=== PATIENT | male | born 1950 | race Caucasian/White ===

== ENCOUNTER → 2017-01-03 | Outpatient (CLI) | payer MEDICARE ==
[2017-01-03 15:48] LABS: ANION GAP 3 MEQ/L (8-16); BLOOD UREA NITROGEN 23 MG/DL (7-18); CALCIUM LEVEL 8.4 MG/DL (8.8-10.2); CARBON DIOXIDE LEVEL 34 MEQ/L (21-32); CHLORIDE LEVEL 104 MEQ/L (98-107); CREATININE FOR GFR 1.02 MG/DL (0.70-1.30); GLOMERULAR FILTRATION RATE > 60.0 (>49); GLUCOSE, FASTING 129 MG/DL (80-110); SODIUM LEVEL 141 MEQ/L (136-145)
[2017-01-03 15:59] LABS: COLLAGEN ADP 103 SECONDS (56-103)
== END ==
LOC: M LAB 14:30
PROVIDERS: ATTEND Ophthalmology
DX: H02.423 Myogenic ptosis of bilateral eyelids (principal)

== ENCOUNTER → 2017-02-06 | Outpatient (CLI) | payer MEDICARE ==
--- NOTE | 2017-02-08 16:07 | RADONC ---
RADIATION ONCOLOGY FOLLOWUP DATE: 02/06/2017 CHART NUMBER: [id number] DIAGNOSIS Prostate cancer. STAGE: II B, [id number] ECOG PERFORMANCE STATUS: 0. FOLLOWUP NOTE: Mr. Golden is a very pleasant 66-year-old white male with the diagnosis of what appears to be a stage II B, H0pRoMs poorly differentiated Matt score 9 (4-5) adenocarcinoma of prostate who is presenting to us today for routine followup visit 1 year and 3 months post completion of external beam radiation therapy. The patient presents today reporting that he is doing quite well with no complaints at this time related to his radiation therapy or disease. He is having no urinary bowel difficulties. No bone pain. REVIEW OF SYSTEMS: The patient's review of systems is positive for difficulty walking, getting around secondary to his excessive weight. Otherwise, generally noncontributory. Denies nausea, vomiting, fevers, chills, night sweats, diplopia, headaches, anxiety or depression, anorexia, weight loss, visual disturbances, chest pain, urinary or bowel difficulties, bone pain, or neurological problems. PHYSICAL EXAMINATION The patient is an obese, white male in no acute distress. HEENT: Normocephalic, atraumatic. External ocular movements are intact. There is no palpable cervical, supraclavicular, infraclavicular or axillary lymphadenopathy present. LUNGS: Clear to auscultation and percussion. HEART: Has regular rate and rhythm. ABDOMEN: Benign with no hepatosplenomegaly, masses or tenderness. RECTAL: Examination reveals a normal anal sphincter tone. His prostate is smooth with no evidence of nodularity. The remainder of his physical exam is unchanged. Mr. Golden is clinically TIAN at this time and will be seen by us again in 6 months for further followup. He will also continue to be followed by his other physicians as well. cc: MD Gina Park MD
== END ==
LOC: M ONCR 11:15
PROVIDERS: ATTEND Radiology Radiation Oncology
DX: C61 Malignant neoplasm of prostate (principal)
CPT/HCPCS: 36415; 84153; G0463

== ENCOUNTER → 2017-05-08 | Outpatient (CLI) | payer MEDICARE | LOC: M SMT 11:29 | DX: N50.89 Other specified disorders of the male genital organs (principal) | CPT/HCPCS: 76870 ==

== ENCOUNTER 2017-06-13 07:00 | Day surgery (SDC) | payer MEDICARE ==
[~2017-06-13 07:00] MED LIST: MIDAZOLAM INJ 2 MG/2 ML VIAL (J2250) As Ordered; PROPOFOL 200 MG/20 ML VIAL As Ordered; fentaNYL 100 MCG/2 ML INJECTION (J3010) As Ordered
[2017-06-13] MEDS ORDERED: GLYCOPYRROLATE INJ 0.2 MG/ML 2 ML VIAL As Ordered (07:13)
[2017-06-13] MEDS ORDERED: BACITRACIN OINT 30GM As Ordered (07:19)
[2017-06-13 07:42] LABS: INR 1.23; PROTHROMBIN TIME 15.7 SECONDS (12.4-14.5)
[2017-06-13] MEDS: LR 1,000 ML IV (08:10)
[2017-06-13] MEDS: CEFAZOLIN SOD 1 GM in APPROPRIATE DILUENT 1 EA IV (08:50)
[2017-06-13 09:06] LABS: BEDSIDE GLUCOSE 168 MG/DL (80-115)
[2017-06-13] MEDS ORDERED: PROPOFOL 200 MG/20 ML VIAL As Ordered (10:11)
[2017-06-13] MEDS: LIDOCAINE 2% MDV 20 ML VIAL As Ordered (10:36)
[2017-06-13] MEDS: BUPIVACAINE HCL 0.25% 30 ML VIAL As Ordered (10:36)
[2017-06-13] MEDS ORDERED: METOCLOPRAMIDE INJ 10MG/2ML VIAL (J2765) IV (11:45)
[2017-06-13] MEDS ORDERED: ONDANSETRON 4MG/2ML VIAL (J2405) IV (11:45)
[2017-06-13] MEDS ORDERED: PERCOCET 5MG/325MG TAB PO ×3 (11:45)
[2017-06-13] MEDS ORDERED: LR 1,000 ML IV (11:45)
[2017-06-13] MEDS ORDERED: fentaNYL 100 MCG/2 ML INJECTION (J3010) IV (11:45)
== END 2017-06-13 13:10 | disposition home or self-care (01) ==
LOC: M SDC 07:00
DX: N43.3 Hydrocele, unspecified (principal); I12.9 Hypertensive chronic kidney disease with stage 1 through stage 4 chronic kidney disease, or unspecified chronic kidney disease; E78.5 Hyperlipidemia, unspecified; R60.0 Localized edema; E11.22 Type 2 diabetes mellitus with diabetic chronic kidney disease; K21.9 Gastro-esophageal reflux disease without esophagitis; R06.02 Shortness of breath; M12.9 Arthropathy, unspecified; R06.83 Snoring; G47.33 Obstructive sleep apnea (adult) (pediatric); N18.2 Chronic kidney disease, stage 2 (mild); M1A.30X0 Chronic gout due to renal impairment, unspecified site, without tophus (tophi); R32 Unspecified urinary incontinence; N52.9 Male erectile dysfunction, unspecified; C61 Malignant neoplasm of prostate; Z79.899 Other long term (current) drug therapy; Z79.84 Long term (current) use of oral hypoglycemic drugs; Z79.01 Long term (current) use of anticoagulants; Z86.718 Personal history of other venous thrombosis and embolism; Z86.14 Personal history of Methicillin resistant Staphylococcus aureus infection; Z92.3 Personal history of irradiation
CPT/HCPCS: 55040

== ENCOUNTER → 2017-09-18 | Outpatient (CLI) | payer MEDICARE | LOC: M ONCR 15:17 | DX: C61 Malignant neoplasm of prostate (principal) ==

== ENCOUNTER → 2018-03-19 | Outpatient (CLI) | payer MEDICARE ==
[~2018-03-19] MED LIST changes: +ATOR40TA75 PO; +FEBU40TA PO; +FLOM0.4C39 PO; +GABA600T PO; +GLIM2TAB PO; +JANU100T PO; +LORA-243 PO; +LUPR45IN IM; +MAGN400T5 PO; +MAGN64TASA PO; +METO5TA PO; -MIDAZOLAM INJ 2 MG/2 ML VIAL (J2250) As Ordered; -PROPOFOL 200 MG/20 ML VIAL As Ordered; +TRUL0.5I SC; +ULOR80TA PO; +WARF-21 PO; +WARF-22 PO; -fentaNYL 100 MCG/2 ML INJECTION (J3010) As Ordered
== END ==
LOC: M ONCR 09:00
PROVIDERS: ATTEND Radiology Radiation Oncology
DX: C61 Malignant neoplasm of prostate (principal)

== ENCOUNTER 2018-03-20 05:39 | Day surgery (SDC) | payer MEDICARE ==
[2018-03-20 06:49] LABS: BEDSIDE GLUCOSE 173 MG/DL (83-110)
[2018-03-20] MEDS: TROPICAMIDE 1% OPHTH SOLN 2ML OD (06:54)
[2018-03-20] MEDS: PROPARACAINE 0.5% OPHTH SOL 15ML OD (06:55)
[2018-03-20] MEDS: OFLOXACIN 0.3 % (OCUFLOX) OPTH SOL 5ML OD (06:55)
[2018-03-20] MEDS: PHENYLEPHRINE 2.5% OPHTH SOL 2ML OD (06:55)
[2018-03-20] MEDS ORDERED: fentaNYL 100 MCG/2 ML INJECTION (J3010) As Ordered (07:15)
[2018-03-20] MEDS ORDERED: MIDAZOLAM INJ 2 MG/2 ML VIAL (J2250) As Ordered (07:15)
[2018-03-20] MEDS: POVIDONE-IODINE 5% OPHTH PREP SOL 30ML As Ordered (07:39)
[2018-03-20] MEDS: CEFUROXIME 1MG/0.1ML INTRACAMERAL INJ As Ordered (07:40)
[2018-03-20] MEDS: LIDOCAINE 0.75%/EPINEPHRINE 0.025% IN BSS 1ML SYR INTRACAMERAL (OR ONLY) As Ordered (07:40)
[2018-03-20] MEDS: DUOVISC (0.50ML VISCOAT/0.55ML PROVISC) OPHTH KIT As Ordered (07:40)
[2018-03-20] MEDS: BALANCED SALT IRRIGATION SOLUTION 500ML BAG (FOR OR EYE MACHINE) As Ordered (07:40)
== END 2018-03-20 08:20 | disposition home or self-care (01) ==
LOC: M SDC 05:39
DX: H25.11 Age-related nuclear cataract, right eye (principal); H21.561 Pupillary abnormality, right eye; E11.9 Type 2 diabetes mellitus without complications; I10 Essential (primary) hypertension; E78.5 Hyperlipidemia, unspecified; K21.9 Gastro-esophageal reflux disease without esophagitis; Z79.899 Other long term (current) drug therapy; Z79.01 Long term (current) use of anticoagulants; Z85.46 Personal history of malignant neoplasm of prostate; Z92.3 Personal history of irradiation
CPT/HCPCS: 66982

== ENCOUNTER → 2018-07-02 | Outpatient (CLI) | payer MEDICARE ==
[~2018-07-02] MED LIST changes: -GABA600T PO; +GABA600T4 PO
--- NOTE | 2018-07-03 06:43 | RADONC ---
RADIATION ONCOLOGY FOLLOW-UP NOTE DATE: 07/02/2018 CHART NUMBER: [id number] DIAGNOSIS: Prostate cancer. STAGE: IIB, [id number]. ECOG PERFORMANCE STATUS: 1 FOLLOW-UP NOTE: Mr. Golden is a 68-year-old white male with the diagnosis of a stage IIB, O3iTdXk, poorly differentiated, Matt score 9 (4-5) adenocarcinoma of prostate who is presenting to me today for a routine follow-up visit 2 years and 7 months post completion of external beam radiation therapy. The patient presents today reporting that he is doing quite well with no complaints at this time related to his radiation therapy or disease. He continues to have extreme excess weight and therefore difficulties with mobility. He uses a cane. REVIEW OF SYSTEMS: The patient's review of systems is positive for physical limitations and difficulty walking. He continues have excess weight and degenerative joint disease and arthritis. He denies nausea, vomiting, fevers, chills, night sweats, diplopia, headaches, anxiety or depression, anorexia, weight loss, visual disturbances, chest pain, urinary bowel difficulties or neurological problems. PHYSICAL EXAMINATION: The patient is excessively obese and therefore difficult to examine. HEENT: Exam is normocephalic, atraumatic. Extraocular movements are intact. There is no palpable cervical, supraclavicular, infraclavicular or axillary lymphadenopathy present. His lungs are clear to auscultation and percussion. Heart has regular rate and rhythm. His abdomen is quite large. Rectal examination reveals a normal anal sphincter tone. His prostate is smooth with no evidence of nodularity. Skeletal examination reveals no tenderness to pressure or percussion of the bony skeleton. ASSESSMENT: The patient is clinically TIAN at this time and is being followed and monitored closely by Dr. Burt, his urologist. He is also being followed by his other physicians. In light of this, I have discharged him from my follow-up except on a p.r.n. basis since I will be retiring shortly. cc: MD Gina Park MD
== END ==
LOC: M ONCR 14:10
PROVIDERS: ATTEND Radiology Radiation Oncology
DX: Z08 Encounter for follow-up examination after completed treatment for malignant neoplasm (principal); Z85.46 Personal history of malignant neoplasm of prostate; Z92.3 Personal history of irradiation

== ENCOUNTER → 2018-10-21 | Outpatient (REF) | payer MEDICARE ==
[2018-10-21 10:45] LABS: COLLAGEN EPINEPHRINE 183 SECONDS (74-162)
[2018-10-21 11:11] LABS: COLLAGEN ADP 123 SECONDS (56-103)
== END ==
LOC: M LAB REF 10:10
PROVIDERS: ATTEND Ophthalmology
DX: H02.432 Paralytic ptosis of left eyelid (principal); H02.831 Dermatochalasis of right upper eyelid; H02.834 Dermatochalasis of left upper eyelid

== ENCOUNTER → 2018-10-24 | Outpatient (CLI) | payer MEDICARE ==
[~2018-10-24] MED LIST changes: -FEBU40TA PO; +FEBU40TA4 PO
== END ==
LOC: M SMT 14:03
PROVIDERS: ATTEND Urology
DX: C61 Malignant neoplasm of prostate (principal)
CPT/HCPCS: 36415; 84153; G0463

== ENCOUNTER 2021-01-18 11:28 | Emergency (ER) | payer MEDICARE ==
[~2021-01-18] VITALS: Ht 177.8 cm; Wt 140.9 kg
[~2021-01-18 11:28] MED LIST changes: -GLIM2TAB PO; +GLIM2TAB4 PO
--- OUTSIDE RECORDS SUMMARY | 2021-01-18 11:37 | CCD | Continuity of Care Document ---
Author Author Shadi FREITAS PA Organization Unknown Address [address] [facility] [place] [address] Phone [phone] Care Team Providers Care Fabrics And Material Cutter Name Role Phone John Islas MD [facility] [phone] Problems Active Problems Provider Date Type 2 diabetes mellitus Onset: 01/06/20 15 Pure hypercholesterolemia Onset: 015 Essential hypertension Onset: 01/05/2015 Social History Type Date Description Comments Sex Unknown ETOH Use Occasionally consumes alcohol Tobacco Use Start: Unknown Denies Smoking Smoking Status Reviewed: 06/11/19 Denies Smoking Allergies, Adverse Reactions, Alerts Description No Known Drug Allergies Medications Active Medications SIG Qnty Indications Ordering Provide r Date Gel-One 30mg/3ML Prsy tammy knee 03/22/2020 klf/yolanda Malcolm Gallegos MD 0 Monovisc 88mg/4ML Soln Prefill Syr william tammy knee mkm/ms 02/05/18 Kay Matos MD 02/05 Tramadol HCL 50mg Tablets 1 every 4-6 hours as needed pain 60tabs Ryan Amaya MD 017 Amoxicillin/Clavulanate Potassium 875-125mg Tablets Unknown Metformin HCL ER 500mg Tablets ER 24HR Unknown Glimepiride 2mg Tablets Unknown Warfarin Sodium 10mg Tablets Unknown Doxycycline Hyclate 100mg Capsules Unknown Enoxaparin Sodium 80mg/0.8ML Solution Unknown Besivance 0.6% Suspension Unknown Prednisolone Acetate 1% Suspension Unknown Warfarin Sodium 7.5mg Tablets Unknown Warfarin Sodium 5mg Tablets Unknown Metformin HCL 500mg Tablets Unknown Januvia 100mg Tablets Unknown Gabapentin 600mg Tablets Unknown Amlodipine Besylate 5mg Tablets Unknown Tamsulosin HCL 0.4mg Capsules Unknown Fluzone High-Dose 0.5ml Luann Unknown Trulicity 1.5mg/0.5ML Solution Pen -Inject Unknown Labetalol HCL 100mg Tablets Unknown Finasteride 5mg Tablets Unknown Atorvastatin Calcium 40mg Tablets Unknown Potassium Tablets Unknown Janumet Tablets 1 by mout h twice a day Unknown Metformin HCL Tablets take two tablets by mouth twice a day Unknown Lipitor Tablets 1 by mouth e very Unknown Coumadin Tablets Unknown Atenolol Tablets 1 by archie th every day Unknown Furosemide Tablets 1 by mouth every day Unknown Immunizations Description No Information Available Vital Signs Date Vital Result Comment 02/04/2020 9:47am Body Temperature 97.1 F 09/11/2019 8:36am Body Temperature 98.6 F Height 70 inches 5'10" Weight 320.00 lb BMI (Body Mass Index) 45.9 kg/m2 Results Description No Information Available Procedures Date Code Description Status 11/03/2020 23484 Office/Outpatient Established Lo w MDM 20-29 Min Completed 11/03/202025573 Inject/Drain Joint/Bursa Major C ompleted 07/07/2020 42241 Inject/Drain Joint/Bursa Major C ompleted Medical Devices Description No Information Available Encounters Type Date Location Provider Dx Diagnosis Office Visit 11/03/2020 1:00p NapavineAUDREY Duran M17.0 Bilateral primary osteoarthritis of knee Office Visit 07/07/2020 8:30a Napavinetonja Palomares PA-C M17.0 Bilateral primary osteoarthritis of knee Assessments Date Code Description Provider 11/03/2020 M17.0 Bilateral primary osteoarthritis of knee AUDREY Rose 10/13/2020 M17.0 Bilateral primary osteoarthritis of knee Arelis Palomares PA-C 07/07/2020 M17.0 Bilateral primary osteoarthritis of knee Arelis Palomares PA-C Plan of Treatment 11/03/2020 - AUDREY Rose* M17.0 Bilateral primary osteoarthritis of knee * Follow up:* 12 weeks Tammy knee shanell with KLF. Functional Status Functional Condition Comment Date Status Hearing Aid, Right ear Active Mental Status Description No Information Available Referrals Description No Information Available
--- OUTSIDE RECORDS SUMMARY | 2021-01-18 11:37 | CCD | Continuity of Care Document ---
Author Author Shadi GUTIERREZ M.D. P.C . Organization Unknown Address [address] [place] [address] Phone [phone] Care Team Providers Care Orthopedic Brace Maker Name Role Phone Andry Collins AUTM [phone] JOHN ISLAS M.D. P.CChloé AUTM [phone] Social History Type Date Description Comments Sex Unknown Allergies and adverse reactions Description No Known Drug Allergies Medications Active Medications SIG Qnty Indications Ordering Provide r Date Lotrisone 1-0.05% Cream apply to affected area twice daily 45gm John Islas M.D[facility] 021 Viagra 50mg Tablets take 1 tablet by oral route as needed 1 hour prior to sexual activity 10tabs John Islas M.D[facility] 07/04/2020 Betamethasone Dipropionate 0.05% O intment apply topically to the neck twice daily 60units John xiong M.D.,P.[facility]. 06/30/2020 Irbesartan 75mg Tablets take 1 tablet by mouth once daily 90tabs John Islas M.D[facility] 020 Labetalol HCL 100mg Tablets take 1 tablet by mouth twice daily 180tabs John Islas M[facility] Loratadine 10mg Tablets take 1 tablet by mouth once daily 90tabs John Islas M[facility] 000 Mupirocin 2% Ointment Apply A Small Amount To Affected Area Once A Day Unknown Atorvastatin Calcium 40mg Tablets Take 1 tablet by mouth once daily 90tabs John Islas M[facility] Gabapentin 600mg Tablets Take 1 tablet by mouth twice daily 180tabs John Islas [facility]. Januvia 100mg Tablets take 1 tablet by mouth once daily 90tabs John Islas M.D[facility] 0 000 Metformin HCL 500mg Tablets take 2 tablets by mouth twice daily 360tabs John Islas [facility]. Tamsulosin HCL 0.4mg Capsules 2 caps by mouth every day 1/2 hour before meals 180caps John bowman M.D[facility] Febuxostat 40mg Tablets Take 1 Tablet By Mouth Once Daily Unknown Amlodipine Besylate 5mg Tablets Take 1 tablet by mouth once daily 90tabs John [facility]las [facility]. Finasteride 5mg Tablets take 1 tablet by mouth once daily 90tabs John [facility]las M[facility] 0 000 Furosemide 40mg Tablets take 1 tablet by mouth once daily 90tabs John Islas M[facility] 0 000 Glimepiride 1mg Tablets take 3 tablets by mouth with the first meal of the day and 3 tablets with dinner 540tabs John Islas M[facility] Warfarin Sodium 10mg Tablets take 1 tablet by mouth every day 90tabs John Islas M[facility] 0000 Trulicity 1.5mg/0.5ML Solution Pen -Inject inject 1.5 mg weekly 6ml John Islas M[facility] 0000 Medications Administered in Office Medication SIG Qnty Indications Ordering Provider Date Technetium TC 99M Sestamibi Injection John Islas M.D[facility] 02/07/2017 Vital Signs Date Vital Result Comment 12/29/2020 10:20am Height 69 inches 5'9" Weight 319.00 lb BMI (Body Mass Index) 47.1 kg/m2 Body Temperature 97.2 F BP Systolic 197 mmHg BP Diastolic 85 mmHg Heart Rate 68 /min O2 % BldC Oximetry 89 % 09/09/2020 10:12am Height 69 inches 5'9" Weight 320.00 lb BMI (Body Mass Index) 47.3 kg/m2 Body Temperature 97.3 F BP Systolic 159 mmHg BP Diastolic 81 mmHg Heart Rate 84 /min O2 % BldC Oximetry 92 % Results Test Acquired Date Facility Test Result H/L Range Note Protime 07/03/[address] [address] [phone] Protime 25.3 seconds High 11.0 - 15.5 Inr 2.18 High 0.93 - 1.23 1 CBC W/Automated Diff 07/03/[address] [address] [phone] CBC W/Automated Diff (SEE NOTE) 2 WBC 4.5 10^3/uL 4.2 - 11.0 RBC 4.12 10^6/uL Low 4.50 - 6.30 Hemoglobin 12.3 g/dL Low 14.0 - 16.0 Hematocrit 37.7 % Low 41.0 - 51.0 MCV 91.5 fL 80.0 - 94.0 MCH 29.9 pg 27.0 - 34.0 MCHC 32.6 g/dL 31.0 - 36.0 RDW 14.4 % 11.5 - 14.8 Platelets 167 10^3/uL 150 - 450 MPV 9.8 fL 7.4 - 10.4 Neut 68.8 % 37.0 - 80.0 Lymph 18.3 % Low 25.0 - 40.0 [place] 9.8 % High 3.0 - 8.0 Eos 2.5 % 0.0 - 7.0 Baso 0.4 % 0.0 - 2.0 %Ig 0.2 % High 0.0 - 0.0 %NRBC 0.0 % 0.0 - 0.0 #Neut 3.08 10^3/uL 2.00 - 6.90 #Lymph 0.82 10^3/uL 0.60 - 3.40 #[place] 0.44 10^3/uL 0.00 - 0.90 #Eos 0.11 10^3/uL 0.00 - 0.70 #Baso 0.02 10^3/uL 0.00 - 0.20 #Ig 0.01 10^3/uL 0.00 - 0.10 #NRBC 0.00 10^3/uL 0.00 - 0.00 Manual Diff NOT INDICATED RBC Morph NOT INDICATED Cve Panel 07/03/2020 [facility] [address] [place] [address] [phone] Cve Panel (SEE NOTE) 3 Cholesterol 196 mg/dL 131 - 200 Triglycerides 153 mg/dL 35 - 160 HDL 48 mg/dL 29 - 86 LDL 142 mg/dL 65 - 175 Risk Factor 4.1 3.4 - 4.9 LDL/HDL 2.96 1.00 - 3.55 4 Laboratory test finding 07/03/2020 [facility] [address] [place] [address] [phone] Hgba1c 10.7 % High 4.4 - 6.1 5 Comprehensive Metabolic Panel 07/03/2020 [facility] [address] [place] [address] [phone] Comprehensive Metabo (SEE NOTE) 6 Sodium 136 mEq/L 134 - 153 Potassium 4.7 mEq/L 3.6 - 5.0 Chloride 97 mEq/L Low 98 - 107 Co2 27 mEq/L 22 - 30 Glucose 311 mg/dL High 70 - 99 BUN 33 mg/dL High 7 - 21 Creatinine 1.2 mg/dL 0.7 - 1.5 BUN/Creat 28 High 8 - 27 Total Protein 6.6 g/dL 6.3 - 8.2 Albumin 3.8 g/dL Low 3.9 - 5.0 Globulin 2.8 GM/DL 2.4 - 3.2 A/G Ratio 1.4 0.8 - 2.0 Calcium 8.9 mg/dL 8.4 - 10.2 Total Bili <0.7 mg/dL 0.2 - 1.3 Alkaline Phos 81 U/L 38 - 126 Sgot/Ast 14 U/L 5 - 40 SGPT/Alt 14 U/L 7 - 56 Anion Gap 12.0 mmol/L 8.0 - 16.0 Age 70 yrs Non-Aa GFR >60 mL/min Afr Amer GFR >60 mL/min 7 Laboratory test finding 07/03/2020 [place] [address] [place] [address] [phone] PSA - Diagnostic 0.01 ng/mL 0.00 - 4.00 8 1 \\BLDo\\INR INTERPRETATION\\BLD x\\ Therapeutic range for Coumadin and related oral anticoagulants. -International Normalized Ratio (INR): 2 .0 - 3.0 for Venous Thrombosis, Pulmonary Embolus, Tissue heart valves, Acute [place], Atrial Fibrillation, Valvular heart disease and recurrent Systemic Embolism. -International Normalized Ratio (INR): 2 .5 - 3.5 for Mechanical Prosthetic valve. 2 COMPLETE BLOOD COUNT 3 LIPID PANEL 4 CVE RISK CHOL/HDL LDL/HDL MEN: 1/2 AVERAGE 3.43 1.00 AVERAGE 4.97 3.55 2X AVERAGE 9.55 6.25 3X AVERAGE 23.99 7.99 WOMEN: 1/2 AVERAGE 3.27 1.47 AVERAGE 4.44 3.22 2X AVERAGE 7.05 5.03 3X AVERAGE 11.04 6.14 5 {A1] {HB] 6 COMPREHENSIVE METABOLIC PANE L 7 Male GFR Interprentation 20-49 yrs >60 mL/min Normal 50-59 yrs >56 mL/min Normal 60-69 yrs >49 mL/min Normal 70-79yrs >42 mL/min Normal 80 and above >35 mL/min Normal Female GFR Interpretation 20-39 yrs >60 mL/min Normal 40-49 yrs >58 mL/min Normal 50-59 yrs >51 mL/min Normal 60-69 yrs >45 mL/min Normal 70-79 yrs >39 mL/min Normal 80 and above >32 mL/min Normal 8 \\BLDo\\PSA INTERPRETATION\\BLD x\\ The PSA assay should not be used alone for a screening test or diagnosis for presence or absence of malignant disease. Predictions of disease recurrence should not be based solely on values obtained from serial patient serum values. The PSA result was determined by "[employer]", on the [employer] HER[employer]N 6000. Values obtained with different assay methods or kits cannot be used interchangeably. Procedures Date Code Description Status 11/01/2020 48568 Periodic Preventive Med Age 65+ Completed 09/09/2020 28818 Office/Outpatient Established Mo d MDM 30-39 Min Completed 07/04/2020 21251 Office/Outpatient Established Mo d MDM 30-39 Min Completed Encounters Type Date Location Provider Dx Diagnosis Office Visit 11/01/2020 10:30a [facility] AUDREY Ang Z02.4 Encounter for examination fo r driving license Office Visit 09/09/2020 10:30a [facility] John Islas M.D.,P. C. I11.9 Hypertensive heart disease without heart failure R09.02 Hypoxemia J44.9 Chronic obstructive pulmonar y disease, unspecified E11.9 Type 2 diabetes mellitus wit hout complications Office Visit 07/04/2020 4:00p [facility] John Islas M.D.,P. C. J20.9 Acute bronchitis, unspecified I11.9 Hypertensive heart disease w ithout heart failure K44.9 Diaphragmatic hernia without obstruction or gangrene M75.52 Bursitis of left shoulder Assessments Date Code Description Provider 11/01/2020 Z02.4 Encounter for examination for dr iving license AUDREY Borrego 09/09/2020 I11.9 Hypertensive heart disease witho ut heart failure John Islas M.D.,[facility]. 09/09/2020 R09.02 Hypoxemia Gena Gutierrez,P.C. 09/09/2020 J44.9 Chronic obstructive pulmonary di sease, unspecified John Islas M.D.,P.C. 09/09/2020 E11.9 Type 2 diabetes mellitus without complications John Islas M.D.,[facility]. 07/04/2020 J20.9 Acute bronchitis, unspecified Mi jim Islas M.D.,P.C. 07/04/2020 I11.9 Hypertensive heart disease witho ut heart failure John Islas M.D.,P.C. 07/04/2020 K44.9 Diaphragmatic hernia without obs truction or gangrene John Islas M.D.,P.C. 07/04/2020 M75.52 Bursitis of left shoulder John Islas M.D.,P.C.
--- OUTSIDE RECORDS SUMMARY | 2021-01-18 11:37 | CCD | Continuity of Care Document ---
Author Author Shadi GUTIERREZ M.D. P.C . Organization Unknown Address [address] [place] [address] Phone [phone] Care Team Providers Care Tdp Displays Analyst Name Role Phone Andry Collins AUTM [phone] JOHN ISLAS M.D. P.C. AUTM [phone] Social History Type Date Description Comments Sex [...] Date Facility Test Result H/L Range Note CBC W/Automated Diff 12/29/[address] [id number] [phone] CBC W/Automated Diff (SEE NOTE) 1 WBC 5.0 10^3/uL 4.2 - 11.0 RBC 4.23 10^6/uL Low 4.50 - 6.30 Hemoglobin 12.0 g/dL Low 14.0 - 16.0 Hematocrit 37.5 % Low 41.0 - 51.0 MCV 88.7 fL 80.0 - 94.0 MCH 28.4 pg 27.0 - 34.0 MCHC 32.0 g/dL 31.0 - 36.0 RDW 14.2 % 11.5 - 14.8 Platelets 173 10^3/uL 150 - 450 MPV 8.8 fL 7.4 - 10.4 Neut 73.2 % 37.0 - 80.0 Lymph 13.9 % Low 25.0 - 40.0 [place] 10.1 % High 3.0 - 8.0 Eos 1.8 % 0.0 - 7.0 Baso 0.4 % 0.0 - 2.0 %Ig 0.6 % High 0.0 - 0.0 %NRBC 0.0 % 0.0 - 0.0 #Neut 3.63 10^3/uL 2.00 - 6.90 #Lymph 0.69 10^3/uL 0.60 - 3.40 #[place] 0.50 10^3/uL 0.00 - 0.90 #Eos 0.09 10^3/uL 0.00 - 0.70 #Baso 0.02 10^3/uL 0.00 - 0.20 #Ig 0.03 10^3/uL 0.00 - 0.10 #NRBC 0.00 10^3/uL 0.00 - 0.00 Manual Diff NOT INDICATED RBC Morph NOT INDICATED Urinalysis 12/29/[address] [address] [phone] Urinalysis (SEE NOTE) 2 Source R Color yellow Normal: Yellow Clarity clear Normal: Clear Spec [place] 1.015 1.001 - 1.030 pH 5 5 - 9 Glucose NORM Normal: Negative Bilirubin NEG Normal: Negative Ketone NEG Normal: Negative Protein NEG Normal: Negative Nitrite NEG Normal: Negative Blood 25 Abnormal Normal: Negative Leuk Est NEG Normal: Negative Urobilinogen NOR less than 1.0 mg/dL Microscopic See Below WBC 1 - 3 Normal: None Seen RBC None Seen Normal: None Seen Epithelial FEW Normal: None Seen Bacteria None Seen Normal: None Seen Laboratory test finding 12/29/[address] [address] [phone] Hgba1c 10.3 % High 4.4 - 6.1 Magnesium Serum 1.7 mg/dL 1.7 - 2.2 Cve Panel 12/29/[address] [address] [phone] Cve Panel (SEE NOTE) 3 Cholesterol 154 mg/dL 131 - 200 Triglycerides 115 mg/dL 35 - 160 HDL 48 mg/dL 29 - 86 LDL 91 mg/dL 65 - 175 Risk Factor 3.2 Low 3.4 - 4.9 LDL/HDL 1.90 1.00 - 3.55 4 Comprehensive Metabolic Panel 12/29/2020 [facility] [address] [place] [address] [phone] Comprehensive Metabo (SEE NOTE) 5 Sodium 137 mEq/L 134 - 153 Potassium 4.6 mEq/L 3.6 - 5.0 Chloride 100 mEq/L 98 - 107 Co2 26 mEq/L 22 - 30 Glucose 183 mg/dL High 70 - 99 BUN 18 mg/dL 7 - 21 Creatinine 1.0 mg/dL 0.7 - 1.5 BUN/Creat 18 8 - 27 Total Protein 6.7 g/dL 6.3 - 8.2 Albumin 3.9 g/dL 3.9 - 5.0 Globulin 2.8 GM/DL 2.4 - 3.2 A/G Ratio 1.4 0.8 - 2.0 Calcium 9.1 mg/dL 8.4 - 10.2 Total Bili <0.7 mg/dL 0.2 - 1.3 Alkaline Phos 90 U/L 38 - 126 Sgot/Ast 16 U/L 5 - 40 SGPT/Alt 14 U/L 7 - 56 Anion Gap 11.0 mmol/L 8.0 - 16.0 Age 70 yrs Non-Aa GFR >60 mL/min Afr Amer GFR >60 mL/min 6 Laboratory test finding 12/29/[address] [id number] [phone] Iron 38 g/dL Low 42 - 135 TSH Highly Sensitive 1.39 uIU/mL 0.47 - 5.01 Protime 12/29/[address] [address] [phone] Protime 21.2 seconds High 11.0 - 15.5 Inr 1.81 High 0.93 - 1.23 7 1 COMPLETE BLOOD COUNT 2 URINALYSIS 3 LIPID PANEL 4 CVE RISK CHOL/HDL LDL/HDL MEN: 1/2 AVERAGE 3.43 1.00 AVERAGE 4.97 3.55 2X AVERAGE 9.55 6.25 3X AVERAGE 23.99 7.99 WOMEN: 1/2 AVERAGE 3.27 1.47 AVERAGE 4.44 3.22 2X AVERAGE 7.05 5.03 3X AVERAGE 11.04 6.14 5 COMPREHENSIVE METABOLIC PANE L 6 Male GFR Interprentation 20-49 yrs >60 mL/min Normal 50-59 yrs >56 mL/min Normal 60-69 yrs >49 mL/min Normal 70-79yrs >42 mL/min Normal 80 and above >35 mL/min Normal Female GFR Interpretation 20-39 yrs >60 mL/min Normal 40-49 yrs >58 mL/min Normal 50-59 yrs >51 mL/min Normal 60-69 yrs >45 mL/min Normal 70-79 yrs >39 mL/min Normal 80 and above >32 mL/min Normal 7 \\BLDo\\INR INTERPRETATION\\BLD x\\ Therapeutic range for Coumadin and related oral anticoagulants. -International Normalized Ratio (INR): 2 .0 - 3.0 for Venous Thrombosis, Pulmonary Embolus, Tissue heart valves, Acute [place], Atrial Fibrillation, Valvular heart disease and recurrent Systemic Embolism. -International Normalized Ratio (INR): 2 .5 - 3.5 for Mechanical Prosthetic valve. Procedures Date Code Description Status 12/29/2020 93319 Office/Outpatient Established Mo d MDM 30-39 Min Completed 11/01/2020 98369 Periodic Preventive Med Age 65+ Completed 09/09/2020 04731 Office/Outpatient Established Mo d MDM 30-39 Min Completed Encounters Type Date Location Provider Dx Diagnosis Office Visit 12/29/2020 10:30a [facility] John Islas M.D.,P. C. I11.9 Hypertensive heart disease without heart failure E10.9 Type 1 diabetes mellitus wit hout complications Office Visit 11/01/2020 10:30a [facility] AUDREY Ang Z02.4 Encounter for examination fo r driving license Office Visit 09/09/2020 10:30a [facility] John Islas M.D.,P. C. I11.9 Hypertensive heart disease without heart failure R09.02 Hypoxemia J44.9 Chronic obstructive pulmonar y disease, unspecified E11.9 Type 2 diabetes mellitus wit hout complications Assessments Date Code Description Provider 12/29/2020 I11.9 Hypertensive heart disease witho ut heart failure John Islas M.D.,[facility]. 12/29/2020 E10.9 Type 1 diabetes mellitus without complications John Islas M.D.,P.C. 11/01/2020 Z02.4 Encounter for examination for dr iving license AUDREY Borrego 09/09/2020 I11.9 Hypertensive heart disease witho ut heart failure John Islas M.D[facility]. 09/09/2020 R09.02 Hypoxemia Gena Gutierrez,P.C. 09/09/2020 J44.9 Chronic obstructive pulmonary di sease, unspecified John Islas M.D.,P.C. 09/09/2020 E11.9 Type 2 diabetes mellitus without complications John Islas M.D.,P.C.
--- OUTSIDE RECORDS SUMMARY | 2021-01-18 11:37 | CCD | Continuity of Care Document ---
Author Author Shadi IRELAND Organization Unknown Address [address] [facility] [address] [place] [address] Phone [phone] Care Team Providers Care Screedman/Laborer Name Role Phone Andry Collins AUTM [phone] JOHN [facility]LAS [facility] [phone] Social History Type Date Description Comments Sex Unknown Allergies, Adverse Reactions, Alerts Description No Known Drug Allergies Medications Active Medications SIG Qnty Indications Ordering Provide r Date Lotrisone 1-0.05% Cream apply to affected area twice daily 45gm [facility] 2020 Viagra 50mg Tablets take 1 tablet by oral route as needed 1 hour prior to sexual activity 10tabs [facility] 07/04/2020 Betamethasone Dipropionate 0.05% O intment apply topically to the neck twice daily 60units John xiong [facility] 06/30/2020 Irbesartan 75mg Tablets Take 1 tablet by mouth once daily 90tabs [facility] 2019 Labetalol HCL 100mg Tablets take 1 tablet by mouth twice daily 180tabs [facility] Loratadine 10mg Tablets take 1 tablet by mouth once daily 90tabs [facility] Mupirocin 2% Ointment Apply A Small Amount To Affected Area Once A Day Unknown Atorvastatin Calcium 40mg Tablets take 1 tablet by mouth once daily at bedtime 90tabs John bowman [facility] Gabapentin 600mg Tablets Take 1 Tablet By Mouth Twice Daily Unknown Januvia 100mg Tablets Take 1 tablet by mouth once daily 90tabs [facility]. Metformin HCL 500mg Tablets Take 2 tablets by mouth twice daily 360tabs [facility]. Tamsulosin HCL 0.4mg Capsules 2 caps by mouth every day 1/2 hr before meals 180caps [facility] Febuxostat 40mg Tablets Take 1 Tablet By Mouth Once Daily Unknown Amlodipine Besylate 5mg Tablets Take 1 tablet by mouth once daily 90tabs [facility]. Finasteride 5mg Tablets Take 1 tablet by mouth once daily 90tabs [facility]. Furosemide 40mg Tablets Take 1 tablet by mouth once daily 90tabs [facility] Glimepiride 1mg Tablets take 3 tablets by mouth with the first meal of the day and 3 tablets with dinner 540tabs [facility] Warfarin Sodium 10mg Tablets take 1 tablet by mouth every day 90tabs [facility] Trulicity 1.5mg/0.5ML Solution Pen -Inject [facility] Medications Administered in Office Medication SIG Qnty Indications Ordering Provider Date Technetium TC 99M Sestamibi Injection John [facility] 02/07/2017 Vital Signs Date Vital Result Comment 09/09/2020 10:12am Height 69 inches 5'9" Weight 320.00 lb BMI (Body Mass Index) 47.3 kg/m2 Body Temperature 97.3 F BP Systolic 159 mmHg BP Diastolic 81 mmHg Heart Rate 84 /min O2 % BldC Oximetry 92 % 07/04/2020 4:25pm Height 69 inches 5'9" Weight 321.00 lb BMI (Body Mass Index) 47.4 kg/m2 Body Temperature 97.7 F BP Systolic 189 mmHg BP Diastolic 76 mmHg Heart Rate 85 /min O2 % BldC Oximetry 94 % Results Test Acquired Date Facility Test Result H/L Range Note Protime 07/03/[address] [address] [phone] Protime 25.3 seconds High 11.0 - 15.5 Inr 2.18 High 0.93 - 1.23 1 CBC W/Automated Diff 07/03/[address] [address] [phone] CBC W/Automated Diff (SEE NOTE) 2 WBC [...] Lymph 18.3 % Low 25.0 - 40.0 [place] 9.8 % High 3.0 - 8.0 Eos 2.5 % 0.0 - 7.0 Baso 0.4 % 0.0 - 2.0 %Ig 0.2 % High 0.0 - 0.0 %NRBC 0.0 % 0.0 - 0.0 #Neut 3.08 10^3/uL 2.00 - 6.90 #Lymph 0.82 10^3/uL 0.60 - 3.40 #[place] 0.44 10^3/uL 0.00 - 0.90 #Eos 0.11 10^3/uL 0.00 - 0.70 #Baso 0.02 10^3/uL 0.00 - 0.20 #Ig 0.01 10^3/uL 0.00 - 0.10 #NRBC 0.00 10^3/uL 0.00 - 0.00 Manual Diff NOT INDICATED RBC Morph NOT INDICATED Cve Panel 07/03/2020 [place] [address] [phone] Cve Panel (SEE NOTE) 3 Cholesterol 196 mg/dL 131 - 200 Triglycerides 153 mg/dL 35 - 160 HDL 48 mg/dL 29 - 86 LDL 142 mg/dL 65 - 175 Risk Factor 4.1 3.4 - 4.9 LDL/HDL 2.96 1.00 - 3.55 4 Laboratory test finding 07/03/[address] [address] [phone] Hgba1c 10.7 % High 4.4 - 6.1 5 Comprehensive Metabolic Panel 07/03/2020 [facility] [address] [place] [address] [phone] Comprehensive Metabo (SEE NOTE) 6 Sodium 136 [...] >60 mL/min 7 Laboratory test finding 07/03/2020 [place] [address] [phone] PSA - Diagnostic 0.01 ng/mL 0.00 - 4.00 8 1 \\BLDo\\INR INTERPRETATION\\BLD x\\ Therapeutic range for Coumadin and related oral anticoagulants. -International Normalized Ratio (INR): 2 .0 - 3.0 for Venous Thrombosis, Pulmonary Embolus, Tissue heart valves, Acute MT, Atrial Fibrillation, Valvular heart disease and recurrent [...] result was determined by "[employer]", on the [employer] HERNAN 6000. Values obtained with different assay methods or kits cannot be used interchangeably. Procedures Date Code Description Status 11/01/2020 28178 Periodic Preventive Med Age 65+ Completed 09/09/2020 24046 Office/Outpatient Established Mo d MDM 30-39 Min Completed 07/04/2020 13832 Office/Outpatient Established Mo d MDM 30-39 Min Completed Encounters Type Date Location Provider Dx Diagnosis Office Visit 11/01/2020 10:30a [facility] AUDREY Ang Z02.4 Encounter for examination fo r driving license Office Visit 09/09/2020 10:30a [facility] John Islas M[facility] I11.9 Hypertensive heart disease without heart failure R09.02 Hypoxemia J44.9 Chronic obstructive pulmonar y disease, unspecified E11.9 Type 2 diabetes mellitus wit hout complications Office Visit 07/04/2020 4:00p [facility] John Islas [facility] J20.9 Acute bronchitis, unspecified I11.9 [facility] K[facility]9 Diaphragmatic hernia without obstruction or gangrene M75.52 Bursitis of left shoulder Assessments Date Code Description Provider 11/01/2020 Z02.4 Encounter for examination for dr mao license AUDREY Borrego 09/09/2020 I11.9 Hypertensive heart disease witho ut heart failure John [facility]las [facility] 09/09/2020 R09.02 Hypoxemia Gena Haas, [facility] 09/09/2020 J44.9 Chronic obstructive pulmonary di sease, unspecified John [facility]las [facility] 09/09/2020 E11.9 Type 2 diabetes mellitus without complications John [facility]las [facility] 07/04/2020 J20.9 Acute bronchitis, unspecified Mi jim Islas M.D[facility] 07/04/2020 I11.9 Hypertensive heart disease witho ut heart failure John [facility]las [facility] 07/04/2020 K44.9 Diaphragmatic hernia without obs truction or gangrene John [facility]las [facility] 07/04/2020 M75.52 Bursitis of left shoulder John [facility]las [facility]
--- OUTSIDE RECORDS SUMMARY | 2021-01-18 11:37 | CCD | Continuity of Care Document ---
Author Author Shadi GUTIERREZ M.D. P.C . Organization Unknown Address [address] [place] [address] Phone [phone] Care Team Providers Care Stripper Apprentice Name Role Phone Andry Collins AUTM [phone] JOHN ISLAS M[facility] AUTM [phone] Social History Type Date Description Comments Sex [...] H/L Range Note CBC W/Automated Diff 12/29/[address] [phone] CBC W/Automated Diff (SEE NOTE) 1 WBC [...] Lymph 13.9 % Low 25.0 - 40.0 [place] 10.1 % High 3.0 - 8.0 Eos 1.8 % 0.0 - 7.0 Baso 0.4 % 0.0 - 2.0 %Ig 0.6 % High 0.0 - 0.0 %NRBC 0.0 % 0.0 - 0.0 #Neut 3.63 10^3/uL 2.00 - 6.90 #Lymph 0.69 10^3/uL 0.60 - 3.40 #[place] 0.50 10^3/uL 0.00 - 0.90 #Eos 0.09 10^3/uL 0.00 - 0.70 #Baso 0.02 10^3/uL 0.00 - 0.20 #Ig 0.03 10^3/uL 0.00 - 0.10 #NRBC 0.00 10^3/uL 0.00 - 0.00 Manual Diff NOT INDICATED RBC Morph NOT INDICATED Urinalysis 12/29/[address] [address] [phone] Urinalysis (SEE NOTE) 2 Source R Color yellow Normal: Yellow Clarity clear Normal: Clear Spec [place] 1.015 1.001 - 1.030 pH 5 5 [...] Normal: None Seen Laboratory test finding 12/29/[address] [address] [phone] Hgba1c 10.3 % High 4.4 - 6.1 Magnesium Serum 1.7 mg/dL 1.7 - 2.2 Cve Panel 12/29/[address] [address] [phone] Cve Panel (SEE NOTE) 3 Cholesterol 154 mg/dL 131 - 200 Triglycerides 115 mg/dL 35 - 160 HDL 48 mg/dL 29 - 86 LDL 91 mg/dL 65 - 175 Risk Factor 3.2 Low 3.4 - 4.9 LDL/HDL 1.90 1.00 - 3.55 4 Comprehensive Metabolic Panel 12/29/2020 [facility] [address] [place] [address] [phone] Comprehensive Metabo (SEE NOTE) 5 Sodium 137 [...] >60 mL/min 6 Laboratory test finding 12/29/[address] [id number] [phone] Iron 38 g/dL Low 42 - 135 TSH Highly Sensitive 1.39 uIU/mL 0.47 - 5.01 Protime 12/29/[address] [address] [phone] Protime 21.2 seconds High 11.0 - 15.5 [...] Thrombosis, Pulmonary Embolus, Tissue heart valves, Acute [place], Atrial Fibrillation, Valvular heart disease and recurrent Systemic Embolism. -International Normalized Ratio (INR): 2 .5 - 3.5 for Mechanical Prosthetic valve. Procedures Date Code Description Status 12/29/2020 19960 Office/Outpatient Established Mo d MDM 30-39 Min Completed 11/01/2020 59020 Periodic Preventive Med Age 65+ Completed 09/09/2020 47799 Office/Outpatient Established Mo d MDM 30-39 Min Completed 07/04/2020 60290 Office/Outpatient Established Mo d MDM 30-39 Min Completed Encounters Type Date Location Provider Dx Diagnosis Office Visit 12/29/2020 10:30a [facility] John Islas M.D[facility] I11.9 Hypertensive heart disease without heart failure E10.9 Type 1 diabetes mellitus wit hout complications Office Visit 11/01/2020 10:30a [facility] AUDREY Ang Z02.4 Encounter for examination fo r driving license Office Visit 09/09/2020 10:30a [facility] John Islas M.D[facility] I11.9 Hypertensive heart disease without heart failure R09.02 Hypoxemia J44.9 Chronic obstructive pulmonar y disease, unspecified E11.9 Type 2 diabetes mellitus wit hout complications Office Visit 07/04/2020 4:00p [facility] John Islas M.D[facility] J20.9 Acute bronchitis, unspecified I11.9 [facility] K[facility].9 Diaphragmatic hernia without obstruction or gangrene M75.52 Bursitis of left shoulder Assessments Date Code Description Provider 12/29/2020 I11.9 Hypertensive heart disease witho ak heart failure John [facility]las [facility] 12/29/2020 E10.9 [...]
--- OUTSIDE RECORDS SUMMARY | 2021-01-18 11:37 | CCD | Continuity of Care Document ---
Author Author Shadi FREITAS PA Organization Unknown Address [address] [facility] [place] [address] Phone [phone] Care Team Providers Care Data Entry Assistant Name Role Phone John Islas MD [facility] [phone] Problems Active Problems Provider Date Type 2 [...] Available Procedures Date Code Description Status 11/03/2020 98112 Office/Outpatient Established Lo w MDM 20-29 Min Completed 11/03/202066063 Inject/Drain Joint/Bursa Major C ompleted 07/07/2020 69391 Inject/Drain Joint/Bursa Major C ompleted Medical Devices Description No Information Available Encounters Type Date Location Provider Dx Diagnosis Office Visit 11/03/2020 [facility]p [facility] M17.0 Bilateral primary osteoarthritis of knee Office Visit 07/07/2020 8:30a [facility] PA-C M17.0 Bilateral primary osteoarthritis of [...]
--- OUTSIDE RECORDS SUMMARY | 2021-01-18 11:38 | CCD ---
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 Role Phone Alexia Palomares [facility], PA-C Unavailable [facility]avail[facility] Un[facility] Unavailable [facility]avail[facility] e [facility] Un[facility] Unavailable [facility]avail[facility] Unavailable [facility]avail[facility] e [facility] Unavailable Unavailabl e [facility] Unavailable Unavailabl e [facility] Unavailable [facility]ail[facility] e [facility] Unavailable [facility]availabl e [facility] Unavailable Unavailabl e [facility] Unavailable Unavailabl e Fish, [facility], PA-C Unavailable Unavailabl e Fish, [facility], PA-C Unavailable Unavailabl e Fish, [facility], PA-C Unavailable Unavailabl e Fish, [facility], PA-C Unavailable Unavailabl e Fish, [facility], PA-C Unavailable Unavailabl e Fish, [facility], PA-C Unavailable Unavailabl e Fish, [facility], PA-C Unavailable Unavailabl e Fish, [facility], PA-C Unavailable Unavailabl e Fish, [facility], PA-C Unavailable Unavailabl e Fish, [facility], PA-C Unavailable Unavailabl e Fish, [facility], PA-C Unavailable Unavailabl e Fish, [facility], PA-C Unavailable Unavailabl e Fish, [facility], PA-C Unavailable Unavailabl e Fish, [facility], PA-C Unavailable Unavailabl e Fish, [facility], PA-C Unavailable Unavailabl e Fish, [facility], PA-C Unavailable Unavailabl e Fish, [facility], PA-C Unavailable Unavailabl e Fish, [facility], PA-C Unavailable Unavailabl e Fish, [facility], PA-C Unavailable Unavailabl e Fish, [facility], PA-C Unavailable Unavailabl e Fish, [facility], PA-C Unavailable Unavailabl e Fish, [facility], PA-C Unavailable Unavailabl e Fish, [facility], PA-C Unavailable Unavailabl e Doremus, E Chelsie PA Unavailable Unavailable Doremus, E Chelsie PA Unavailable Unavailable Doremus, E Chelsie PA Unavailable Unavailable Doremus, E Chelsie PA Unavailable Unavailable Doremus, E Chelsie PA Unavailable Unavailable Doremus, E Chelsie PA Unavailable Unavailable Doremus, E Chelsie PA Unavailable Unavailable Doremus, E Chelsie PA Unavailable Unavailable Doremus, E Chelsie PA Unavailable Unavailable Doremus, E Chelsie PA Unavailable Unavailable Doremus, E Chelsie PA Unavailable Unavailable Doremus, E Chelsie PA Unavailable Unavailable Doremus, E Chelsie PA Unavailable Unavailable Doremus, E Chelsie PA Unavailable Unavailable Doremus, E Chelsie PA Unavailable Unavailable Doremus, E Chelsie PA Unavailable Unavailable Doremus, E Chelsie PA Unavailable Unavailable Doremus, E Chelsie PA Unavailable Unavailable Doremus, E Chelsie PA Unavailable Unavailable NISSA, MAQBOOL MONA MD Unavailable Unavailable NISSA, MAQBOOL MONA MD Unavailable Unavailable NISSA, MAQBOOL MONA MD Unavailable Unavailable NISSA, MAQBOOL MONA MD Unavailable Unavailable NISSA, MAQBOOL MONA MD Unavailable Unavailable NISSA, MAQBOOL MONA MD Unavailable Unavailable NISSA, MAQBOOL MONA MD Unavailable Unavailable NISSA, MAQBOOL MONA MD Unavailable Unavailable NISSA, MAQBOOL MONA MD Unavailable Unavailable NISSA, MAQBOOL MONA MD Unavailable Unavailable NISSA, MAQBOOL MONA MD Unavailable Unavailable NISSA, MAQBOOL MONA MD Unavailable Unavailable NISSA, MAQBOOL MONA MD Unavailable Unavailable NISSA, MAQBOOL MONA MD Unavailable Unavailable NISSA, MAQBOOL MONA MD Unavailable Unavailable NISSA, MAQBOOL MONA MD Unavailable Unavailable NISSA, MAQBOOL MONA MD Unavailable Unavailable NISAS, MAQBOOL MONA MD Unavailable Unavailable NISSA, MAQBOOL MONA MD Unavailable Unavailable NISSA, MAQBOOL MONA MD Unavailable Unavailable NISSA, MAQBOOL MONA MD Unavailable Unavailable NISSA, MAQBOOL MONA MD Unavailable Unavailable NISSA, MAQBOOL MONA MD Unavailable Unavailable NISSA, MAQBOOL MONA MD Unavailable Unavailable NISSA, MAQBOOL MONA MD Unavailable Unavailable NISSA, MAQBOOL MONA MD Unavailable Unavailable NISSA, MAQBOOL MONA MD Unavailable Unavailable NISSA, MAQBOOL MONA MD Unavailable Unavailable NISSA, MAQBOOL MONA MD Unavailable Unavailable NISSA, MAQBOOL MONA MD Unavailable Unavailable NISSA, MAQBOOL MONA MD Unavailable Unavailable NISSA, MAQBOOL MONA MD Unavailable Unavailable NISSA, MAQBOOL MONA MD Unavailable Unavailable NISSA, MAQBOOL MONA MD Unavailable Unavailable NISSA, MAQBOOL MONA MD Unavailable Unavailable NISSA, MAQBOOL MONA MD Unavailable Unavailable NISSA, MAQBOOL MONA MD Unavailable Unavailable NISSA, MAQBOOL MONA MD Unavailable Unavailable NISSA, MAQBOOL MONA MD Unavailable Unavailable NISSA, MAQBOOL MONA MD Unavailable Unavailable NISSA, MAQBOOL MONA MD Unavailable Unavailable NISSA, MAQBOOL MONA MD Unavailable Unavailable NISSA, MAQBOOL MONA MD Unavailable Unavailable NISSA, MAQBOOL MONA MD Unavailable Unavailable NISSA, MAQBOOL MONA MD Unavailable Unavailable NISSA, MAQBOOL MONA MD Unavailable Unavailable NISSA, MAQBOOL MONA MD Unavailable Unavailable NISSA, MAQBOOL MONA MD Unavailable Unavailable NISSA, MAQBOOL MONA MD Unavailable Unavailable NISSA, MAQBOOL MONA MD Unavailable Unavailable NISSA, MAQBOOL MONA MD Unavailable Unavailable NISSA, MAQBOOL MONA MD Unavailable Unavailable NISSA, MAQBOOL MONA MD Unavailable Unavailable NISSA, MAQBOOL MONA MD Unavailable Unavailable NISSA, MAQBOOL MONA MD Unavailable Unavailable NISSA, MAQBOOL MONA MD Unavailable Unavailable NISSA, MAQBOOL MONA MD Unavailable Unavailable NISSA, MAQBOOL MONA MD Unavailable Unavailable NISSA, MAQBOOL MONA MD Unavailable Unavailable NISSA, MAQBOOL MONA MD Unavailable Unavailable NISSA, MAQBOOL MONA MD Unavailable Unavailable NISSA, MAQBOOL MONA MD Unavailable Unavailable NISSA, MAQBOOL MONA MD Unavailable Unavailable NISSA, MAQBOOL MONA MD Unavailable Unavailable NISSA, MAQBOOL MONA MD Unavailable Unavailable NISSA, MAQBOOL MONA MD Unavailable Unavailable NISSA, MAQBOOL MONA MD Unavailable Unavailable NISSA, MAQBOOL MONA MD Unavailable Unavailable NISSA, MAQBOOL MONA MD Unavailable Unavailable NISSA, MAQBOOL MONA MD Unavailable Unavailable NISSA, MAQBOOL MNOA MD Unavailable Unavailable NISSA, MAQBOOL MONA MD Unavailable Unavailable NISSA, MAQBOOL MONA MD Unavailable Unavailable NISSA, MAQBOOL MONA MD Unavailable Unavailable NISSA, MAQBOOL MONA MD Unavailable Unavailable NISSA, MAQBOOL MONA MD Unavailable Unavailable NISSA, MAQBOOL MONA MD Unavailable Unavailable NISSA, MAQBOOL MONA MD Unavailable Unavailable DRAZEK, I HENRIQUE PA Unavailable Unavailable DRAZEK, I HENRIQUE PA Unavailable Unavailable DRAZEK, I HENRIQUE PA Unavailable Unavailable DRAZEK, I HENRIQUE PA Unavailable Unavailable DRAZEK, I HENRIQUE PA Unavailable Unavailable DRAZEK, I HENRIQUE PA Unavailable Unavailable DRAZEK, I HENRIQUE PA Unavailable Unavailable DRAZEK, I HENRIQUE PA Unavailable Unavailable DRAZEK, I HENRIQUE PA Unavailable Unavailable DRAZEK, I HENRIQUE PA Unavailable Unavailable DRAZEK, I HENRIQUE PA Unavailable Unavailable DRAZEK, I HENRIQUE PA Unavailable Unavailable DRAZEK, I HENRIQUE PA Unavailable Unavailable DRAZEK, I HENRIQUE PA Unavailable Unavailable DRAZEK, I HENRIQUE PA Unavailable Unavailable DRAZEK, I HENRIQUE PA Unavailable Unavailable DRAZEK, I HENRIQUE PA Unavailable Unavailable DRAZEK, I HENRIQUE PA Unavailable Unavailable DRAZEK, I HENRIQUE PA Unavailable Unavailable DRAZEK, I HENRIQUE PA Unavailable Unavailable DRAZEK, I HENRIQUE PA Unavailable Unavailable DRAZEK, I HENRIQUE PA Unavailable Unavailable DRAZEK, I HENRIQUE PA Unavailable Unavailable DRAZEK, I HENRIQUE PA Unavailable Unavailable DRAZEK, I HENRIQUE PA Unavailable Unavailable DRAZEK, I HENRIQUE PA Unavailable Unavailable DRAZEK, I HENRIQUE PA Unavailable Unavailable DRAZEK, I HENRIQUE PA Unavailable Unavailable DRAZEK, I HENRIQUE PA Unavailable Unavailable DRAZEK, I HENRIQUE PA Unavailable Unavailable Keely Mata MD, FACS Unavailable Unavailable Keely Mata MD, FACS Unavailable Unavailable Keely Mata MD, FACS Unavailable Unavailable Keely Mata MD, FACS Unavailable Unavailable Keely Mata MD, FACS Unavailable Unavailable Keely Mata MD, FACS Unavailable Unavailable Keely Mata MD, FACS Unavailable Unavailable Keely Mata MD, FACS Unavailable Unavailable Keely Mata MD, FACS Unavailable Unavailable Keely Mata MD, FACS Unavailable Unavailable Lewis Waite, Keely Chawla MD, FACS Unavailable Unavailable Lewis Waite, Keely Chawla MD, FACS Unavailable Unavailable Lewis Waite, Keely Chawla MD, FACS Unavailable Unavailable Lewis Waite, Keely Chawla MD, FACS Unavailable Unavailable Lewis Waite, Keely Chawla MD, FACS Unavailable Unavailable Lewis Waite, Keely Chawla MD, FACS Unavailable Unavailable Lewis Waite, Keely Chawla MD, FACS Unavailable Unavailable Lewis Waite, Keely Chawla MD, FACS Unavailable Unavailable Lewis Waite, Keely Chawla MD, FACS Unavailable Unavailable Lewis Waite, Keely Chawla MD, FACS Unavailable Unavailable Lewis Waite, Keely Chawla MD, FACS Unavailable Unavailable Lewis Waite, Keely Chawla MD, FACS Unavailable Unavailable Lewis Waite, Keely Chawla MD, FACS Unavailable Unavailable Lewis Waite, Keely Chawla MD, FACS Unavailable Unavailable Lewis Waite, Keely Chawla MD, FACS Unavailable Unavailable Lewis Waite, Keely Chawla MD, FACS Unavailable Unavailable Lewis Waite, Keely Chawla MD, FACS Unavailable Unavailable Lewis Waite, Keely Chawla MD, FACS Unavailable Unavailable Lewis Waite, Keely Chawla MD, FACS Unavailable Unavailable Lewis Waite, Keely Chawla MD, FACS Unavailable Unavailable Lewis Waite, Keely Chawla MD, FACS Unavailable Unavailable Lewis Waite, Keely Chawla MD, FACS Unavailable Unavailable Lewis Waite, Keely Chawla MD, FACS Unavailable Unavailable Lewis Waite, Keely Chawla MD, FACS Unavailable Unavailable Lewis Waite, Keely Chawla MD, FACS Unavailable Unavailable Lewis Waite, Keely Chawla MD, FACS Unavailable Unavailable Lewis Waite, Keely Chawla MD, FACS Unavailable Unavailable Lewis Waite, Keely Chawla MD, FACS Unavailable Unavailable Lewis Waite, Keely Chawla MD, FACS Unavailable Unavailable TONTARSKI, G MINA PA Unavailable Unavailable TONTARSKI, G MINA PA Unavailable Unavailable TONTARSKI, G MINA PA Unavailable Unavailable TONTARSKI, G MINA PA Unavailable Unavailable TONTARSKI, G MINA PA Unavailable Unavailable TONTARSKI, G MINA PA Unavailable Unavailable TONTARSKI, G MINA PA Unavailable Unavailable TONTARSKI, G MINA PA Unavailable Unavailable TONTARSKI, G MINA PA Unavailable Unavailable TONTARSKI, G MINA PA Unavailable Unavailable TONTARSKI, G MINA PA Unavailable Unavailable TONTARSKI, G MINA PA Unavailable Unavailable TONTARSKI, G MINA PA Unavailable Unavailable TONTARSKI, G MINA PA Unavailable Unavailable TONTARSKI, G MINA PA Unavailable Unavailable TONTARSKI, G MINA PA Unavailable Unavailable TONTARSKI, G MINA PA Unavailable Unavailable TONTARSKI, G MINA PA Unavailable Unavailable TONTARSKI, G MINA PA Unavailable Unavailable TONTARSKI, G MINA PA Unavailable Unavailable TONTARSKI, G MINA PA Unavailable Unavailable TONTARSKI, G MINA PA Unavailable Unavailable TONTARSKI, G MINA PA Unavailable Unavailable TONTARSKI, G MINA PA Unavailable Unavailable TONTARSKI, G MINA PA Unavailable Unavailable TONTARSKI, G MINA PA Unavailable Unavailable TONTARSKI, G MINA PA Unavailable Unavailable TONTARSKI, G MINA PA Unavailable Unavailable TONTARSKI, G MINA PA Unavailable Unavailable TONTARSKI, G MINA PA Unavailable Unavailable TONTARSKI, G MINA PA Unavailable Unavailable TONTARSKI, G MINA PA Unavailable Unavailable TONTARSKI, G MINA PA Unavailable Unavailable TONTARSKI, G MINA PA Unavailable Unavailable TONTARSKI, G MINA PA Unavailable Unavailable TONTARSKI, G MINA PA Unavailable Unavailable TONTARSKI, G MINA PA Unavailable Unavailable TONTARSKI, G MINA PA Unavailable Unavailable TONTARSKI, G MINA PA Unavailable Unavailable TONTARSKI, G MINA PA Unavailable Unavailable TONTARSKI, G MINA PA Unavailable Unavailable TONTARSKI, G MINA PA Unavailable Unavailable TONTARSKI, G MINA PA Unavailable Unavailable TONTARSKI, G MINA PA Unavailable Unavailable TONTARSKI, G MINA PA Unavailable Unavailable TONTARSKI, G MINA PA Unavailable Unavailable TONTARSKI, G MINA PA Unavailable Unavailable Charmaine TONY MD Unavailable Unavailable Charmaine TONY MD Unavailable Unavailable Charmaine TONY MD Unavailable Unavailable Charmaine TONY MD Unavailable Unavailable Charmaine TONY MD Unavailable Unavailable Charmaine TONY MD Unavailable Unavailable Charmaine TONY MD Unavailable Unavailable Charmaine TONY MD Unavailable Unavailable Charmaine TONY MD Unavailable Unavailable Charmaine TONY MD Unavailable Unavailable Charmaine TONY MD Unavailable Unavailable Charmaine TONY MD Unavailable Unavailable Charmaine TONY MD Unavailable Unavailable Charmaine TONY MD Unavailable Unavailable Charmaine TONY MD Unavailable Unavailable Charmaine TONY MD Unavailable Unavailable Charmaine TONY MD Unavailable Unavailable Charmaine TONY MD Unavailable Unavailable Charmaine TONY MD Unavailable Unavailable Charmaine TONY MD Unavailable Unavailable Charmaine TONY MD Unavailable Unavailable Charmaine TONY MD Unavailable Unavailable Charmaine TONY MD Unavailable Unavailable Charmaine TONY MD Unavailable Unavailable Charmaine TONY MD Unavailable Unavailable Charmaine TONY MD Unavailable Unavailable Charmaine TONY MD Unavailable Unavailable Charmaine TONY MD Unavailable Unavailable Charmaine TONY MD Unavailable Unavailable Charmaine TONY MD Unavailable Unavailable Charmaine TONY MD Unavailable Unavailable Charmaine TONY MD Unavailable Unavailable Charmaine TNOY MD Unavailable Unavailable Charmaine TONY MD Unavailable Unavailable Charmaine TONY MD Unavailable Unavailable Charmaine TONY MD Unavailable Unavailable Charmaine TONY MD Unavailable Unavailable Charmaine TONY MD Unavailable Unavailable Charmaine TONY MD Unavailable Unavailable Charmaine TONY MD Unavailable Unavailable Charmaine TONY MD Unavailable Unavailable NISSA, MAQBOOL MONA MD Unavailable Unavailable NISSA, MAQBOOL MONA MD Unavailable Unavailable NISSA, MAQBOOL MONA MD Unavailable Unavailable NISSA, MAQBOOL MONA MD Unavailable Unavailable NISSA, MAQBOOL MONA MD Unavailable Unavailable NISSA, MAQBOOL MONA MD Unavailable Unavailable NISSA, MAQBOOL MONA MD Unavailable Unavailable NISSA, MAQBOOL MONA MD Unavailable Unavailable NISSA, MAQBOOL MONA MD Unavailable Unavailable NISSA, MAQBOOL MONA MD Unavailable Unavailable NISSA, MAQBOOL MONA MD Unavailable Unavailable NISSA, MAQBOOL MONA MD Unavailable Unavailable NISSA, MAQBOOL MONA MD Unavailable Unavailable NISSA, MAQBOOL MONA MD Unavailable Unavailable NISSA, MAQBOOL MONA MD Unavailable Unavailable NISSA, MAQBOOL MONA MD Unavailable Unavailable NISSA, MAQBOOL MONA MD Unavailable Unavailable NISSA, MAQBOOL MONA MD Unavailable Unavailable NISSA, MAQBOOL MONA MD Unavailable Unavailable NISSA, MAQBOOL MONA MD Unavailable Unavailable NISSA, MAQBOOL MONA MD Unavailable Unavailable NISSA, MAQBOOL MONA MD Unavailable Unavailable NISSA, MAQBOOL MONA MD Unavailable Unavailable NISSA, MAQBOOL MONA MD Unavailable Unavailable NISSA, MAQBOOL MONA MD Unavailable Unavailable NISSA, MAQBOOL MONA MD Unavailable Unavailable NISSA, MAQBOOL MONA MD Unavailable Unavailable NISSA, MAQBOOL MONA MD Unavailable Unavailable NISSA, MAQBOOL MONA MD Unavailable Unavailable NISSA, MAQBOOL MONA MD Unavailable Unavailable NISSA, MAQBOOL MONA MD Unavailable Unavailable NISSA, MAQBOOL MONA MD Unavailable Unavailable NISSA, MAQBOOL MONA MD Unavailable Unavailable NISSA, MAQBOOL MONA MD Unavailable Unavailable NISSA, MAQBOOL MONA MD Unavailable Unavailable NISSA, MAQBOOL MONA MD Unavailable Unavailable NISSA, MAQBOOL MONA MD Unavailable Unavailable NISSA, MAQBOOL MONA MD Unavailable Unavailable NISSA, MAQBOOL MONA MD Unavailable Unavailable NISSA, MAQBOOL MONA MD Unavailable Unavailable NISSA, MAQBOOL MONA MD Unavailable Unavailable NISSA, MAQBOOL MONA MD Unavailable Unavailable NISSA, MAQBOOL MONA MD Unavailable Unavailable NISSA, MAQBOOL MONA MD Unavailable Unavailable NISSA, MAQBOOL MONA MD Unavailable Unavailable NISSA, MAQBOOL MONA MD Unavailable Unavailable NISSA, MAQBOOL MONA MD Unavailable Unavailable NISSA, MAQBOOL MONA MD Unavailable Unavailable NISSA, MAQBOOL MONA MD Unavailable Unavailable NISSA, MAQBOOL MONA MD Unavailable Unavailable NISSA, MAQBOOL MONA MD Unavailable Unavailable NISSA, MAQBOOL MONA MD Unavailable Unavailable NISSA, MAQBOOL MONA MD Unavailable Unavailable NISSA, MAQBOOL MONA MD Unavailable Unavailable NISSA, MAQBOOL MONA MD Unavailable Unavailable NISSA, MAQBOOL MONA MD Unavailable Unavailable NISSA, MAQBOOL MONA MD Unavailable Unavailable NISSA, MAQBOOL MONA MD Unavailable Unavailable NISSA, MAQBOOL MONA MD Unavailable Unavailable NISSA, MAQBOOL MONA MD Unavailable Unavailable NISSA, MAQBOOL MONA MD Unavailable Unavailable NISSA, MAQBOOL MONA MD Unavailable Unavailable NISSA, MAQBOOL MONA MD Unavailable Unavailable NISSA, MAQBOOL MONA MD Unavailable Unavailable NISSA, MAQBOOL MONA MD Unavailable Unavailable NISSA, MAQBOOL MONA MD Unavailable Unavailable NISSA, MAQBOOL MONA MD Unavailable Unavailable NISSA, MAQBOOL MONA MD Unavailable Unavailable NISSA, MAQBOOL MONA MD Unavailable Unavailable NISSA, MAQBOOL MONA MD Unavailable Unavailable NISSA, MAQBOOL MONA MD Unavailable Unavailable NISSA, MAQBOOL MONA MD Unavailable Unavailable NISSA, MAQBOOL MONA MD Unavailable Unavailable NISSA, MAQBOOL MONA MD Unavailable Unavailable NISSA, MAQBOOL MONA MD Unavailable Unavailable NISSA, MAQBOOL MONA MD Unavailable Unavailable NISSA, MAQBOOL MONA MD Unavailable Unavailable NISSA, MAQBOOL MONA MD Unavailable Unavailable VAN, J NINA DPM PC Unavailable Unavailable VAN, J N[facility] Unavailable Unavailable VAN, J [facility] Unavailable Unavailable VAN, [facility] Unavailable Unavailable VAN, [facility] Unavailable Unavailable VAN, [facility] Unavailable Unavailable VAN, [facility] Unavailable Unavailable VAN, [facility] Unavailable Unavailable VAN, [facility] Unavailable Unavailable VAN, [facility] Unavailable Unavailable VAN, [facility] Unavailable Unavailable VAN, [facility] Unavailable Unavailable VAN, [facility] Unavailable Unavailable VAN, [facility] Unavailable Unavailable VAN, [facility] Unavailable Unavailable VAN, [facility] Unavailable Unavailable VAN, [facility] Unavailable Unavailable VAN, [facility] Unavailable Unavailable VAN, [facility] Unavailable Unavailable VAN, [facility] Unavailable Unavailable VAN, [facility] Unavailable Unavailable VAN, [facility] Unavailable Unavailable VAN, [facility] Unavailable Unavailable VAN, [facility] Unavailable Unavailable VAN, [facility] Unavailable Unavailable [facility], [facility] Unavailable Unavailable VAN, [facility] Unavailable Unavailable Re-disclosure Warning The records that you are about to access may contain information from federally-assisted alcohol or drug abuse programs. If such information is present, then the following federally mandated warning applies: This information has been disclosed to you from records protected by federal confidentiality rules (42 CFR part 2). The federal rules prohibit you from making any further disclosure of this information unless further disclosure is expressly permitted by the written consent of the person to whom it pertains or as otherwise permitted by 42 CFR part 2. A general authorization for the release of medical or other information is NOT sufficient for this purpose. The Federal rules restrict any use of the information to criminally investigate or prosecute any alcohol or drug abuse patient.The records that you are about to access may contain highly sensitive health information, the redisclosure of which is protected by Article 27-F of the [facility] Public Health law. If you continue you may have access to information: Regarding HIV / AIDS; Provided by facilities licensed or operated by the [facility] Office of Mental Health; or Provided by the [facility] Office for People With Developmental Disabilities. If such information is present, then the following [facility] mandated warning applies: This information has been disclosed to you from confidential records which are protected by state law. State law prohibits you from making any further disclosure of this information without the specific written consent of the person to whom it pertains, or as otherwise permitted by law. Any unauthorized further disclosure in violation of state law may result in a fine or usp sentence or both. A general authorization for the release of medical or other information is NOT sufficient authorization for further disc losure. Allergies and Adverse Reactions Type Description Substance Reaction Status Data Source(s ) No Known Drug Allergies No Known Drug Allergies [facility] Allergy to substance No Known Allergies No known allergies (situation ) [facility] (Denton Waite [facility]) Allergy to substance No Known Allergies No known allergies (situation ) OPAL ([facility]) Family History Family Member Name Family Member Gender Family Member Status Date o f Status Description Data Source(s) Unknown Unknown Problem [facility] ([facility]) Unknown Unknown Problem [facility] ([facility] ) Unknown Female Problem [facility] ([facility]) Unknown Female Problem [facility] ([facility] Unknown Female Problem [facility] ([facility]) Unknown Female Problem [facility] ([facility]) Unknown Female Problem [facility] ([facility]) Encounters Encounter Providers Location Date Indications Data Source(s ) Outpatient Attender: MONA ISLAS MDConsultant: MONA Huang MD 12/29/2020 10:55:00 AM EDT - 12/29/2020 11:55:00 AM EDT [facility] Outpatient Attender: MONA ISLAS MD [facility] 12/29 10:30:00 AM EDT [facility] (Mona Islas MD) OFFICE OUTPATIENT VISIT 15 MINUTES Attender: HENRIQUE VENTURA Phys ical Therapy 11/03/2020 01:00:00 PM EDT [facility] ([facility]) Outpatient Attender: MINA VENTURA [facility] 11/01/2020 10:30:00 AM EDT [facility] (Mona Islas MD) Outpatient Attender: NINA ARAUJO DPM PCConsultant: MONA ISLAS MD 09/12/2020 02:55:00 PM EDT - 09/12/2020 02:55:00 PM EDT [facility] Outpatient Attender: MONA ISLAS MD [facility] 09/09 10:30:00 AM EDT [facility] (Mona Islas MD) Office Visit Attender: Arelis WILLSON PA-C Physical Therapy 07/07/2020 08:30:00 AM EDT [facility] ([facility]) Outpatient Attender: MONA ISLAS MD [facility] 07/04 04:00:00 PM EDT [facility] (Mona Islas MD) <td ID="encounterTypeDescriptionID0">9 M onth Follow-Up</td><td>Denton Waite MD, FACS</td><td>[facility]</td><td>07/04/2020</td><td>2:33PM</td><td>3:42PM</td><td><content ID="encounterDiagnosisID0-0">Essential Hypertension</content>, <content ID="encounterDiagnosisID0-1">Assessment of Taking Medication For Diabetes Long- term Use of Oral Hypoglycemics</content>, <content ID="encounterDiagnosisID0- 2">Diabetes Mellitus Type 2 - Uncomplicated, Controlled</content>, <content ID="encounterDiagnosisID0-3">Macular Puckering Both Eyes</content>, <content ID="encounterDiagnosisID0-4">Dry Eye Syndrome Both Eyes</content></td>Outpatient Attender: Denton Waite MD, FACS Denton Ruiz MD [facility] 07/04/2020 02:33:00 PM EDT - 07/04/2020 03:42:00 PM EDT Macular Puckering Both EyesMacular Pucke ring Both EyesDry Eye Syndrome Both EyesDiabetes Mellitus Type 2 - Uncomplicated, ControlledAssessment of Taking Medication For Diabetes Long-term Use of Oral HypoglycemicsEssential HypertensionDry Eye Syndrome Both EyesDiabetes Mellitus Type 2 - Uncomplicated, ControlledAssessment of Taking Medication For Diabetes Long-term Use of Oral HypoglycemicsEssential Hypertension OPAL (Denton Waite MD [facility]) 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 Dry Eye Syndrome Both Eyes Diabetes Mellitus Type 2 - Uncomplicated , Controlled Assessment of Taking Medication For Diab etes Long-term Use of Oral Hypoglycemics Essential Hypertension Dry Eye Syndrome Both Eyes Diabetes Mellitus Type 2 - Uncomplicated , Controlled Assessment of Taking Medication For Diab etes Long-term Use of Oral Hypoglycemics Essential Hypertension Outpatient [address] [place] [address], [place] [address] 07/04/2020 12:00:00 AM EDT eCW1 ([facility]) Outpatient Attender: MONA ISLAS MDConsultant: MONA Huang MD 07/03/2020 01:38:00 PM EDT - 07/03/2020 02:38:00 PM EDT [facility] Patient discharged. Outpatient Attender: BRIDGET TONY MDConsultant: MONA BAEZ MD 07/03/2020 01:36:00 PM EDT - 07/03/2020 02:36:00 PM EDT [facility] Outpatient Attender: MONA ISLAS MDConsultant: MONA Huang MD 03/27/2020 10:18:00 AM EST - 03/27/2020 11:18:00 AM [facility] Outpatient Attender: MONA ISLAS MD [facility] 03/23 09:30:00 AM EST [facility] (Mona Islas MD) Outpatient Attender: NINA ARAUJO DPM PCConsultant: MONA ISLAS MD 03/22/2020 11:09:00 AM EST - 03/22/2020 11:09:00 AM [facility] Office Visit Attender: Arelis WILLSON PA-C Physical Therapy 03/22/2020 07:30:00 AM EST [facility] ([facility]) OFFICE OUTPATIENT VISIT 15 MINUTES Attender: Arelis WILLSON PA-C Physical Therapy 02/04/2020 08:30:00 AM EST [facility] ([facility]) Outpatient Attender: MONA ISLAS MDConsultant: MONA Huang MD 02/02/2020 11:10:00 AM EST - 02/02/2020 12:10:00 PM [facility] Outpatient Attender: MONA ISLAS MD [facility] 02/01 09:30:00 AM EST MED[facility] (Mona Islas MD) Outpatient Attender: MONA ISLAS MDConsultant: MONA Huang MD 11/26/2019 02:40:00 PM EDT - 11/26/2019 03:40:00 PM [facility] Outpatient Attender: MONA ISLAS MD [facility] 11/25 01:45:00 PM EDT MED[facility] (Mona Islas MD) Outpatient Attender: MINA VENTURA [facility] 11/25/2019 10:30:00 AM EDT [facility] (Mona Islas MD) Outpatient Attender: Chelsie VENTURA Physical Therapy 08:30:00 AM EDT [facility] ([facility]) Outpatient Attender: NINA ARAUJO DPM PCConsultant: MONA ISLAS MD 11/23/2019 01:28:00 PM EDT - 11/23/2019 01:28:00 PM EDT [facility] Outpatient Attender: MONA ISLAS MDConsultant: MONA Huang MD 11/21/2019 12:13:00 PM EDT - 11/21/2019 01:13:00 PM EDT [facility] Immunizations Vaccine Date Status Description Data Source(s) COVID-19 VACCINE Moderna 08/01/2020 12:00:00 AM EDT completed [facility] Vaccine Series Complete: YESThis Data wa s Submitted to [facility] Via [employer]. COVID-19 VACCINE Moderna 07/07/2020 12:00:00 AM EDT completed [facility] Vaccine Series Complete: NOThis Data was Submitted to [facility] Via [employer] music. Medications Medication Brand Name Start Date Product Form Dose Route Admi nistrative Instructions Pharmacy Instructions Status Indications Reaction Description Data Source(s) Betamethasone 0.5 MG/ML / Clotrimazole 10 MG/ML Topica l Cream [Lotrisone] Lotrisone 07/29/2020 12:00:00 AM EDT active [facility] (Mona Islas MD) sildenafil 50 MG Oral Tablet [Viagra] Viagra 07/04/2020 12:00:00 AM EDT active [facility] (Mona Islas MD) Betamethasone 0.0005 MG/MG Topical Ointment Betamethasone Di propionate 06/30/2020 12:00:00 AM EDT active [facility] (Mona Islas MD) irbesartan 75 MG Oral Tablet Irbesartan 03/23/2020 12:00:00 AM EST ORAL active [facility] (Mona Islas MD) 3 ML Sodium Hyaluronate 10 MG/ML Prefilled Syringe [Gel-One] Gel-One 03/22/2020 12:00:00 AM EST active M EDENT ([facility] ) Warfarin Sodium 7.5 MG Oral Tablet Warfarin Sodium 7.5 MG Oral Tablet Warfarin Sodium 7.5MG Oral Tablet 11/08/2016 12:00:00 AM EDT 1 aborted warfarin sodium 7.5 MG Oral Tablet [place] (Denton Waite MD [facility]) Insurance Providers Payer name Policy type / Coverage type Policy ID Covered alliance party ID Covered alliance party's relationship to nichols Policy Nichols Plan Information [facility] (Medicare) Medigap Part B [id number] Self [facility] (Medicare) Medigap Part B [id number] Self [id number] [facility] MEDICARE COMPLETE G [id number] Self [id number] MEDICARE COMPLETE [id number] SP [id number] MEDICARE COMPLETE [id number] SP [id number] MEDICARE COMPLETE [id number] SP [id number] [facility] MEDICARE [id number] S [id number] ANSI-Medicare Part B [id number] MEDICARE COMPLETE [id number] SP [id number] [facility] SoundstacheANDERSON REGIONAL MEDICAL CENTERKimera Systems [id number] Self [id number] [facility] [id number] 18 [id number] ANSI-Medicare Part B [id number] ANSI-Medicare Part B [id number] [facility] MEDICARE [id number] S [id number] UN COMMUNITY PLAN XIX [id number] 18 [id number] [facility] [id number] 18 [id number] [employer] UN MEDICARE O/P [id number] 18 [id number] [facility] Communty Plan Medicaid [id number] Self [id number] [facility] COMMUNTY [facility] [id number] 18 [id number] [facility] Medicare Commercial [id number] Self [id number] [place] WireImageANDERSON REGION[facility] MEDICAL CENTERKimera Systems [id number] Self MEDICARE COMPLETE [id number] SP [id number] [facility] Medicare Commercial [id number] Self MEDICARE COMPLETE-[facility] O [id number] S [id number] MEDICARE COMPLETE [id number] SP [id number] [employer] [facility] MEDICARE-O/P [id number] 18 [id number] [facility] [id number] 18 [id number] MEDICARE COMPLETE [id number] SP [id number] [employer] [facility] MEDICARE O/P [id number] 18 [id number] [facility] MEDICARE COMPLE[place] [id number] 18 [id number] [facility] [employer] [facility] [place] [id number] 18 [id number] [facility] MEDICARE [id number] S [id number] ANS-Medicare Part B [id number] Problems, Conditions, and Diagnoses Code Display Name Description Problem Type Effective Dates Data Source(s) D649 Anemia, unspecified Anemia, unspecified Diagnosis 0 12/29/2020 10:55:00 AM EDT [facility] E8342 Hypomagnesemia Hypomagnesemia Diagnosis 12/29/2020 10:55: 00 AM [facility] N390 Urinary tract infection, site not specif ied Urinary tract infection, site not specified Diagnosis 12/29/2020 10:55:00 AM [facility] E039 Hypothyroidism, unspecified Hypothyroidism, unspecifie d Diagnosis 12/29/2020 10:55:00 AM [facility] E785 Hyperlipidemia, unspecified Hyperlipidemia, unspecifie d Diagnosis 12/29/2020 10:55:00 AM [facility] E119 Type 2 diabetes mellitus without complic ations Type 2 diabetes mellitus without complications Diagnosis 12/29/2020 10:55:00 AM EDT [facility] C61 Malignant neoplasm of prostate Malignant neoplasm of p rostate Diagnosis 07/03/2020 01:38:00 PM EDT [facility] I10 Essential (primary) hypertension Essential (primary) h ypertension Diagnosis 07/03/2020 01:38:00 PM EDT [facility] Z8672 Personal history of thrombophlebitis Personal hi story of thrombophlebitis Diagnosis 03/27/2020 10:18:00 AM [facility] B351 Tinea unguium Tinea unguium Diagnosis 03/22/2020 11:09:00 AM [facility] M2040 Other hammer toe(s) (acquired), unspecif ied foot Other hammer toe(s) (acquired), unspecified foot Diagnosis 03/22/2020 11:09:00 AM [facility] L84 Corns and callosities Corns and callosities Diagnosis 03/22/2020 11:09:00 AM [facility] R601 Generalized edema Generalized edema Diagnosis 03/22/2020 11:09:00 AM [facility] 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 Diagnosis 03/22/2020 11:09:00 AM [facility] I4891 Unspecified atrial fibrillation Unspecified atrial fib rillation Diagnosis 02/02/2020 11:10:00 AM [facility] I803 Phlebitis and thrombophlebitis of lower extremities, unspecified Phlebitis and thrombophlebitis of lower extremities, unspecified Diagnosis 11/26/2019 02:40:00 PM EDT [facility] I119 Hypertensive heart disease without heart failure Hypertensive heart disease without heart failure Diagnosis 11/21/2019 12:13:00 PM EDT [facility] E109 Type 1 diabetes mellitus without complic ations Type 1 diabetes mellitus without complications Diagnosis 11/21/2019 12:13:00 PM EDT [facility] Surgeries/Procedures Procedure Description Date Indications Data Source(s) OFFICE OUTPATIENT VISIT 25 MINUTES 12/29/2020 12:00:00 AM EDT [facility] (Mona Islas MD) ARTHROCENTESIS ASPIR&/INJECTION MAJOR JT/BURSA 021 12:00:00 AM EDT [facility] ([facility] OFFICE OUTPATIENT VISIT 15 MINUTES 11/03/2020 12:00:00 AM EDT [facility] ([facility] ) PERIODIC PREVENTIVE MED EST PATIENT 65YRS&> 11/01/2020 12:00:00 AM EDT MEDLUIS A (Mona Islas MD) Pare Hyperkeratotic Lesion, 2-4 09/12/2020 12:00:00 AM EDT [facility] ([facility]) Debridement Nails Any Method 6 Or More 09/12/2020 12:0 0:00 AM EDT [facility] ([facility]) OFFICE OUTPATIENT VISIT 25 MINUTES 09/09/2020 12:00:00 AM EDT [facility] (Mona Islas MD) ARTHROCENTESIS ASPIR&/INJECTION MAJOR JT/BURSA 12:00:00 AM EDT [facility] ([facility]) OFFICE OUTPATIENT VISIT 25 MINUTES 07/04/2020 12:00:00 AM EDT [facility] (Mona Islas MD) 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 Ruiz 10/22/18 07/04/2020 12:00:00 AM EDT OPAL (Noah Waite MD [facility]) Cataract surgery (procedure) History of cataract surge ry PCIOL OS 03/17/[address] Collins ~PCIOL OD 03/20/[address] Collins 07/04/2020 12:00:00 AM EDT OPAL (Denton Waite MD [facility]) Intermediate Eye Exam Established Patient Intermediate Eye Exam Established Patient 07/04/2020 12:00:00 AM EDWayne JOSEPH (Noah Waite MD [facility]) Intermediate Eye Exam Established Patient Intermediate Eye Exam Established Patient 07/04/2020 12:00:00 AM EDT OPAL (Noah Waite MD [facility]) Pare Hyperkeratotic Lesion, 2-4 03/22/2020 12:00:00 AM EST [facility] ([facility]) Debridement Nails Any Method 6 Or More 03/22/2020 12:0 0:00 AM EST [facility] ([facility]) ARTHROCENTESIS ASPIR&/INJECTION MAJOR JT/BURSA 12:00:00 AM EST MED[facility] ([facility]) ARTHROCENTESIS ASPIR&/INJECTION MAJOR JT/BURSA 12:00:00 AM EST [facility] ([facility]) RADIOLOGIC EXAM KNEE COMPLETE 4/MORE VIEWS 02/04/2020 12:00:00 AM EST [facility] ([facility]) RADIOLOGIC EXAM KNEE COMPLETE 4/MORE VIEWS 02/04/2020 12:00:00 AM EST [facility] ([facility]) ARTHROCENTESIS ASPIR&/INJECTION MAJOR JT/BURSA 12:00:00 AM EDT [facility] ([facility]) Pare Hyperkeratotic Lesion, 2-4 11/23/2019 12:00:00 AM EDT [facility] ([facility]) Debridement Nails Any Method 6 Or More 11/23/2019 12:0 0:00 AM EDT [facility] ([facility]) Results ID Date Data Source [id number] 12/29/2020 11:03:00 AM EDT [facility] (Mona Islas MD) Name Value Range Interpretation Code Description Data Rosalind rce(s) Supporting Document(s) Laboratory test finding (navigational concept) 1.81 0 .93-1.23 Above high normal [facility] (Mona Islas MD) \\BLDo\\INR INTERPRETATION\\BLDx\\ Therapeutic range for Coumadin and related oral anticoagulants. -International Normalized Ratio (INR): 2 .0 - 3.0 for Venous Thrombosis, Pulmonary Embolus, Tissue heart valves, Acute HI, Atrial Fibrillation, Valvular heart disease and recurrent Systemic Embolism. -International Normalized Ratio (INR): 2 .5 - 3.5 for Mechanical Prosthetic valve. Laboratory test finding (navigational concept) 21.2 s 1 1.0-15.5 Above high normal [facility] (Mona Islas MD) ID Date Data Source [id number] 12/29/2020 11:03:00 AM EDT [facility] (Mona Islas MD) Name Value Range Interpretation Code Description Data Rosalind rce(s) Supporting Document(s) Iron [Mass/volume] in Serum or Plasma 38 ug/dL 42-135 Below low normal [facility] (Mona Islas MD) Thyrotropin [Units/volume] in Serum or Plasma by Detec tion limit <= 0.005 mIU/L 1.39 uIU/mL 0.47-5.01 [facility] (Mona Islas MD) ID Date Data Source [id number] 12/29/2020 11:03:00 AM EDT [facility] (Mona Islas MD) Name Value Range Interpretation Code Description Data Rosalind rce(s) Supporting Document(s) Laboratory test finding (navigational concept) Laboratory test result [facility] (Mona Islas MD) COMPREHENSIVE METABOLIC PANEL Laboratory test finding (navigational concept) 4.6 meq/L 3.6-5.0 [facility] (Mona Islas MD) Laboratory test finding (navigational concept) 137 meq/L 134-153 [facility] (Mona Islas MD) Laboratory test finding (navigational concept) 100 meq/L 98-107 [facility] (Mona Islas MD) Laboratory test finding (navigational concept) 26 meq/L 22-30 [facility] (Mona Islas MD) Laboratory test finding (navigational concept) 18 mg/dL 7-21 [facility] (Mona Islas MD) Laboratory test finding (navigational concept) 183 mg/dL 7 0-99 Above high normal [facility] (Mona Islas MD) Laboratory test finding (navigational concept) 1.0 mg/dL 0.7-1.5 [facility] (Mona Islas MD) Laboratory test finding (navigational concept) 18 8-27 [facility] (Mona Islas MD) Laboratory test finding (navigational concept) 6.7 g/dL 6.3-8.2 [facility] (Mona Islas MD) Laboratory test finding (navigational concept) 2.8 GM/DL 2.4-3.2 [facility] (Mona Islas MD) Laboratory test finding (navigational concept) 3.9 g/dL 3.9-5.0 [facility] (Mona Islas MD) Laboratory test finding (navigational concept) 1.4 0.8-2.0 [facility] (Mona Islas MD) Laboratory test finding (navigational concept) 9.1 mg/dL 8.4-10.2 [facility] (Moan Islas MD) Laboratory test finding (navigational concept) Laboratory test resu lt 0.2-1.3 [facility] (Mona Islas MD) Laboratory test finding (navigational concept) 16 U/L 5-40 [facility] (Mona Islas MD) Laboratory test finding (navigational concept) 90 U/L 38-126 [facility] (Mona Islas MD) Laboratory test finding (navigational concept) 14 U/L 7-56 [facility] (Mona Islas MD) Laboratory test finding (navigational concept) Laboratory test result [facility] (Mona Islas MD) Laboratory test finding (navigational concept) 11.0 mmol/L 8.0-16.0 [facility] (Mona Islas MD) Laboratory test finding (navigational concept) 70 yrs [facility] (Mona Islas MD) Laboratory test finding (navigational concept) Laboratory test result [facility] (Mona Islas MD) Male GFR Interprentation 20-49 yrs >60 mL/min Normal 50-59 yrs >56 mL/min Normal 60-69 yrs >49 mL/min Normal 70-79yrs >42 mL/min Normal 80 and above >35 mL/min Normal Female GFR Interpretation 20-39 yrs >60 mL/min Normal 40-49 yrs >58 mL/min Normal 50-59 yrs >51 mL/min Normal 60-69 yrs >45 mL/min Normal 70-79 yrs >39 mL/min Normal 80 and above >32 mL/min Normal ID Date Data Source [id number] 12/29/2020 11:03:00 AM EDT [facility] (Mona Islas MD) Name Value Range Interpretation Code Description Data Rosalind rce(s) Supporting Document(s) Laboratory test finding (navigational concept) 154 mg/dL 131-200 [facility] (Mona Islas MD) Laboratory test finding (navigational concept) 115 mg/dL 35-160 [facility] (Mona Islas MD) Laboratory test finding (navigational concept) Laboratory test result [facility] (Mona Islas MD) LIPID PANEL Laboratory test finding (navigational concept) 3.2 3.4-4.9 Below low normal [facility] (Mona Islas MD) Laboratory test finding (navigational concept) 91 mg/dL 65-175 [facility] (Mona Islas MD) Laboratory test finding (navigational concept) 48 mg/dL 29-86 [facility] (Mona Islas MD) Laboratory test finding (navigational concept) 1.90 1.00-3.55 [facility] (Mona Islas MD) CVE RISK CHOL/HDL LDL/HDL MEN: 1/2 AVERAGE 3.43 1.00 AVERAGE 4.97 3.55 2X AVERAGE 9.55 6.25 3X AVERAGE 23.99 7.99 WOMEN: 1/2 AVERAGE 3.27 1.47 AVERAGE 4.44 3.22 2X AVERAGE 7.05 5.03 3X AVERAGE 11.04 6.14 ID Date Data Source [id number] 12/29/2020 11:03:00 AM EDT [facility] (Mona Islas MD) Name Value Range Interpretation Code Description Data Rosalind rce(s) Supporting Document(s) Hemoglobin A1c/Hemoglobin.total in Blood 10.3 % 4.4-6.1 Above high normal [facility] (Mona Islas MD) Magnesium [Mass/volume] in Serum or Plasma 1.7 mg/dL 1.7-2.2 [facility] (Mona Islas MD) ID Date Data Source [id number] 12/29/2020 11:03:00 AM EDT [facility] (Mona Islas MD) Name Value Range Interpretation Code Description Data Rosalind rce(s) Supporting Document(s) Laboratory test finding (navigational concept) Laboratory test result [facility] (Mona Islas MD) URINALYSIS Laboratory test finding (navigational concept) Laboratory test result [facility] (Mona Islas MD) Laboratory test finding (navigational concept) Laboratory test result [facility] (Mona Islas MD) Laboratory test finding (navigational concept) Laboratory test result [facility] (Mona Islas MD) Laboratory test finding (navigational concept) 5 5-9 [facility] (Mona Islas MD) Laboratory test finding (navigational concept) 1.015 1.001-1.030 [facility] (Mona Islas MD) Laboratory test finding (navigational concept) Laboratory test result [facility] (Mona Islas MD) Laboratory test finding (navigational concept) Laboratory test result [facility] (Mona Islas MD) Laboratory test finding (navigational concept) Laboratory test result [facility] (Mona Islas MD) Laboratory test finding (navigational concept) Laboratory test result [facility] (Mona Islas MD) Laboratory test finding (navigational concept) 25 Abnormal (applies to non- numeric results) [facility] (Mona Islas MD) Laboratory test finding (navigational concept) Laboratory test result [facility] (Mona Islas MD) Laboratory test finding (navigational concept) Laboratory test result [facility] (Mona Islas MD) Laboratory test finding (navigational concept) Laboratory test result [facility] (Mona Islas MD) Laboratory test finding (navigational concept) Laboratory test result [facility] (Mona Islas MD) Laboratory test finding (navigational concept) Laboratory test result [facility] (Mona Islas MD) Laboratory test finding (navigational concept) Laboratory test result [facility] (Mona Islas MD) Laboratory test finding (navigational concept) Laboratory test result [facility] (Mona Islas MD) Laboratory test finding (navigational concept) Laboratory test result [facility] (Mona Islas MD) ID Date Data Source [id number] 12/29/2020 11:03:00 AM EDT MEDLUIS A (Mona Islas MD) Name Value Range Interpretation Code Description Data Rosalind rce(s) Supporting Document(s) Laboratory test finding (navigational concept) Laboratory test result [facility] (Mona Islas MD) COMPLETE BLOOD COUNT Laboratory test finding (navigational concept) 5.0 10^3/uL 4.2-11.0 [facility] (Mona Islas MD) Laboratory test finding (navigational concept) 12.0 g/dL 1 4.0-16.0 Below low normal [facility] (Mona Islas MD) Laboratory test finding (navigational concept) 4.23 10^6/uL 4 .50-6.30 Below low normal [facility] (Mona Islas MD) Laboratory test finding (navigational concept) 37.5 % 4 1.0-51.0 Below low normal [facility] (Moan Islas MD) Laboratory test finding (navigational concept) 88.7 fL 80.0-94.0 [facility] (Mona Islas MD) Laboratory test finding (navigational concept) 28.4 pg 27.0-34.0 [facility] (Mona Islas MD) Laboratory test finding (navigational concept) 32.0 g/dL 31.0-36.0 [facility] (Mona Islas MD) Laboratory test finding (navigational concept) 14.2 % 11.5-14.8 [facility] (Mona Islas MD) Laboratory test finding (navigational concept) 173 10^3/uL 150-450 [facility] (Mona Islas MD) Laboratory test finding (navigational concept) 73.2 % 37.0-80.0 [facility] (Mona Islas MD) Laboratory test finding (navigational concept) 8.8 fL 7.4-10.4 [facility] (Mona Islas MD) Laboratory test finding (navigational concept) 13.9 % 2 5.0-40.0 Below low normal [facility] (Mona Islas MD) Laboratory test finding (navigational concept) 10.1 % 3.0-8.0 Above high normal [facility] (Mona Islas MD) Laboratory test finding (navigational concept) 1.8 % 0.0-7.0 [facility] (Mona Islas MD) Laboratory test finding (navigational concept) 0.4 % 0.0-2.0 [facility] (Mona Islas MD) Laboratory test finding (navigational concept) 0.6 % 0.0-0.0 Above high normal [facility] (Mona Islas MD) Laboratory test finding (navigational concept) 3.63 10^3/uL 2.00-6.90 [facility] (Mona Islas MD) Laboratory test finding (navigational concept) 0.0 % 0.0-0.0 [facility] (Mona Islas MD) Laboratory test finding (navigational concept) 0.50 10^3/uL 0.00-0.90 [facility] (Mona Islas MD) Laboratory test finding (navigational concept) 0.09 10^3/uL 0.00-0.70 [facility] (Mona Islas MD) Laboratory test finding (navigational concept) 0.69 10^3/uL 0.60-3.40 [facility] (Mona Islas MD) Laboratory test finding (navigational concept) 0.02 10^3/uL 0.00-0.20 [facility] (Mona Islas MD) Laboratory test finding (navigational concept) 0.03 10^3/uL 0.00-0.10 [facility] (Mona Islas MD) Laboratory test finding (navigational concept) 0.00 10^3/uL 0.00-0.00 [facility] (Mona Islas MD) Laboratory test finding (navigational concept) Laboratory test result [facility] (Mona Islas MD) Laboratory test finding (navigational concept) Laboratory test result [facility] (Mona Islas MD) ID Date Data Source [id number] 12/29/2020 12:17:00 PM EDT [facility] Value Range Interpretation Code Description Data Rosalind rce(s) Supporting Document(s) Prothrombin time (PT) 21.2 SECONDS 11.0 - 15.5 H [facility] INR in Platelet poor plasma by Coagulation assay 1.81 0.93 - 1. 23 H [facility] \\BLDo\\INR INTERPRETATION\\BLDx\\ Therapeutic range for Coumadin and related oral anticoagulants. - International Normalized Ratio (INR): 2.0 - 3.0 for Venous Thrombosis, Pulmonary Embolus, Tissue heart valves, Acute HI, Atrial Fibrillation, Valvular heart disease and recurrent Systemic Embolism. -International Normalized Ratio (INR): 2.5 - 3.5 for Mechanical Prosthetic valve. ID Date Data Source [id number] 12/29/2020 12:07:00 PM EDT [facility] Value Range Interpretation Code Description Data Rosalind rce(s) Supporting Document(s) Thyrotropin [Units/volume] in Serum or Plasma by Detec tion limit <= 0.05 mIU/L 1.39 uIU/mL 0.47 - 5.01 [facility] ID Date Data Source [id number] 12/29/2020 11:59:00 AM EDT [facility] Value Range Interpretation Code Description Data Rosalind rce(s) Supporting Document(s) Iron [Mass/volume] in Serum or Plasma 38 UG/DL 42 - 135 L [facility] ID Date Data Source [id number] 12/29/2020 11:59:00 AM EDT [facility] Name Value Range Interpretation Code Description Data Rosalind rce(s) Supporting Document(s) [facility] Cholesterol [Mass/volume] in Serum or Plasma 154 MG/DL 131 - 200 [facility] Deprecated Triglyceride [Mass/volume] in Serum or Plasma 115 MG/DL 3 5 - 160 [facility] HDL 48 MG/DL 29 - 86 [facility] Cholesterol in LDL [Mass/volume] in Serum or Plasma by Direc t assay 91 mg/dL 65 - 175 [facility] Cholesterol.total/Cholesterol in HDL [Mass Ratio] in Serum o r Plasma 3.2 3.4 - 4.9 L [facility] LDL/HDL 1.90 1.00 - 3.55 [facility] CVE RISK CHOL/HDL LDL/HDLMEN: 1/2 AVERAGE 3.43 1.00 AVERAGE 4.97 3.55 2X AVERAGE 9.55 6.25 3X AVERAGE 23.99 7.99WOMEN: 1/2 AVERAGE 3.27 1.47 AVERAGE 4.44 3.22 2X AVERAGE 7.05 5.03 3X AVERAGE 11.04 6.14 ID Date Data Source [id number] 12/29/2020 11:58:00 AM EDT [facility] Name Value Range Interpretation Code Description Data Rosalind rce(s) Supporting Document(s) COMPREHENSIVE METABOLIC PANEL [facility] COMPREHENSIVE METABOLIC PANEL Sodium [Moles/volume] in Serum or Plasma 137 mEq/L 134 - 153 [facility] Potassium [Moles/volume] in Serum or Plasma 4.6 mEq/L 3.6 - 5.0 [facility] Chloride [Moles/volume] in Serum or Plasma 100 mEq/L 98 - 107 [facility] Carbon dioxide, total [Moles/volume] in Serum or Plasma 26 MEQ/L 22 - 30 [facility] Glucose [Mass/volume] in Serum or Plasma 183 MG/DL 70 - 99 H [facility] BUN 18 MG/DL 7 - 21 [facility] Creatinine [Mass/volume] in Serum or Plasma 1.0 MG/DL 0.7 - 1.5 [facility] BUN/CREAT 18 8 - 27 [facility] Protein [Mass/volume] in Serum or Plasma 6.7 G/DL 6.3 - 8.2 [facility] Albumin [Mass/volume] in Serum or Plasma 3.9 G/DL 3.9 - 5.0 [facility] Globulin [Mass/volume] in Serum by calculation 2.8 GM/DL 2.4 - 3.2 [facility] A/G RATIO 1.4 0.8 - 2.0 [facility] Calcium [Mass/volume] in Serum or Plasma 9.1 MG/DL 8.4 - 10.2 [facility] Bilirubin.total [Mass/volume] in Serum or Plasma <0.7 MG/DL 0.2 - 1.3 [facility] Alkaline phosphatase [Enzymatic activity/volume] in Serum or Plasma 90 U/L 38 - 126 [facility] Aspartate aminotransferase [Enzymatic activity/volume] in Serum or Plasma 16 U/L 5 - 40 [facility] Alanine aminotransferase [Enzymatic activity/volume] in Seru m or Plasma 14 U/L 7 - 56 [facility] Anion gap 3 in Serum or Plasma 11.0 mmol/L 8.0 - 16.0 [facility] AGE [address] [facility] al NON-AA GFR >60 mL/min [facility] AFR AMER GFR >60 mL/min [facility] Ho spital Male GFR In terprentation 20-49 yrs >60 mL/min Normal 50-59 yrs >56 mL/min Normal 60-69 yrs >49 mL/min Normal 70-79yrs >42 mL/min Normal 80 and above >35 mL/min Normal Female GFR Interpretation 20-39 yrs >60 mL/min Normal 40-49 yrs >58 mL/min Normal 50-59 yrs >51 mL/min Normal 60-69 yrs >45 mL/min Normal 70-79 yrs >39 mL/min Normal 80 and above >32 mL/min Normal ID Date Data Source [id number] 12/29/2020 11:55:00 AM EDT [facility] Name Value Range Interpretation Code Description Data Rosalind rce(s) Supporting Document(s) Magnesium [Mass/volume] in Serum or Plasma 1.7 MG/DL 1.7 - 2.2 [facility] ID Date Data Source [id number] 12/29/2020 11:36:00 AM EDT [facility] Name Value Range Interpretation Code Description Data Rosalind rce(s) Supporting Document(s) Hemoglobin A1c/Hemoglobin.total in Blood 10.3 % 4.4 - 6.1 H [facility] ID Date Data Source [id number] 12/29/2020 11:33:00 AM EDT [facility] Name Value Range Interpretation Code Description Data Rosalind rce(s) Supporting Document(s) [facility] R [facility] COLOR yellow NORMAL: Yellow [facility] CLARITY clear NORMAL: Clear [facility] Specific gravity of Urine by Test strip 1.015 1.001 - 1.030 [facility] pH 5 5 - 9 [facility] Glucose [Mass/volume] in Urine by Test strip NORM NORMAL: Negat [facility] Bilirubin.total [Presence] in Urine by Test strip NEG NORMAL: Negative [facility] Ketones [Presence] in Urine by Test strip NEG NORMAL: Negative [facility] Protein [Mass/volume] in Urine by Test strip [facility] Nitrite [Presence] in Urine by Test strip NEG NORMAL: Negative [facility] BLOOD 25 NORMAL: Negative A [facility] LEUK EST NEG NORMAL: Negative [facility] Urobilinogen [Mass/volume] in Urine by Test strip NOR less tyron n 1.0 mg/dL [facility] MICROSCOPIC See Below [facility] WBC 1 - 3 NORMAL: NONE SEEN [facility] Erythrocytes [#/volume] in Urine by Test strip None Seen NORMAL: NON E SEEN [facility] EPITHELIAL FEW NORMAL: NONE SEEN [facility] Bacteria [Presence] in Urine sediment by Light microscopy No ne Seen NORMAL: NONE SEEN [facility] ID Date Data Source [id number] 12/29/2020 11:31:00 AM EDT [facility] Name Value Range Interpretation Code Description Data Rosalind rce(s) Supporting Document(s) CBC W/AUTOMATED DIFF [facility] COMPLETE BLOOD COUNT Leukocytes [#/volume] in Blood by Automated count 5.0 10^3/uL 4.2 - 1 1.0 [facility] Erythrocytes [#/volume] in Blood by Automated count 4.23 10^6/uL 4. 50 - 6.30 L [facility] Hemoglobin [Mass/volume] in Blood 12.0 g/dL 14.0 - 16.0 L [facility] Hematocrit [Volume Fraction] of Blood by Automated count 37.5 % 4 1.0 - 51.0 L [facility] Erythrocyte mean corpuscular volume [Entitic volume] by Auto mated count 88.7 fL 80.0 - 94.0 [facility] Erythrocyte mean corpuscular hemoglobin [Entitic mass] by Automated count 28.4 pg 27.0 - 34.0 [facility] Erythrocyte mean corpuscular hemoglobin concentration [Mass/volume] by Automated count 32.0 g/dL 31.0 - 36.0 [facility] Erythrocyte distribution width [Ratio] by Automated count 14.2 % 11.5 - 14.8 [facility] Platelets [#/volume] in Blood by Automated count 173 10^3/uL 150 - 45 0 [facility] Platelet mean volume [Entitic volume] in Blood by Automated count 8.8 fL 7.4 - 10.4 [facility] Neutrophils/100 leukocytes in Blood by Automated count 73.2 % 37. 0 - 80.0 [facility] Lymphocytes/100 leukocytes in Blood by Manual count 13.9 % 25.0 - 40.0 L [facility] Monocytes/100 leukocytes in Blood by Automated count 10.1 % 3.0 - 8.0 H [facility] Eosinophils/100 leukocytes in Blood by Automated count 1.8 % 0.0 - 7.0 [facility] Basophils/100 leukocytes in Blood by Automated count 0.4 % 0.0 - 2.0 [facility] %IG 0.6 % 0.0 - 0.0 H [facility] %NRBC 0.0 % 0.0 - 0.0 [facility] Neutrophils [#/volume] in Blood by Automated count 3.63 10^3/uL 2.00 - 6.90 [facility] Lymphocytes [#/volume] in Blood by Automated count 0.69 10^3/uL 0.60 - 3.40 [facility] Monocytes [#/volume] in Blood by Automated count 0.50 10^3/uL 0.00 - 0.90 [facility] Eosinophils [#/volume] in Blood by Automated count 0.09 10^3/uL 0.00 - 0.70 [facility] Basophils [#/volume] in Blood by Automated count 0.02 10^3/uL 0.00 - 0.20 [facility] #IG 0.03 10^3/uL 0.00 - 0.10 [facility] #NRBC 0.00 10^3/uL 0.00 - 0.00 [facility] MANUAL DIFF NOT INDICATED [facility] RBC MORPH NOT INDICATED [facility] ID Date Data Source [id number] 07/03/2020 01:43:00 PM EDT [facility] (Mona Islas MD) Name Value Range Interpretation Code Description Data Rosalind rce(s) Supporting Document(s) Laboratory test finding (navigational concept) 136 meq/L 134-153 [facility] (Mona Islas MD) Laboratory test finding (navigational concept) Laboratory test result [facility] (Mona Islas MD) COMPREHENSIVE METABOLIC PANEL Laboratory test finding (navigational concept) 4.7 meq/L 3.6-5.0 [facility] (Mona Islas MD) Laboratory test finding (navigational concept) 97 meq/L 98-107 Below low normal [facility] (Mona Islas MD) Laboratory test finding (navigational concept) 311 mg/dL 7 0-99 Above high normal [facility] (Mona Islas MD) Laboratory test finding (navigational concept) 27 meq/L 22-30 [facility] (Mona Islas MD) Laboratory test finding (navigational concept) 28 8-27 Above high normal [facility] (Mona Islas MD) Laboratory test finding (navigational concept) 33 mg/dL 7-21 Above high normal [facility] (Mona Islas MD) Laboratory test finding (navigational concept) 1.2 mg/dL 0.7-1.5 [facility] (Mona Islas MD) Laboratory test finding (navigational concept) 6.6 g/dL 6.3-8.2 [facility] (Mona Islas MD) Laboratory test finding (navigational concept) 3.8 g/dL 3 .9-5.0 Below low normal [facility] (Mona Islas MD) Laboratory test finding (navigational concept) 1.4 0.8-2.0 [facility] (Mona Islas MD) Laboratory test finding (navigational concept) 8.9 mg/dL 8.4-10.2 [facility] (Mona Islas MD) Laboratory test finding (navigational concept) 2.8 GM/DL 2.4-3.2 [facility] (Mona Islas MD) Laboratory test finding (navigational concept) Laboratory test resu lt 0.2-1.3 [facility] (Mona Islas MD) Laboratory test finding (navigational concept) 81 U/L 38-126 [facility] (Mona Islas MD) Laboratory test finding (navigational concept) 14 U/L 5-40 [facility] (Mona Islas MD) Laboratory test finding (navigational concept) 14 U/L 7-56 [facility] (Mona Islas MD) Laboratory test finding (navigational concept) 12.0 mmol/L 8.0-16.0 [facility] (Mona Islas MD) Laboratory test finding (navigational concept) 70 yrs [facility] (Mona Islas MD) Laboratory test finding (navigational concept) Laboratory test result [facility] (Mona Islas MD) Male GFR Interprentation 20-49 yrs >60 mL/min Normal 50-59 yrs >56 mL/min Normal 60-69 yrs >49 mL/min Normal 70-79yrs >42 mL/min Normal 80 and above >35 mL/min Normal Female GFR Interpretation 20-39 yrs >60 mL/min Normal 40-49 yrs >58 mL/min Normal 50-59 yrs >51 mL/min Normal 60-69 yrs >45 mL/min Normal 70-79 yrs >39 mL/min Normal 80 and above >32 mL/min Normal Laboratory test finding (navigational concept) Laboratory test result [facility] (Mona Islas MD) ID Date Data Source [id number] 07/03/2020 01:43:00 PM EDT [facility] (Mona Islas MD) Name Value Range Interpretation Code Description Data Rosalind rce(s) Supporting Document(s) Hemoglobin A1c/Hemoglobin.total in Blood 10.7 % 4.4-6.1 Above high normal [facility] (Mona Islas MD) {A1] {HB] ID Date Data Source [id number] 07/03/2020 01:43:00 PM EDT [facility] (Mona Islas MD) Name Value Range Interpretation Code Description Data Rosalind rce(s) Supporting Document(s) Laboratory test finding (navigational concept) Laboratory test result [facility] (Mona Islas MD) LIPID PANEL Laboratory test finding (navigational concept) 153 mg/dL 35-160 [facility] (Mona Islas MD) Laboratory test finding (navigational concept) 196 mg/dL 131-200 [facility] (Mona Islas MD) Laboratory test finding (navigational concept) 48 mg/dL 29-86 [facility] (Mona Islas MD) Laboratory test finding (navigational concept) 4.1 3.4-4.9 [facility] (Mona Islas MD) Laboratory test finding (navigational concept) 142 mg/dL 65-175 [facility] (Mona Islas MD) Laboratory test finding (navigational concept) 2.96 1.00-3.55 [facility] (Mona Islas MD) CVE RISK CHOL/HDL LDL/HDL MEN: 1/2 AVERAGE 3.43 1.00 AVERAGE 4.97 3.55 2X AVERAGE 9.55 6.25 3X AVERAGE 23.99 7.99 WOMEN: 1/2 AVERAGE 3.27 1.47 AVERAGE 4.44 3.22 2X AVERAGE 7.05 5.03 3X AVERAGE 11.04 6.14 ID Date Data Source [id number] 07/03/2020 01:43:00 PM EDT [facility] (Mona Islas MD) Name Value Range Interpretation Code Description Data Rosalind rce(s) Supporting Document(s) Laboratory test finding (navigational concept) 4.12 10^6/uL 4 .50-6.30 Below low normal [facility] (Mona Islas MD) Laboratory test finding (navigational concept) Laboratory test result [facility] (Mona Islas MD) COMPLETE BLOOD COUNT Laboratory test finding (navigational concept) 4.5 10^3/uL 4.2-11.0 [facility] (Mona Islas MD) Laboratory test finding (navigational concept) 37.7 % 4 1.0-51.0 Below low normal [facility] (Mona Islas MD) Laboratory test finding (navigational concept) 12.3 g/dL 1 4.0-16.0 Below low normal [facility] (Mona Islas MD) Laboratory test finding (navigational concept) 91.5 fL 80.0-94.0 [facility] (Mona Islas MD) Laboratory test finding (navigational concept) 29.9 pg 27.0-34.0 [facility] (Mona Islas MD) Laboratory test finding (navigational concept) 32.6 g/dL 31.0-36.0 [facility] (Mona Islas MD) Laboratory test finding (navigational concept) 167 10^3/uL 150-450 [facility] (Mona Islas MD) Laboratory test finding (navigational concept) 14.4 % 11.5-14.8 [facility] (Mona Islas MD) Laboratory test finding (navigational concept) 9.8 fL 7.4-10.4 [facility] (Mona Islas MD) Laboratory test finding (navigational concept) 9.8 % 3.0-8.0 Above high normal [facility] (Mona Islas MD) Laboratory test finding (navigational concept) 18.3 % 2 5.0-40.0 Below low normal [facility] (Mona Islas MD) Laboratory test finding (navigational concept) 68.8 % 37.0-80.0 [facility] (Mona Islas MD) Laboratory test finding (navigational concept) 2.5 % 0.0-7.0 [facility] (Mona Islas MD) Laboratory test finding (navigational concept) 0.2 % 0.0-0.0 Above high normal [facility] (Mona Islas MD) Laboratory test finding (navigational concept) 0.4 % 0.0-2.0 [facility] (Mona Islas MD) Laboratory test finding (navigational concept) 0.0 % 0.0-0.0 [facility] (Mona Islas MD) Laboratory test finding (navigational concept) 0.82 10^3/uL 0.60-3.40 [facility] (Mona Islas MD) Laboratory test finding (navigational concept) 3.08 10^3/uL 2.00-6.90 [facility] (Mona Islas MD) Laboratory test finding (navigational concept) 0.02 10^3/uL 0.00-0.20 [facility] (Mona Islas MD) Laboratory test finding (navigational concept) 0.11 10^3/uL 0.00-0.70 [facility] (Mona Islas MD) Laboratory test finding (navigational concept) 0.44 10^3/uL 0.00-0.90 [facility] (Mona Islas MD) Laboratory test finding (navigational concept) 0.01 10^3/uL 0.00-0.10 [facility] (Mona Islas MD) Laboratory test finding (navigational concept) Laboratory test result [facility] (Mona Islas MD) Laboratory test finding (navigational concept) 0.00 10^3/uL 0.00-0.00 [facility] (Mona Islas MD) Laboratory test finding (navigational concept) Laboratory test result [facility] (Mona Islas MD) ID Date Data Source [id number] 07/03/2020 01:43:00 PM EDT [facility] (Mona Islas MD) Name Value Range Interpretation Code Description Data Rosalind rce(s) Supporting Document(s) Laboratory test finding (navigational concept) 25.3 s 1 1.0-15.5 Above high normal [facility] (Mona Islas MD) Laboratory test finding (navigational concept) 2.18 0 .93-1.23 Above high normal [facility] (Mona Islas MD) \\BLDo\\INR INTERPRETATION\\BLDx\\ Therapeutic range for Coumadin and related oral anticoagulants. -International Normalized Ratio (INR): 2 .0 - 3.0 for Venous Thrombosis, Pulmonary Embolus, Tissue heart valves, Acute HI, Atrial Fibrillation, Valvular heart disease and recurrent Systemic Embolism. -International Normalized Ratio (INR): 2 .5 - 3.5 for Mechanical Prosthetic valve. ID Date Data Source [id number] 07/03/2020 03:34:00 PM EDT [facility] Name Value Range Interpretation Code Description Data Rosalind rce(s) Supporting Document(s) COMPREHENSIVE METABOLIC PANEL [facility] COMPREHENSIVE METABOLIC PANEL Sodium [Moles/volume] in Serum or Plasma 136 mEq/L 134 - 153 [facility] Potassium [Moles/volume] in Serum or Plasma 4.7 mEq/L 3.6 - 5.0 [facility] Chloride [Moles/volume] in Serum or Plasma 97 mEq/L 98 - 107 L [facility] Carbon dioxide, total [Moles/volume] in Serum or Plasma 27 MEQ/L 22 - 30 [facility] Glucose [Mass/volume] in Serum or Plasma 311 MG/DL 70 - 99 H [facility] BUN 33 MG/DL 7 - 21 [facility] Creatinine [Mass/volume] in Serum or Plasma 1.2 MG/DL 0.7 - 1.5 [facility] BUN/CREAT 28 8 - [address] [facility] Protein [Mass/volume] in Serum or Plasma 6.6 G/DL 6.3 - 8.2 [facility] Albumin [Mass/volume] in Serum or Plasma 3.8 G/DL 3.9 - 5.0 L [facility] Globulin [Mass/volume] in Serum by calculation 2.8 GM/DL 2.4 - 3.2 [facility] A/G RATIO 1.4 0.8 - 2.0 [facility] Calcium [Mass/volume] in Serum or Plasma 8.9 MG/DL 8.4 - 10.2 [facility] Bilirubin.total [Mass/volume] in Serum or Plasma <0.7 MG/DL 0.2 - 1.3 [facility] Alkaline phosphatase [Enzymatic activity/volume] in Serum or Plasma 81 U/L 38 - 126 [facility] Aspartate aminotransferase [Enzymatic activity/volume] in Serum or Plasma 14 U/L 5 - 40 [facility] Alanine aminotransferase [Enzymatic activity/volume] in Seru m or Plasma 14 U/L 7 - 56 [facility] Anion gap 3 in Serum or Plasma 12.0 mmol/L 8.0 - 16.0 [facility] AGE [address] [facility] NON-AA GFR >60 mL/min [facility] AFR AMER GFR >60 mL/min [facility] Male GFR In terprentation 20-49 yrs >60 mL/min Normal 50-59 yrs >56 mL/min Normal 60-69 yrs >49 mL/min Normal 70-79yrs >42 mL/min Normal 80 and above >35 mL/min Normal Female GFR Interpretation 20-39 yrs >60 mL/min Normal 40-49 yrs >58 mL/min Normal 50-59 yrs >51 mL/min Normal 60-69 yrs >45 mL/min Normal 70-79 yrs >39 mL/min Normal 80 and above >32 mL/min Normal ID Date Data Source [id number] 07/03/2020 03:33:00 PM EDT [facility] Name Value Range Interpretation Code Description Data Rosalind rce(s) Supporting Document(s) Hemoglobin A1c/Hemoglobin.total in Blood 10.7 % 4.4 - 6.1 H [facility] {A1]{HB] ID Date Data Source [id number] 07/03/2020 03:23:00 PM EDT [facility] Name Value Range Interpretation Code Description Data Rosalind rce(s) Supporting Document(s) CVE PANEL [facility] LIPID PANEL Cholesterol [Mass/volume] in Serum or Plasma 196 MG/DL 131 - 200 [facility] Deprecated Triglyceride [Mass/volume] in Serum or Plasma 153 MG/DL 3 5 - 160 [facility] HDL 48 MG/DL 29 - 86 [facility] Cholesterol in LDL [Mass/volume] in Serum or Plasma by Direc t assay 142 mg/dL 65 - 175 [facility] Cholesterol.total/Cholesterol in HDL [Mass Ratio] in Serum o r Plasma 4.1 3.4 - 4.9 [facility] LDL/HDL 2.96 1.00 - 3.55 [facility] CVE RISK CHOL/HDL LDL/HDLMEN: 1/2 AVERAGE 3.43 1.00 AVERAGE 4.97 3.55 2X AVERAGE 9.55 6.25 3X AVERAGE 23.99 7.99WOMEN: 1/2 AVERAGE 3.27 1.47 AVERAGE 4.44 3.22 2X AVERAGE 7.05 5.03 3X AVERAGE 11.04 6.14 ID Date Data Source [id number] 07/03/2020 02:57:00 PM EDT [facility] Name Value Range Interpretation Code Description Data Rosalind rce(s) Supporting Document(s) CBC W/AUTOMATED DIFF [facility] COMPLETE BLOOD COUNT Leukocytes [#/volume] in Blood by Automated count 4.5 10^3/uL 4.2 - 1 1.0 [facility] Erythrocytes [#/volume] in Blood by Automated count 4.12 10^6/uL 4. 50 - 6.30 L [facility] Hemoglobin [Mass/volume] in Blood 12.3 g/dL 14.0 - 16.0 L [facility] Hematocrit [Volume Fraction] of Blood by Automated count 37.7 % 4 1.0 - 51.0 L [facility] Erythrocyte mean corpuscular volume [Entitic volume] by Auto mated count 91.5 fL 80.0 - 94.0 [facility] Erythrocyte mean corpuscular hemoglobin [Entitic mass] by Automated count 29.9 pg 27.0 - 34.0 [facility] Erythrocyte mean corpuscular hemoglobin concentration [Mass/volume] by Automated count 32.6 g/dL 31.0 - 36.0 [facility] Erythrocyte distribution width [Ratio] by Automated count 14.4 % 11.5 - 14.8 [facility] Platelets [#/volume] in Blood by Automated count 167 10^3/uL 150 - 45 0 [facility] Platelet mean volume [Entitic volume] in Blood by Automated count 9.8 fL 7.4 - 10.4 [facility] Neutrophils/100 leukocytes in Blood by Automated count 68.8 % 37. 0 - 80.0 [facility] Lymphocytes/100 leukocytes in Blood by Manual count 18.3 % 25.0 - 40.0 L [facility] Monocytes/100 leukocytes in Blood by Automated count 9.8 % 3.0 - 8.0 H [facility] Eosinophils/100 leukocytes in Blood by Automated count 2.5 % 0.0 - 7.0 [facility] Basophils/100 leukocytes in Blood by Automated count 0.4 % 0.0 - 2.0 [facility] %IG 0.2 % 0.0 - 0.0 H [facility] %NRBC 0.0 % 0.0 - 0.0 [facility] Neutrophils [#/volume] in Blood by Automated count 3.08 10^3/uL 2.00 - 6.90 [facility] Lymphocytes [#/volume] in Blood by Automated count 0.82 10^3/uL 0.60 - 3.40 [facility] Monocytes [#/volume] in Blood by Automated count 0.44 10^3/uL 0.00 - 0.90 [facility] Eosinophils [#/volume] in Blood by Automated count 0.11 10^3/uL 0.00 - 0.70 [facility] Basophils [#/volume] in Blood by Automated count 0.02 10^3/uL 0.00 - 0.20 [facility] #IG 0.01 10^3/uL 0.00 - 0.10 [facility] ospital #NRBC 0.00 10^3/uL 0.00 - 0.00 [facility] ospital MANUAL DIFF NOT INDICATED [facility] RBC MORPH NOT INDICATED [facility] spital ID Date Data Source [id number] 07/03/2020 02:57:00 PM EDT [facility] Name Value Range Interpretation Code Description Data Rosalind rce(s) Supporting Document(s) Prothrombin time (PT) 25.3 SECONDS 11.0 - 15.5 H [facility] INR in Platelet poor plasma by Coagulation assay 2.18 0.93 - 1. 23 H [facility] \\BLDo\\INR INTERPRETATION\\BLDx\\ Therapeutic range for Coumadin and related oral anticoagulants. - International Normalized Ratio (INR): 2.0 - 3.0 for Venous Thrombosis, Pulmonary Embolus, Tissue heart valves, Acute HI, Atrial Fibrillation, Valvular heart disease and recurrent Systemic Embolism. -International Normalized Ratio (INR): 2.5 - 3.5 for Mechanical Prosthetic valve. ID Date Data Source [id number] 07/03/2020 01:42:00 PM EDT [facility] (Mona Islas MD) Name Value Range Interpretation Code Description Data Rosalind rce(s) Supporting Document(s) Prostate specific Ag [Mass/volume] in Serum or Plasma 0.01 ng/mL 0.00 -4.00 [facility] (Mona Islas MD) \\BLDo\\PSA INTERPRETATION\\BLDx\\ The PSA assay should not be used alone for a screening test or diagnosis for presence or absence of malignant disease. Predictions of disease recurrence should not be based solely on values obtained from serial patient serum values. The PSA result was determined by "[employer]", on the [employer]. Values obtained with different assay methods or kits cannot be used interchangeably. ID Date Data Source [id number] 07/03/2020 03:08:00 PM EDT [facility] Name Value Range Interpretation Code Description Data Rosalind rce(s) Supporting Document(s) Prostate specific Ag [Mass/volume] in Serum or Plasma 0.01 ng/mL 0.00 - 4.00 [facility] \\BLDo\\PSA INTERPRETA TION\\BLDx\\ The PSA assay should not be used alone for a screening test or diagnosis for presence or absence of malignant disease. Predictions of disease recurrence should not be based solely on values obtained from serial patient serum values. The PSA result was determined by "[employer]", on the [employer]. Values obtained with different assay methods or kits cannot be used interchangeably. ID Date Data Source [id number] 03/27/2020 10:20:00 AM EST [facility] (Mona Islas MD) Name Value Range Interpretation Code Description Data Rosalind rce(s) Supporting Document(s) Laboratory test finding (navigational concept) Laboratory test result [facility] (Mona Islas MD) LIPID PANEL Laboratory test finding (navigational concept) 148 mg/dL 131-200 [facility] (Mona Islas MD) Laboratory test finding (navigational concept) 56 mg/dL 29-86 [facility] (Mona Islas MD) Laboratory test finding (navigational concept) 87 mg/dL 35-160 [facility] (Mona Islas MD) Laboratory test finding (navigational concept) 74 mg/dL 65-175 [facility] (Mona Islas MD) Laboratory test finding (navigational concept) 2.6 3.4-4.9 Below low normal [facility] (Mona Islas MD) Laboratory test finding (navigational concept) 1.32 1.00-3.55 [facility] (Mona Islas MD) CVE RISK CHOL/HDL LDL/HDL MEN: 1/2 AVERAGE 3.43 1.00 AVERAGE 4.97 3.55 2X AVERAGE 9.55 6.25 3X AVERAGE 23.99 7.99 WOMEN: 1/2 AVERAGE 3.27 1.47 AVERAGE 4.44 3.22 2X AVERAGE 7.05 5.03 3X AVERAGE 11.04 6.14 ID Date Data Source [facility] 03/27/2020 10:20:00 AM EST [facility] (Mona Islas MD) Name Value Range Interpretation Code Description Data Rosalind rce(s) Supporting Document(s) Laboratory test finding (navigational concept) 139 meq/L 134-153 [facility] (Mona Islas MD) Laboratory test finding (navigational concept) Laboratory test result [facility] (Mona Islas MD) COMPREHENSIVE METABOLIC PANEL Laboratory test finding (navigational concept) 4.4 meq/L 3.6-5.0 [facility] (Mona Islas MD) Laboratory test finding (navigational concept) 99 meq/L 98-107 [facility] (Mona Islas MD) Laboratory test finding (navigational concept) 32 meq/L 22-30 Above high normal [facility] (Mona Islas MD) Laboratory test finding (navigational concept) 23 mg/dL 7-21 Above high normal [facility] (Mona Islas MD) Laboratory test finding (navigational concept) 230 mg/dL 6 5-110 Above high normal [facility] (Mona Islas MD) Laboratory test finding (navigational concept) 1.0 mg/dL 0.7-1.5 [facility] (Mona Islsa MD) Laboratory test finding (navigational concept) 23 8-27 [facility] (Mona Islas MD) Laboratory test finding (navigational concept) 4.2 g/dL 3.9-5.0 [facility] (Mona Islas MD) Laboratory test finding (navigational concept) 6.5 g/dL 6.3-8.2 [facility] (Mona Islas MD) Laboratory test finding (navigational concept) 2.3 GM/DL 2 .4-3.2 Below low normal [facility] (Mona Islas MD) Laboratory test finding (navigational concept) 1.8 0.8-2.0 [facility] (Mona Islas MD) Laboratory test finding (navigational concept) 9.2 mg/dL 8.4-10.2 [facility] (Mona Islas MD) Laboratory test finding (navigational concept) 75 U/L 38-126 [facility] (Mona Islas MD) Laboratory test finding (navigational concept) Laboratory test resu lt 0.2-1.3 [facility] (Mona Islas MD) Laboratory test finding (navigational concept) 18 U/L 5-40 [facility] (Mona Islas MD) Laboratory test finding (navigational concept) 15 U/L 7-56 [facility] (Mona Islas MD) Laboratory test finding (navigational concept) 8.0 mmol/L 8.0-16.0 [facility] (Mona Islas MD) Laboratory test finding (navigational concept) Laboratory test result [facility] (Mona Islas MD) Laboratory test finding (navigational concept) 70 yrs [facility] (Mona Islas MD) Laboratory test finding (navigational concept) Laboratory test result [facility] (Mona Islas MD) Male GFR Interprentation 20-49 yrs >60 mL/min Normal 50-59 yrs >56 mL/min Normal 60-69 yrs >49 mL/min Normal 70-79yrs >42 mL/min Normal 80 and above >35 mL/min Normal Female GFR Interpretation 20-39 yrs >60 mL/min Normal 40-49 yrs >58 mL/min Normal 50-59 yrs >51 mL/min Normal 60-69 yrs >45 mL/min Normal 70-79 yrs >39 mL/min Normal 80 and above >32 mL/min Normal ID Date Data Source [id number] 03/27/2020 10:20:00 AM EST [facility] (Mona Islas MD) Name Value Range Interpretation Code Description Data Rosalind rce(s) Supporting Document(s) Laboratory test finding (navigational concept) Laboratory test result [facility] (Mona Islas MD) COMPLETE BLOOD COUNT Laboratory test finding (navigational concept) 5.2 10^3/uL 4.2-11.0 [facility] (Mona Islas MD) Laboratory test finding (navigational concept) 13.2 g/dL 1 4.0-16.0 Below low normal [facility] (Mona Islas MD) Laboratory test finding (navigational concept) 4.52 10^6/uL 4.50-6.30 [facility] (Mona Islas MD) Laboratory test finding (navigational concept) 40.6 % 4 1.0-51.0 Below low normal [facility] (Mona Islas MD) Laboratory test finding (navigational concept) 29.2 pg 27.0-34.0 [facility] (Mona Islas MD) Laboratory test finding (navigational concept) 89.8 fL 80.0-94.0 [facility] (Mona Islas MD) Laboratory test finding (navigational concept) 32.5 g/dL 31.0-36.0 [facility] (Mona Islas MD) Laboratory test finding (navigational concept) 13.6 % 11.5-14.8 [facility] (Mona Islas MD) Laboratory test finding (navigational concept) 185 10^3/uL 150-450 [facility] (Mona Islas MD) Laboratory test finding (navigational concept) 9.1 fL 7.4-10.4 [facility] (Mona Islas MD) Laboratory test finding (navigational concept) 14.3 % 2 5.0-40.0 Below low normal [facility] (Mona Islas MD) Laboratory test finding (navigational concept) 71.4 % 37.0-80.0 [facility] (Mona Islas MD) Laboratory test finding (navigational concept) 0.6 % 0.0-2.0 [facility] (Mona Islas MD) Laboratory test finding (navigational concept) 1.7 % 0.0-7.0 [facility] (Mona Islas MD) Laboratory test finding (navigational concept) 11.6 % 3.0-8.0 Above high normal [facility] (Mona Islas MD) Laboratory test finding (navigational concept) 0.0 % 0.0-0.0 [facility] (Mona Islas MD) Laboratory test finding (navigational concept) 0.4 % 0.0-0.0 Above high normal [facility] (Mona Islas MD) Laboratory test finding (navigational concept) 0.74 10^3/uL 0.60-3.40 [facility] (Mona Islas MD) Laboratory test finding (navigational concept) 3.70 10^3/uL 2.00-6.90 [facility] (Mona Islas MD) Laboratory test finding (navigational concept) 0.60 10^3/uL 0.00-0.90 [facility] (Mona Islas MD) Laboratory test finding (navigational concept) 0.03 10^3/uL 0.00-0.20 [facility] (Mona Islas MD) Laboratory test finding (navigational concept) 0.09 10^3/uL 0.00-0.70 [facility] (Mona Islas MD) Laboratory test finding (navigational concept) 0.00 10^3/uL 0.00-0.00 [facility] (Mona Islas MD) Laboratory test finding (navigational concept) 0.02 10^3/uL 0.00-0.10 [facility] (Mona Islas MD) Laboratory test finding (navigational concept) Laboratory test result [facility] (Mona Islas MD) Laboratory test finding (navigational concept) Laboratory test result [facility] (Mona Islas MD) ID Date Data Source [facility] 03/27/2020 10:20:00 AM EST [facility] (Mona Islas MD) Name Value Range Interpretation Code Description Data Rosalind rce(s) Supporting Document(s) Laboratory test finding (navigational concept) 21.4 s 1 1.0-15.5 Above high normal [facility] (Mona Islas MD) Laboratory test finding (navigational concept) 1.76 0 .93-1.23 Above high normal [facility] (Mona Islas MD) \\BLDo\\INR INTERPRETATION\\BLDx\\ Therapeutic range for Coumadin and related oral anticoagulants. -International Normalized Ratio (INR): 2 .0 - 3.0 for Venous Thrombosis, Pulmonary Embolus, Tissue heart valves, Acute HI, Atrial Fibrillation, Valvular heart disease and recurrent Systemic Embolism. -International Normalized Ratio (INR): 2 .5 - 3.5 for Mechanical Prosthetic valve. ID Date Data Source [id number] 03/27/2020 10:20:00 AM EST [facility] (Mona Islas MD) Name Value Range Interpretation Code Description Data Rosalind rce(s) Supporting Document(s) Hemoglobin A1c/Hemoglobin.total in Blood 11.5 % 4.4-6.1 Above high normal [facility] (Mona Islas MD) {A1] {HB] ID Date Data Source [id number] 03/27/2020 12:04:00 PM EST [facility] Name Value Range Interpretation Code Description Data Rosalind rce(s) Supporting Document(s) CVE PANEL [facility] al LIPID PANEL Cholesterol [Mass/volume] in Serum or Plasma 148 MG/DL 131 - 200 [facility] Deprecated Triglyceride [Mass/volume] in Serum or Plasma 87 MG/DL 3 5 - 160 [facility] HDL 56 MG/DL 29 - 86 [facility] Cholesterol in LDL [Mass/volume] in Serum or Plasma by Direc t assay 74 mg/dL 65 - 175 [facility] Cholesterol.total/Cholesterol in HDL [Mass Ratio] in Serum o r Plasma 2.6 3.4 - 4.9 L [facility] LDL/HDL 1.32 1.00 - 3.55 [facility] ital CVE RISK CHOL/HDL LDL/HDLMEN: 1/2 AVERAGE 3.43 1.00 AVERAGE 4.97 3.55 2X AVERAGE 9.55 6.25 3X AVERAGE 23.99 7.99WOMEN: 1/2 AVERAGE 3.27 1.47 AVERAGE 4.44 3.22 2X AVERAGE 7.05 5.03 3X AVERAGE 11.04 6.14 ID Date Data Source [id number] 03/27/2020 12:04:00 PM EST [facility] Name Value Range Interpretation Code Description Data Rosalind rce(s) Supporting Document(s) COMPREHENSIVE METABOLIC PANEL [facility] COMPREHENSIVE METABOLIC PANEL Sodium [Moles/volume] in Serum or Plasma 139 mEq/L 134 - 153 [facility] Potassium [Moles/volume] in Serum or Plasma 4.4 mEq/L 3.6 - 5.0 [facility] Chloride [Moles/volume] in Serum or Plasma 99 mEq/L 98 - 107 [facility] Carbon dioxide, total [Moles/volume] in Serum or Plasma 32 MEQ/L 22 - 30 H [facility] Glucose [Mass/volume] in Serum or Plasma 230 MG/DL 65 - 110 H [facility] BUN 23 MG/DL 7 - 21 [facility] Creatinine [Mass/volume] in Serum or Plasma 1.0 MG/DL 0.7 - 1.5 [facility] BUN/CREAT 23 8 - 27 [facility] Protein [Mass/volume] in Serum or Plasma 6.5 G/DL 6.3 - 8.2 [facility] Albumin [Mass/volume] in Serum or Plasma 4.2 G/DL 3.9 - 5.0 [facility] Globulin [Mass/volume] in Serum by calculation 2.3 GM/DL 2.4 - 3.2 L [facility] A/G RATIO 1.8 0.8 - 2.0 [facility] Calcium [Mass/volume] in Serum or Plasma 9.2 MG/DL 8.4 - 10.2 [facility] Bilirubin.total [Mass/volume] in Serum or Plasma <0.7 MG/DL 0.2 - 1.3 [facility] Alkaline phosphatase [Enzymatic activity/volume] in Serum or Plasma 75 U/L 38 - 126 [facility] Aspartate aminotransferase [Enzymatic activity/volume] in Serum or Plasma 18 U/L 5 - 40 [facility] Alanine aminotransferase [Enzymatic activity/volume] in Seru m or Plasma 15 U/L 7 - 56 [facility] Anion gap 3 in Serum or Plasma 8.0 mmol/L 8.0 - 16.0 [facility] AGE 70 yrs [facility] NON-AA GFR >60 mL/min [facility] AFR AMER GFR >60 mL/min [facility] Male GFR In terprentation 20-49 yrs >60 mL/min Normal 50-59 yrs >56 mL/min Normal 60-69 yrs >49 mL/min Normal 70-79yrs >42 mL/min Normal 80 and above >35 mL/min Normal Female GFR Interpretation 20-39 yrs >60 mL/min Normal 40-49 yrs >58 mL/min Normal 50-59 yrs >51 mL/min Normal 60-69 yrs >45 mL/min Normal 70-79 yrs >39 mL/min Normal 80 and above >32 mL/min Normal ID Date Data Source [id number] 03/27/2020 11:56:00 AM EST [facility] Name Value Range Interpretation Code Description Data Rosalind rce(s) Supporting Document(s) CBC W/AUTOMATED DIFF [facility] COMPLETE BLOOD COUNT Leukocytes [#/volume] in Blood by Automated count 5.2 10^3/uL 4.2 - 1 1.0 [facility] Erythrocytes [#/volume] in Blood by Automated count 4.52 10^6/uL 4. 50 - 6.30 [facility] Hemoglobin [Mass/volume] in Blood 13.2 g/dL 14.0 - 16.0 L [facility] Hematocrit [Volume Fraction] of Blood by Automated count 40.6 % 4 1.0 - 51.0 L [facility] Erythrocyte mean corpuscular volume [Entitic volume] by Auto mated count 89.8 fL 80.0 - 94.0 [facility] Erythrocyte mean corpuscular hemoglobin [Entitic mass] by Automated count 29.2 pg 27.0 - 34.0 [facility] Erythrocyte mean corpuscular hemoglobin concentration [Mass/volume] by Automated count 32.5 g/dL 31.0 - 36.0 [facility] Erythrocyte distribution width [Ratio] by Automated count 13.6 % 11.5 - 14.8 [facility] Platelets [#/volume] in Blood by Automated count 185 10^3/uL 150 - 45 0 [facility] Platelet mean volume [Entitic volume] in Blood by Automated count 9.1 fL 7.4 - 10.4 [facility] Neutrophils/100 leukocytes in Blood by Automated count 71.4 % 37. 0 - 80.0 [facility] Lymphocytes/100 leukocytes in Blood by Manual count 14.3 % 25.0 - 40.0 L [facility] Monocytes/100 leukocytes in Blood by Automated count 11.6 % 3.0 - 8.0 H [facility] Eosinophils/100 leukocytes in Blood by Automated count 1.7 % 0.0 - 7.0 [facility] Basophils/100 leukocytes in Blood by Automated count 0.6 % 0.0 - 2.0 [facility] %IG 0.4 % 0.0 - 0.0 H [facility] %NRBC 0.0 % 0.0 - 0.0 [facility] al Neutrophils [#/volume] in Blood by Automated count 3.70 10^3/uL 2.00 - 6.90 [facility] Lymphocytes [#/volume] in Blood by Automated count 0.74 10^3/uL 0.60 - 3.40 [facility] Monocytes [#/volume] in Blood by Automated count 0.60 10^3/uL 0.00 - 0.90 [facility] Eosinophils [#/volume] in Blood by Automated count 0.09 10^3/uL 0.00 - 0.70 [facility] Basophils [#/volume] in Blood by Automated count 0.03 10^3/uL 0.00 - 0.20 [facility] #IG 0.02 10^3/uL 0.00 - 0.10 [facility] #NRBC 0.00 10^3/uL 0.00 - 0.00 [facility] ospital MANUAL DIFF NOT INDICATED [facility] RBC MORPH NOT INDICATED [facility] spital ID Date Data Source [id number] 03/27/2020 11:55:00 AM EST [facility] Name Value Range Interpretation Code Description Data Rosalind rce(s) Supporting Document(s) Prothrombin time (PT) 21.4 SECONDS 11.0 - 15.5 H [facility] INR in Platelet poor plasma by Coagulation assay 1.76 0.93 - 1. 23 H [facility] \\BLDo\\INR INTERPRETATION\\BLDx\\ Therapeutic range for Coumadin and related oral anticoagulants. - International Normalized Ratio (INR): 2.0 - 3.0 for Venous Thrombosis, Pulmonary Embolus, Tissue heart valves, Acute HI, Atrial Fibrillation, Valvular heart disease and recurrent Systemic Embolism. -International Normalized Ratio (INR): 2.5 - 3.5 for Mechanical Prosthetic valve. ID Date Data Source [id number] 03/27/2020 11:54:00 AM EST [facility] Name Value Range Interpretation Code Description Data Rosalind rce(s) Supporting Document(s) Hemoglobin A1c/Hemoglobin.total in Blood 11.5 % 4.4 - 6.1 H [facility] {A1]{HB] ID Date Data Source [id number] 02/02/2020 11:21:00 AM EST [facility] (Mona Islas MD) Name Value Range Interpretation Code Description Data Rosalind rce(s) Supporting Document(s) Laboratory test finding (navigational concept) Laboratory test result [facility] (Mona Islas MD) Laboratory test finding (navigational concept) Laboratory test result [facility] (Mona Islas MD) URINALYSIS Laboratory test finding (navigational concept) Laboratory test result [facility] (Mona Islas MD) Laboratory test finding (navigational concept) 1.010 1.001-1.030 [facility] (Mona Islas MD) Laboratory test finding (navigational concept) Laboratory test result [facility] (Mona Islas MD) Laboratory test finding (navigational concept) 6.5 5-9 [facility] (Mona Islas MD) Laboratory test finding (navigational concept) 1000 Abnormal (applies to non- numeric results) [facility] (Mona Islas MD) Laboratory test finding (navigational concept) Laboratory test result [facility] (Mona Islas MD) Laboratory test finding (navigational concept) 100 Abnormal (applies to non- numeric results) [facility] (Mona Islas MD) Laboratory test finding (navigational concept) Laboratory test result [facility] (Mona Islas MD) Laboratory test finding (navigational concept) 10 Abnormal (applies to non- numeric results) [facility] (Mona Islas MD) Laboratory test finding (navigational concept) Laboratory test result [facility] (Mona Islas MD) Laboratory test finding (navigational concept) Laboratory test result [facility] (Mona Islas MD) Laboratory test finding (navigational concept) Laboratory test result [facility] (Mona Islas MD) Laboratory test finding (navigational concept) Laboratory test result [facility] (Mona Islas MD) Laboratory test finding (navigational concept) Laboratory test result [facility] (Mona Islas MD) Laboratory test finding (navigational concept) Laboratory test result [facility] (Mona Islas MD) Laboratory test finding (navigational concept) Laboratory test result [facility] (Mona Islas MD) Laboratory test finding (navigational concept) Laboratory test result [facility] (Mona Islas MD) ID Date Data Source [id number] 02/02/2020 11:21:00 AM EST [facility] (Mona Islas MD) Name Value Range Interpretation Code Description Data Rosalind rce(s) Supporting Document(s) Laboratory test finding (navigational concept) 170 mg/dL 131-200 [facility] (Mona Islas MD) Laboratory test finding (navigational concept) Laboratory test result [facility] (Mona Islas MD) LIPID PANEL Laboratory test finding (navigational concept) 56 mg/dL 29-86 [facility] (Mona Islas MD) Laboratory test finding (navigational concept) 87 mg/dL 35-160 [facility] (Mona Islas MD) Laboratory test finding (navigational concept) 104 mg/dL 65-175 [facility] (Mona Islas MD) Laboratory test finding (navigational concept) 1.86 1.00-3.55 [facility] (Mona Islas MD) CVE RISK CHOL/HDL LDL/HDL MEN: 1/2 AVERAGE 3.43 1.00 AVERAGE 4.97 3.55 2X AVERAGE 9.55 6.25 3X AVERAGE 23.99 7.99 WOMEN: 1/2 AVERAGE 3.27 1.47 AVERAGE 4.44 3.22 2X AVERAGE 7.05 5.03 3X AVERAGE 11.04 6.14 Laboratory test finding (navigational concept) 3.0 3.4-4.9 Below low normal [facility] (Mona Islas MD) ID Date Data Source [id number] 02/02/2020 11:21:00 AM EST [facility] (Mona Islas MD) Name Value Range Interpretation Code Description Data Rosalind rce(s) Supporting Document(s) Laboratory test finding (navigational concept) Laboratory test result [facility] (Mona Islas MD) COMPREHENSIVE METABOLIC PANEL Laboratory test finding (navigational concept) 136 meq/L 134-153 [facility] (Mona Islas MD) Laboratory test finding (navigational concept) 4.8 meq/L 3.6-5.0 [facility] (Mona Islas MD) Laboratory test finding (navigational concept) 99 meq/L 98-107 [facility] (Mona Islas MD) Laboratory test finding (navigational concept) 294 mg/dL 6 5-110 Above high normal [facility] (Mona Islas MD) Laboratory test finding (navigational concept) 30 meq/L 22-30 [facility] (Mona Islas MD) Laboratory test finding (navigational concept) 13 8-27 [facility] (Mona Islas MD) Laboratory test finding (navigational concept) 0.9 mg/dL 0.7-1.5 [facility] (Mona Islas MD) Laboratory test finding (navigational concept) 12 mg/dL 7-21 [facility] (Mona Islas MD) Laboratory test finding (navigational concept) 4.2 g/dL 3.9-5.0 [facility] (Mona Islas MD) Laboratory test finding (navigational concept) 7.4 g/dL 6.3-8.2 [facility] (Mona Islas MD) Laboratory test finding (navigational concept) 1.3 0.8-2.0 [facility] (Mona Islas MD) Laboratory test finding (navigational concept) 3.2 GM/DL 2.4-3.2 [facility] (Mona Islas MD) Laboratory test finding (navigational concept) 9.0 mg/dL 8.4-10.2 [facility] (Mona Islas MD) Laboratory test finding (navigational concept) Laboratory test resu lt 0.2-1.3 [facility] (Mona Islas MD) Laboratory test finding (navigational concept) 82 U/L 38-126 [facility] (Mona Islas MD) Laboratory test finding (navigational concept) 16 U/L 5-40 [facility] (Mona Islas MD) Laboratory test finding (navigational concept) 17 U/L 7-56 [facility] (Mona Islas MD) Laboratory test finding (navigational concept) 7.0 mmol/L 8 .0-16.0 Below low normal [facility] (Mona Islas MD) Laboratory test finding (navigational concept) 69 yrs [facility] (Mona Islas MD) Laboratory test finding (navigational concept) Laboratory test result [facility] (Mona Islas MD) Laboratory test finding (navigational concept) Laboratory test result [facility] (Mona Islas MD) Male GFR Interprentation 20-49 yrs >60 mL/min Normal 50-59 yrs >56 mL/min Normal 60-69 yrs >49 mL/min Normal 70-79yrs >42 mL/min Normal 80 and above >35 mL/min Normal Female GFR Interpretation 20-39 yrs >60 mL/min Normal 40-49 yrs >58 mL/min Normal 50-59 yrs >51 mL/min Normal 60-69 yrs >45 mL/min Normal 70-79 yrs >39 mL/min Normal 80 and above >32 mL/min Normal ID Date Data Source [id number] 02/02/2020 11:21:00 AM EST [facility] (Mona Islas MD) Name Value Range Interpretation Code Description Data Rosalind rce(s) Supporting Document(s) Hemoglobin A1c/Hemoglobin.total in Blood 13.2 % 4.4-6.1 Above high normal [facility] (Mona Islas MD) {A1] {HB] Iron [Mass/volume] in Serum or Plasma 46 ug/dL 42-135 [facility] (Mona Islas MD) Magnesium [Mass/volume] in Serum or Plasma 1.8 mg/dL 1.7-2.2 [facility] (Mona Islas MD) ID Date Data Source [id number] 02/02/2020 11:21:00 AM EST [facility] (Mona Islas MD) Name Value Range Interpretation Code Description Data Rosalind rce(s) Supporting Document(s) Laboratory test finding (navigational concept) 1.29 0 .93-1.23 Above high normal [facility] (Mona Islas MD) \\BLDo\\INR INTERPRETATION\\BLDx\\ Therapeutic range for Coumadin and related oral anticoagulants. -International Normalized Ratio (INR): 2 .0 - 3.0 for Venous Thrombosis, Pulmonary Embolus, Tissue heart valves, Acute HI, Atrial Fibrillation, Valvular heart disease and recurrent Systemic Embolism. -International Normalized Ratio (INR): 2 .5 - 3.5 for Mechanical Prosthetic valve. Laboratory test finding (navigational concept) 16.3 s 1 1.0-15.5 Above high normal [facility] (Mona Islas MD) ID Date Data Source [id number] 02/02/2020 11:21:00 AM EST [facility] (Mona Islas MD) Name Value Range Interpretation Code Description Data Rosalind rce(s) Supporting Document(s) Laboratory test finding (navigational concept) Laboratory test result [facility] (Mona Islas MD) COMPLETE BLOOD COUNT Laboratory test finding (navigational concept) 4.34 10^6/uL 4 .50-6.30 Below low normal [facility] (Mona Islas MD) Laboratory test finding (navigational concept) 4.9 10^3/uL 4.2-11.0 [facility] (Mona Islas MD) Laboratory test finding (navigational concept) 12.9 g/dL 1 4.0-16.0 Below low normal [facility] (Mona Islas MD) Laboratory test finding (navigational concept) 39.3 % 4 1.0-51.0 Below low normal [facility] (Mona Islas MD) Laboratory test finding (navigational concept) 90.6 fL 80.0-94.0 [facility] (Mona Islas MD) Laboratory test finding (navigational concept) 29.7 pg 27.0-34.0 [facility] (Mona Islas MD) Laboratory test finding (navigational concept) 32.8 g/dL 31.0-36.0 [facility] (Mona Islas MD) Laboratory test finding (navigational concept) 173 10^3/uL 150-450 [facility] (Mona Islas MD) Laboratory test finding (navigational concept) 9.1 fL 7.4-10.4 [facility] (Mona Islas MD) Laboratory test finding (navigational concept) 14.1 % 11.5-14.8 [facility] (Mona Islas MD) Laboratory test finding (navigational concept) 73.7 % 37.0-80.0 [facility] (Mona Islas MD) Laboratory test finding (navigational concept) 14.6 % 2 5.0-40.0 Below low normal [facility] (Mona Islas MD) Laboratory test finding (navigational concept) 0.6 % 0.0-2.0 [facility] (Mona Islas MD) Laboratory test finding (navigational concept) 1.8 % 0.0-7.0 [facility] (Mona Islas MD) Laboratory test finding (navigational concept) 8.7 % 3.0-8.0 Above high normal [facility] (Mona Islas MD) Laboratory test finding (navigational concept) 0.0 % 0.0-0.0 [facility] (Mona Islas MD) Laboratory test finding (navigational concept) 0.6 % 0.0-0.0 Above high normal [facility] (Mona Islas MD) Laboratory test finding (navigational concept) 3.64 10^3/uL 2.00-6.90 [facility] (Mona Islas MD) Laboratory test finding (navigational concept) 0.43 10^3/uL 0.00-0.90 [facility] (Mona Islas MD) Laboratory test finding (navigational concept) 0.72 10^3/uL 0.60-3.40 [facility] (Mona Islas MD) Laboratory test finding (navigational concept) 0.03 10^3/uL 0.00-0.20 [facility] (Mona Islas MD) Laboratory test finding (navigational concept) 0.09 10^3/uL 0.00-0.70 [facility] (Mona Islas MD) Laboratory test finding (navigational concept) 0.03 10^3/uL 0.00-0.10 [facility] (Mona Islas MD) Laboratory test finding (navigational concept) 0.00 10^3/uL 0.00-0.00 [facility] (Mona Islas MD) Laboratory test finding (navigational concept) Laboratory test result [facility] (Mona Islas MD) Laboratory test finding (navigational concept) Laboratory test result [facility] (Mona Islas MD) ID Date Data Source [id number] 02/02/2020 12:34:00 PM EST [facility] Name Value Range Interpretation Code Description Data Rosalind rce(s) Supporting Document(s) [facility] NORMAL: Yellow [facility] CLARITY clear NORMAL: Clear [facility] Specific gravity of Urine by Test strip 1.010 1.001 - 1.030 [facility] Center pH 6.5 5 - 9 [facility] al Glucose [Mass/volume] in Urine by Test strip 1000 NORMAL: Negat [facility] Bilirubin.total [Presence] in Urine by Test strip NEG NORMAL: Negative [facility] Ketones [Presence] in Urine by Test strip NEG NORMAL: Negative [facility] Protein [Mass/volume] in Urine by Test strip 100 NORMAL: Negat [facility] Nitrite [Presence] in Urine by Test strip NEG NORMAL: Negative [facility] BLOOD 10 NORMAL: Negative [facility] Leukocyte esterase [Presence] in Urine by Test strip NEG MIRIAN L: Negative [facility] Urobilinogen [Mass/volume] in Urine by Test strip NOR less tyron n 1.0 mg/dL [facility] MICROSCOPIC See Below [facility] ital WBC 0 - 1 NORMAL: NONE SEEN [facility] Erythrocytes [#/volume] in Urine by Test strip 0 - 1 NORMAL: NON E SEEN [facility] EPITHELIAL FEW NORMAL: NONE SEEN [facility] Bacteria [Presence] in Urine sediment by Light microscopy Tr gustavo NORMAL: NONE SEEN [facility] ID Date Data Source [id number] 02/02/2020 12:01:00 PM EST [facility] Name Value Range Interpretation Code Description Data Rosalind rce(s) Supporting Document(s) [facility]EL [facility] Cholesterol [Mass/volume] in Serum or Plasma 170 MG/DL 131 - 200 [facility] Deprecated Triglyceride [Mass/volume] in Serum or Plasma 87 MG/DL 3 5 - 160 [facility] HDL 56 MG/DL 29 - 86 [facility] Cholesterol in LDL [Mass/volume] in Serum or Plasma by Direc t assay 104 mg/dL 65 - 175 [facility] Cholesterol.total/Cholesterol in HDL [Mass Ratio] in Serum o r Plasma 3.0 3.4 - 4.9 L [facility] LDL/HDL 1.86 1.00 - 3.55 [facility] CVE RISK CHOL/HDL LDL/HDLMEN: 1/2 AVERAGE 3.43 1.00 AVERAGE 4.97 3.55 2X AVERAGE 9.55 6.25 3X AVERAGE 23.99 7.99WOMEN: 1/2 AVERAGE 3.27 1.47 AVERAGE 4.44 3.22 2X AVERAGE 7.05 5.03 3X AVERAGE 11.04 6.14 ID Date Data Source [id number] 02/02/2020 12:01:00 PM EST [facility] Name Value Range Interpretation Code Description Data Rosalind rce(s) Supporting Document(s) COMPREHENSIVE METABOLIC PANEL [facility] COMPREHENSIVE METABOLIC PANEL Sodium [Moles/volume] in Serum or Plasma 136 mEq/L 134 - 153 [facility] Potassium [Moles/volume] in Serum or Plasma 4.8 mEq/L 3.6 - 5.0 [facility] Chloride [Moles/volume] in Serum or Plasma 99 mEq/L 98 - 107 [facility] Carbon dioxide, total [Moles/volume] in Serum or Plasma 30 MEQ/L 22 - 30 [facility] Glucose [Mass/volume] in Serum or Plasma 294 MG/DL 65 - 110 H [facility] BUN 12 MG/DL 7 - 21 [facility] Creatinine [Mass/volume] in Serum or Plasma 0.9 MG/DL 0.7 - 1.5 [facility] BUN/CREAT 13 8 - 27 [facility] Protein [Mass/volume] in Serum or Plasma 7.4 G/DL 6.3 - 8.2 [facility] Albumin [Mass/volume] in Serum or Plasma 4.2 G/DL 3.9 - 5.0 [facility] Globulin [Mass/volume] in Serum by calculation 3.2 GM/DL 2.4 - 3.2 [facility] A/G RATIO 1.3 0.8 - 2.0 [facility] Calcium [Mass/volume] in Serum or Plasma 9.0 MG/DL 8.4 - 10.2 [facility] Bilirubin.total [Mass/volume] in Serum or Plasma <0.7 MG/DL 0.2 - 1.3 [facility] Alkaline phosphatase [Enzymatic activity/volume] in Serum or Plasma 82 U/L 38 - 126 [facility] Aspartate aminotransferase [Enzymatic activity/volume] in Serum or Plasma 16 U/L 5 - 40 [facility] Alanine aminotransferase [Enzymatic activity/volume] in Seru m or Plasma 17 U/L 7 - 56 [facility] Anion gap 3 in Serum or Plasma 7.0 mmol/L 8.0 - 16.0 L [facility] AGE [address] [facility] al NON-AA GFR >60 mL/min [facility] ital AFR AMER GFR >60 mL/min [facility] Ho spital Male GFR In terprentation 20-49 yrs >60 mL/min Normal 50-59 yrs >56 mL/min Normal 60-69 yrs >49 mL/min Normal 70-79yrs >42 mL/min Normal 80 and above >35 mL/min Normal Female GFR Interpretation 20-39 yrs >60 mL/min Normal 40-49 yrs >58 mL/min Normal 50-59 yrs >51 mL/min Normal 60-69 yrs >45 mL/min Normal 70-79 yrs >39 mL/min Normal 80 and above >32 mL/min Normal ID Date Data Source [id number] 02/02/2020 12:01:00 PM [facility] Name Value Range Interpretation Code Description Data Rosalind rce(s) Supporting Document(s) Magnesium [Mass/volume] in Serum or Plasma 1.8 MG/DL 1.7 - 2.2 [facility] ID Date Data Source [id number] 02/02/2020 11:59:00 AM [facility] Name Value Range Interpretation Code Description Data Rosalind rce(s) Supporting Document(s) Iron [Mass/volume] in Serum or Plasma 46 UG/DL 42 - 135 [facility] ID Date Data Source [id number] 02/02/2020 11:50:00 AM [facility] Name Value Range Interpretation Code Description Data [facility](s) Supporting Document(s) Hemoglobin A1c/Hemoglobin.total in Blood 13.2 % 4.4 - 6.1 H [facility] {A1]{HB] ID Date Data Source [id number] 02/02/2020 11:48:00 AM [facility] Name Value Range Interpretation Code Description Data [facility] rce(s) Supporting Document(s) Prothrombin time (PT) 16.3 SECONDS 11.0 - 15.5 H [facility] INR in Platelet poor plasma by Coagulation assay 1.29 0.93 - 1. 23 H [facility] \\BLDo\\INR INTERPRETATION\\BLDx\\ Therapeutic range for Coumadin and related oral anticoagulants. - International Normalized Ratio (INR): 2.0 - 3.0 for Venous Thrombosis, Pulmonary Embolus, Tissue heart valves, Acute HI, Atrial Fibrillation, Valvular heart disease and recurrent Systemic Embolism. -International Normalized Ratio (INR): 2.5 - 3.5 for Mechanical Prosthetic valve. ID Date Data Source [id number] 02/02/2020 11:39:00 AM [facility] Name Value Range Interpretation Code Description Data [facility](s) Supporting Document(s) CBC W/AUTOMATED DIFF [facility] COMPLETE BLOOD COUNT Leukocytes [#/volume] in Blood by Automated count 4.9 10^3/uL 4.2 - 1 1.0 [facility] Erythrocytes [#/volume] in Blood by Automated count 4.34 10^6/uL 4. 50 - 6.30 L [facility] Hemoglobin [Mass/volume] in Blood 12.9 g/dL 14.0 - 16.0 L [facility] Hematocrit [Volume Fraction] of Blood by Automated count 39.3 % 4 1.0 - 51.0 L [facility] Erythrocyte mean corpuscular volume [Entitic volume] by Auto mated count 90.6 fL 80.0 - 94.0 [facility] Erythrocyte mean corpuscular hemoglobin [Entitic mass] by Automated count 29.7 pg 27.0 - 34.0 [facility] Erythrocyte mean corpuscular hemoglobin concentration [Mass/volume] by Automated count 32.8 g/dL 31.0 - 36.0 [facility] Erythrocyte distribution width [Ratio] by Automated count 14.1 % 11.5 - 14.8 [facility] Platelets [#/volume] in Blood by Automated count 173 10^3/uL 150 - 45 0 [facility] Platelet mean volume [Entitic volume] in Blood by Automated count 9.1 fL 7.4 - 10.4 [facility] Neutrophils/100 leukocytes in Blood by Automated count 73.7 % 37. 0 - 80.0 [facility] Lymphocytes/100 leukocytes in Blood by Manual count 14.6 % 25.0 - 40.0 L [facility] Monocytes/100 leukocytes in Blood by Automated count 8.7 % 3.0 - 8.0 H [facility] Eosinophils/100 leukocytes in Blood by Automated count 1.8 % 0.0 - 7.0 [facility] Basophils/100 leukocytes in Blood by Automated count 0.6 % 0.0 - 2.0 [facility] %IG 0.6 % 0.0 - 0.0 H [facility] %NRBC 0.0 % 0.0 - 0.0 [facility] Neutrophils [#/volume] in Blood by Automated count 3.64 10^3/uL 2.00 - 6.90 [facility] Lymphocytes [#/volume] in Blood by Automated count 0.72 10^3/uL 0.60 - 3.40 [facility] Monocytes [#/volume] in Blood by Automated count 0.43 10^3/uL 0.00 - 0.90 [facility] Eosinophils [#/volume] in Blood by Automated count 0.09 10^3/uL 0.00 - 0.70 [facility] Basophils [#/volume] in Blood by Automated count 0.03 10^3/uL 0.00 - 0.20 [facility] #IG 0.03 10^3/uL 0.00 - 0.10 [facility] H ospital #NRBC 0.00 10^3/uL 0.00 - 0.00 [facility] ospital MANUAL DIFF NOT INDICATED [facility] RBC MORPH NOT INDICATED [facility] spital ID Date Data Source [id number] 11/26/2019 03:48:00 PM EDT [facility] Name Value Range Interpretation Code Description Data Rosalind rce(s) Supporting Document(s) Prothrombin time (PT) 26.5 SECONDS 11.0 - 15.5 H [facility] INR in Platelet poor plasma by Coagulation assay 2.40 0.93 - 1. 23 H [facility] \\BLDo\\INR INTERPRETATION\\BLDx\\ Therapeutic range for Coumadin and related oral anticoagulants. - International Normalized Ratio (INR): 2.0 - 3.0 for Venous Thrombosis, Pulmonary Embolus, Tissue heart valves, Acute HI, Atrial Fibrillation, Valvular heart disease and recurrent Systemic Embolism. -International Normalized Ratio (INR): 2.5 - 3.5 for Mechanical Prosthetic valve. ID Date Data Source [id number] 11/21/2019 01:14:00 PM EDT [facility] Name Value Range Interpretation Code Description Data Rosalind rce(s) Supporting Document(s) COMPREHENSIVE METABOLIC PANEL [facility] COMPREHENSIVE METABOLIC PANEL Sodium [Moles/volume] in Serum or Plasma 139 mEq/L 134 - 153 [facility] Potassium [Moles/volume] in Serum or Plasma 4.8 mEq/L 3.6 - 5.0 [facility] Chloride [Moles/volume] in Serum or Plasma 102 mEq/L 98 - 107 [facility] Carbon dioxide, total [Moles/volume] in Serum or Plasma 30 MEQ/L 22 - 30 [facility] Glucose [Mass/volume] in Serum or Plasma 180 MG/DL 65 - 110 [facility] BUN 20 MG/DL 7 - 21 [facility] Creatinine [Mass/volume] in Serum or Plasma 0.8 MG/DL 0.7 - 1.5 [facility] BUN/CREAT 25 8 - 27 [facility] Protein [Mass/volume] in Serum or Plasma 7.1 G/DL 6.3 - 8.2 [facility] Albumin [Mass/volume] in Serum or Plasma 3.6 G/DL 3.9 - 5.0 L [facility] Globulin [Mass/volume] in Serum by calculation 3.5 GM/DL 2.4 - 3.2 H [facility] A/G RATIO 1.0 0.8 - 2.0 [facility] Calcium [Mass/volume] in Serum or Plasma 8.6 MG/DL 8.4 - 10.2 [facility] Bilirubin.total [Mass/volume] in Serum or Plasma <0.7 MG/DL 0.2 - 1.3 [facility] Alkaline phosphatase [Enzymatic activity/volume] in Serum or Plasma 101 U/L 38 - 126 [facility] Aspartate aminotransferase [Enzymatic activity/volume] in Serum or Plasma 26 U/L 5 - 40 [facility] Alanine aminotransferase [Enzymatic activity/volume] in Seru m or Plasma 25 U/L 7 - 56 [facility] Anion gap 3 in Serum or Plasma 7.0 mmol/L 8.0 - 16.0 L [facility] AGE [address] [facility] al NON-AA GFR >60 mL/min [facility] ital AFR AMER GFR >60 mL/min [facility] Ho spital Male GFR In terprentation 20-49 yrs >60 mL/min Normal 50-59 yrs >56 mL/min Normal 60-69 yrs >49 mL/min Normal 70-79yrs >42 mL/min Normal 80 and above >35 mL/min Normal Female GFR Interpretation 20-39 yrs >60 mL/min Normal 40-49 yrs >58 mL/min Normal 50-59 yrs >51 mL/min Normal 60-69 yrs >45 mL/min Normal 70-79 yrs >39 mL/min Normal 80 and above >32 mL/min Normal ID Date Data Source [id number] 11/21/2019 01:04:00 PM EDT [facility] Name Value Range Interpretation Code Description Data Rosalind rce(s) Supporting Document(s) CBC W/AUTOMATED DIFF [facility] COMPLETE BLOOD COUNT Leukocytes [#/volume] in Blood by Automated count 4.3 10^3/uL 4.2 - 1 1.0 [facility] Erythrocytes [#/volume] in Blood by Automated count 3.94 10^6/uL 4. 50 - 6.30 L [facility] Hemoglobin [Mass/volume] in Blood 11.4 g/dL 14.0 - 16.0 L [facility] Hematocrit [Volume Fraction] of Blood by Automated count 36.1 % 4 1.0 - 51.0 L [facility] Erythrocyte mean corpuscular volume [Entitic volume] by Auto mated count 91.6 fL 80.0 - 94.0 [facility] Erythrocyte mean corpuscular hemoglobin [Entitic mass] by Automated count 28.9 pg 27.0 - 34.0 [facility] Erythrocyte mean corpuscular hemoglobin concentration [Mass/volume] by Automated count 31.6 g/dL 31.0 - 36.0 [facility] Erythrocyte distribution width [Ratio] by Automated count 14.3 % 11.5 - 14.8 [facility] Platelets [#/volume] in Blood by Automated count 162 10^3/uL 150 - 45 0 [facility] Platelet mean volume [Entitic volume] in Blood by Automated count 8.9 fL 7.4 - 10.4 [facility] Neutrophils/100 leukocytes in Blood by Automated count 67.8 % 37. 0 - 80.0 [facility] Lymphocytes/100 leukocytes in Blood by Manual count 13.9 % 25.0 - 40.0 L [facility] Monocytes/100 leukocytes in Blood by Automated count 14.8 % 3.0 - 8.0 H [facility] Eosinophils/100 leukocytes in Blood by Automated count 2.5 % 0.0 - 7.0 [facility] Basophils/100 leukocytes in Blood by Automated count 0.5 % 0.0 - 2.0 [facility] %IG 0.5 % 0.0 - 0.0 [facility] %NRBC 0.0 % 0.0 - 0.0 [facility] Neutrophils [#/volume] in Blood by Automated count 2.94 10^3/uL 2.00 - 6.90 [facility] Lymphocytes [#/volume] in Blood by Automated count 0.60 10^3/uL 0.60 - 3.40 [facility] Monocytes [#/volume] in Blood by Automated count 0.64 10^3/uL 0.00 - 0.90 [facility] Eosinophils [#/volume] in Blood by Automated count 0.11 10^3/uL 0.00 - 0.70 [facility] Basophils [#/volume] in Blood by Automated count 0.02 10^3/uL 0.00 - 0.20 [facility] #IG 0.02 10^3/uL 0.00 - 0.10 [facility] H ospital #NRBC 0.00 10^3/uL 0.00 - 0.00 [facility] H ospital MANUAL DIFF NOT INDICATED [facility] RBC MORPH NOT INDICATED [facility] Ho spital ID Date Data Source [id number] 11/21/2019 01:04:00 PM EDT [facility] Name Value Range Interpretation Code Description Data Rosalind rce(s) Supporting Document(s) Hemoglobin A1c/Hemoglobin.total in Blood 9.5 % 4.4 - 6.1 H [facility] {A1]{HB] Procedure Social History Code Duration Value Status Description Data Source(s ) Smoking 09/12/2020 12:00:00 AM EDT Never Smoked A Pipe complet ed Never Smoked A Pipe MEDENT ([facility]) Smoking 07/04/2020 03:53:12 PM EDT Never smoked tobacco (findi ng) completed Never smoked tobacco (finding) OPAL (Denton Waite MD [facility]) Smoking 07/04/2020 12:00:00 AM EDT Never Smoker completed Never S curtis eCW1 ([facility]) Vital Signs ID Date Data Source UNK Name Value Range Interpretation Code Description Data Source(s) Body height 69 [in_i] 69 [in_i] MEDLUIS A (Mona Islas MD) 5'9" Oxygen saturation in Arterial blood by Pulse oximetry 89 % 89 % MEDLUIS A (Mona Islas MD) Body weight 319.00 [lb_av] 319.00 [lb_av] MEDEN T (Mona Islas MD) Body mass index (BMI) [Ratio] 47.1 kg/m2 47.1 k g/m2 YVETTE (Mona Islas MD) Body temperature 97.2 [degF] 97.2 [degF] YVETTE (Mona Islas MD) Systolic blood pressure 197 mm[Hg] 197 mm[Hg] M EDENT (Mona Islas MD) Diastolic blood pressure 85 mm[Hg] 85 mm[Hg] MEDENT (Mona Islas MD) Heart rate 68 /min 68 /min MEDENT (Mona Islas MD) Body mass index (BMI) [Ratio] 47.3 kg/m2 47.3 k g/m2 MEDENT (Mona Islas MD) Body temperature 97.3 [degF] 97.3 [degF] MEDENT (Mona Islas MD) Systolic blood pressure 159 mm[Hg] 159 mm[Hg] M EDENT (Mona Islas MD) Diastolic blood pressure 81 mm[Hg] 81 mm[Hg] MEDENT (Mona Islas MD) Heart rate 84 /min 84 /min MEDENT (Mona Islas MD) Body height 69 [in_i] 69 [in_i] MEDENT (Mona Islas MD) 5'9" Body weight 320.00 [lb_av] 320.00 [lb_av] MEDEN T (Mona Islas MD) Oxygen saturation in Arterial blood by Pulse oximetry 92 % 92 % MEDENT (Mona Islas MD) Body height 69 [in_i] 69 [in_i] MEDENT (Mona Islas MD) 5'9" Body weight 321.00 [lb_av] 321.00 [lb_av] MEDEN T (Mona Islas MD) Body mass index (BMI) [Ratio] 47.4 kg/m2 47.4 k g/m2 MEDENT (Mona Islas MD) Body temperature 97.7 [degF] 97.7 [degF] MEDENT (Mona Islas MD) Systolic blood pressure 189 mm[Hg] 189 mm[Hg] M EDENT (Mona Islas MD) Diastolic blood pressure 76 mm[Hg] 76 mm[Hg] MEDENT (Mona Islas MD) Heart rate 85 /min 85 /min MEDENT (Mona Islas MD) Oxygen saturation in Arterial blood by Pulse oximetry 94 % 94 % MEDENT (Mona Islas MD) Body weight 356 [lb_av] 356 [lb_av] eCW1 ([facility]ly [facility]) Body height 70 [in_i] 70 [in_i] eCW1 (Pending sale to [facility]) Body mass index (BMI) [Ratio] 51.08 kg/m2 51.08 kg/m2 eCW1 ([facility]) Heart rate 58 /min 58 /min eCW1 ([facility]) Respiratory rate 18 /min 18 /min eCW1 ([facility]) Body temperature 97.6 [degF] 97.6 [degF] eCW1 ( [facility]) Systolic blood pressure 112 mm[Hg] 112 mm[Hg] e CW1 ([facility]) Diastolic blood pressure 62 mm[Hg] 62 mm[Hg] eCW1 ([facility]) Body temperature 97.9 [degF] 97.9 [degF] MEDENT (Mona Islas MD) Systolic blood pressure 145 mm[Hg] 145 mm[Hg] M EDENT (Mona Islas MD) Diastolic blood pressure 73 mm[Hg] 73 mm[Hg] MEDENT (Mona Islas MD) Heart rate 83 /min 83 /min MEDENT (Mona Islas MD) Body height 69 [in_i] 69 [in_i] MEDENT (Mona Islas MD) 5'9" Body weight 315.00 [lb_av] 315.00 [lb_av] MEDEN T (Mona Islas MD) Body mass index (BMI) [Ratio] 46.5 kg/m2 46.5 k g/m2 MEDENT (Mona Islas MD) Oxygen saturation in Arterial blood by Pulse oximetry 98 % 98 % MEDENT (Mona Islas MD) Body temperature 97.1 [degF] 97.1 [degF] MEDENT ([facility]) Systolic blood pressure 209 mm[Hg] 209 mm[Hg] M EDENT (Mona Islas MD) Diastolic blood pressure 89 mm[Hg] 89 mm[Hg] MEDENT (Mona Islas MD) Heart rate 66 /min 66 /min MEDENT (Mona Islas MD) Body height 69 [in_i] 69 [in_i] YVETTE (Mona Islas MD) 5'9" Body weight 312.00 [lb_av] 312.00 [lb_av] MEDEN T (Mona Islas MD) Body mass index (BMI) [Ratio] 46.1 kg/m2 46.1 k g/m2 YVETTE (Mona Islas MD) Body temperature 98.1 [degF] 98.1 [degF] YVETTE (Mona Islas MD) Oxygen saturation in Arterial blood by Pulse oximetry 93 % 93 % YVETTE (Mona Islas MD)
[2021-01-18] MEDS ORDERED: LIDOCAINE VISCOUS 2% SOLN 15ML UDC SS ONE (14:55)
[2021-01-18] MEDS ORDERED: FURO40TA2 PO (15:21)
[2021-01-18] MEDS ORDERED: METO50TA7 PO (15:21)
[2021-01-18] MEDS ORDERED: AMLO1TAB24 PO (15:21)
--- OUTSIDE RECORDS SUMMARY | 2021-01-18 15:51 | CCD ---
Author Author [facility] Organization [facility] Address Unknown Phone Unavailable Care Team Providers Care Group Rooms Coordinator Name Role Phone Alexia Palomares [facility], PA-C Unavailable [facility]availabl e [facility], [facility]-C Un[facility]ail[facility] e [facility] Unavailable [facility]ailabl e [facility], PA-C Unavailable Unavailabl e [facility], PA-C Unavailable Unavailabl e [facility], PA-C Unavailable [facility]availabl e [facility], PA-C Un[facility] Unavailable [facility]ailabl e [facility], PA-C Unavailable Unavailabl e [facility], PA-C Unavailable [facility]ailabl e [facility] Unavailable Unavailabl e Fish, [facility], PA-C Unavailable Unavailabl e Fish, [facility], PA-C Unavailable Unavailabl e Fish, [facility], PA-C Unavailable Unavailabl e Fish, [facility], PA-C Unavailable Unavailabl e Fish, [facility], PA-C Unavailable Unavailabl e Fish, [facility], PA-C Unavailable Unavailabl e Fish, [facility], PA-C Unavailable Unavailabl e Fish, [facility], PA-C Unavailable Unavailabl e Fish, [facility], PA-C Unavailable Unavailabl e Fish, [facility], PA-C Unavailable Unavailabl e Fish, [facility], PA-C Unavailable Unavailabl e Fish, [facility], PA-C Unavailable Unavailabl e Fish, [facility], PA-C Unavailable Unavailabl e Fish, [facility], PA-C Unavailable Unavailabl e Fish, [facility], PA-C Unavailable Unavailabl e Fish, [facility], PA-C Unavailable Unavailabl e Fish, [facility], PA-C Unavailable Unavailabl e Fish, [facility], PA-C Unavailable Unavailabl e Fish, [facility], PA-C Unavailable Unavailabl e Fish, [facility], PA-C Unavailable Unavailabl e Fish, [facility], PA-C Unavailable Unavailabl e Fish, [facility], PA-C Unavailable Unavailabl e Fish, [facility], PA-C Unavailable Unavailabl e [place], [...] E Chelsie PA Unavailable Unavailable NISSA, MAQBOOL MNOA MD Unavailable [...] MAQBOOL MONA MD Unavailable Unavailable NISSA, MAQBOOL OMNA MD Unavailable Unavailable NISSA, MAQBOOL MONA MD [...] is protected by Article 27-F of the [facility] Public Health law. If you continue you may have access to information: Regarding HIV / AIDS; Provided by facilities licensed or operated by the [facility] Office of Mental Health; or Provided by the [facility] Office for People With Developmental Disabilities. If such information is present, then the following [facility] mandated warning applies: This information has [...] law may result in a fine or mcfp sentence or both. A general authorization for the release of medical or other information is NOT sufficient authorization for further disc losure. Allergies and Adverse Reactions Type Description Substance Reaction Status Data Source(s ) No Known Drug Allergies No Known Drug Allergies [facility] Allergy to substance No Known Allergies No known allergies (situation ) [facility] (Denton Waite [facility]) Allergy to substance No Known Allergies No known allergies (situation ) OP[facility] (Denton Waite MD [facility]) Family History Family Member Name Family Member Gender Family Member Status Date o f Status Description Data Source(s) Unknown Unknown Problem [facility] ([facility]) Unknown Unknown Problem [facility] ([facility] ) Unknown Female Problem [facility] ([facility]) Unknown Female Problem [facility] ([facility]) Unknown Female Problem [facility] ([facility]) Unknown Female Problem [facility] ([facility]) Unknown Female Problem [facility] ([facility]) Encounters Encounter Providers Location Date Indications Data Source(s ) Outpatient Attender: MONA ISLAS MDConsultant: MONA Huang MD 12/29/2020 10:55:00 AM EDT - 12/29/2020 11:55:00 AM EDT [facility] Outpatient Attender: MONA ISLAS MD Medical [facility] 12/29 10:30:00 AM EDT MED[facility] (Mona Islas MD) OFFICE OUTPATIENT VISIT 15 MINUTES Attender: HENRIQUE VENTURA Phys ical Therapy 11/03/2020 01:00:00 PM EDT [facility] ([facility]) Outpatient Attender: MINA VENTURA [facility] 11/01/2020 10:30:00 AM EDT MED[facility] (Mona Islas MD) Outpatient Attender: NINA ARAUJO DPM PCConsultant: MONA ISLAS MD 09/12/2020 02:55:00 PM EDT - 09/12/2020 02:55:00 PM EDT [facility] Outpatient Attender: MONA ISLAS MD [facility] 09/09 10:30:00 AM EDT MEDENT (Mona Islas MD) Office Visit Attender: Arelis WILLSON PA-C Physical Therapy 07/07/2020 08:30:00 AM EDT [facility] ([facility]) Outpatient Attender: MONA ISLAS MD [facility] 07/04 04:00:00 PM EDT MED[facility] (Mona Islas MD) Outpatient<td ID="encounterTypeDescripti onID0">9 Month Follow-Up</td><td>Denton Ruiz MD, FACS</td><td[facility]</td><td>07/04/2020</td><td>2:33PM</td><td>3:42PM</td><td><content ID="encounterDiagnosisID0-0">Essential Hypertension</content>, <content ID="encounterDiagnosisID0-1">Assessment of Taking Medication For Diabetes Long- term Use of Oral Hypoglycemics</content>, <content ID="encounterDiagnosisID0- 2">Diabetes Mellitus Type 2 - Uncomplicated, Controlled</content>, <content ID="encounterDiagnosisID0-3">Macular Puckering Both Eyes</content>, <content ID="encounterDiagnosisID0-4">Dry Eye Syndrome Both Eyes</content></td> Attender: Denton Waite MD, FACS [facility] 07/04/2020 02:33:00 PM EDT - 07/04/2020 03:42:00 PM EDT Macular Puckering Both EyesMacular Pucke ring Both EyesDry Eye Syndrome Both EyesDiabetes Mellitus Type 2 - Uncomplicated, ControlledAssessment of Taking Medication For Diabetes Long-term Use of Oral HypoglycemicsEssential HypertensionDry Eye Syndrome Both EyesDiabetes Mellitus Type 2 - Uncomplicated, ControlledAssessment of Taking Medication For Diabetes Long-term Use of Oral HypoglycemicsEssential Hypertension [place] (Denton Waite MD [facility]) Macular Puckering Both Eyes Macular Puckering Both [...] of Oral Hypoglycemics Essential Hypertension Outpatient [address] [place] [address], [place] [address] 07/04/2020 12:00:00 AM EDT eCW1 ([facility]) Outpatient Attender: MONA ISLAS MDConsultant: MONA Huang MD 07/03/2020 01:38:00 PM EDT - 07/03/2020 02:38:00 PM EDT [facility] Patient discharged. Outpatient Attender: BRIDGET TONY MDConsultant: MONA BAEZ MD 07/03/2020 01:36:00 PM EDT - 07/03/2020 02:36:00 PM EDT [facility] Outpatient Attender: MONA ISLAS MDConsultant: MONA Huang MD 03/27/2020 10:18:00 AM EST - 03/27/2020 11:18:00 AM [facility] Outpatient Attender: MONA ISLAS MD [facility] 03/23 09:30:00 AM EST MED[facility] (Mona Islas MD) Outpatient Attender: NINA ARAUJO DPM PCConsultant: MONA ISLAS MD 03/22/2020 11:09:00 AM EST - 03/22/2020 11:09:00 AM [facility] Office Visit Attender: Arelis WILLSON PA-C Physical Therapy 03/22/2020 07:30:00 AM EST [facility] ([facility]) OFFICE OUTPATIENT VISIT 15 MINUTES Attender: Arelis WILLSON PA-C Physical Therapy 02/04/2020 08:30:00 AM EST [facility] ([facility]) Outpatient Attender: MONA ISLAS MDConsultant: MONA Huang MD 02/02/2020 11:10:00 AM EST - 02/02/2020 12:10:00 PM [facility] Outpatient Attender: MONA ISLAS MD [facility] 02/01 09:30:00 AM EST MED[facility] (Mona Islas MD) Outpatient Attender: MONA ISLAS MDConsultant: MONA Huang MD 11/26/2019 02:40:00 PM EDT - 11/26/2019 03:40:00 PM [facility] Outpatient Attender: MONA ISLAS MD [facility] 11/25 01:45:00 PM EDT MED[facility] (Mona Islas MD) Outpatient Attender: MINA V[facility]URA [facility] 11/25/2019 10:30:00 AM EDT MED[facility] (Mona Islas MD) Outpatient Attender: Chelsie VENTURA Physical Therapy 08:30:00 AM EDT [facility] ([facility]) Outpatient Attender: NINA ARAUJO DPM PCConsultant: MONA ISLAS MD 11/23/2019 01:28:00 PM EDT - 11/23/2019 [facility] MONA SIMEONonsultant: MONA Huang MD 11/21/2019 12:13:00 PM EDT - 11/21/2019 01:13:00 PM EDT [facility] Immunizations Vaccine Date Status Description Data Source(s) COVID-19 VACCINE Moderna 08/01/2020 12:00:00 AM EDT completed [facility] Vaccine Series Complete: YESThis Data wa s Submitted to [facility] [employer]. COVID-19 VACCINE Moderna 07/07/2020 12:00:00 AM EDT completed [facility] Vaccine Series Complete: NOThis Data was Submitted to [facility] [employer]. Medications Medication Brand Name Start Date Product [...] 03/22/2020 12:00:00 AM EST active M EDENT ([facility] ) Warfarin Sodium 7.5 MG Oral Tablet Warfarin Sodium 7.5 MG Oral Tablet Warfarin Sodium 7.5MG Oral Tablet 11/08/2016 12:00:00 AM EDT 1 aborted warfarin sodium 7.5 MG Oral Tablet [place] (Denton Waite MD [facility]) Insurance Providers Payer name Policy type / Coverage type Policy ID Covered alliance party ID Covered alliance party's relationship to nichols Policy [place] Plan Information [place] (Medicare) Medigap Part B [id number] Self [place] (Medicare) Medigap Part B [id number] Self [id number] [facility] MEDICARE COMPLETE G [id number] Self [id number] MEDICARE COMPLETE [id number] SP [id number] MEDICARE COMPLETE [id number] SP [id number] MEDICARE COMPLETE [id number] SP [id number] [facility] MEDICARE [id number] S [id number] ANSI-Medicare Part B [id number] MEDICARE COMPLETE [id number] SP [id number] [place] GamesNOR[facility] CENTERW[facility]amp [id number] Self [id number] [facility] [id number] 18 [id number] ANSI-Medicare Part B [id number] ANSI-Medicare Part B [id number] [facility] MEDICARE [id number] S [id number] UN COMMUNITY PLAN XIX [id number] 18 [id number] [employer] MEDICARE [facility] [id number] 18 [id number] [employer] UN MEDICARE O/P [id number] 18 [id number] [facility] Communty Plan Medicaid [id number] Self [id number] [facility] COMM[facility] [id number] 18 [id number] [facility] Commercial [id number] Self [id number] [place] [employer] VisionNORTHWEST M[facility] CENTERWiseStamp [id number] Self MEDICARE COMPLETE [id number] SP [id number] [facility] Medicare Commercial [id number] Self MEDICARE COMPLETE-[facility] O [id number] S [id number] MEDICARE COMPLETE [id number] SP [id number] [employer] [facility] MEDICARE-O/P [id number] 18 [id number] [facility]-O/P [id number] 18 [id number] MEDICARE COMPLETE [id number] SP [id number] [employer] [facility] MEDICARE O/P [id number] 18 [id number] [facility] MEDICARE COMPLETE [place] [id number] 18 [id number] [facility] [employer] [facility] [place] [id number] 18 [id number] UNITED HEALTHCARE MEDICARE [id number] S [id number] ANSI-Medicare Part B [id number] Problems, Conditions, and Diagnoses Code Display Name Description Problem Type Effective Dates Data Source(s) D649 Anemia, unspecified Anemia, unspecified Diagnosis 0 12/29/2020 10:55:00 AM [facility] E8342 Hypomagnesemia Hypomagnesemia Diagnosis 12/29/2020 10:55: 00 AM [facility] N390 Urinary tract infection, site not specif ied Urinary tract infection, site not specified Diagnosis 12/29/2020 10:55:00 AM [facility] E039 Hypothyroidism, unspecified Hypothyroidism, unspecifie d Diagnosis 12/29/2020 10:55:00 AM [facility] E785 Hyperlipidemia, unspecified Hyperlipidemia, unspecifie d Diagnosis 12/29/2020 10:55:00 AM [facility] E119 Type 2 diabetes mellitus without complic ations Type 2 diabetes mellitus without complications Diagnosis 12/29/2020 10:55:00 AM [facility] C61 Malignant neoplasm of prostate Malignant neoplasm of p rostate Diagnosis 07/03/2020 [facility]:38[facility] Essential (primary) hypertension Essential (primary) h ypertension Diagnosis 07/03/2020 01:38:00 PM [facility] Z8672 Personal history of thrombophlebitis Personal hi story of thrombophlebitis Diagnosis 03/27/2020 10:18:00 AM [facility] B351 Tinea unguium Tinea unguium Diagnosis 03/22/2020 11:09:00 AM [facility] M2040 Other hammer toe(s) (acquired), unspecif ied foot Other hammer toe(s) (acquired), unspecified foot Diagnosis 03/22/2020 11:09:00 AM [facility] L84 Corns and callosities Corns and callosities Diagnosis 03/22/2020 11:09:00 AM [facility] R601 Generalized edema Generalized edema Diagnosis 03/22/2020 11:09:00 AM [facility] 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 Diagnosis 03/22/2020 11:09:00 AM [facility] I4891 Unspecified atrial fibrillation Unspecified atrial fib rillation Diagnosis 02/02/2020 11:10:00 AM [facility] I803 Phlebitis and thrombophlebitis of lower extremities, unspecified Phlebitis and thrombophlebitis of lower extremities, unspecified Diagnosis 11/26/2019 02:40:00 PM EDT [facility] I119 Hypertensive heart disease without heart failure Hypertensive heart disease without heart failure Diagnosis 11/21/2019 12:13:00 PM EDT [facility] E109 Type 1 diabetes mellitus without complic ations Type 1 diabetes mellitus without complications Diagnosis 11/21/2019 12:13:00 PM EDT [facility] Surgeries/Procedures Procedure Description Date Indications Data Source(s) OFFICE OUTPATIENT VISIT 25 MINUTES 12/29/2020 12:00:00 AM EDT MEDLUIS A (Mona Islas MD) ARTHROCENTESIS ASPIR&/INJECTION MAJOR JT/BURSA 021 12:00:00 AM EDT MED[facility]IS A ([facility] ) OFFICE OUTPATIENT VISIT 15 MINUTES 11/03/2020 12:00:00 AM EDT MEDENT ([facility] ) PERIODIC PREVENTIVE MED EST PATIENT 63YRS&> 11/01/2020 12:00:00 AM EDT MEDLUIS A (Mona Islas MD) Pare Hyperkeratotic Lesion, 2-4 09/12/2020 12:00:00 AM EDT [facility]ENT ([facility]) Debridement Nails Any Method 6 Or More 09/12/2020 12:0 0:00 AM EDT [facility] (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 Ruiz 10/22/18 07/04/2020 12:00:00 AM EDT OP[facility] (Noah Waite MD [facility]) Cataract surgery (procedure) History of cataract surge ry PCIOL OS 03/17/[address] Collins ~PCIOL OD 03/20/[address] Collins 07/04/2020 12:00:00 AM EDT OP[facility] (Denton Waite MD [facility]) Intermediate Eye Exam Established Patient Intermediate Eye Exam Established Patient 07/04/2020 12:00:00 AM EDT OP[facility] (Noah Waite MD [facility]) Intermediate Eye Exam Established Patient Intermediate Eye Exam Established Patient 07/04/2020 12:00:00 AM EDT OP[facility] (Noah Waite MD [facility]) Pare Hyperkeratotic Lesion, 2-4 03/22/2020 12:00:00 AM EST [facility] ([facility]) Debridement Nails Any Method 6 Or More 03/22/2020 12:0 0:00 AM EST [facility] ([facility]) ARTHROCENTESIS ASPIR&/INJECTION MAJOR JT/BURSA 12:00:00 AM EST [facility] ([facility]) ARTHROCENTESIS ASPIR&/INJECTION MAJOR JT/BURSA 12:00:00 AM EST [facility] ([facility]) RADIOLOGIC EXAM KNEE COMPLETE 4/MORE VIEWS 02/04/2020 12:00:00 AM EST [facility] ([facility]) RADIOLOGIC EXAM KNEE COMPLETE 4/MORE VIEWS 02/04/2020 12:00:00 AM EST [facility] ([facility]) ARTHROCENTESIS ASPIR&/INJECTION MAJOR JT/BURSA 12:00:00 AM EDT [facility] ([facility]) Pare Hyperkeratotic Lesion, 2-4 11/23/2019 12:00:00 AM EDT [facility] ([facility]) Debridement Nails Any Method 6 Or More 11/23/2019 12:0 0:00 AM EDT [facility] ([facility]) Results ID Date Data Source [id number] 12/29/2020 11:03:00 AM EDT MED[facility] (Mona Islas MD) Name Value Range Interpretation Code Description Data Rosalind rce(s) Supporting Document(s) Laboratory test finding (navigational concept) 1.81 0 .93-1.23 Above high normal MED[facility] (Mona Islas MD) \\BLDo\\INR INTERPRETATION\\BLDx\\ Therapeutic range for Coumadin and related oral anticoagulants. -International Normalized Ratio (INR): 2 .0 - 3.0 for Venous Thrombosis, Pulmonary Embolus, Tissue heart valves, Acute VT, Atrial Fibrillation, Valvular heart disease and recurrent Systemic Embolism. -International Normalized Ratio (INR): 2 .5 - 3.5 for Mechanical Prosthetic valve. Laboratory test finding (navigational concept) 21.2 s 1 1.0-15.5 Above high normal [facility] (Mona Islas MD) ID Date Data Source [id number] 12/29/2020 11:03:00 AM EDT [facility] (Mona Islas MD) Name Value Range Interpretation Code Description Data Rosalind rce(s) Supporting Document(s) Iron [Mass/volume] in Serum or Plasma 38 ug/dL 42-135 Below low normal [facility] (Mona Islas MD) Thyrotropin [Units/volume] in Serum or Plasma by Detec tion limit <= 0.005 mIU/L 1.39 uIU/mL 0.47-5.01 [facility] (Mona Islas MD) ID Date Data Source [id number] 12/29/2020 11:03:00 AM EDT [facility] (Mona Islas [...] finding (navigational concept) 9.1 mg/dL 8.4-10.2 [facility] (Mona Islas MD) Laboratory [...] >32 mL/min Normal ID Date Data Source [id number] 12/29/2020 11:03:00 AM EDT MED[facility] (Mona Islas [...] concept) 3.2 3.4-4.9 Below low normal MEDENT (oMna Islas MD) Laboratory test finding (navigational concept) [...] AVERAGE 11.04 6.14 ID Date Data Source [id number] 12/29/2020 11:03:00 AM EDT [facility] (Mona Islas MD) Name Value Range Interpretation Code Description Data Rosalind rce(s) Supporting Document(s) Hemoglobin A1c/Hemoglobin.total in Blood 10.3 % 4.4-6.1 Above high normal [facility] (Mona Islas MD) Magnesium [Mass/volume] in Serum or Plasma 1.7 mg/dL 1.7-2.2 [facility] (Mona Islas MD) ID Date Data Source [id number] 12/29/2020 11:03:00 AM EDT MED[facility] (Mona Islas [...] finding (navigational concept) Laboratory test result MEDENT (oMna Islas MD) ID Date Data Source [id number] 12/29/2020 11:03:00 AM EDT MEDLUIS A (Mona [...] 4.23 10^6/uL 4 .50-6.30 Below low normal FILIENT (Mona Islas MD) Laboratory test finding (navigational [...] (Mona Islas MD) ID Date Data Source [id number] 12/29/2020 12:17:00 PM EDT [facility] Value Range Interpretation Code Description Data Rosalind rce(s) Supporting Document(s) Prothrombin time (PT) 21.2 SECONDS 11.0 - 15.5 H [facility] INR in Platelet poor plasma by Coagulation assay 1.81 0.93 - 1. 23 H [facility] \\BLDo\\INR INTERPRETATION\\BLDx\\ Therapeutic range for Coumadin and related oral anticoagulants. - International Normalized Ratio (INR): 2.0 - 3.0 for Venous Thrombosis, Pulmonary Embolus, Tissue heart valves, Acute VT, Atrial Fibrillation, Valvular heart disease and recurrent Systemic Embolism. -International Normalized Ratio (INR): 2.5 - 3.5 for Mechanical Prosthetic valve. ID Date Data Source [id number] 12/29/2020 12:07:00 PM EDT [facility] Value Range Interpretation Code Description Data Rosalind rce(s) Supporting Document(s) Thyrotropin [Units/volume] in Serum or Plasma by Detec tion limit <= 0.05 mIU/L 1.39 uIU/mL 0.47 - 5.01 [facility] ID Date Data Source [id number] 12/29/2020 11:59:00 AM EDT [facility] Value Range Interpretation Code Description Data Rosalind rce(s) Supporting Document(s) Iron [Mass/volume] in Serum or Plasma 38 UG/DL 42 - 135 L [facility] ID Date Data Source [id number] 12/29/2020 11:59:00 AM EDT [facility] Name Value Range Interpretation Code Description Data Rosalind rce(s) Supporting Document(s) [facility] Cholesterol [Mass/volume] in Serum or Plasma 154 MG/DL 131 - 200 [facility] Deprecated Triglyceride [Mass/volume] in Serum or Plasma 115 MG/DL 3 5 - 160 [facility] HDL 48 MG/DL 29 - [address] [facility] Cholesterol in LDL [Mass/volume] in Serum or Plasma by Direc t assay 91 mg/dL 65 - 175 [facility] Cholesterol.total/Cholesterol in HDL [Mass Ratio] in Serum o r Plasma 3.2 3.4 - 4.9 L [facility] LDL/HDL 1.90 1.00 - 3.55 [facility] CVE RISK CHOL/HDL LDL/HDLMEN: 1/2 AVERAGE 3.43 1.00 AVERAGE 4.97 3.55 2X AVERAGE 9.55 6.25 3X AVERAGE 23.99 7.99WOMEN: 1/2 AVERAGE 3.27 1.47 AVERAGE 4.44 3.22 2X AVERAGE 7.05 5.03 3X AVERAGE 11.04 6.14 ID Date Data Source [id number] 12/29/2020 11:58:00 AM EDT [facility] Name Value Range Interpretation Code Description Data Rosalind rce(s) Supporting Document(s) COMPREHENSIVE METABOLIC PANEL [facility] COMPREHENSIVE METABOLIC PANEL Sodium [Moles/volume] in Serum or Plasma 137 mEq/L 134 - 153 [facility] Potassium [Moles/volume] in Serum or Plasma 4.6 mEq/L 3.6 - 5.0 [facility] Chloride [Moles/volume] in Serum or Plasma 100 mEq/L 98 - 107 [facility] Carbon dioxide, total [Moles/volume] in Serum or Plasma 26 MEQ/L 22 - 30 [facility] Glucose [Mass/volume] in Serum or Plasma 183 MG/DL 70 - 99 H [facility] BUN 18 MG/DL 7 - [address] [facility] Creatinine [Mass/volume] in Serum or Plasma 1.0 MG/DL 0.7 - 1.5 [facility] BUN/CREAT 18 8 - [address] [facility] [address] [facility] Protein [Mass/volume] in Serum or Plasma 6.7 G/DL 6.3 - 8.2 [facility] Albumin [Mass/volume] in Serum or Plasma 3.9 G/DL 3.9 - 5.0 [facility] Globulin [Mass/volume] in Serum by calculation 2.8 GM/DL 2.4 - 3.2 [facility] A/G RATIO 1.4 0.8 - 2.0 [facility] Calcium [Mass/volume] in Serum or Plasma 9.1 MG/DL 8.4 - 10.2 [facility] Bilirubin.total [Mass/volume] in Serum or Plasma <0.7 MG/DL 0.2 - 1.3 [facility] Alkaline phosphatase [Enzymatic activity/volume] in Serum or Plasma 90 U/L 38 - 126 [facility] Aspartate aminotransferase [Enzymatic activity/volume] in Serum or Plasma 16 U/L 5 - 40 [facility] Alanine aminotransferase [Enzymatic activity/volume] in Seru m or Plasma 14 U/L 7 - 56 [facility] Anion gap 3 in Serum or Plasma 11.0 mmol/L 8.0 - 16.0 [facility] AGE 70 yrs [facility] NON-AA GFR >60 mL/min [facility] ital AFR AMER GFR >60 mL/min [facility] Ho spital Male GFR In terprentation 20-49 [...] >32 mL/min Normal ID Date Data Source [id number] 12/29/2020 11:55:00 AM EDT [facility] Name Value Range Interpretation Code Description Data Rosalind rce(s) Supporting Document(s) Magnesium [Mass/volume] in Serum or Plasma 1.7 MG/DL 1.7 - 2.2 [facility] ID Date Data Source [id number] 12/29/2020 11:36:00 AM EDT [facility] Name Value Range Interpretation Code Description Data Rosalind rce(s) Supporting Document(s) Hemoglobin A1c/Hemoglobin.total in Blood 10.3 % 4.4 - 6.1 H [facility] ID Date Data Source [id number] 12/29/2020 11:33:00 AM EDT [facility] Name Value Range Interpretation Code Description Data Rosalind rce(s) Supporting Document(s) [facility] S[facility] R [facility] al COLOR yellow NORMAL: Yellow [facility] CLARITY clear NORMAL: Clear [facility] spital Specific gravity of Urine by Test strip 1.015 1.001 - 1.030 [facility] pH 5 5 - [address] [facility] al Glucose [Mass/volume] in Urine by Test strip NORM NORMAL: Negat [facility] Bilirubin.total [Presence] in Urine by Test strip NEG NORMAL: Negative [facility] Ketones [Presence] in Urine by Test strip NEG NORMAL: Negative [facility] Protein [Mass/volume] in Urine by Test strip NEG NORMAL: NegVA [facility] Nitrite [Presence] in Urine by Test strip NEG NORMAL: Negative [facility] BLOOD 25 NORMAL: Negative A [facility] LEUK EST NEG NORMAL: Negative [facility] Urobilinogen [Mass/volume] in Urine by Test strip NOR less tyron n 1.0 mg/dL [facility] MICROSCOPIC See Below [facility] ital WBC 1 - 3 NORMAL: NONE SEEN [facility] Erythrocytes [#/volume] in Urine by Test strip None Seen NORMAL: NON E SEEN [facility] EPITHELIAL FEW NORMAL: NONE SEEN [facility] Bacteria [Presence] in Urine sediment by Light microscopy No ne Seen NORMAL: NONE SEEN [facility] ID Date Data Source [id number] 12/29/2020 11:31:00 AM EDT [facility] Name Value Range Interpretation Code Description Data Rosalind rce(s) Supporting Document(s) CBC W/AUTOMATED DIFF [facility] COMPLETE BLOOD COUNT Leukocytes [#/volume] in Blood by Automated count 5.0 10^3/uL 4.2 - 1 1.0 [facility] Erythrocytes [#/volume] in Blood by Automated count 4.23 10^6/uL 4. 50 - 6.30 L [facility] Hemoglobin [Mass/volume] in Blood 12.0 g/dL 14.0 - 16.0 L [facility] Hematocrit [Volume Fraction] of Blood by Automated count 37.5 % 4 1.0 - 51.0 L [facility] Erythrocyte mean corpuscular volume [Entitic volume] by Auto mated count 88.7 fL 80.0 - 94.0 [facility] Erythrocyte mean corpuscular hemoglobin [Entitic mass] by Automated count 28.4 pg 27.0 - 34.0 [facility] Erythrocyte mean corpuscular hemoglobin concentration [Mass/volume] by Automated count 32.0 g/dL 31.0 - 36.0 [facility] Erythrocyte distribution width [Ratio] by Automated count 14.2 % 11.5 - 14.8 [facility] Platelets [#/volume] in Blood by Automated count 173 10^3/uL 150 - 45 0 [facility] Platelet mean volume [Entitic volume] in Blood by Automated count 8.8 fL 7.4 - 10.4 [facility] Neutrophils/100 leukocytes in Blood by Automated count 73.2 % 37. 0 - 80.0 [facility] Lymphocytes/100 leukocytes in Blood by Manual count 13.9 % 25.0 - 40.0 L [facility] Monocytes/100 leukocytes in Blood by Automated count 10.1 % 3.0 - 8.0 H [facility] Eosinophils/100 leukocytes in Blood by Automated count 1.8 % 0.0 - 7.0 [facility] Basophils/100 leukocytes in Blood by Automated count 0.4 % 0.0 - 2.0 [facility] %IG 0.6 % 0.0 - 0.0 H [facility] Hospit al %NRBC 0.0 % 0.0 - 0.0 [facility] al Neutrophils [#/volume] in Blood by Automated count 3.63 10^3/uL 2.00 - 6.90 [facility] Lymphocytes [#/volume] in Blood by Automated count 0.69 10^3/uL 0.60 - 3.40 [facility] Monocytes [#/volume] in Blood by Automated count 0.50 10^3/uL 0.00 - 0.90 [facility] Eosinophils [#/volume] in Blood by Automated count 0.09 10^3/uL 0.00 - 0.70 [facility] Basophils [#/volume] in Blood by Automated count 0.02 10^3/uL 0.00 - 0.20 [facility] #IG 0.03 10^3/uL 0.00 - 0.10 [facility] #NRBC 0.00 10^3/uL 0.00 - 0.00 [facility] MANUAL DIFF NOT INDICATED [facility] RBC MORPH NOT INDICATED [facility] ID Date Data Source [id number] 07/03/2020 01:43:00 PM EDT [facility] (Mona Islas [...] (Mona Islas MD) ID Date Data Source [id number] 07/03/2020 01:43:00 PM EDT [facility] (Mona Islas MD) Name Value Range Interpretation Code Description Data Rosalind rce(s) Supporting Document(s) Hemoglobin A1c/Hemoglobin.total in Blood 10.7 % 4.4-6.1 Above high normal [facility] (Mona Islas MD) {A1] {HB] ID Date Data Source [id number] 07/03/2020 01:43:00 PM EDT [facility] (Mona Islas MD) Name Value Range Interpretation Code Description Data Rosalind rce(s) Supporting Document(s) Laboratory test finding (navigational concept) Laboratory test result [facility] (Moan Islas MD) LIPID PANEL Laboratory test finding [...] AVERAGE 11.04 6.14 ID Date Data Source [id number] 07/03/2020 01:43:00 PM EDT [facility] (Mona Islas [...] (Mona Islas MD) ID Date Data Source [id number] 07/03/2020 01:43:00 PM EDT [facility] (Mona Islas [...] Thrombosis, Pulmonary Embolus, Tissue heart valves, Acute VT, Atrial Fibrillation, Valvular heart disease and recurrent Systemic Embolism. -International Normalized Ratio (INR): 2 .5 - 3.5 for Mechanical Prosthetic valve. ID Date Data Source [id number] 07/03/2020 03:34:00 PM EDT [facility] Name Value Range Interpretation Code Description Data Rosalind rce(s) Supporting Document(s) COMPREHENSIVE METABOLIC PANEL [facility] COMPREHENSIVE METABOLIC PANEL Sodium [Moles/volume] in Serum or Plasma 136 mEq/L 134 - 153 [facility] Potassium [Moles/volume] in Serum or Plasma 4.7 mEq/L 3.6 - 5.0 [facility] Chloride [Moles/volume] in Serum or Plasma 97 mEq/L 98 - 107 L [facility] Carbon dioxide, total [Moles/volume] in Serum or Plasma 27 MEQ/L 22 - 30 [facility] Glucose [Mass/volume] in Serum or Plasma 311 MG/DL 70 - 99 H [facility] BUN 33 MG/DL 7 - 21 [facility] Creatinine [Mass/volume] in Serum or Plasma 1.2 MG/DL 0.7 - 1.5 [facility] BUN/CREAT 28 8 - [address] [facility] al Protein [Mass/volume] in Serum or Plasma 6.6 G/DL 6.3 - 8.2 [facility] Albumin [Mass/volume] in Serum or Plasma 3.8 G/DL 3.9 - 5.0 L [facility] Globulin [Mass/volume] in Serum by calculation 2.8 GM/DL 2.4 - 3.2 [facility] A/G RATIO 1.4 0.8 - 2.0 [facility] Calcium [Mass/volume] in Serum or Plasma 8.9 MG/DL 8.4 - 10.2 [facility] Bilirubin.total [Mass/volume] in Serum or Plasma <0.7 MG/DL 0.2 - 1.3 [facility] Alkaline phosphatase [Enzymatic activity/volume] in Serum or Plasma 81 U/L 38 - 126 [facility] Aspartate aminotransferase [Enzymatic activity/volume] in Serum or Plasma 14 U/L 5 - 40 [facility] Alanine aminotransferase [Enzymatic activity/volume] in Seru m or Plasma 14 U/L 7 - 56 [facility] Anion gap 3 in Serum or Plasma 12.0 mmol/L 8.0 - 16.0 [facility] AGE [address] [facility] al NON-AA GFR >60 mL/min [facility] ital AFR AMER GFR >60 mL/min [facility] sp[facility] Male GFR In terprentation 20-49 [...] >32 mL/min Normal ID Date Data Source [id number] 07/03/2020 03:33:00 PM EDT [facility] Name Value Range Interpretation Code Description Data Rosalind rce(s) Supporting Document(s) Hemoglobin A1c/Hemoglobin.total in Blood 10.7 % 4.4 - 6.1 H [facility] {A1]{HB] ID Date Data Source [id number] 07/03/2020 03:23:00 PM EDT [facility] Name Value Range Interpretation Code Description Data Rosalind rce(s) Supporting Document(s) CVE PANEL [facility] LIPID PANEL Cholesterol [Mass/volume] in Serum or Plasma 196 MG/DL 131 - 200 [facility] Deprecated Triglyceride [Mass/volume] in Serum or Plasma 153 MG/DL 3 5 - 160 [facility] HDL 48 MG/DL 29 - [address] [facility] al Cholesterol in LDL [Mass/volume] in Serum or Plasma by Direc t assay 142 mg/dL 65 - 175 [facility] Cholesterol.total/Cholesterol in HDL [Mass Ratio] in Serum o r Plasma 4.1 3.4 - 4.9 [facility] LDL/HDL 2.96 1.00 - 3.55 [facility]osp ital CVE RISK CHOL/HDL LDL/HDLMEN: 1/2 AVERAGE 3.43 1.00 AVERAGE 4.97 3.55 2X AVERAGE 9.55 6.25 3X AVERAGE 23.99 7.99WOMEN: 1/2 AVERAGE 3.27 1.47 AVERAGE 4.44 3.22 2X AVERAGE 7.05 5.03 3X AVERAGE 11.04 6.14 ID Date Data Source [id number] 07/03/2020 02:57:00 PM EDT [facility] Name Value Range Interpretation Code Description Data Rosalind rce(s) Supporting Document(s) CBC W/AUTOMATED DIFF [facility] COMPLETE BLOOD COUNT Leukocytes [#/volume] in Blood by Automated count 4.5 10^3/uL 4.2 - 1 1.0 [facility] Erythrocytes [#/volume] in Blood by Automated count 4.12 10^6/uL 4. 50 - 6.30 L [facility] Hemoglobin [Mass/volume] in Blood 12.3 g/dL 14.0 - 16.0 L [facility] Hematocrit [Volume Fraction] of Blood by Automated count 37.7 % 4 1.0 - 51.0 L [facility] Erythrocyte mean corpuscular volume [Entitic volume] by Auto mated count 91.5 fL 80.0 - 94.0 [facility] Erythrocyte mean corpuscular hemoglobin [Entitic mass] by Automated count 29.9 pg 27.0 - 34.0 [facility] Erythrocyte mean corpuscular hemoglobin concentration [Mass/volume] by Automated count 32.6 g/dL 31.0 - 36.0 [facility] Erythrocyte distribution width [Ratio] by Automated count 14.4 % 11.5 - 14.8 [facility] Platelets [#/volume] in Blood by Automated count 167 10^3/uL 150 - 45 0 [facility] Platelet mean volume [Entitic volume] in Blood by Automated count 9.8 fL 7.4 - 10.4 [facility] Neutrophils/100 leukocytes in Blood by Automated count 68.8 % 37. 0 - 80.0 [facility] Lymphocytes/100 leukocytes in Blood by Manual count 18.3 % 25.0 - 40.0 L [facility] Monocytes/100 leukocytes in Blood by Automated count 9.8 % 3.0 - 8.0 H [facility] Eosinophils/100 leukocytes in Blood by Automated count 2.5 % 0.0 - 7.0 [facility] Basophils/100 leukocytes in Blood by Automated count 0.4 % 0.0 - 2.0 [facility] %IG 0.2 % 0.0 - 0.0 [facility] %[facility] 0.0 % 0.0 - 0.[address] [facility] al Neutrophils [#/volume] in Blood by Automated count 3.08 10^3/uL 2.00 - 6.90 [facility] Lymphocytes [#/volume] in Blood by Automated count 0.82 10^3/uL 0.60 - 3.40 [facility] Monocytes [#/volume] in Blood by Automated count 0.44 10^3/uL 0.00 - 0.90 [facility] Eosinophils [#/volume] in Blood by Automated count 0.11 10^3/uL 0.00 - 0.70 [facility] Basophils [#/volume] in Blood by Automated count 0.02 10^3/uL 0.00 - 0.20 [facility] #IG 0.01 10^3/uL 0.00 - 0.10 [facility] ospital #NRBC 0.00 10^3/uL 0.00 - 0.00 [facility] ospital MANUAL DIFF NOT INDICATED [facility] RBC MORPH NOT INDICATED [facility] spital ID Date Data Source [id number] 07/03/2020 02:57:00 PM EDT [facility] Name Value Range Interpretation Code Description Data Rosalind rce(s) Supporting Document(s) Prothrombin time (PT) 25.3 SECONDS 11.0 - 15.5 H [facility] INR in Platelet poor plasma by Coagulation assay 2.18 0.93 - 1. 23 H [facility] \\BLDo\\INR INTERPRETATION\\BLDx\\ Therapeutic range for Coumadin and related oral anticoagulants. - International Normalized Ratio (INR): 2.0 - 3.0 for Venous Thrombosis, Pulmonary Embolus, Tissue heart valves, Acute VT, Atrial Fibrillation, Valvular heart disease and recurrent Systemic Embolism. -International Normalized Ratio (INR): 2.5 - 3.5 for Mechanical Prosthetic valve. ID Date Data Source [id number] 07/03/2020 01:42:00 PM EDT [facility] (Mona Islas MD) Name [...] be used interchangeably. ID Date Data Source [id number] 07/03/2020 03:08:00 PM EDT [facility] Name Value Range Interpretation Code Description Data Rosalind e(s) Supporting Document(s) Prostate specific Ag [Mass/volume] in Serum or Plasma 0.01 ng/mL 0.00 - 4.00 [facility] \\BLDo\\PSA INTERPRETA TION\\BLDx\\ The PSA assay should [...] be used interchangeably. ID Date Data Source [id number] 03/27/2020 10:20:00 AM EST [facility] (Mona Islas MD) Name Value Range Interpretation Code Description Data Rosalind e(s) Supporting Document(s) Laboratory test finding (navigational concept) [...] AVERAGE 11.04 6.14 ID Date Data Source [facility] 03/27/2020 10:20:00 AM EST [facility] (Mona Islas [...] >32 mL/min Normal ID Date Data Source [id number] 03/27/2020 10:20:00 AM EST [facility] (Mona Islas [...] (Mona Islas MD) ID Date Data Source [facility] 03/27/2020 10:20:00 AM EST [facility] (Mona Ilsas MD) Name Value Range Interpretation Code Description [...] Thrombosis, Pulmonary Embolus, Tissue heart valves, Acute VT, Atrial Fibrillation, Valvular heart disease and recurrent Systemic Embolism. -International Normalized Ratio (INR): 2 .5 - 3.5 for Mechanical Prosthetic valve. ID Date Data Source [id number] 03/27/2020 10:20:00 AM EST [facility] (Mnoa Islas MD) Name Value Range Interpretation Code Description Data Rosalind rce(s) Supporting Document(s) Hemoglobin A1c/Hemoglobin.total in Blood 11.5 % 4.4-6.1 Above high normal [facility] (Mona Islas MD) {A1] {HB] ID Date Data Source [id number] 03/27/2020 12:04:00 PM EST [facility] Name Value Range Interpretation Code Description Data Rosalind rce(s) Supporting Document(s) CVE PANEL [facility] al LIPID PANEL Cholesterol [Mass/volume] in Serum or Plasma 148 MG/DL 131 - 200 [facility] Deprecated Triglyceride [Mass/volume] in Serum or Plasma 87 MG/DL 3 5 - 160 [facility] HDL 56 MG/DL 29 - [address] [facility] al Cholesterol in LDL [Mass/volume] in Serum or Plasma by Direc t assay 74 mg/dL 65 - 175 [facility] Cholesterol.total/Cholesterol in HDL [Mass Ratio] in Serum o r Plasma 2.6 3.4 - 4.9 L [facility] LDL/HDL 1.32 1.00 - 3.55 [facility] ital CVE RISK CHOL/HDL LDL/HDLMEN: 1/2 AVERAGE 3.43 1.00 AVERAGE 4.97 3.55 2X AVERAGE 9.55 6.25 3X AVERAGE 23.99 7.99WOMEN: 1/2 AVERAGE 3.27 1.47 AVERAGE 4.44 3.22 2X AVERAGE 7.05 5.03 3X AVERAGE 11.04 6.14 ID Date Data Source [id number] 03/27/2020 12:04:00 PM EST [facility] Name Value Range Interpretation Code Description Data Rosalind rce(s) Supporting Document(s) COMPREHENSIVE METABOLIC PANEL [facility] COMPREHENSIVE METABOLIC PANEL Sodium [Moles/volume] in Serum or Plasma 139 mEq/L 134 - 153 [facility] Potassium [Moles/volume] in Serum or Plasma 4.4 mEq/L 3.6 - 5.0 [facility] Chloride [Moles/volume] in Serum or Plasma 99 mEq/L 98 - 107 [facility] Carbon dioxide, total [Moles/volume] in Serum or Plasma 32 MEQ/L 22 - 30 H [facility] Glucose [Mass/volume] in Serum or Plasma 230 MG/DL 65 - 110 H [facility] BUN 23 MG/DL 7 - 21 H [facility] Creatinine [Mass/volume] in Serum or Plasma 1.0 MG/DL 0.7 - 1.5 [facility] BUN/CREAT 23 8 - 27 [facility] Protein [Mass/volume] in Serum or Plasma 6.5 G/DL 6.3 - 8.2 [facility] Albumin [Mass/volume] in Serum or Plasma 4.2 G/DL 3.9 - 5.0 [facility] Globulin [Mass/volume] in Serum by calculation 2.3 GM/DL 2.4 - 3.2 L [facility] A/G RATIO 1.8 0.8 - 2.0 [facility] Calcium [Mass/volume] in Serum or Plasma 9.2 MG/DL 8.4 - 10.2 [facility] Bilirubin.total [Mass/volume] in Serum or Plasma <0.7 MG/DL 0.2 - 1.3 [facility] Alkaline phosphatase [Enzymatic activity/volume] in Serum or Plasma 75 U/L 38 - 126 [facility] Aspartate aminotransferase [Enzymatic activity/volume] in Serum or Plasma 18 U/L 5 - 40 [facility] Alanine aminotransferase [Enzymatic activity/volume] in Seru m or Plasma 15 U/L 7 - 56 [facility] Anion gap 3 in Serum or Plasma 8.0 mmol/L 8.0 - 16.0 [facility] AGE 70 yrs [facility] NON-AA GFR >60 mL/min [facility] ital AFR AMER GFR >60 mL/min [facility] Ho spital Male GFR In terprentation 20-49 [...] >32 mL/min Normal ID Date Data Source [id number] 03/27/2020 11:56:00 AM EST [facility] Name Value Range Interpretation Code Description Data Rosalind rce(s) Supporting Document(s) CBC W/AUTOMATED DIFF [facility] COMPLETE BLOOD COUNT Leukocytes [#/volume] in Blood by Automated count 5.2 10^3/uL 4.2 - 1 1.0 [facility] Erythrocytes [#/volume] in Blood by Automated count 4.52 10^6/uL 4. 50 - 6.30 [facility] Hemoglobin [Mass/volume] in Blood 13.2 g/dL 14.0 - 16.0 L [facility] Hematocrit [Volume Fraction] of Blood by Automated count 40.6 % 4 1.0 - 51.0 L [facility] Erythrocyte mean corpuscular volume [Entitic volume] by Auto mated count 89.8 fL 80.0 - 94.0 [facility] Erythrocyte mean corpuscular hemoglobin [Entitic mass] by Automated count 29.2 pg 27.0 - 34.0 [facility] Erythrocyte mean corpuscular hemoglobin concentration [Mass/volume] by Automated count 32.5 g/dL 31.0 - 36.0 [facility] Erythrocyte distribution width [Ratio] by Automated count 13.6 % 11.5 - 14.8 [facility] Platelets [#/volume] in Blood by Automated count 185 10^3/uL 150 - 45 0 [facility] Platelet mean volume [Entitic volume] in Blood by Automated count 9.1 fL 7.4 - 10.4 [facility] Neutrophils/100 leukocytes in Blood by Automated count 71.4 % 37. 0 - 80.0 [facility] Lymphocytes/100 leukocytes in Blood by Manual count 14.3 % 25.0 - 40.0 L [facility] Monocytes/100 leukocytes in Blood by Automated count 11.6 % 3.0 - 8.0 H [facility] Eosinophils/100 leukocytes in Blood by Automated count 1.7 % 0.0 - 7.0 [facility] Basophils/100 leukocytes in Blood by Automated count 0.6 % 0.0 - 2.0 [facility] %IG 0.4 % 0.0 - 0.0 H [facility] Hospit al %NRBC 0.0 % 0.0 - 0.[address] [facility] al Neutrophils [#/volume] in Blood by Automated count 3.70 10^3/uL 2.00 - 6.90 [facility] Lymphocytes [#/volume] in Blood by Automated count 0.74 10^3/uL 0.60 - 3.40 [facility] Monocytes [#/volume] in Blood by Automated count 0.60 10^3/uL 0.00 - 0.90 [facility] Eosinophils [#/volume] in Blood by Automated count 0.09 10^3/uL 0.00 - 0.70 [facility] Basophils [#/volume] in Blood by Automated count 0.03 10^3/uL 0.00 - 0.20 [facility] #IG 0.02 10^3/uL 0.00 - 0.10 [facility] ospital #NRBC 0.00 10^3/uL 0.00 - 0.00 [facility] ospital MANUAL DIFF NOT INDICATED [facility] RBC MORPH NOT INDICATED [facility] spital ID Date Data Source [id number] 03/27/2020 11:55:00 AM EST [facility] Name Value Range Interpretation Code Description Data Rosalind rce(s) Supporting Document(s) Prothrombin time (PT) 21.4 SECONDS 11.0 - 15.5 H [facility] INR in Platelet poor plasma by Coagulation assay 1.76 0.93 - 1. 23 H [facility] \\BLDo\\INR INTERPRETATION\\BLDx\\ Therapeutic range for Coumadin and related oral anticoagulants. - International Normalized Ratio (INR): 2.0 - 3.0 for Venous Thrombosis, Pulmonary Embolus, Tissue heart valves, Acute VT, Atrial Fibrillation, Valvular heart disease and recurrent Systemic Embolism. -International Normalized Ratio (INR): 2.5 - 3.5 for Mechanical Prosthetic valve. ID Date Data Source [id number] 03/27/2020 11:54:00 AM EST [facility] Name Value Range Interpretation Code Description Data Rosalind rce(s) Supporting Document(s) Hemoglobin A1c/Hemoglobin.total in Blood 11.5 % 4.4 - 6.1 H [facility] {A1]{HB] ID Date Data Source [id number] 02/02/2020 11:21:00 AM EST [facility] (Mona Islas [...] (Mona Islas MD) ID Date Data Source [id number] 02/02/2020 11:21:00 AM EST [facility] (Mona Islas [...] (Mona Islas MD) ID Date Data Source [id number] 02/02/2020 11:21:00 AM EST [facility] (Mona Islas [...] (navigational concept) 9.0 mg/dL 8.4-10.2 [facility] (Mona sIlas MD) Laboratory test finding (navigational concept) Laboratory [...] >32 mL/min Normal ID Date Data Source [id number] 02/02/2020 11:21:00 AM EST [facility] (Mona Islas [...] (Mona Islas MD) ID Date Data Source [id number] 02/02/2020 11:21:00 AM EST [facility] (Mona Islas MD) Name Value Range Interpretation Code Description Data Rosalind rce(s) Supporting Document(s) Laboratory test finding (navigational concept) 1.29 0 .93-1.23 Above high normal [facility] (Mona Islas MD) \\BLDo\\INR INTERPRETATION\\BLDx\\ Therapeutic range for Coumadin and related oral anticoagulants. -International Normalized Ratio (INR): 2 .0 - 3.0 for Venous Thrombosis, Pulmonary Embolus, Tissue heart valves, Acute VT, Atrial Fibrillation, Valvular heart disease and recurrent Systemic Embolism. -International Normalized Ratio (INR): 2 .5 - 3.5 for Mechanical Prosthetic valve. Laboratory test finding (navigational concept) 16.3 s 1 1.0-15.5 Above high normal [facility] (Mona Islas MD) ID Date Data Source [id number] 02/02/2020 11:21:00 AM EST [facility] (Mona Islas [...] finding (navigational concept) 14.1 % 11.5-14.8 [facility] (Moan Islas MD) Laboratory test finding [...] (Mona Islas MD) ID Date Data Source [id number] 02/02/2020 12:34:00 PM EST [facility] Name Value Range Interpretation Code Description Data Rosalind rce(s) Supporting Document(s) [facility] yellow NORMAL: Yellow [facility] ospital CLARITY clear NORMAL: Clear [facility] Ho spital Specific gravity of Urine by Test strip 1.010 1.001 - 1.030 [facility] pH 6.5 5 - [address] [facility] al Glucose [Mass/volume] in Urine by Test strip 1000 NORMAL: Negat [facility] Bilirubin.total [Presence] in Urine by Test strip NEG NORMAL: Negative [facility] Ketones [Presence] in Urine by Test strip NEG NORMAL: Negative [facility] Protein [Mass/volume] in Urine by Test strip 100 NORMAL: Negat [facility] Nitrite [Presence] in Urine by Test strip NEG NORMAL: Negative [facility] BLOOD 10 NORMAL: Negative [facility] Leukocyte esterase [Presence] in Urine by Test strip NEG MIRIAN L: Negative [facility] Urobilinogen [Mass/volume] in Urine by Test strip NOR less tyron n 1.0 mg/dL [facility] MICROSCOPIC See Below [facility] ital WBC 0 - 1 NORMAL: NONE SEEN [facility] Erythrocytes [#/volume] in Urine by Test strip 0 - 1 NORMAL: NON E SEEN [facility] EPITHELIAL FEW NORMAL: NONE SEEN [facility] Bacteria [Presence] in Urine sediment by Light microscopy Tr gustavo NORMAL: NONE SEEN [facility] ID Date Data Source [id number] 02/02/2020 12:01:00 PM EST [facility] Name Value Range Interpretation Code Description Data Rosalind rce(s) Supporting Document(s) CVE PANEL [facility] LIPID PANEL Cholesterol [Mass/volume] in Serum or Plasma 170 MG/DL 131 - 200 [facility] Deprecated Triglyceride [Mass/volume] in Serum or Plasma 87 MG/DL 3 5 - 160 [facility] HDL 56 MG/DL 29 - [address] [facility] al Cholesterol in LDL [Mass/volume] in Serum or Plasma by Direc t assay 104 mg/dL 65 - 175 [facility] Cholesterol.total/Cholesterol in HDL [Mass Ratio] in Serum o r Plasma 3.0 3.4 - 4.9 L [facility] LDL/HDL 1.86 1.00 - 3.55 [facility] ital CVE RISK CHOL/HDL LDL/HDLMEN: 1/2 AVERAGE 3.43 1.00 AVERAGE 4.97 3.55 2X AVERAGE 9.55 6.25 3X AVERAGE 23.99 7.99WOMEN: 1/2 AVERAGE 3.27 1.47 AVERAGE 4.44 3.22 2X AVERAGE 7.05 5.03 3X AVERAGE 11.04 6.14 ID Date Data Source [id number] 02/02/2020 12:01:00 PM EST [facility] Name Value Range Interpretation Code Description Data Rosalind rce(s) Supporting Document(s) COMPREHENSIVE METABOLIC PANEL [facility] COMPREHENSIVE METABOLIC PANEL Sodium [Moles/volume] in Serum or Plasma 136 mEq/L 134 - 153 [facility] Potassium [Moles/volume] in Serum or Plasma 4.8 mEq/L 3.6 - 5.0 [facility] Chloride [Moles/volume] in Serum or Plasma 99 mEq/L 98 - 107 [facility] Carbon dioxide, total [Moles/volume] in Serum or Plasma 30 MEQ/L 22 - 30 [facility] Glucose [Mass/volume] in Serum or Plasma 294 MG/DL 65 - 110 H [facility] BUN 12 MG/DL 7 - [address] [facility] al Creatinine [Mass/volume] in Serum or Plasma 0.9 MG/DL 0.7 - 1.5 [facility] BUN/CREAT 13 8 - [address] [facility] al Protein [Mass/volume] in Serum or Plasma 7.4 G/DL 6.3 - 8.2 [facility] Albumin [Mass/volume] in Serum or Plasma 4.2 G/DL 3.9 - 5.0 [facility] Globulin [Mass/volume] in Serum by calculation 3.2 GM/DL 2.4 - 3.2 [facility] A/G RATIO 1.3 0.8 - 2.0 [facility] Calcium [Mass/volume] in Serum or Plasma 9.0 MG/DL 8.4 - 10.2 [facility] Bilirubin.total [Mass/volume] in Serum or Plasma <0.7 MG/DL 0.2 - 1.3 [facility] Alkaline phosphatase [Enzymatic activity/volume] in Serum or Plasma 82 U/L 38 - 126 [facility] Aspartate aminotransferase [Enzymatic activity/volume] in Serum or Plasma 16 U/L 5 - 40 [facility] Alanine aminotransferase [Enzymatic activity/volume] in Seru m or Plasma 17 U/L 7 - 56 [facility] Anion gap 3 in Serum or Plasma 7.0 mmol/L 8.0 - 16.0 L [facility] AGE [address] [facility] al NON-AA GFR >60 mL/min [facility] ital AFR AMER GFR >60 mL/min [facility] Ho spital Male GFR In terprentation 20-49 [...] >32 mL/min Normal ID Date Data Source [id number] 02/02/2020 12:01:00 PM [facility] Name Value Range Interpretation Code Description Data Rosalind rce(s) Supporting Document(s) Magnesium [Mass/volume] in Serum or Plasma 1.8 MG/DL 1.7 - 2.2 [facility] ID Date Data Source [id number] 02/02/2020 11:59:00 AM [facility] Name Value Range Interpretation Code Description Data Rosalind rce(s) Supporting Document(s) Iron [Mass/volume] in Serum or Plasma 46 UG/DL 42 - 135 [facility] ID Date Data Source [id number] 02/02/2020 11:50:00 AM [facility] Name Value Range Interpretation Code Description Data Rosalind [facility](s) Supporting Document(s) Hemoglobin A1c/Hemoglobin.total in Blood 13.2 % 4.4 - 6.1 H [facility] {A1]{HB] ID Date Data Source [id number] 02/02/2020 11:48:00 AM [facility] Name Value Range Interpretation Code Description Data Rosalind rce(s) Supporting Document(s) Prothrombin time (PT) 16.3 SECONDS 11.0 - 15.5 H [facility] INR in Platelet poor plasma by Coagulation assay 1.29 0.93 - 1. 23 H [facility] \\BLDo\\INR INTERPRETATION\\BLDx\\ Therapeutic range for Coumadin and related oral anticoagulants. - International Normalized Ratio (INR): 2.0 - 3.0 for Venous Thrombosis, Pulmonary Embolus, Tissue heart valves, Acute VT, Atrial Fibrillation, Valvular heart disease and recurrent Systemic Embolism. -International Normalized Ratio (INR): 2.5 - 3.5 for Mechanical Prosthetic valve. ID Date Data Source [id number] 02/02/2020 11:39:00 AM [facility] Name Value Range Interpretation Code Description Data Rosalind [facility](s) Supporting Document(s) CBC W/AUTOMATED DIFF [facility] COMPLETE BLOOD COUNT Leukocytes [#/volume] in Blood by Automated count 4.9 10^3/uL 4.2 - 1 1.0 [facility] Erythrocytes [#/volume] in Blood by Automated count 4.34 10^6/uL 4. 50 - 6.30 L [facility] Hemoglobin [Mass/volume] in Blood 12.9 g/dL 14.0 - 16.0 L [facility] Hematocrit [Volume Fraction] of Blood by Automated count 39.3 % 4 1.0 - 51.0 L [facility] Erythrocyte mean corpuscular volume [Entitic volume] by Auto mated count 90.6 fL 80.0 - 94.0 [facility] Erythrocyte mean corpuscular hemoglobin [Entitic mass] by Automated count 29.7 pg 27.0 - 34.0 [facility] Erythrocyte mean corpuscular hemoglobin concentration [Mass/volume] by Automated count 32.8 g/dL 31.0 - 36.0 [facility] Erythrocyte distribution width [Ratio] by Automated count 14.1 % 11.5 - 14.8 [facility] Platelets [#/volume] in Blood by Automated count 173 10^3/uL 150 - 45 0 [facility] Platelet mean volume [Entitic volume] in Blood by Automated count 9.1 fL 7.4 - 10.4 [facility] Neutrophils/100 leukocytes in Blood by Automated count 73.7 % 37. 0 - 80.0 [facility] Lymphocytes/100 leukocytes in Blood by Manual count 14.6 % 25.0 - 40.0 L [facility] Monocytes/100 leukocytes in Blood by Automated count 8.7 % 3.0 - 8.0 H [facility] Eosinophils/100 leukocytes in Blood by Automated count 1.8 % 0.0 - 7.0 [facility] Basophils/100 leukocytes in Blood by Automated count 0.6 % 0.0 - 2.0 [facility] %IG 0.6 % 0.0 - 0.0 H [facility] al %NRBC 0.0 % 0.0 - 0.[address] [facility] al Neutrophils [#/volume] in Blood by Automated count 3.64 10^3/uL 2.00 - 6.90 [facility] Lymphocytes [#/volume] in Blood by Automated count 0.72 10^3/uL 0.60 - 3.40 [facility] Monocytes [#/volume] in Blood by Automated count 0.43 10^3/uL 0.00 - 0.90 [facility] Eosinophils [#/volume] in Blood by Automated count 0.09 10^3/uL 0.00 - 0.70 [facility] Basophils [#/volume] in Blood by Automated count 0.03 10^3/uL 0.00 - 0.20 [facility] #IG 0.03 10^3/uL 0.00 - 0.10 [facility] H ospital #NRBC 0.00 10^3/uL 0.00 - 0.00 [facility] ospital MANUAL DIFF NOT INDICATED [facility] RBC MORPH NOT INDICATED [facility] spital ID Date Data Source [id number] 11/26/2019 03:48:00 PM EDT [facility] Name Value Range Interpretation Code Description Data Rosalind rce(s) Supporting Document(s) Prothrombin time (PT) 26.5 SECONDS 11.0 - 15.5 H [facility] INR in Platelet poor plasma by Coagulation assay 2.40 0.93 - 1. 23 H [facility] \\BLDo\\INR INTERPRETATION\\BLDx\\ Therapeutic range for Coumadin and related oral anticoagulants. - International Normalized Ratio (INR): 2.0 - 3.0 for Venous Thrombosis, Pulmonary Embolus, Tissue heart valves, Acute VT, Atrial Fibrillation, Valvular heart disease and recurrent Systemic Embolism. -International Normalized Ratio (INR): 2.5 - 3.5 for Mechanical Prosthetic valve. ID Date Data Source [id number] 11/21/2019 01:14:00 PM EDT [facility] Name Value Range Interpretation Code Description Data Rosalind rce(s) Supporting Document(s) COMPREHENSIVE METABOLIC PANEL [facility] COMPREHENSIVE METABOLIC PANEL Sodium [Moles/volume] in Serum or Plasma 139 mEq/L 134 - 153 [facility] Potassium [Moles/volume] in Serum or Plasma 4.8 mEq/L 3.6 - 5.0 [facility] Chloride [Moles/volume] in Serum or Plasma 102 mEq/L 98 - 107 [facility] Carbon dioxide, total [Moles/volume] in Serum or Plasma 30 MEQ/L 22 - 30 [facility] Glucose [Mass/volume] in Serum or Plasma 180 MG/DL 65 - 110 H [facility] BUN 20 MG/DL 7 - [address] [facility] al Creatinine [Mass/volume] in Serum or Plasma 0.8 MG/DL 0.7 - 1.5 [facility] BUN/CREAT 25 8 - 27 [facility] Protein [Mass/volume] in Serum or Plasma 7.1 G/DL 6.3 - 8.2 [facility] Albumin [Mass/volume] in Serum or Plasma 3.6 G/DL 3.9 - 5.0 L [facility] Globulin [Mass/volume] in Serum by calculation 3.5 GM/DL 2.4 - 3.2 H [facility] A/G RATIO 1.0 0.8 - 2.[address] [facility] al Calcium [Mass/volume] in Serum or Plasma 8.6 MG/DL 8.4 - 10.2 [facility] Bilirubin.total [Mass/volume] in Serum or Plasma <0.7 MG/DL 0.2 - 1.3 [facility] Alkaline phosphatase [Enzymatic activity/volume] in Serum or Plasma 101 U/L 38 - 126 [facility] Aspartate aminotransferase [Enzymatic activity/volume] in Serum or Plasma 26 U/L 5 - 40 [facility] Alanine aminotransferase [Enzymatic activity/volume] in Seru m or Plasma 25 U/L 7 - 56 [facility] Anion gap 3 in Serum or Plasma 7.0 mmol/L 8.0 - 16.0 L [facility] AGE [address] [facility] al NON-AA GFR >60 mL/min [facility] ital AFR AMER GFR >60 mL/min [facility] Ho spital Male GFR In terprentation 20-49 [...] >32 mL/min Normal ID Date Data Source [id number] 11/21/2019 01:04:00 PM EDT [facility] Name Value Range Interpretation Code Description Data Rosalind rce(s) Supporting Document(s) CBC W/AUTOMATED DIFF [facility] COMPLETE BLOOD COUNT Leukocytes [#/volume] in Blood by Automated count 4.3 10^3/uL 4.2 - 1 1.0 [facility] Erythrocytes [#/volume] in Blood by Automated count 3.94 10^6/uL 4. 50 - 6.30 L [facility] Hemoglobin [Mass/volume] in Blood 11.4 g/dL 14.0 - 16.0 L [facility] Hematocrit [Volume Fraction] of Blood by Automated count 36.1 % 4 1.0 - 51.0 L [facility] Erythrocyte mean corpuscular volume [Entitic volume] by Auto mated count 91.6 fL 80.0 - 94.0 [facility] Erythrocyte mean corpuscular hemoglobin [Entitic mass] by Automated count 28.9 pg 27.0 - 34.0 [facility] Erythrocyte mean corpuscular hemoglobin concentration [Mass/volume] by Automated count 31.6 g/dL 31.0 - 36.0 [facility] Erythrocyte distribution width [Ratio] by Automated count 14.3 % 11.5 - 14.8 [facility] Platelets [#/volume] in Blood by Automated count 162 10^3/uL 150 - 45 0 [facility] Platelet mean volume [Entitic volume] in Blood by Automated count 8.9 fL 7.4 - 10.4 [facility] Neutrophils/100 leukocytes in Blood by Automated count 67.8 % 37. 0 - 80.0 [facility] Lymphocytes/100 leukocytes in Blood by Manual count 13.9 % 25.0 - 40.0 L [facility] Monocytes/100 leukocytes in Blood by Automated count 14.8 % 3.0 - 8.0 H [facility] Eosinophils/100 leukocytes in Blood by Automated count 2.5 % 0.0 - 7.0 [facility] Basophils/100 leukocytes in Blood by Automated count 0.5 % 0.0 - 2.0 [facility] %IG 0.5 % 0.0 - 0.0 [facility] % 0.0 - 0.[address] [facility] al Neutrophils [#/volume] in Blood by Automated count 2.94 10^3/uL 2.00 - 6.90 [facility] Lymphocytes [#/volume] in Blood by Automated count 0.60 10^3/uL 0.60 - 3.40 [facility] Monocytes [#/volume] in Blood by Automated count 0.64 10^3/uL 0.00 - 0.90 [facility] Eosinophils [#/volume] in Blood by Automated count 0.11 10^3/uL 0.00 - 0.70 [facility] Basophils [#/volume] in Blood by Automated count 0.02 10^3/uL 0.00 - 0.20 [facility] #IG 0.02 10^3/uL 0.00 - 0.10 [facility] H ospital #NRBC 0.00 10^3/uL 0.00 - 0.00 [facility] H ospital MANUAL DIFF NOT INDICATED [facility] RBC MORPH NOT INDICATED [facility] Ho spital ID Date Data Source [id number] 11/21/2019 01:04:00 PM EDT [facility] Name Value Range Interpretation Code Description Data Rosalind rce(s) Supporting Document(s) Hemoglobin A1c/Hemoglobin.total in Blood 9.5 % 4.4 - 6.1 H [facility] {A1]{HB] Procedure Social History Code Duration Value Status Description Data Source(s ) Smoking 09/12/2020 12:00:00 AM EDT Never Smoked A Pipe complet ed Never Smoked A Pipe MEDENT ([facility]) Smoking 07/04/2020 03:53:12 PM EDT Never smoked tobacco (findi ng) completed Never smoked tobacco (finding) OPAL (Denton Waite MD [facility]) Smoking 07/04/2020 12:00:00 AM EDT Never Smoker completed Never S curtis eCW1 ([facility]) Vital Signs ID Date Data Source UNK [...] [lb_av] MEDEN T (Mona Islas MD) Body temperature 97.7 [degF] 97.7 [degF] MEDENT (Mona Islas MD) Body mass index (BMI) [Ratio] 47.4 kg/m2 47.4 k g/m2 MEDENT (Mona Islas MD) Systolic blood pressure 189 mm[Hg] 189 mm[Hg] M EDENT (Mona Islas MD) Diastolic blood pressure 76 mm[Hg] 76 mm[Hg] MEDENT (Mona Islas MD) Heart rate 85 /min 85 /min MEDENT (Mona Islas MD) Oxygen saturation in Arterial blood by Pulse oximetry 94 % 94 % MEDENT (Mona Islas MD) Body weight 356 [lb_av] 356 [lb_av] eCW1 ([facility]) Body height 70 [in_i] 70 [in_i] eCW1 ([facility]) Body mass index (BMI) [Ratio] 51.08 kg/m2 51.08 kg/m2 eCW1 ([facility]) Heart rate 58 /min 58 /min eCW1 ([facility]) Respiratory rate 18 /min 18 /min eCW1 ([facility]) Body temperature 97.6 [degF] 97.6 [degF] eCW1 ( [facility]) Systolic blood pressure 112 mm[Hg] 112 mm[Hg] e CW1 ([facility]) Diastolic blood pressure 62 mm[Hg] 62 mm[Hg] eCW1 ([facility]) Body temperature 97.9 [degF] 97.9 [degF] MEDENT [...] Body temperature 97.1 [degF] 97.1 [degF] MEDENT ([facility]) Diastolic blood pressure 89 mm[Hg] 89 mm[Hg] MEDENT (Mona Islas MD) Systolic blood pressure 209 mm[Hg] 209 mm[Hg] M EDENT (Mona Islas MD) Heart rate 66 /min 66 /min MEDENT (Mona Islas MD) Body height 69 [in_i] 69 [in_i] YVETTE (Mona Islas MD) 5'9" Body weight 312.00 [lb_av] 312.00 [lb_av] FILIEN T (Mona Islas MD) Body mass index (BMI) [Ratio] 46.1 kg/m2 46.1 k g/m2 YVETTE (Mona Islas MD) Body temperature 98.1 [degF] 98.1 [degF] YVETTE (Mona Islas MD) Oxygen saturation in Arterial blood by Pulse oximetry 93 % 93 % YVETTE (Mona Islas MD)
[2021-01-18 16:01] LABS: BASO % 0.5 % (0.0-1.0); EOS # 0.1 10^3/uL (0.0-0.5); EOS % 2.6 % (0.0-3.0); HEMATOCRIT 35.6 % (42.0-52.0); LYMPH # 0.7 10^3/uL (1.5-5.0); LYMPH % 16.1 % (24.0-44.0); MEAN CORPUSCULAR HEMOGLOBIN 28.1 pg (27.0-33.0); MEAN CORPUSCULAR HGB CONC 30.9 g/dl (32.0-36.5); MEAN CORPUSCULAR VOLUME 90.8 fl (80.0-96.0); MONO # 0.5 10^3/uL (0.0-0.8); MONO % 11.1 % (2.0-8.0); NEUTROPHILS # 2.9 10^3/uL (1.5-8.5); NEUTROPHILS % 69.2 % (36.0-66.0); PLATELET COUNT, AUTOMATED 170 10^3/uL (150-450); RED BLOOD COUNT 3.92 10^6/uL (4.30-6.10); WHITE BLOOD COUNT 4.2 10^3/uL (4.0-10.0)
[2021-01-18] MEDS ORDERED: ISOVUE-370 76% 100ML VIAL As Ordered ONE (16:06)
[2021-01-18 16:19] LABS: ERYTHROCYTE SEDIMENTATION RATE 43 mm/hr (0-20)
--- NOTE | 2021-01-18 17:11 | REPVR ---
PROCEDURE INFORMATION: Exam: CT Neck With Contrast Exam date and time: 01/18/2021 4:16 PM Age: 70 years old Clinical indication: Mass, lump, or swelling in neck; Other: Tongue; Additional info: Tongue mass, neck pain with swallowing TECHNIQUE: Imaging protocol: Computed tomography images of the neck with contrast. Radiation optimization: All CT scans at this facility use at least one of these dose optimization techniques: automated exposure control; mA and/or kV adjustment per patient size (includes targeted exams where dose is matched to clinical indication); or iterative reconstruction. Contrast material: ISOVUE 370; Contrast volume: 75 ml; Contrast route: INTRAVENOUS (IV); COMPARISON: NM Bone Scan Whole Body 06/23/2015 11:16 AM FINDINGS: Paranasal sinuses: Mucous retention cyst/polyp of the right maxillary sinus. Nasopharynx: Unremarkable. Oropharynx: 3 mm hypodensity in the left the tonsil may represent a small phlegmonous region. Hypopharynx: Unremarkable. Larynx: Unremarkable. Normal epiglottis. Retropharyngeal space: Unremarkable. Submandibular/Parotid glands: Normal. Glands are normal in size. Thyroid: Normal. No enlarged or calcified nodules. Lymph nodes: Unremarkable. No lymphadenopathy. Trachea: Visualized trachea is unremarkable. Lungs: Unremarkable as visualized. Bones/joints: Degenerative changes of the cervical spine. Reversal of cervical lordosis. Soft tissues: Unremarkable. No significant soft tissue swelling. IMPRESSION: Small hypodensity in the left palatine tonsil measuring 3 mm may represent a small phlegmonous region. No abnormal enhancement. Electronically signed by: Hugo Che On 01/18/2021 17:10:16 PM
[2021-01-18 19:16] LABS: MONO REFLEX EBV COMP NEGATIVE (NEGATIVE)
[2021-01-18] MEDS ORDERED: LIDO2SO SSP (19:28)
[2021-01-18 19:57] LABS: INR 1.85; PROTHROMBIN TIME 21.8 SECONDS (12.7-14.5)
[2021-01-18] MEDS ORDERED: AUGM875T28 PO (20:37)
[2021-01-18 20:38] VITALS: BP 143/65
[2021-01-18] MEDS ORDERED: AUGMENTIN 875 MG TAB PO ONE (20:40)
[2021-01-20 18:07] LABS: EBV AB TO NUCLEAR ANTIGEN >600.0 U/mL (0.0-17.9); EBV VIRAL CAPSID AG IgM <36.0 U/mL (0.0-35.9)
== END 2021-01-18 20:54 | disposition home or self-care (01) ==
LOC: M ED 11:28
DX: D37.02 Neoplasm of uncertain behavior of tongue (principal); D50.9 Iron deficiency anemia, unspecified; J03.90 Acute tonsillitis, unspecified; I10 Essential (primary) hypertension; E11.9 Type 2 diabetes mellitus without complications; N28.9 Disorder of kidney and ureter, unspecified; E78.5 Hyperlipidemia, unspecified; G47.33 Obstructive sleep apnea (adult) (pediatric); Z79.899 Other long term (current) drug therapy; Z79.01 Long term (current) use of anticoagulants
CPT/HCPCS: 36415; 70491; 80047; 85025; 85610; 85652; 86308; 86664; 86665; 87880; 99284; Q9967

== ENCOUNTER → 2021-01-23 | Outpatient (REF) | payer MEDICARE ==
[~2021-01-23] MED LIST changes: +AMLO1TAB24 PO; +AUGM875T28 PO; +FURO40TA2 PO; +LIDO2SO SSP; +METO50TA7 PO
== END ==
LOC: M LAB REF 19:30
PROVIDERS: ATTEND Otolaryngology
DX: K14.8 Other diseases of tongue (principal)

== ENCOUNTER → 2021-02-15 | Outpatient (CLI) | payer MEDICARE ==
[~2021-02-15] MED LIST changes: +TRAM50TA2 PO
== END ==
LOC: M LABSMTC 09:45
PROVIDERS: ATTEND Anesthesiology
DX: Z01.818 Encounter for other preprocedural examination (principal); Z11.52 Encounter for screening for COVID-19

== ENCOUNTER → 2021-02-16 | Outpatient (CLI) | payer MEDICARE ==
[2021-02-16 12:42] LABS: BLOOD UREA NITROGEN 21 MG/DL (7-18); CREATININE FOR GFR 0.86 MG/DL (0.70-1.30); GLOMERULAR FILTRATION RATE > 60.0 (>42)
== END ==
LOC: M LAB 11:20
PROVIDERS: ATTEND Otolaryngology
DX: K14.8 Other diseases of tongue (principal)

== ENCOUNTER → 2021-02-17 | Outpatient (CLI) | payer MEDICARE ==
[~2021-02-17] MED LIST changes: +ACET1TAB16 PO; +IRBE75TA4 PO; +METF500T13 PO; +PROHANCE 279.3MG/ML 15ML VIAL As Ordered ONE; +PROHANCE 279.3MG/ML 5ML VIAL As Ordered ONE; +TAMS1CAP17 PO
--- NOTE | 2021-02-17 16:54 | REPVR ---
PROCEDURE INFORMATION: Exam: MR Face Without and With Contrast Exam date and time: 02/17/2021 3:50 PM Age: 71 years old Clinical indication: Other: Dx of tongue TECHNIQUE: Imaging protocol: MR of the face was performed without and with contrast. Contrast material: PROHANCE; Contrast volume: 20 ml; Contrast route: INTRAVENOUS (IV); COMPARISON: CT Neck with contrast 01/18/2021 4:12 PM FINDINGS: Oral Cavity: The T2 weighted fat suppressed coronal sequence best demonstrates a right tongue mass which appears to involve adjacent buccal mucosa as well as maxillary gingiva and retromolar trigone. If not infiltrating the mucosa and gingiva, there is at least tumor abutting these structures. The mass is seen on coronal images 8 through 18 of series 401. On the postcontrast imaging, there is peripheral enhancement of the mass; the mass enhances poorly centrally. The lesion is seen for example on coronal image 14 of series 901. The mass is estimated to measure approximately 3.2 cm in craniocaudal x 3.5 cm in transverse x 3.3 cm in AP dimensions, image 14 series 401, image 23 series 601. Nasopharynx: Unremarkable. Oropharynx: Unremarkable. Hypopharynx: Unremarkable. Larynx: Visualized larynx is unremarkable. Submandibular/Parotid glands: A 10 x 6 mm likely lymph node in the right parotid gland, not pathologically enlarged, stable. Visualized submandibular and parotid glands are otherwise unremarkable. Paranasal sinuses: Retention cyst or polyp in the right maxillary sinus. Dental: The prior CT study demonstrates missing right mandibular molar teeth. This exam demonstrates enhancement along the margins of the extraction sites are sites of tooth loss which could be related to the residua of dental disease or recent procedure. Recommend close visual inspection of the mucosa to exclude the possibility of tumor involvement. Lymph nodes: No pathologically enlarged lymph nodes identified. Soft tissues: Unremarkable. Bones/joints: Mild edema and enhancement of the right mandible in a region of right molar tooth loss. IMPRESSION: 1. A right tongue mass probably invading, at least abutting, right buccal mucosa as well as right maxillary gingiva and retromolar trigone. 2. Enhancement within right mandibular molar extraction or missing tooth sockets. Findings could reflect the residua of dental disease or recent dental procedure. Recommend close visual inspection of the mucosa to exclude the possibility of tumor involvement. Electronically signed by: Melisa Be On 02/17/2021 16:54:27 PM
== END ==
LOC: M RAD 13:29
PROVIDERS: ATTEND Otolaryngology
DX: K14.8 Other diseases of tongue (principal)
CPT/HCPCS: 70543; A9576

== ENCOUNTER 2021-02-20 06:53 | Inpatient (IN) | payer MEDICARE ==
[~2021-02-20] VITALS: Ht 177.8 cm; Wt 147.0 kg
[2021-02-20] VITALS (8 sets, daily range): BP systolic 153–178; BP diastolic 67–91; O2SAT 94–97
[~2021-02-20 06:53] MED LIST changes: -ACET1TAB16 PO; -IRBE75TA4 PO; +LR 1,000 ML IV ONE; -METF500T13 PO; -PROHANCE 279.3MG/ML 15ML VIAL As Ordered ONE; -PROHANCE 279.3MG/ML 5ML VIAL As Ordered ONE; -TAMS1CAP17 PO; +dexameTHASONE 4 MG/ML 1ML VIAL (J1100 PER 1MG) IV ONE
--- OUTSIDE RECORDS SUMMARY | 2021-02-20 06:57 | CCD | Continuity of Care Document ---
Author Author Shadi FISHER MD Organization Unknown Address [address], [address] [place] [address] Phone [phone] Care Team Providers Care Per Diem Rn Name Role Phone Yasmany Ramos M.D. AUTM [phone] Problems Active Problems Provider Date Sensorineural hearing loss, unilateral, left ear, with unrestricted hearing on the contralateral side Yariel Fong MD Onset: 10/20/2015 Right conductive hearing loss Yariel Fong MD Onset: Disorder of tongue Denton Fisher MD Onset: 01/19/2021 Social History Type Date Description Comments Sex Unknown Smokeless Tobacco Never Used Smokeless Tobacco ETOH Use 1 A Day Recreational Drug Use Denies Drug Use Tobacco Use Start: Unknown Non Smoker Allergies and adverse reactions Description No Known Drug Allergies Medications Active Medications SIG Qnty Indications Ordering Provide r Date Hydrocodone-Acetaminophen 7.5-325mg Tablets 1 by mouth every 4-6 hours as needed 30tabs K14.8 Henrique analia Fisher MD 01/19/2021 Glimepiride 2mg Tablets 2 a d ay Unknown Finasteride 5mg Tablets 1 a d ay Unknown Gabapentin 600mg Tablets 2 tablet by mouth daily Unknown Januvia 100mg Tablets 1 a day Unknown Magnesium 64mg Capsules 1 a d ay Unknown Tamsulosin HCL 0.4mg Capsules 1 by mouth every day Unknown Loratadine 10mg Tablets once daily Unknown Warfarin Sodium 10mg Tablets alt with 7.5 mg daily Unknown Atorvastatin Calcium 40mg Tablets daily Unknown CPAP 5cm marras Unknown Metoprolol Succinate ER 50mg Tablets ER 24HR Once daily Unknown Amlodipine Besylate 5mg Tablets Once daily Unknown Furosemide 40mg Tablets Once daily Unknown Metformin HCL 500mg Tablets Once daily Unknown Febuxostat 40mg Tablets once a day Unknown Immunizations Description No Information Available Vital Signs Date Vital Result Comment 01/19/2021 3:53pm BP Systolic 118 mmHg BP Diastolic 56 mmHg Heart Rate 69 /min O2 % BldC Oximetry 94 % Height 69 inches 5'9" Weight 325.00 lb BMI (Body Mass Index) 48.0 kg/m2 [place] Body Weight 160 lb Weight 147.420 kg BSA (Body Surface Area) 2.54 m2 10/20/2015 9:35am Height 69 inches 5'9" Weight 336.00 lb BMI (Body Mass Index) 49.6 kg/m2 [place] [facility] Weight 160 lb Weight 152.410 kg BSA (Body Surface Area) 2.58 m2 Results Description No Information Available Procedures Date Code Description Status 01/19/2021 955[address] Office/Outpatient New Moderate M DM 45-59 Minutes Completed Medical Devices Description No Information Available Encounters Type Date Location Provider Dx Diagnosis Office Visit 01/19/2021 4:15p [facility] [place] K14.8 Other diseases of tongue Assessments Date Code Description Provider 01/19/2021 K14.8 Other diseases of tongue Denton avalos MD Plan of Treatment 01/19/2021 - Denton Fisher MD* K14.8 Other diseases of tongue* New Medication:* Hydrocodone-Acetaminophen 7.5-325 mg - 1 by mouth every 4-6 hours as needed * Comments:* We discussed the importance of a biopsy and potential removal of the mass. He is on Warfarin and will need to be off of it for at least 3 days prior to avoid excessive bleeding. 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 We will do a biopsy on Saturday in the office. He will stop taking his Coumadin today. Functional Status Description No Information Available Mental Status Description No Information Available Referrals Description No Information Available
--- OUTSIDE RECORDS SUMMARY | 2021-02-20 06:57 | CCD | Continuity of Care Document ---
Author Author Shadi Hill Naheed Organization Unknown Address Unknown Phone [phone] Care Team Providers Care Supervisor Kosher Dietary Service Name Role Phone Andry Collins AUTM [phone] [facility] [phone] Social History Type Date Description Comments Sex [...] Date Facility Test Result H/L Range Note Prothrombin Time/Inr 01/18/[address] [address] [phone] Prothrombin Time 21.8 seconds High 12.7-14.5 Inr 1.85 Normal 1 Laboratory test finding 01/18/[address] [address] [phone] [place] [facility] Ebv Comprehensive NEGATIVE Normal Ne gative 2 Ebv AB Comprehensive 01/18/[address] [address] [phone] Ebv Viral Capsid Ag IgM <36.0 U/mL Normal 0.0-35.9 3 Ebv Viral Capsid Ag IgG 363.0 U/mL High 0.0-17.9 4 Ebv AB To Nuclear Antigen >600.0 U/mL High 0.0-17.9 5 Ebv Interpretation (SEE NOTE) Normal . 6 Laboratory test finding 01/18/2021 [place] [address] [phone] [place] Strep A NEGATIVE Normal Negative CBC W/Automated Diff 12/29/[address] [id number] [phone] CBC W/Automated Diff (SEE NOTE) 7 WBC 5.0 10^3/uL 4.2 - 11.0 RBC [...] Lymph 13.9 % Low 25.0 - 40.0 [place] 10.1 % High 3.0 - 8.0 Eos 1.8 % 0.0 - 7.0 Baso 0.4 % 0.0 - 2.0 %Ig 0.6 % High 0.0 - 0.0 %NRBC 0.0 % 0.0 - 0.0 #Neut 3.63 10^3/uL 2.00 - 6.90 #Lymph 0.69 10^3/uL 0.60 - 3.40 #[place] 0.50 10^3/uL 0.00 - 0.90 #Eos 0.09 10^3/uL 0.00 - 0.70 #Baso 0.02 10^3/uL 0.00 - 0.20 #Ig 0.03 10^3/uL 0.00 - 0.10 #NRBC 0.00 10^3/uL 0.00 - 0.00 Manual Diff NOT INDICATED RBC Morph NOT INDICATED Urinalysis 12/29/[address] [address] [phone] Urinalysis (SEE NOTE) 8 Source R Color yellow Normal: Yellow Clarity clear Normal: Clear Spec [place] 1.015 1.001 - 1.030 pH 5 5 [...] Normal: None Seen Laboratory test finding 12/29/[address] [address] [phone] Hgba1c 10.3 % High 4.4 - 6.1 Magnesium Serum 1.7 mg/dL 1.7 - 2.2 Cve Panel 12/29/[address] [address] [phone] Cve Panel (SEE NOTE) 9 Cholesterol 154 mg/dL 131 - 200 Triglycerides 115 mg/dL 35 - 160 HDL 48 mg/dL 29 - 86 LDL 91 mg/dL 65 - 175 Risk Factor 3.2 Low 3.4 - 4.9 LDL/HDL 1.90 1.00 - 3.55 10 Comprehensive Metabolic Panel 12/29/2020 [facility] o[facility] [address] [place] [address] [phone] Comprehensive Metabo (SEE NOTE) 11 Sodium 137 mEq/L 134 - 153 Potassium [...] >60 mL/min Afr Amer GFR >60 mL/min 12 Laboratory test finding 12/29/2020 [facility] [address] [place] [address] [phone] Iron 38 g/dL Low 42 - 135 TSH Highly Sensitive 1.39 uIU/mL 0.47 - 5.01 Protime 12/29/[address] [address] [phone] Protime 21.2 seconds High 11.0 - 15.5 Inr 1.81 High 0.93 - 1.23 13 1 THERAPUTIC HUMAN INR VALUES INDICATIONS NORMAL RANGES PROPHYLAXIS/TREATMENT OF: VENOUS THROMBOSIS 2.0-3.0 PULMONARY EMBOLISM 2.0-3.0 PREVENTION OF SYSTEMIC EMBOLISM FROM: TISSUE HEART VALVES 2.0-3.0 ACUTE MYOCARDIAL INFARCTION 2.0-3.0 VALVULAR HEART DISEASE 2.0-3.0 ATRIAL FIBRILLATION 2.0-3.0 MECHANICAL VALVES(HIGH RISK) 2.5-3.5 RECURRENT MYOCARDIAL INFARCTION 2.5-3.5 2 Reflex test for EBV COMPREHE NSIVE will be sent to [facility], [address] [place] [address]. [place]. [address]. 3 Negative <36.0 Equivocal 36.0 - 43.9 Positive >43.9 4 Negative <18.0 Equivocal 18.0 - 21.9 Positive >21.9 5 Negative <18.0 Equivocal 18.0 - 21.9 Positive >21.9 6 . EBV Interpretation Chart Sanchez: Antibody Present + Antibody Absent - Interpretation VCA-IgM VCA-IgG EBNA-IgG . No previous infection/ - - - Susceptible Primary infection (new + + - or recent) Past Infection +or- + + See comment below* + - - *Results indicate infection with EBV at some time however cannot predict the timing of the infection since antibodies to EBNA usually develop after primary infection or, alternatively, approximately 5-10% of patients with EBV never develop antibodies to EBNA. Performed at: RN - [facility] [address] [id number] Supervisor Production Department: Felecia Lopez MD, Phone: [phone] COMPLETE BLOOD COUNT 8 URINALYSIS 9 LIPID PANEL 10 CVE RISK CHOL/HDL LDL/HDL MEN: 1/2 AVERAGE 3.43 1.00 AVERAGE 4.97 3.55 2X AVERAGE 9.55 6.25 3X AVERAGE 23.99 7.99 WOMEN: 1/2 AVERAGE 3.27 1.47 AVERAGE 4.44 3.22 2X AVERAGE 7.05 5.03 3X AVERAGE 11.04 6.14 11 COMPREHENSIVE METABOLIC PANE L 12 Male GFR Interprentation 20-49 yrs >60 mL/min Normal 50-59 yrs >56 mL/min Normal 60-69 yrs >49 mL/min Normal 70-79yrs >42 mL/min Normal 80 and above >35 mL/min Normal Female GFR Interpretation 20-39 yrs >60 mL/min Normal 40-49 yrs >58 mL/min Normal 50-59 yrs >51 mL/min Normal 60-69 yrs >45 mL/min Normal 70-79 yrs >39 mL/min Normal 80 and above >32 mL/min Normal 13 \\BLDo\\INR INTERPRETATION\\BLD x\\ Therapeutic range for Coumadin and related oral anticoagulants. -International Normalized Ratio (INR): 2 .0 - 3.0 for Venous Thrombosis, Pulmonary Embolus, Tissue heart valves, Acute WI, Atrial Fibrillation, Valvular heart disease and recurrent Systemic Embolism. -International Normalized Ratio (INR): 2 .5 - 3.5 for Mechanical Prosthetic valve. Procedures Date Code Description Status 12/29/2020 17030 Office/Outpatient Established Mo d MDM 30-39 Min Completed 11/01/2020 39669 Periodic Preventive Med Age 65+ Completed 09/09/2020 69540 Office/Outpatient Established Mo d MDM 30-39 Min Completed Encounters Type Date Location Provider Dx Diagnosis Office Visit 12/29/2020 10:30a [facility] John Islas M.D.,[facility]. C[facility] I11.9 Hypertensive heart disease without heart failure E10.9 Type 1 diabetes mellitus wit hout complications Office Visit 11/01/2020 10:30a [facility] AUDREY Ang Z02.4 Encounter for examination fo r driving license Office Visit 09/09/2020 10:30a [facility] John Islas M.D.,[facility]. [facility] I11.9 Hypertensive [...] John Islas [facility] 09/09/2020 R09.02 Hypoxemia Gena Haas,P.C. 09/09/2020 J44.9 Chronic obstructive pulmonary di sease, unspecified John Islas [facility] 09/09/2020 E11.9 Type 2 diabetes mellitus without complications John Islas M[facility]
--- OUTSIDE RECORDS SUMMARY | 2021-02-20 06:57 | CCD | Continuity of Care Document ---
Author Author Shadi FISHER MD Organization Unknown Address [address] [facility], [address] [place] [address] Phone [phone] Care Team Providers Care Payroll Specialist Name Role Phone Yasmany Ramos M.D. AUTM [phone] Problems Active Problems Provider Date Sensorineural hearing [...] lb BMI (Body Mass Index) 48.0 kg/m2 [place] Body Weight 160 lb Weight 147.420 kg BSA (Body Surface Area) 2.54 m2 10/20/2015 9:35am Height 69 inches 5'9" Weight 336.00 lb BMI (Body Mass Index) 49.6 kg/m2 [place] Body Weight 160 lb Weight 152.410 kg BSA (Body Surface Area) 2.58 m2 Results Description No Information Available Procedures Description No Information Available Medical Devices Description No Information Available Encounters Description No Information Available Assessments Date Code Description Provider 01/19/2021 K14.8 [...]
--- OUTSIDE RECORDS SUMMARY | 2021-02-20 06:57 | CCD | Continuity of Care Document ---
Author Author Shadi ARAUJO DPM-PC Organization Unknown Address [address] [place] [address] Phone [phone] Care Team Providers Care Developmental Psychologist Name Role Phone John Islas MD AUTM [phone] Problems Active Problems Provider Date Edema Siria Araujo DPM-pc Onset: 12/04/2018 Hammer toe Siria Araujo DPM-pc Onset: 12/04/2018 Callosity on toe JOSE PottsM-pc Onset: 05/08/2018 Neuropathy due to type 2 diabetes mellitus Jayashree Potts PM-pc Onset: 12/19/2017 Pain in limb JOSE PottsM-pc Onset: 12/19/2017 Contact dermatitis Siria Araujo DPM-pc Onset: 12/19/2017 Onychomycosis Siria Araujo DPM-pc Onset: 12/19/2017 Deep venous thrombosis of lower extremity AUDREY Betancourt i Onset: 10/09/2017 Benign prostatic hyperplasia with outflow obstruction AUDREY Rodgers Onset: 10/09/2017 Mixed hyperlipidemia AUDREY Reeves Onset: 10/10/19 18 Essential hypertension AUDREY Reeves Onset: 2017 Type 2 diabetes mellitus AUDREY Reeves Onset: 09/29 Social History Type Date Description Comments Sex Unknown Tobacco Use Start: Unknown Never Smoked Cigarettes Tobacco Use Start: Unknown Never Smoked Cigars Tobacco Use Start: Unknown Never Smoked A Pipe Smoking Status Reviewed: 02/16/21 Never Smoked A Pipe Tobacco Use Start: Unknown Never Used Smokeless Tobacco Tobacco Use Start: Unknown Patient has never smoked Allergies and adverse reactions Description No Known Drug Allergies Medications Active Medications SIG Qnty Indications Ordering Provide r Date Metformin HCL ER 500mg Tablets ER 24HR 2 tabs by mouth twice a day 120tabs E11.9 John Islas M.D. 10/09/2017 Amlodipine Besylate 5mg Tablets I10 Unknown Glimepiride 2mg Tablets E11.9 Unknown Januvia 100mg Tablets E11.9 Unknown Trulicity 1.5mg/0.5ML Solution Pen -Inject E11.9 Unknown Warfarin Sodium 7.5mg Tablets Unknown Tamsulosin HCL 0.4mg Capsules N40.1 Unknown Atorvastatin 40mg Tablets Unknown Metoprolol Succinate ER 50mg Tablets ER 24HR Unknown Finasteride 5mg Tablets N40.1 Unknown Gabapentin 600mg Tablets Unknown Furosemide 40mg Tablets I10 Unknown Warfarin Sodium 10mg Tablets Z86.72 Unknown Enoxaparin Sodium 80mg/0.8ML Solution Unknown Immunizations Description No Information Available Vital Signs Date Vital Result Comment 12/19/2017 9:38am Weight 355.00 lb Weight 161.028 kg Height 70 inches 5'10" BMI (Body Mass Index) 50.9 kg/m2 BSA (Body Surface Area) 2.66 m2 10/09/2017 1:33pm BP Systolic 132 mmHg BP Diastolic 86 mmHg Heart Rate 88 /min O2 % BldC Oximetry 16 % Weight 355.00 lb Weight 161.028 kg Height 70 inches 5'10" BMI (Body Mass Index) 50.9 kg/m2 BSA (Body Surface Area) 2.66 m2 Results Description No Information Available Procedures Date Code Description Status 02/16/2021 94177 Debridement Nails Any Method 6 O r More Completed 02/16/2021 30867 Pare Hyperkeratotic Lesion, 2-4 Completed 09/12/2020 24611 Debridement Nails Any Method 6 O r More Completed 09/12/2020 57695 Pare Hyperkeratotic Lesion, 2-4 Completed Medical Devices Description No Information Available Encounters Description No Information Available Assessments Date Code Description Provider 02/16/2021 E11.49 Type 2 diabetes mellitus with ot her diabetic neurological co Calixto Potts 02/16/2021 R60.1 Generalized edema Siria Araujo DPM-pc 02/16/2021 M20.40 Other hammer toe(s) (acquired), unspecified foot Siria Araujo DPM-pc 02/16/2021 L84 Corns and callosities Siria Will iams, DPM-pc 02/16/2021 B35.1 Tinea unguium Siria Araujo DPM-pc 09/12/2020 E11.49 Type 2 diabetes mellitus with ot her diabetic neurological co Siria Araujo DPM-pc 09/12/2020 R60.1 Generalized edema Siria Araujo DPM-pc 09/12/2020 L84 Corns and callosities Siria Will iams, DPM-pc 09/12/2020 M20.40 Other hammer toe(s) (acquired), unspecified foot Siria Araujo DPM-pc 09/12/2020 B35.1 Tinea unguium Siria Araujo DP- Plan of Treatment 02/16/2021 - Siria Araujo DP-pc* E11.49 Type 2 diabetes mellitus with other diabetic neurological co * R60.1 Generalized edema * M20.40 Other hammer toe(s) (acquired), unspecified foot * L84 Corns and callosities* Comments:* I removed hyperkeratosis from the rims of heels bilaterally with scalpel and burred to normal thickness. I debrided mycotic nails: x10 with nippers and burred to normal thickness. I remarked about his edema and he should try to elevate his legs and feet as much as possible while he is at home recovering him his tongue surgery which is happening on Saturday afternoon. I will continue to monitor hammertoes. Lotioned the feet. Follow-up in 10 weeks. * B35.1 Tinea unguium Functional Status Description No Information Available Mental Status Description No Information Available Referrals Description No Information Available
--- OUTSIDE RECORDS SUMMARY | 2021-02-20 06:57 | CCD | Continuity of Care Document ---
Author Author Shadi TRUJILLO MD Organization Unknown Address [address] [facility] [address] [place] [address] Phone [phone] Care Team Providers Care Section Repairer Name Role Phone Yasmany Ramos M.D. AUTM [phone] Problems Active Problems Provider Date Sensorineural hearing loss, unilateral, left ear, with unrestricted hearing on the contralateral side Yariel Trujillo MD Onset: 10/20/2015 Right conductive hearing loss Yariel Trujillo MD Onset: Disorder of tongue Denton Fisher MD Onset: 01/19/2021 Social History Type Date Description Comments Sex Unknown Smokeless Tobacco Never Used Smokeless Tobacco ETOH Use 1 A Day Recreational Drug Use Denies Drug Use Tobacco Use Start: Unknown Non Smoker Allergies and adverse reactions Description No Known Drug Allergies Medications Active Medications SIG Qnty Indications Ordering Provide r Date Chlorhexidine Gluconate 0.12% Solu tion 15 milliliters by mouth swish and spit three times a day for 14 days 473ml Yariel Trujillo MD 01/27/2021 Nystatin 797965Nmov/ML Suspension 6 milliliters swish and spit 4 times a day for 2 weeks 473ml Yariel Trujillo MD 01/27/2021 Hydrocodone-Acetaminophen 7.5-325mg Tablets 1 by mouth every 4-6 hours as needed 30tabs K14.8 Henrique Fisher MD 01/19/2021 Febuxostat 40mg Tablets once a day Unknown Metformin HCL 500mg Tablets Once daily Unknown Furosemide 40mg Tablets Once daily Unknown Amlodipine Besylate 5mg Tablets Once daily Unknown Metoprolol Succinate ER 50mg Tablets ER 24HR Once daily Unknown CPAP 5cm marras Unknown Atorvastatin Calcium 40mg Tablets daily Unknown Warfarin Sodium 10mg Tablets alt with 7.5 mg daily Unknown Loratadine 10mg Tablets once daily Unknown Tamsulosin HCL 0.4mg Capsules 1 by mouth every day Unknown Magnesium 64mg Capsules 1 a d ay Unknown Januvia 100mg Tablets 1 a day Unknown Gabapentin 600mg Tablets 2 tablet by mouth daily Unknown Finasteride 5mg Tablets 1 a d ay Unknown Glimepiride 2mg Tablets 2 a d ay Unknown Immunizations Description No Information Available Vital Signs Date Vital Result Comment 02/01/2021 10:33am Height 69 inches 5'9" Weight 325.00 lb BMI (Body Mass Index) 48.0 kg/m2 [place] Body Weight 160 lb Weight 147.420 kg BSA (Body Surface Area) 2.54 m2 01/23/2021 2:28pm BP Systolic 150 mmHg BP Diastolic 60 mmHg Heart Rate 65 /min O2 % BldC Oximetry 96 % Height 69 inches 5'9" Weight 325.00 lb BMI (Body Mass Index) 48.0 kg/m2 [place] Body Weight 160 lb Weight 147.420 kg BSA (Body Surface Area) 2.54 m2 Results Test Acquired Date Facility Test Result H/L Range Note Laboratory test finding 01/23/2021 [facility] Main Lab [address] [place], [place] [id number] [phone] Pathology Request For Service (SEE NOTE) 1 1 FINAL DIAGNOSIS Tongue, biopsy: Hyperplastic squamous mucosa with hyperkeratosis, irritated/reactive and acute inflammation with microabscess formation. Fungal organisms present. 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 Negative for malignancy. 01/25/2021 - 1246 CLINICAL DIAGNOSIS Biopsy of tongue 01/24/2021 - 1302 GROSS DIAGNOSIS Received in formalin labeled "biopsy of tongue" and consists of fragment of tissue 0.6 x 0.4 x 0.2 cm. All in one. -OA 01/24/2021 - 1303 Signed JENNIFER AU MD 01/25/2021 1247 Procedures Date Code Description Status 01/23/2021 59280 Biopsy Tongue Anterior Two-Third s Completed 01/19/2021 11659 Office/Outpatient New Moderate M DM 45-59 Minutes Completed Medical Devices Description No Information Available Encounters Type Date Location Provider Dx Diagnosis Office Visit 01/19/2021 4:15p [facility] [place] Astudillo K14.8 Other diseases of tongue Assessments Date Code Description Provider 02/01/2021 K14.8 Other diseases of tongue Yariel alvarenga MD 01/23/2021 K14.8 Other diseases of tongue Denton avalos MD 01/19/2021 K14.8 Other diseases of tongue Denton avalos MD Plan of Treatment No Information Available Functional Status Description No Information Available Mental Status Description No Information Available Referrals Description No Information Available
--- OUTSIDE RECORDS SUMMARY | 2021-02-20 06:57 | CCD | Continuity of Care Document ---
Author Author Shadi FISHER MD Organization Unknown Address [address] [facility], [address] [place] [address] Phone [phone] Care Team Providers Care Contract Graphic Designer Name Role Phone Yasmany Ramos M.D. AUTM [phone] Problems Active Problems Provider Date Sensorineural hearing [...] Available Vital Signs Date Vital Result Comment 01/23/2021 2:28pm BP Systolic 150 mmHg BP Diastolic 60 mmHg Heart Rate 65 /min O2 % BldC Oximetry 96 % Height 69 inches 5'9" Weight 325.00 lb BMI (Body Mass Index) 48.0 kg/m2 [place] Body Weight 160 lb Weight 147.420 kg BSA (Body Surface Area) 2.54 m2 01/19/2021 3:53pm BP Systolic 118 mmHg BP Diastolic 56 mmHg Heart Rate 69 /min O2 % BldC Oximetry 94 % Height 69 inches 5'9" Weight 325.00 lb BMI (Body Mass Index) 48.0 kg/m2 [place] Body Weight 160 lb Weight 147.420 kg BSA (Body Surface Area) 2.54 m2 Results Description No Information Available Procedures Date Code Description Status 01/19/2021 74962 Office/Outpatient New Moderate M DM 45-59 Minutes Completed Medical Devices Description No Information Available Encounters Type Date Location Provider Dx Diagnosis Office Visit 01/19/2021 4:15p [facility] [place] Astudillo K14.8 Other diseases of tongue Assessments Date Code Description Provider 01/19/2021 K14.8 Other diseases of tongue Denton avalos MD Plan of Treatment Future Appointment(s):* 02/01/2021 10:15 am - Yariel Fong MD at [facility] Functional Status Description No Information Available Mental Status Description No Information Available Referrals Description No Information Available
--- OUTSIDE RECORDS SUMMARY | 2021-02-20 06:57 | CCD | Continuity of Care Document ---
Author Author Shadi ARAUJO DPM-PC Organization Unknown Address [address] [place] [address] Phone [phone] Care Team Providers Care Certified Maintenance Welder Name Role Phone John Islas MD AUTM [phone] Problems Active Problems Provider Date Edema Siria [...] Available Procedures Date Code Description Status 02/16/2021 48105 Debridement Nails Any Method 6 O r More Completed 02/16/2021 23713 Pare Hyperkeratotic Lesion, 2-4 Completed 09/12/2020 38613 Debridement Nails Any Method 6 O r More Completed 09/12/2020 09894 Pare Hyperkeratotic Lesion, 2-4 Completed Medical Devices [...]
--- OUTSIDE RECORDS SUMMARY | 2021-02-20 06:57 | CCD | Continuity of Care Document ---
Author Author Shadi ARAUJO DPM-PC Organization Unknown Address [address] [place] [address] Phone [phone] Care Team Providers Care Mission Commander Name Role Phone John Islas MD AUTM [phone] Problems Active Problems Provider Date Edema Siria [...] Available Procedures Date Code Description Status 02/16/2021 76772 Debridement Nails Any Method 6 O r More Completed 02/16/2021 11278 Pare Hyperkeratotic Lesion, 2-4 Completed 09/12/2020 40803 Debridement Nails Any Method 6 O r More Completed 09/12/2020 20422 Pare Hyperkeratotic Lesion, 2-4 Completed Medical Devices [...]
--- OUTSIDE RECORDS SUMMARY | 2021-02-20 06:57 | CCD | Continuity of Care Document ---
Author Author Shadi ARAUJO DPM-PC Organization Unknown Address [address] [place] [address] Phone [phone] Care Team Providers Care Drafting Layout Man Name Role Phone John Islas MD AUTM [phone] Problems Active Problems Provider Date Edema Siria [...] Available Procedures Date Code Description Status 02/16/2021 06972 Debridement Nails Any Method 6 O r More Completed 02/16/2021 96927 Pare Hyperkeratotic Lesion, 2-4 Completed 09/12/2020 53411 Debridement Nails Any Method 6 O r More Completed 09/12/2020 51820 Pare Hyperkeratotic Lesion, 2-4 Completed Medical Devices [...]
--- OUTSIDE RECORDS SUMMARY | 2021-02-20 06:57 | CCD | Continuity of Care Document ---
Author Organization Unknown Address Unknown Phone Unavailable Care Team Providers Care Computer Systems Security Administrator Name Role Phone Andry Collins AUT [phone] JOHN ISLAS M.D. P.CChloé [facility] [phone] Social History Type Date Description Comments Sex Unknown Allergies and adverse reactions Description No Known Drug Allergies Medications Active Medications SIG Qnty Indications Ordering Provide r Date Acetaminophen-Codeine #3 300-30mg Tablets take 1 tablet by oral route three times a day as needed prn for mouth pain CONSULTING BUSINESS DEVELOPER [id number] 21taelier Islas M.D.,P.C. 02/16/20 21 Tramadol HCL 50mg Tablets 1 by mouth three times a day 30tabs John Islas M.D.,P.C. 02/09/20 21 Lotrisone 1-0.05% Cream apply to affected area [...] once daily 90tabs John Islas M.D.,P.C. 020 Warfarin Sodium 7.5mg Tablets [facility] Lidocaine Viscous HCL 2% Solution Unknown Hydrocodone Bitartrate/Acetaminophen 7.5-325mg Tablets Unknown Nystatin [id number]/ML Suspension Unknown Chlorhexidine Gluconate 0.12% Solution Unknown Labetalol HCL 100mg Tablets take 1 tablet [...] once daily 90tabs John Islas M.D.,P.C. 000 Metformin HCL 500mg Tablets take 2 [...] once daily 90tabs John Islas M.D.,P.C. 000 Furosemide 40mg Tablets take 1 tablet by mouth once daily 90tabs John Islas M.D.,P.C. 000 Glimepiride 1mg Tablets take 3 tablets by mouth with the first meal of the day and 3 tablets with dinner 540tabs John Islas M.D.,P.C. Warfarin Sodium 10mg Tablets take 1 tablet by mouth every day 90tabs John Islas M.D.,P.C. Trulicity 1.5mg/0.5ML Solution Pen -Inject inject 1.5 mg weekly 6ml John Islas M.D.,P.C. Medications Administered in Office Medication SIG Qnty Indications Ordering Provider Date Dobutamine IV Injection 250MG Inj ection John Islas M.D.,P.C. 02/10/20 Technetium TC 99M Sestamibi Injection John Islas M.D.,P.C. 02/09/2021 Technetium TC 99M Sestamibi Injection John Islas M.D.,P.C. 02/07/2017 Vital Signs Date Vital Result Comment 02/08/2021 9:21am Height 69 inches 5'9" Weight 322.00 lb BMI (Body Mass Index) 47.5 kg/m2 Body Temperature 97.7 F BP Systolic 137 mmHg BP Diastolic 74 mmHg Heart Rate 89 /min O2 % BldC Oximetry 87 % 12/29/2020 10:20am Height 69 inches 5'9" Weight 319.00 lb BMI (Body Mass Index) 47.1 kg/m2 Body Temperature 97.2 F BP Systolic 197 mmHg BP Diastolic 85 mmHg Heart Rate 68 /min O2 % BldC Oximetry 89 % Results Test Acquired Date Facility Test Result H/L Range Note Laboratory test finding 02/16/[address] [address] [phone] Blood Urea Nitrogen 21 mg/dL High 7-18 Creatinine With GFR 02/16/[address] [id number] [phone] Creatinine For GFR 0.86 mg/dL Normal 0.70-1.30 Glomerular Filtration Rate > 60.0 Normal >42 1 Prothrombin Time/Inr 01/18/[address] [id number] [phone] Prothrombin Time 21.8 seconds High 12.7-14.5 Inr 1.85 Normal 2 Laboratory test finding 01/18/[address] [id number] [phone] [place] [facility] Ebv Comprehensive NEGATIVE Normal Ne gative 3 Ebv AB Comprehensive 01/18/2021 [facility] [address] [place] [address] [phone] Ebv Viral Capsid Ag IgM <36.0 U/mL Normal 0.0-35.9 4 Ebv Viral Capsid Ag IgG 363.0 U/mL High 0.0-17.9 5 Ebv AB To Nuclear Antigen >600.0 U/mL High 0.0-17.9 6 Ebv Interpretation (SEE NOTE) Normal . 7 Laboratory test finding 01/18/2021 [facility] [address] [place], [place] [id number] [phone] Ligia Strep A NEGATIVE Normal Negative CBC W/Automated Diff 12/29/[address] [address] [phone] CBC W/Automated Diff (SEE NOTE) 8 WBC 5.0 10^3/uL 4.2 - 11.0 RBC [...] Lymph 13.9 % Low 25.0 - 40.0 Moore 10.1 % High 3.0 - 8.0 Eos 1.8 % 0.0 - 7.0 Baso 0.4 % 0.0 - 2.0 %Ig 0.6 % High 0.0 - 0.0 %NRBC 0.0 % 0.0 - 0.0 #Neut 3.63 10^3/uL 2.00 - 6.90 #Lymph 0.69 10^3/uL 0.60 - 3.40 #Moore 0.50 10^3/uL 0.00 - 0.90 #Eos 0.09 10^3/uL 0.00 - 0.70 #Baso 0.02 10^3/uL 0.00 - 0.20 #Ig 0.03 10^3/uL 0.00 - 0.10 #NRBC 0.00 10^3/uL 0.00 - 0.00 Manual Diff NOT INDICATED RBC Morph NOT INDICATED Urinalysis 12/29/[address] [address] [phone] Urinalysis (SEE NOTE) 9 Source R Color yellow Normal: Yellow Clarity clear Normal: Clear Spec [place] 1.015 1.001 - 1.030 pH 5 5 [...] Normal: None Seen Laboratory test finding [facility] [address] [place] [address] [phone] Hgba1c 10.3 % High 4.4 - 6.1 Magnesium Serum 1.7 mg/dL 1.7 - 2.2 Cve Panel 12/29/[address] [address] [phone] Cve Panel (SEE NOTE) 10 Cholesterol 154 mg/dL 131 - 200 Triglycerides 115 mg/dL 35 - 160 HDL 48 mg/dL 29 - 86 LDL 91 mg/dL 65 - 175 Risk Factor 3.2 Low 3.4 - 4.9 LDL/HDL 1.90 1.00 - 3.55 11 Comprehensive Metabolic Panel 12/29/2020 [facility] [address] [place] [phone] Comprehensive Metabo (SEE NOTE) 12 Sodium 137 mEq/L 134 - 153 Potassium [...] >60 mL/min Afr Amer GFR >60 mL/min 13 Laboratory test finding 12/29/[address] [address] [phone] Iron 38 g/dL Low 42 - 135 TSH Highly Sensitive 1.39 uIU/mL 0.47 - 5.01 Protime 12/29/[address] [address] [phone] Protime 21.2 seconds High 11.0 - 15.5 Inr 1.81 High 0.93 - 1.23 14 1 Units are mL/min/1.73 m2 Chronic Kidney Disease Staging per NKF: Stage I & II GFR >=60 Normal to Mildly Decreased Stage III GFR 30-59 Moderately Decreased Stage IV GFR 15-29 Severely Decreased Stage V GFR <15 Very Little GFR Left ESRD GFR <15 on AERONAUTICAL DESIGN ENGINEER 2 THERAPUTIC HUMAN INR VALUES INDICATIONS NORMAL RANGES PROPHYLAXIS/TREATMENT OF: VENOUS THROMBOSIS 2.0-3.0 PULMONARY EMBOLISM 2.0-3.0 PREVENTION OF SYSTEMIC EMBOLISM FROM: TISSUE HEART VALVES 2.0-3.0 ACUTE MYOCARDIAL INFARCTION 2.0-3.0 VALVULAR HEART DISEASE 2.0-3.0 ATRIAL FIBRILLATION 2.0-3.0 MECHANICAL VALVES(HIGH RISK) 2.5-3.5 RECURRENT MYOCARDIAL INFARCTION 2.5-3.5 3 Reflex test for EBV COMPREHE NSIVE will be sent to [facility], [address] [place] [address]. 4 Negative <36.0 Equivocal 36.0 - 43.9 Positive >43.9 5 Negative <18.0 Equivocal 18.0 - 21.9 Positive >21.9 6 Negative <18.0 Equivocal 18.0 - 21.9 Positive >21.9 7 . EBV Interpretation Chart Sanchez: Antibody Present [...] to [facility]NA. Performed at: RN - [facility] [address] [id number] [place]: Felecia Lopez MD, Phone: [phone] COMPLETE BLOOD COUNT 9 URINALYSIS 10 LIPID PANEL 11 CVE RISK CHOL/HDL LDL/HDL MEN: 1/2 AVERAGE 3.43 1.00 AVERAGE 4.97 3.55 2X AVERAGE 9.55 6.25 3X AVERAGE 23.99 7.99 WOMEN: 1/2 AVERAGE 3.27 1.47 AVERAGE 4.44 3.22 2X AVERAGE 7.05 5.03 3X AVERAGE 11.04 6.14 12 COMPREHENSIVE METABOLIC PANE L 13 Male GFR Interprentation 20-49 yrs >60 mL/min Normal 50-59 yrs >56 mL/min Normal 60-69 yrs >49 mL/min Normal 70-79yrs >42 mL/min Normal 80 and above >35 mL/min Normal Female GFR Interpretation 20-39 yrs >60 mL/min Normal 40-49 yrs >58 mL/min Normal 50-59 yrs >51 mL/min Normal 60-69 yrs >45 mL/min Normal 70-79 yrs >39 mL/min Normal 80 and above >32 mL/min Normal 14 \\BLDo\\INR INTERPRETATION\\BLD x\\ Therapeutic range for Coumadin and related oral anticoagulants. -International Normalized Ratio (INR): 2 .0 - 3.0 for Venous Thrombosis, Pulmonary Embolus, Tissue heart valves, Acute UT, Atrial Fibrillation, Valvular heart disease and recurrent Systemic Embolism. -International Normalized Ratio (INR): 2 .5 - 3.5 for Mechanical Prosthetic valve. Procedures Date Code Description Status 02/09/2021 73519 Myocardial Perfusion,WM & Ef Com pleted 02/08/2021 01849 Office/Outpatient Established Mo d MDM 30-39 Min Completed 02/08/2021 10874 Echocardiogram, Complete Complet ed 02/08/2021 22778 EKG Completed 12/29/2020 58382 Office/Outpatient Established Mo d MDM 30-39 Min Completed 11/01/2020 31641 Periodic Preventive Med Age 65+ Completed 09/09/2020 38639 Office/Outpatient Established Mo d MDM 30-39 Min Completed Encounters Type Date Location Provider Dx Diagnosis Office Visit 02/08/2021 9:30a [facility] John Islas M.D.,P. C. I11.9 Hypertensive heart disease without heart failure E10.9 Type 1 diabetes mellitus wit hout complications E78.5 Hyperlipidemia, unspecified Z01.810 Encounter for preprocedural cardiovascular examination I34.0 Nonrheumatic mitral (valve) insufficiency I49.49 Other premature depolarizati on Office Visit 12/29/2020 10:30a [facility] John Islas M.D.,P. C. I11.9 Hypertensive heart disease without heart failure E10.9 Type 1 diabetes mellitus wit hout complications Office Visit 11/01/2020 10:30a [facility] AUDREY Ang Z02.4 Encounter for examination fo r driving license Office Visit 09/09/2020 10:30a [facility] John Islas M.D.,P. C. I11.9 Hypertensive heart disease without heart failure R09.02 Hypoxemia J44.9 Chronic obstructive pulmonar y disease, unspecified E11.9 Type 2 diabetes mellitus wit hout complications Assessments Date Code Description Provider 02/09/2021 Z01.810 Encounter for preprocedural card iovascular examination John Islas M.D.,P.C. 02/09/2021 E10.9 Type 1 diabetes mellitus without complications John Islas M.D.,P.C. 02/08/2021 I11.9 Hypertensive heart disease witho ut heart failure John Islas M.D.,P.C. 02/08/2021 E10.9 Type 1 diabetes mellitus without complications John Islas M.D.,P.C. 02/08/2021 E78.5 Hyperlipidemia, unspecified Kana Islas M.D.,P.C. 02/08/2021 Z01.810 Encounter for preprocedural card iovascular examination John Islas M.D.,P.C. 02/08/2021 I34.0 Nonrheumatic mitral (valve) insu fficiency John Islas M.D.,P.C. 02/08/2021 I49.49 Other premature depolarization M arlene Islas M.D.,P.C. 12/29/2020 I11.9 Hypertensive heart disease witho ak heart failure John Islas M.D.,P.C. 12/29/2020 E10.9 Type 1 diabetes mellitus without complications John Islas M.D.,P.C. 11/01/2020 Z02.4 Encounter for examination for dr daylin Glover, AUDREY 09/09/2020 I11.9 Hypertensive heart disease witho ak heart failure John Islsa M.D.,P.C. 09/09/2020 R09.02 Hypoxemia Gena Haas,P.C. 09/09/2020 J44.9 Chronic obstructive pulmonary di sease, unspecified John Islas M.D.,P.C. 09/09/2020 E11.9 Type 2 diabetes mellitus without complications John Islas M.D.,P.C. Referrals Refer to Dr Reason for Referral Status Appt Date John Islas M.D. Created [address] [place], [place] [address] [phone]
--- OUTSIDE RECORDS SUMMARY | 2021-02-20 06:57 | CCD | Continuity of Care Document ---
Author Author Shadi FISHER MD Organization Unknown Address [address], [address] [place] [address] Phone [phone] Care Team Providers Care Ethylbenzene Converter Helper Name Role Phone Yasmany Ramos M.D. AUTM [phone] Problems Active Problems Provider Date Sensorineural hearing [...] lb BMI (Body Mass Index) 48.0 kg/m2 [place] Body Weight 160 lb Weight 147.420 kg BSA (Body Surface Area) 2.54 m2 01/19/2021 3:53pm BP Systolic 118 mmHg BP Diastolic 56 mmHg Heart Rate 69 /min O2 % BldC Oximetry 94 % Height 69 inches 5'9" Weight 325.00 lb BMI (Body Mass Index) 48.0 kg/m2 [place] Body Weight 160 lb Weight 147.420 kg BSA (Body Surface Area) 2.54 m2 Results Test Acquired Date Facility Test Result H/L Range Note Laboratory test finding 01/23/2021 [facility] [address] [place] [id number] [phone] Pathology Request For Service <pending> Procedures Date Code Description Status 01/23/2021 85725 Biopsy Tongue Anterior Two-Third s Completed 01/19/2021 82929 Office/Outpatient New Moderate M DM 45-59 Minutes Completed Medical Devices Description No Information Available Encounters Type Date Location Provider Dx Diagnosis Office Visit 01/19/2021 4:15p [facility] [place] Astudillo K14.8 Other diseases of tongue Assessments Date Code Description Provider 01/23/2021 K14.8 Other diseases of tongue [place] avalos MD 01/19/2021 K14.8 Other diseases of tongue [place] avalos MD Plan of Treatment Future Appointment(s):* 02/01/2021 10:15 am - Yariel Fong MD at [facility] 01/23/2021 - [place] Fisher MD* K14.8 Other diseases of tongue* Comments:* I reviewed him with Dr. Arsenio Aranda today. He will see him in 1 week to review the pathology and plan for excision possible neck dissection. Functional Status Description No Information Available Mental Status Description No Information Available Referrals Description No Information Available
--- OUTSIDE RECORDS SUMMARY | 2021-02-20 06:57 | CCD | Continuity of Care Document ---
Author Author Shadi FREITAS PA Organization Unknown Address [address] [place] [address] Phone [phone] Care Team Providers Care Statistical Programmer Analyst Name Role Phone John Islas MD [facility] [phone] Problems Active Problems Provider Date Type 2 diabetes mellitus Onset: 01/06/20 15 Pure hypercholesterolemia Onset: 015 Essential hypertension Onset: 01/05/2015 Social History Type Date Description Comments Sex Unknown ETOH Use Occasionally consumes alcohol Tobacco Use Start: Unknown Denies Smoking Smoking Status Reviewed: 06/11/19 Denies Smoking Allergies and adverse reactions Description No Known [...] Information Available Procedures Date Code Description Status 02/14/2021 80699 Office/Outpatient Established Lo w [facility] 20-29 Min Completed 02/14/2021 28116 Inject/Drain Joint/Bursa Major C ompleted 11/03/2020 10312 Office/Outpatient Established Lo w [facility] 20-29 Min Completed 11/03/2020 21709 Inject/Drain Joint/Bursa Major C ompleted Medical Devices Description No Information Available Encounters Type Date Location Provider Dx Diagnosis Office Visit [place]20[place] M17.0 Bilateral primary osteoarthritis of knee Office Visit 11/03/2020 1:00p AUDREY [place] M17.0 Bilateral primary osteoarthritis of knee Assessments Date Code Description Provider 02/14/2021 M17.0 Bilateral primary osteoarthritis of knee Coleman I. Drazek, PA 11/03/2020 M17.0 Bilateral primary osteoarthritis of knee AUDREY Rose 10/13/2020 M17.0 Bilateral primary osteoarthritis of knee AUDREY Taylor-Davion Plan of Treatment 02/14/2021 - AUDERY Rose* M17.0 Bilateral primary osteoarthritis of knee * Follow up:* prn Functional Status Functional Condition Comment Date Status Hearing Aid, Right ear Active Mental Status Description No Information Available Referrals Description No Information Available
--- OUTSIDE RECORDS SUMMARY | 2021-02-20 06:57 | CCD | Continuity of Care Document ---
Author Author Shadi FISHER MD Organization Unknown Address [address], [address] [place] [address] Phone [phone] Care Team Providers Care Marine Engineering Consultant Name Role Phone Yasmany Ramos M.D. AUTM [phone] Problems Active Problems Provider Date Sensorineural hearing [...] lb BMI (Body Mass Index) 48.0 kg/m2 [place] Body Weight 160 lb Weight 147.420 kg BSA (Body Surface Area) 2.54 m2 10/20/2015 9:35am Height 69 inches 5'9" Weight 336.00 lb BMI (Body Mass Index) 49.6 kg/m2 [place] Body Weight 160 lb Weight 152.410 kg [...]
--- OUTSIDE RECORDS SUMMARY | 2021-02-20 06:58 | CCD | Continuity of Care Document ---
Author Author Shadi FISHER MD Organization Unknown Address [address] [facility], [address] [place] [address] Phone [phone] Care Team Providers Care Surface To Air Weapons Officer Name Role Phone Yasmany Ramos M.D. AUTM [phone] Problems Active Problems Provider Date Sensorineural hearing [...] lb BMI (Body Mass Index) 48.0 kg/m2 [place] Body Weight 160 lb Weight 147.420 kg BSA (Body Surface Area) 2.54 m2 10/20/2015 9:35am Height 69 inches 5'9" Weight 336.00 lb BMI (Body Mass Index) 49.6 kg/m2 [place] Body Weight 160 lb Weight 152.410 kg [...]
--- OUTSIDE RECORDS SUMMARY | 2021-02-20 06:58 | CCD | Continuity of Care Document ---
Author Author Shadi Hill Naheed Organization Unknown Address Unknown Phone [phone] Care Team Providers Care Human Resources Analyst Name Role Phone Andry Collins AUTM [phone] JOHN ISLAS M.D. P.C. [facility] [phone] Social History Type Date Description Comments Sex [...] Result H/L Range Note Prothrombin Time/Inr 01/18/[address] [address] [phone] Prothrombin Time 21.8 seconds High 12.7-14.5 Inr 1.85 Normal 1 Laboratory test finding 01/18/[address] 2587209 [phone] [place] Reflex Ebv Comprehensive NEGATIVE Normal Ne gative 2 Laboratory test finding 01/18/[address] 1504934 [phone] [place] Strep A NEGATIVE Normal Negative CBC W/Automated Diff 12/29/[address] [address] [phone] CBC W/Automated Diff (SEE NOTE) 3 WBC 5.0 10^3/uL 4.2 - 11.0 RBC [...] Lymph 13.9 % Low 25.0 - 40.0 [place] 10.1 % High 3.0 - 8.0 Eos 1.8 % 0.0 - 7.0 Baso 0.4 % 0.0 - 2.0 %Ig 0.6 % High 0.0 - 0.0 %NRBC 0.0 % 0.0 - 0.0 #Neut 3.63 10^3/uL 2.00 - 6.90 #Lymph 0.69 10^3/uL 0.60 - 3.40 #[place] 0.50 10^3/uL 0.00 - 0.90 #Eos 0.09 10^3/uL 0.00 - 0.70 #Baso 0.02 10^3/uL 0.00 - 0.20 #Ig 0.03 10^3/uL 0.00 - 0.10 #NRBC 0.00 10^3/uL 0.00 - 0.00 Manual Diff NOT INDICATED RBC Morph NOT INDICATED Urinalysis 12/29/[address] [address] [phone] Urinalysis (SEE NOTE) 4 Source R Color yellow Normal: Yellow Clarity clear Normal: Clear Spec [place] 1.015 1.001 - 1.030 pH 5 5 [...] Normal: None Seen [facility] test [facility] [address] [address] [phone] Hgba1c 10.3 % High 4.4 - 6.1 Magnesium Serum 1.7 mg/dL 1.7 - 2.2 Cve Panel 12/29/[address] [address] [phone] Cve Panel (SEE NOTE) 5 Cholesterol 154 mg/dL 131 - 200 Triglycerides 115 mg/dL 35 - 160 HDL 48 mg/dL 29 - 86 LDL 91 mg/dL 65 - 175 Risk Factor 3.2 Low 3.4 - 4.9 LDL/HDL 1.90 1.00 - 3.55 6 Comprehensive Metabolic Panel 12/29/2020 [facility] [address] [place] [address] [phone] Comprehensive Metabo (SEE NOTE) 7 Sodium 137 mEq/L 134 - 153 Potassium [...] >60 mL/min Afr Amer GFR >60 mL/min 8 Laboratory test finding 12/29/[address] 5759224 [phone] Iron 38 g/dL Low 42 - 135 TSH Highly Sensitive 1.39 uIU/mL 0.47 - 5.01 Protime 12/29/[address] 0544501 [phone] Protime 21.2 seconds High 11.0 - 15.5 Inr 1.81 High 0.93 - 1.23 9 1 THERAPUTIC HUMAN INR VALUES INDICATIONS NORMAL RANGES PROPHYLAXIS/TREATMENT OF: VENOUS THROMBOSIS 2.0-3.0 PULMONARY EMBOLISM 2.0-3.0 PREVENTION OF SYSTEMIC EMBOLISM FROM: TISSUE HEART VALVES 2.0-3.0 ACUTE MYOCARDIAL INFARCTION 2.0-3.0 VALVULAR HEART DISEASE 2.0-3.0 ATRIAL FIBRILLATION 2.0-3.0 MECHANICAL VALVES(HIGH RISK) 2.5-3.5 RECURRENT MYOCARDIAL INFARCTION 2.5-3.5 2 Reflex test for EBV COMPREHE NSIVE will be sent to [facility], [address] [place], [place] [address]. 3 COMPLETE BLOOD COUNT 4 URINALYSIS 5 LIPID PANEL 6 CVE RISK CHOL/HDL LDL/HDL MEN: 1/2 AVERAGE 3.43 1.00 AVERAGE 4.97 3.55 2X AVERAGE 9.55 6.25 3X AVERAGE 23.99 7.99 WOMEN: 1/2 AVERAGE 3.27 1.47 AVERAGE 4.44 3.22 2X AVERAGE 7.05 5.03 3X AVERAGE 11.04 6.14 7 COMPREHENSIVE METABOLIC PANE L 8 Male GFR Interprentation 20-49 yrs >60 mL/min Normal 50-59 yrs >56 mL/min Normal 60-69 yrs >49 mL/min Normal 70-79yrs >42 mL/min Normal 80 and above >35 mL/min Normal Female GFR Interpretation 20-39 yrs >60 mL/min Normal 40-49 yrs >58 mL/min Normal 50-59 yrs >51 mL/min Normal 60-69 yrs >45 mL/min Normal 70-79 yrs >39 mL/min Normal 80 and above >32 mL/min Normal 9 \\BLDo\\INR INTERPRETATION\\BLD x\\ Therapeutic range for Coumadin and related oral anticoagulants. -International Normalized Ratio (INR): 2 .0 - 3.0 for Venous Thrombosis, Pulmonary Embolus, Tissue heart valves, Acute PR, Atrial Fibrillation, Valvular heart disease and recurrent Systemic Embolism. -International Normalized Ratio (INR): 2 .5 - 3.5 for Mechanical Prosthetic valve. Procedures Date Code Description Status 12/29/2020 38996 Office/Outpatient Established Mo d MDM 30-39 Min Completed 11/01/2020 69468 Periodic Preventive Med Age 65+ Completed 09/09/2020 70939 Office/Outpatient Established Mo d MDM 30-39 Min Completed Encounters Type Date Location Provider Dx Diagnosis Office Visit 12/29/2020 10:30a [facility] John Islas M.D.,P. C. I11.9 Hypertensive heart disease without heart failure E10.9 Type 1 diabetes mellitus wit hout complications Office Visit 11/01/2020 10:30a [facility] AUDREY Ang Z02.4 Encounter for examination fo r driving license Office Visit 09/09/2020 10:30a [facility] John Islas M.D.,P. C. I11.9 Hypertensive heart disease without heart failure R09.02 Hypoxemia J44.9 Chronic obstructive pulmonar y disease, unspecified E11.9 Type 2 diabetes mellitus wit hout complications Assessments Date Code Description Provider 12/29/2020 I11.9 Hypertensive heart disease witho tn heart failure John Islas M.D.,[facility]. 12/29/2020 E10.9 Type 1 diabetes mellitus without complications John Islas M.D.,P.C. 11/01/2020 Z02.4 Encounter for examination for dr daylin Glover, AUDREY 09/09/2020 I11.9 Hypertensive heart disease witho tn heart failure John Islas M.D[facility]. 09/09/2020 R09.02 Hypoxemia Gena Haas,P.C. 09/09/2020 J44.9 Chronic obstructive pulmonary di sease, unspecified John Islas M.D.,P.C. 09/09/2020 E11.9 Type 2 diabetes mellitus without complications John Islas M.D.,P.C.
--- OUTSIDE RECORDS SUMMARY | 2021-02-20 06:58 | CCD | Continuity of Care Document ---
Author Author Shadi FISHER MD Organization Unknown Address [address], [address] [place] [address] Phone [phone] Care Team Providers Care Supervisor Sunglasses Name Role Phone Yasmany Ramos M.D. AUTM [phone] Problems Active Problems Provider Date Sensorineural hearing [...] lb BMI (Body Mass Index) 48.0 kg/m2 [place] Body Weight 160 lb Weight 147.420 kg BSA (Body Surface Area) 2.54 m2 10/20/2015 9:35am Height 69 inches 5'9" Weight 336.00 lb BMI (Body Mass Index) 49.6 kg/m2 [place] Body Weight 160 lb Weight 152.410 kg [...]
--- OUTSIDE RECORDS SUMMARY | 2021-02-20 06:58 | CCD | Continuity of Care Document ---
Author Author Shadi Hill Naheed Organization Unknown Address Unknown Phone [phone] Care Team Providers Care Signals Collection Technician Name Role Phone Andry Collins AUTM [phone] [facility] [phone] Social History Type Date Description Comments Sex [...] Result H/L Range Note Prothrombin Time/Inr 01/18/[address] [address] [phone] Prothrombin Time 21.8 seconds High 12.7-14.5 Inr 1.85 Normal 1 Laboratory test finding 01/18/[address] [phone] Darke Reflex Ebv Comprehensive NEGATIVE Normal Ne gative 2 Laboratory test finding 01/18/[address] [phone] Ligia Strep A NEGATIVE Normal Negative CBC W/Automated Diff 12/29/[address] [address] [phone] CBC W/Automated Diff (SEE NOTE) 3 WBC [...] Lymph 13.9 % Low 25.0 - 40.0 Darke 10.1 % High 3.0 - 8.0 Eos 1.8 % 0.0 - 7.0 Baso 0.4 % 0.0 - 2.0 %Ig 0.6 % High 0.0 - 0.0 %NRBC 0.0 % 0.0 - 0.0 #Neut 3.63 10^3/uL 2.00 - 6.90 #Lymph 0.69 10^3/uL 0.60 - 3.40 #Darke 0.50 10^3/uL 0.00 - 0.90 #Eos 0.09 10^3/uL 0.00 - 0.70 #Baso 0.02 10^3/uL 0.00 - 0.20 #Ig 0.03 10^3/uL 0.00 - 0.10 #NRBC 0.00 10^3/uL 0.00 - 0.00 Manual Diff NOT INDICATED RBC Morph NOT INDICATED Urinalysis 12/29/[address] [address] [phone] Urinalysis (SEE NOTE) 4 Source R Color yellow Normal: Yellow Clarity clear Normal: Clear Spec [place] 1.015 1.001 - 1.030 pH 5 5 [...] Normal: None Seen Laboratory test finding [facility] [address] [address] [phone] Hgba1c 10.3 % High 4.4 - 6.1 Magnesium Serum 1.7 mg/dL 1.7 - 2.2 Cve Panel 12/29/[address] [address] [phone] Cve Panel (SEE NOTE) 5 Cholesterol 154 mg/dL 131 - 200 Triglycerides 115 mg/dL 35 - 160 HDL 48 mg/dL 29 - 86 LDL 91 mg/dL 65 - 175 Risk Factor 3.2 Low 3.4 - 4.9 LDL/HDL 1.90 1.00 - 3.55 6 Comprehensive Metabolic Panel 12/29/2020 [facility] [address] [place] [address] [phone] Comprehensive Metabo (SEE NOTE) 7 Sodium 137 [...] >60 mL/min 8 Laboratory test finding 12/29/[address] [phone] Iron 38 g/dL Low 42 - 135 TSH Highly Sensitive 1.39 uIU/mL 0.47 - 5.01 Protime 12/29/[address] [phone] Protime 21.2 seconds High 11.0 - 15.5 [...] EBV COMPREHE NSIVE will be sent to [facility], [address] [place] [address]. 3 COMPLETE BLOOD COUNT 4 URINALYSIS 5 [...] Thrombosis, Pulmonary Embolus, Tissue heart valves, Acute [place], Atrial Fibrillation, Valvular heart disease and recurrent Systemic Embolism. -International Normalized Ratio (INR): 2 .5 - 3.5 for Mechanical Prosthetic valve. Procedures Date Code Description Status 12/29/2020 87906 Office/Outpatient Established Mo d MDM 30-39 Min Completed 11/01/2020 75030 Periodic Preventive Med Age 65+ Completed 09/09/2020 33534 Office/Outpatient Established Mo d MDM 30-39 Min Completed Encounters Type Date Location Provider Dx Diagnosis Office Visit 12/29/2020 10:30a [facility] John Islas M.D[facility]. C[facility] I11.9 Hypertensive heart disease without heart failure E10.9 Type 1 diabetes mellitus wit hout complications Office Visit 11/01/2020 10:30a [facility] AUDREY Ang Z02.4 Encounter for examination fo r driving license Office Visit 09/09/2020 10:30a [facility] John Islas M.D[facility] I11.9 Hypertensive heart disease without heart failure R09.02 Hypoxemia J44.9 Chronic obstructive pulmonar y disease, unspecified E11.9 Type 2 diabetes mellitus wit hout complications Assessments Date Code Description Provider 12/29/2020 I11.9 Hypertensive heart disease witho mt heart failure [facility] 12/29/2020 E10.9 Type 1 diabetes mellitus without complications [facility]las [facility] 11/01/2020 Z02.4 Encounter for examination for dr daylin Glover, AUDREY 09/09/2020 I11.9 Hypertensive heart disease witho mt heart failure [facility]las [facility] 09/09/2020 R09.02 Hypoxemia Gena Haas,P.C. 09/09/2020 J44.9 Chronic obstructive pulmonary di sease, unspecified John [facility]las [facility] 09/09/2020 E11.9 Type 2 diabetes mellitus without complications [facility]las [facility]
--- OUTSIDE RECORDS SUMMARY | 2021-02-20 06:58 | CCD | Continuity of Care Document ---
Author Author Shadi Hill Naheed Organization Unknown Address Unknown Phone [phone] Care Team Providers Care Archeology Faculty Member Name Role Phone Andry Collins AUTM [phone] JOHN [facility]LAS M[facility] [phone] Social History Type Date Description Comments Sex [...] Result H/L Range Note Prothrombin Time/Inr 01/18/[address] [address] [phone] Prothrombin Time 21.8 seconds High 12.7-14.5 Inr 1.85 Normal 1 Laboratory test finding 01/18/[address] [phone] Becker Reflex Ebv Comprehensive NEGATIVE Normal Ne gative 2 Laboratory test finding 01/18/[address] [id number] [phone] Ligia Strep A NEGATIVE Normal Negative CBC W/Automated Diff 12/29/[address] [address] [phone] CBC W/Automated Diff (SEE NOTE) 3 WBC [...] Lymph 13.9 % Low 25.0 - 40.0 Becker 10.1 % High 3.0 - 8.0 Eos 1.8 % 0.0 - 7.0 Baso 0.4 % 0.0 - 2.0 %Ig 0.6 % High 0.0 - 0.0 %NRBC 0.0 % 0.0 - 0.0 #Neut 3.63 10^3/uL 2.00 - 6.90 #Lymph 0.69 10^3/uL 0.60 - 3.40 #Becker 0.50 10^3/uL 0.00 - 0.90 #Eos 0.09 10^3/uL 0.00 - 0.70 #Baso 0.02 10^3/uL 0.00 - 0.20 #Ig 0.03 10^3/uL 0.00 - 0.10 #NRBC 0.00 10^3/uL 0.00 - 0.00 Manual Diff NOT INDICATED RBC Morph NOT INDICATED Urinalysis 12/29/[address] [address] [phone] Urinalysis (SEE NOTE) 4 Source R Color yellow Normal: Yellow Clarity clear Normal: Clear Spec [place] 1.015 1.001 - 1.030 pH 5 5 [...] Normal: None Seen Laboratory test finding 12/29/2020 [facility] [address] [address] [phone] Hgba1c 10.3 % High 4.4 - 6.1 Magnesium Serum 1.7 mg/dL 1.7 - 2.2 Cve Panel 12/29/[address] [address] [phone] Cve Panel (SEE NOTE) 5 Cholesterol 154 mg/dL 131 - 200 Triglycerides 115 mg/dL 35 - 160 HDL 48 mg/dL 29 - 86 LDL 91 mg/dL 65 - 175 Risk Factor 3.2 Low 3.4 - 4.9 LDL/HDL 1.90 1.00 - 3.55 6 Comprehensive Metabolic Panel 12/29/2020 [facility] [address] [place] [address] [phone] Comprehensive Metabo (SEE NOTE) 7 Sodium 137 [...] >60 mL/min 8 Laboratory test finding 12/29/[address] 7209542 [phone] Iron 38 g/dL Low 42 - 135 TSH Highly Sensitive 1.39 uIU/mL 0.47 - 5.01 Protime 12/29/[address] 5899278 [phone] Protime 21.2 seconds High 11.0 - 15.5 [...] EBV COMPREHE NSIVE will be sent to [facility], [address] [place], [place] [address]. 3 COMPLETE BLOOD COUNT 4 URINALYSIS 5 [...] Thrombosis, Pulmonary Embolus, Tissue heart valves, Acute [place], Atrial Fibrillation, Valvular heart disease and recurrent Systemic Embolism. -International Normalized Ratio (INR): 2 .5 - 3.5 for Mechanical Prosthetic valve. Procedures Date Code Description Status 12/29/2020 98420 Office/Outpatient Established Mo d MDM 30-39 Min Completed 11/01/2020 64536 Periodic Preventive Med Age 65+ Completed 09/09/2020 31515 Office/Outpatient Established Mo d MDM 30-39 Min Completed Encounters Type Date Location Provider Dx Diagnosis Office Visit 12/29/2020 10:30a [facility] John Islas M.D[facility] I11.9 Hypertensive heart disease without heart failure E10.9 Type 1 diabetes mellitus wit hout complications Office Visit 11/01/2020 10:30a [facility] AUDREY Ang Z02.4 Encounter for examination fo r driving license Office Visit 09/09/2020 10:30a [facility] John Islas M.D[facility] I11.9 Hypertensive heart disease without heart failure R09.02 Hypoxemia J44.9 Chronic obstructive pulmonar y disease, unspecified E11.9 Type 2 diabetes mellitus wit hout complications Assessments Date Code Description Provider 12/29/2020 I11.9 Hypertensive heart disease witho pr heart failure [facility]las [facility] 12/29/2020 E10.9 Type 1 diabetes mellitus without complications [facility]las [facility] 11/01/2020 Z02.4 Encounter for examination for dr daylin Glover, AUDREY 09/09/2020 I11.9 Hypertensive heart disease witho pr heart failure [facility]las [facility] 09/09/2020 R09.02 Hypoxemia Gena Haas,P.C. 09/09/2020 J44.9 Chronic obstructive pulmonary di sease, unspecified John Islas M[facility] 09/09/2020 E11.9 Type 2 diabetes mellitus without complications John Islas M[facility]
--- OUTSIDE RECORDS SUMMARY | 2021-02-20 06:59 | CCD ---
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 Name Role Phone Alexia Palomares [facility], PA-C Unavailable Unavailabl e [facility] Alexia [facility], PA-C Unavailable Unavailabl e [facility], PA-C Unavailable Unavailabl e [facility], PA-C Unavailable Unavailabl e [facility], PA-C Unavailable Unavailabl e Fish Alexia [facility], PA-C Unavailable Unavailabl e Fish Alexia [facility], PA-C Unavailable Unavailabl e Fish Alexia [facility], PA-C Unavailable Unavailabl e [facility], PA-C Unavailable Unavailabl e Fish Alexia [facility], PA-C Unavailable Unavailabl e Jelani Alexia [facility], PA-C Unavailable Unavailabl e Fish [facility], PA-C Unavailable Unavailabl e Fish, [facility], PA-C Unavailable Unavailabl e Fish, [facility], PA-C Unavailable Unavailabl e Fish, [facility], PA-C Unavailable Unavailabl e Fish, [facility], PA-C Unavailable Unavailabl e Fish, [facility], PA-C Unavailable Unavailabl e Fish, [facility], PA-C Unavailable Unavailabl e Fish, [facility], PA-C Unavailable Unavailabl e Fish, [facility], PA-C Unavailable Unavailabl e Fish, [facility], PA-C Unavailable Unavailabl e Fish, [facility], PA-C Unavailable Unavailabl e Fish, [facility], PA-C Unavailable Unavailabl e Fish, [facility], PA-C Unavailable Unavailabl e Fish, [facility], PA-C Unavailable Unavailabl e Fish, [facility], PA-C Unavailable Unavailabl e Fish, [facility], PA-C Unavailable Unavailabl e Fish, [facility], PA-C Unavailable Unavailabl e Fish, [facility], PA-C Unavailable Unavailabl e Fish, [facility], PA-C Unavailable Unavailabl e Fish, [facility], PA-C Unavailable Unavailabl e Fish, [facility], PA-C Unavailable Unavailabl e Fish, [facility], PA-C Unavailable Unavailabl e Fish, [facility], PA-C Unavailable Unavailabl e Fish, [facility], PA-C Unavailable Unavailabl e Fish, [facility], PA-C Unavailable Unavailabl e EDWARD ISLAS MD Unavailable Unavailable EDWARD ISLAS MD Unavailable Unavailable EDWARD ISLAS MD Unavailable Unavailable EDWARD ISLAS MD Unavailable Unavailable EDWARD ISLAS MD Unavailable Unavailable EDWARD ISLAS MD Unavailable Unavailable EDWARD ISLAS MD Unavailable Unavailable EDWARD ISLAS MD Unavailable Unavailable NISSA, MAQBOOL MONA MD [...] Unavailable DRAZEK, I HENRIQUE PA Unavailable Unavailable Joshua Waite, Keely Chawla MD, FACS Unavailable Unavailable [...] Keely Chawla MD, FACS Unavailable Unavailable Lewis Watie, Keely Chawla MD, FACS Unavailable Unavailable Lewis Waite, Keely Chawla MD, FACS Unavailable Unavailable Joshua Waite, Keely Chawla MD, FACS Unavailable Unavailable [...] G MINA PA Unavailable Unavailable TONTARSKI, G MIAN PA Unavailable Unavailable TONTARSKI, G MINA PA [...] Unavailable Unavailable Charmaine TONY MD Unavailable Unavailable VAN, J NINA DPM [...] VAN, J NINA DPM PC Unavailable Unavailable NISSA, MAQBOOL MONA MD Unavailable Unavailable NISSA, MAQBORAMBO DUNN MD Unavailable Unavailable NISSA, MAQBOOL MONA BEAR Unavailable Unavailable NISSA, MAQBOOL MONA MD Unavailable Unavailable NISSA, MAQBOOL MONA BEAR Unavailable Unavailable NISSA, MAQBORAMBO MONA MD Unavailable Unavailable NISSA, MAQBORAMBO DUNN MD Unavailable Unavailable NISSA, CORTNEYQBORAMBO DUNN MD Unavailable Unavailable NISSA, MAQBOOL MONA BEAR Unavailable Unavailable NISSA, MAQBOOL MONA BEAR Unavailable Unavailable NISSA, MAQBOOL MONA BEAR Unavailable Unavailable NISSA, MAQBORAMBO DUNN MD Unavailable Unavailable NISSA, MAQBORAMBO DUNN MD Unavailable Unavailable NISSA, MAQBOOL MONA MD [...] Unavailable NISSA, MAQBOOL MONA MD Unavailable Unavailable Davion Fisher PH.D., M.D. Unavailable Unavailable Davion Fisher PH.D., M.D. Unavailable Unavailable Davion Fisher PH.D., M.D. Unavailable Unavailable Davion Fisher PH.D., M.D. Unavailable Unavailable Davion Fisher PH.D., M.D. Unavailable Unavailable Davion Fisher PH.D., M.D. Unavailable Unavailable Davion Fisher PH.D., M.D. Unavailable Unavailable Davion Fisher PH.D., M.D. Unavailable Unavailable Davion Fisher PH.D., M.D. Unavailable Unavailable Davion Fisher PH.D., M.D. Unavailable Unavailable Davion Fisher PH.D., M.D. Unavailable Unavailable Phillip, C Denton PH.D., M.D. Unavailable Unavailable Phillip, C Denton PH.D., M.D. Unavailable Unavailable Phillip, C Denton PH.D., M.D. Unavailable Unavailable Phillip, C Denton PH.D., M.D. Unavailable Unavailable Phillip, C Denton PH.D., M.D. Unavailable Unavailable Phillip, C Denton PH.D., M.D. Unavailable Unavailable Phillip, C Denton PH.D., M.D. Unavailable Unavailable Phillip, C Denton PH.D., M.D. Unavailable Unavailable Phillip, C Denton PH.D., M.D. Unavailable Unavailable Phillip, C Denton PH.D., M.D. Unavailable Unavailable Phillip, C Denton PH.D., M.D. Unavailable Unavailable Phillip, C Denton PH.D., M.D. Unavailable Unavailable Phillip, C Denton PH.D., M.D. Unavailable Unavailable Phillip, C Denton PH.D., M.D. Unavailable Unavailable Phillip, C Denton PH.D., M.D. Unavailable Unavailable Phillip, C Denton PH.D., M.D. Unavailable Unavailable Phillip, C Denton PH.D., M.D. Unavailable Unavailable Phillip, C Denton PH.D., M.D. Unavailable Unavailable Phillip, C Denton PH.D., M.D. Unavailable Unavailable Phillip, C Denton PH.D., M.D. Unavailable Unavailable Phillip, C Denton PH.D., M.D. Unavailable Unavailable Phillip, C Denton PH.D., M.D. Unavailable Unavailable Phillip, C Denton PH.D., M.D. Unavailable Unavailable Phillip, C Denton PH.D., M.D. Unavailable Unavailable Phillip, C Denton PH.D., M.D. Unavailable Unavailable Phillip, C Denton PH.D., M.D. Unavailable Unavailable Phillip, C Denton PH.D., M.D. Unavailable Unavailable Phillip, C Denton PH.D., M.D. Unavailable Unavailable Pihllip, C Denton PH.D., M.D. Unavailable Unavailable Phillip, C Denton PH.D., M.D. Unavailable Unavailable Phillip, C Denton PH.D., M.D. Unavailable Unavailable Phillip, C Denton PH.D., M.D. Unavailable Unavailable Phillip, C Denton PH.D., M.D. Unavailable Unavailable Phillip, C Denton PH.D., M.D. Unavailable Unavailable Phillip, C Denton PH.D., M.D. Unavailable Unavailable Phillip, C Denton PH.D., M.D. Unavailable Unavailable Phillip, C Denton PH.D., M.D. Unavailable Unavailable Phillip, C Denton PH.D., M.D. Unavailable Unavailable Phillip, C Denton PH.D., M.D. Unavailable Unavailable Phillip, C Denton PH.D., M.D. Unavailable Unavailable Phillip, C Denton PH.D., M.D. Unavailable Unavailable Phillip, C Denton PH.D., M.D. Unavailable Unavailable Phillip, C Denton PH.D., M.D. Unavailable Unavailable Phillip, C Dneton PH.D., M.D. Unavailable Unavailable Phillip, C Denton PH.D., M.D. Unavailable Unavailable Phillip, C Denton PH.D., M.D. Unavailable Unavailable Phillip, C Denton PH.D., M.D. Unavailable Unavailable Phillip, C Denton PH.D., M.D. Unavailable Unavailable Phillip, C Denton PH.D., M.D. Unavailable Unavailable Phillip, C Denton PH.D., M.D. Unavailable Unavailable Phillip, C Denton PH.D., M.D. Unavailable Unavailable Phillip, C Denton PH.D., M.D. Unavailable Unavailable Phillip, C Denton PH.D., M.D. Unavailable Unavailable Phillip, C Denton PH.D., M.D. Unavailable Unavailable Phillip, C Denton PH.D., M.D. Unavailable Unavailable Phillip, C Denton PH.D., M.D. Unavailable Unavailable Phillip, C Denton PH.D., M.D. Unavailable Unavailable Phillip, C Denton PH.D., M.D. Unavailable Unavailable Phillip, C Denton PH.D., M.D. Unavailable Unavailable Phillip, C Denton PH.D., M.D. Unavailable Unavailable Phillip, C Denton PH.D., M.D. Unavailable Unavailable Phillip, C Denton PH.D., M.D. Unavailable Unavailable Phillip, C Denton PH.D., M.D. Unavailable Unavailable Phillip, C Denton PH.D., M.D. Unavailable Unavailable Phillip, C Denton PH.D., M.D. Unavailable Unavailable Phillip, C Denton PH.D., M.D. Unavailable Unavailable Phillip, C Denton PH.D., M.D. Unavailable Unavailable Davion Fisher PH.D., M.Jayashree. Unavailable Unavailable Davion Fisher PH.D., M.Jayashree. Unavailable Unavailable Davion Fisher PH.D., M.Jayashree. Unavailable Unavailable Davion Fisher PH.D., M.Jayashree. Unavailable Unavailable Re-disclosure Warning The records that [...] is protected by Article 27-F of the [facility] Public Health law. If you continue you may have access to information: Regarding HIV / AIDS; Provided by facilities licensed or operated by the [facility] Office of Mental Health; or Provided by the [facility] Office for People With Developmental Disabilities. If such information is present, then the following [facility] mandated warning applies: This information has [...] law may result in a fine or retirement sentence or both. A general authorization for the release of medical or other information is NOT sufficient authorization for further disc losure. Allergies and Adverse Reactions Type Description Substance Reaction Status Data Source(s ) No Known Drug Allergies No Known Drug Allergies [facility] Allergy to substance No Known Allergies No known allergies (situation ) FLOYD (Denton Waite MD [facility]) Allergy to substance No Known Allergies No known allergies (situation ) OPAL (Denton Waite MD [facility]) Family History Family Member Name Family Member Gender Family Member Status Date o f Status Description Data Source(s) Unknown Unknown Problem [facility] ([facility]) Unknown Unknown Problem [facility] ([facility]) Unknown Female Problem [facility] ([facility]) Unknown Female Problem [facility] ([facility]) Unknown Female Problem [facility] ([facility]) Unknown Female Problem [facility] ([facility]) Unknown Female Problem [facility] ([facility]) Encounters Encounter Providers Location Date Indications Data Source(s ) Outpatient Attender: NINA ARAUJO DPM PCConsultant: MNOA ISLAS MD 02/16/2021 02:27:00 PM EST - 02/16/2021 02:27:00 PM EST [facility] OFFICE OUTPATIENT VISIT 15 MINUTES Attender: HENRIQUE VENTURA Phys ical Therapy 02/14/2021 08:30:00 AM EST [facility] ([facility]) Outpatient Attender: MONA ISLAS MD [facility] 02/08 08:30:00 AM EST MED[facility] (Mona Islas MD) Outpatient Attender: Denton Fisher PH.D., M.D. Hetal/Ayden/Keely bird/Lucretia 01/19/2021 04:15:00 PM EDT MED[facility] ([facility], ) Outpatient Attender: MONA ISLAS MDConsultant: MONA Huang MD 12/29/2020 10:55:00 AM EDT - 12/29/2020 11:55:00 AM EDT [facility] Outpatient Attender: MONA ISLAS MD [facility] 12/29 10:30:00 AM EDT MED[facility] (Mona Islas MD) OFFICE OUTPATIENT VISIT 15 MINUTES Attender: HENRIQUE VENTURA Phys ical Therapy 11/03/2020 01:00:00 PM EDT [facility] ([facility]) Outpatient Attender: MINA VENTURA [facility] 11/01/2020 10:30:00 AM EDT [facility] (Mona Islas MD) Outpatient Attender: NINA ARAUJO DPM PCConsultant: MONA ISLAS MD 09/12/2020 02:55:00 PM EDT - 09/12/2020 02:55:00 PM EDT [facility] Outpatient Attender: MONA ISLAS MD [facility] 09/09 10:30:00 AM EDT [facility] (Mona Islas MD) Office Visit Attender: Arelis WILLSON PA-C Physical Therapy 07/07/2020 08:30:00 AM EDT [facility] ([facility] Outpatient Attender: MONA ISLAS MD [facility] 07/04 04:00:00 PM EDT [facility] (Mona Islas MD) Outpatient<td ID="encounterTypeDescripti onID0">9 Month Follow-Up</td><td>Denton Ruiz MD, CON</td><td>Denton Ruiz MD [facility]</td><td>07/04/2020</td><td>2:33PM</td><td>3:42PM</td><td><content ID="encounterDiagnosisID0-0">Essential Hypertension</content>, <content ID="encounterDiagnosisID0-1">Assessment of Taking Medication For Diabetes Long- term Use of Oral Hypoglycemics</content>, <content ID="encounterDiagnosisID0- 2">Diabetes Mellitus Type 2 - Uncomplicated, Controlled</content>, <content ID="encounterDiagnosisID0-3">Macular Puckering Both Eyes</content>, <content ID="encounterDiagnosisID0-4">Dry Eye Syndrome Both Eyes</content></td> Attender: Denton Waite MD, CON Ruiz MD [facility] 07/04/2020 02:33:00 PM EDT - 07/04/2020 03:42:00 PM EDT Macular Puckering Both EyesMacular Pucke ring Both EyesDry Eye Syndrome Both EyesDiabetes Mellitus Type 2 - Uncomplicated, ControlledAssessment of Taking Medication For Diabetes Long-term Use of Oral HypoglycemicsEssential HypertensionDry Eye Syndrome Both EyesDiabetes Mellitus Type 2 - Uncomplicated, ControlledAssessment of Taking Medication For Diabetes Long-term Use of Oral HypoglycemicsEssential Hypertension [facility] ([facility] 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 Dry Eye Syndrome Both Eyes Diabetes Mellitus Type 2 - Uncomplicated , Controlled Assessment of Taking Medication For Diab etes Long-term Use of Oral Hypoglycemics Essential Hypertension Dry Eye Syndrome Both Eyes Diabetes Mellitus Type 2 - Uncomplicated , Controlled Assessment of Taking Medication For Diab etes Long-term Use of Oral Hypoglycemics Essential Hypertension Outpatient [address] [facility] [address] 07/04/2020 12:00:00 AM EDT eCW1 ([facility]) Outpatient Attender: MONA ISLAS MDConsultant: MONA Huang MD 07/03/2020 01:38:00 PM EDT - 07/03/2020 02:38:00 PM EDT [facility] Patient discharged. Outpatient Attender: BRIDGET TONY MDConsultant: MONA BAEZ MD 07/03/2020 01:36:00 PM EDT - 07/03/2020 02:36:00 PM EDT [facility] Outpatient Attender: MONA ISLAS MDConsultant: MONA Huang MD 03/27/2020 10:18:00 AM EST - 03/27/2020 11:18:[address] [facility] Outpatient Attender: MONA ISLAS MD Medical Building 03/23 09:30:00 AM EST [facility] (Mona Islas MD) Outpatient Attender: NINA ARAUJO DPM PCConsultant: MONA ISLAS MD 03/22/2020 11:09:00 AM EST - 03/22/2020 11:09:[address] [facility] Office Visit Attender: Arelis WILLSON PA-C Physical Therapy 03/22/2020 07:30:00 AM EST MEDLUIS A ([facility]) OFFICE OUTPATIENT VISIT 15 MINUTES Attender: Arelis WILLSON PA-C Physical Therapy 02/04/2020 08:30:00 AM EST [facility] ([facility]) Outpatient Attender: MONA ISLAS MDConsultant: MONA Huang MD 02/02/2020 11:10:00 AM EST - 02/02/2020 12:10:[address] [facility] Outpatient Attender: MONA ISLAS MD Medical Building 02/01 09:30:00 AM EST [facility] (Mona Islas MD) Immunizations Vaccine Date Status Description Data Source(s) COVID-19 VACCINE Moderna 08/01/2020 12:00:00 AM EDT completed [facility] Vaccine Series Complete: YESThis Data wa s Submitted to [facility]. COVID-19 VACCINE Moderna 07/07/2020 12:00:00 AM EDT completed [facility] Vaccine Series Complete: NOThis Data was Submitted to [facility] [employer]. Medications Medication Brand Name Start Date Product Form Dose Route Admi nistrative Instructions Pharmacy Instructions Status Indications Reaction Description Data Source(s) Acetaminophen 300 MG / Codeine Phosphate 30 MG Oral Ta blet Acetaminophen-Codeine #3 02/15/2021 12:00:00 AM EST active [facility] (Mona Islas MD) Dobutamine IV Injection 250MG 02/09/2021 12:00:00 AM EST completed [facility] (Mona baez MD) Medication administered onsite Technetium TC 99M Sestamibi 02/09/2021 12:00:00 AM EST completed [facility] (Mona Islas MD) Medication administered onsite tramadol hydrochloride 50 MG Oral Tablet Tramadol HCL 02/08/2021 12:00:00 AM EST ORAL active [facility] (Sommer Islas MD) Nystatin 058868 UNT/ML Oral Suspension Nystatin 01/27/2021 12:00:00 AM EDT active MED[facility] ([facility], ) chlorhexidine gluconate 1.2 MG/ML Mouthwash Chlorhexidine Gl uconate 01/27/2021 12:00:00 AM EDT ORAL active M EDENT ([facility], ) Acetaminophen 325 MG / Hydrocodone Bitartrate 7.5 MG O ral Tablet Hydrocodone-Acetaminophen 01/19/2021 12:00:00 AM EDT ORAL active [facility] ([facility], ) Betamethasone 0.5 MG/ML / Clotrimazole 10 MG/ML [...] 12:00:00 AM EST active M EDENT ([facility]) Warfarin Sodium 7.5 MG Oral Tablet Warfarin Sodium 7.5 MG Oral Tablet Warfarin Sodium 7.5MG Oral Tablet 11/08/2016 12:00:00 AM EDT 1 aborted warfarin sodium 7.5 MG Oral Tablet OPAL (Denton Waite MD [facility]) Insurance Providers Payer name Policy type / Coverage type Policy ID Covered democrat ID Covered democrat's relationship to nichols Policy Nichols Plan Information [facility] (Medicare) Medigap Part B [id number] Self [facility] (Medicare) Medilisbon Part B [id number] Self [id number] UHC UNITED MEDICARE COMPLETE G [id number] Self [id number] MEDICARE COMPLETE [id number] SP [id number] MEDICARE COMPLETE [id number] SP [id number] MEDICARE COMPLETE [id number] SP [id number] [facility]-Medicare Part B [id number] [facility] MEDICARE [id number] S [id number] ANSMedicare Part B [id number] [facility] ([facility]) Commercial [id number] Self [id number] [facility] [id number] ANSI-Medicare Part B [id number] ANSI-Medicare Part B [id number] [facility] MEDICARE [id number] S [id number] UN COMMUNITY PLAN XIX [id number] 18 [id number] [facility] [id number] 18 [id number] [facility] [employer] MEDICARE O/P [id number] 18 [id number] [facility] Commun[facility] Plan Medicaid [id number] Self [id number] [facility] [id number] 18 [id number] [facility] Medicare Commercial [id number] Self [id number] [facility] Measurabl [id number] Self MEDICARE COMPLETE [id number] SP [id number] [facility] Medicare Commercial [id number] Self MEDICARE COMPLETE-[facility] O [id number] S [id number] MEDICARE COMPLETE [id number] SP [id number] [facility] MEDICARE-O/P [id number] 18 [id number] [place] [facility]-O/P [id number] 18 [id number] MEDICARE COMPLETE [id number] SP [id number] [facility] [place] [id number] 18 [id number] MEDICARE COMPLETE [id number] SP [id number] [facility] [facility] MEDICARE O/P [id number] 18 [id number] [facility] [place] [id number] 18 [id number] [facility] MEDICARE [id number] S [id number] Problems, Conditions, and Diagnoses Code Display Name Description Problem Type Effective Dates Data Source(s) D649 Anemia, unspecified Anemia, unspecified Diagnosis 0 12/29/2020 10:55:00 AM [facility] E8342 Hypomagnesemia Hypomagnesemia Diagnosis 12/29/2020 10:55: 00 AM [facility] N390 Urinary tract infection, site not specif ied Urinary tract infection, site not specified Diagnosis 12/29/2020 10:55:00 AM [facility] E039 Hypothyroidism, unspecified Hypothyroidism, unspecifie d Diagnosis 12/29/2020 10:55:00 AM [facility] E785 Hyperlipidemia, unspecified Hyperlipidemia, unspecifie d Diagnosis 12/29/2020 10:55:00 AM [facility] E119 Type 2 diabetes mellitus without complic ations Type 2 diabetes mellitus without complications Diagnosis 12/29/2020 [facility]:55[facility] Malignant neoplasm of prostate Malignant neoplasm of p rostate Diagnosis 07/03/2020 01:38:00 PM [facility] I10 Essential (primary) hypertension Essential (primary) h ypertension Diagnosis 07/03/2020 01:38:00 PM [facility] Z8672 Personal history of thrombophlebitis Personal hi story of thrombophlebitis Diagnosis 03/27/2020 10:18:[address] [facility] B351 Tinea unguium Tinea unguium Diagnosis 03/22/2020 11:09:[address] [facility] M2040 Other hammer toe(s) (acquired), unspecif ied foot Other hammer toe(s) (acquired), unspecified foot Diagnosis 03/22/2020 11:09:00 AM [facility] L84 Corns and callosities Corns and callosities Diagnosis 03/22/2020 11:09:[address] [facility] R601 Generalized edema Generalized edema Diagnosis 03/22/2020 11:09:[address] 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 I4891 Unspecified atrial fibrillation Unspecified atrial fib rillation Diagnosis 02/02/2020 11:10:[address] [facility] K14.8 Disorder of tongue Disorder of tongue Problem 12:00:00 AM EDT [facility] ([facility], ) Surgeries/Procedures Procedure Description Date Indications Data Source(s) Pare Hyperkeratotic Lesion, 2-4 02/16/2021 12:00:00 AM EST [facility] ([facility]) Debridement Nails Any Method 6 Or More 02/16/2021 12:0 0:00 AM EST [facility] ([facility]) ARTHROCENTESIS ASPIR&/INJECTION MAJOR JT/BURSA 021 12:00:00 AM EST [facility] ([facility]) OFFICE OUTPATIENT VISIT 15 MINUTES 02/14/2021 12:00:00 AM EST [facility] ([facility]) MYOCARDIAL SPECT MULTIPLE STUDIES 02/09/2021 12:00:00 AM EST [facility] ([facility]ona Islas MD) ECG ROUTINE ECG W/LEAST 12 LDS W/I&R 02/08/2021 12:00: 00 AM EST [facility] (Mona Islas MD) ECHO TTHRC R-T 2D W/WOM-MODE COMPL SPEC&COLR DOP 02/08 12:00:00 AM EST [facility] (Mona Islas MD) OFFICE OUTPATIENT VISIT 25 MINUTES 02/08/2021 12:00:00 AM EST [facility] (Mona Islas MD) BIOPSY TONGUE ANTERIOR TWO-THIRDS 01/23/2021 12:00:00 AM EDT [facility] ([facility], ) OFFICE OUTPATIENT NEW 45 MINUTES 01/19/2021 12:00:00 A M EDT [facility] ([facility], ) OFFICE OUTPATIENT VISIT 25 MINUTES 12/29/2020 12:00:00 AM EDT MED[facility] (Mona Islas MD) ARTHROCENTESIS ASPIR&/INJECTION MAJOR JT/BURSA 021 12:00:00 AM EDT [facility] ([facility]) OFFICE OUTPATIENT VISIT 15 MINUTES 11/03/2020 12:00:00 AM EDT [facility] ([facility]) PERIODIC PREVENTIVE MED EST PATIENT 63YRS&> 11/01/2020 12:00:00 AM EDT [facility] (Mona Islas MD) Pare Hyperkeratotic Lesion, 2-4 09/12/2020 12:00:00 AM EDT [facility] ([facility]) Debridement Nails Any Method 6 Or More 09/12/2020 12:0 0:00 AM EDT [facility] ([facility]) OFFICE OUTPATIENT VISIT 25 MINUTES 09/09/2020 12:00:00 AM EDT [facility] (Mona Islas MD) ARTHROCENTESIS ASPIR&/INJECTION MAJOR JT/BURSA 021 12:00:00 AM EDT [facility] ([facility]) OFFICE OUTPATIENT VISIT 25 MINUTES 07/04/2020 12:00:00 AM EDT MED[facility] (Mona Islas MD) 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 Ruiz 10/22/18 07/04/2020 12:00:00 AM EDT OPAL (Noah Waite MD [facility]) Cataract surgery (procedure) History of cataract surge ry PCIOL OS 03/17/[address] Collins ~PCIOL OD 03/20/[address] Collins 07/04/2020 12:00:00 AM EDT OPAL ([facility] [facility] Intermediate Eye Exam Established Patient Intermediate Eye Exam Established Patient 07/04/2020 12:00:00 AM EDT OPAL (Noah Waite MD [facility]) Intermediate Eye Exam Established Patient Intermediate Eye Exam Established Patient 07/04/2020 12:00:00 AM EDT OPAL (Noah Waite MD [facility]) Pare Hyperkeratotic Lesion, 2-4 03/22/2020 12:00:00 AM EST [facility] ([facility]) Debridement Nails Any Method 6 Or More 03/22/2020 12:0 0:00 AM EST [facility] ([facility]) ARTHROCENTESIS ASPIR&/INJECTION MAJOR JT/BURSA 020 12:00:00 AM EST [facility] ([facility]) ARTHROCENTESIS ASPIR&/INJECTION MAJOR JT/BURSA 020 12:00:00 AM EST [facility] ([facility] ) RADIOLOGIC EXAM KNEE COMPLETE 4/MORE VIEWS 02/04/2020 12:00:00 AM EST [facility] ([facility] ) RADIOLOGIC EXAM KNEE COMPLETE 4/MORE VIEWS 02/04/2020 12:00:00 AM EST [facility] ([facility]) Results ID Date Data Source [id number] 02/16/2021 11:37:00 AM EST [facility] (Mona Islas MD) Name Value Range Interpretation Code Description Data Rosalind rce(s) Supporting Document(s) Laboratory test finding (navigational concept) Laboratory test r esult Normal (applies to non-numeric results) [facility] (Mona Islas MD) <content>Units are mL/min/1.73 m2</content>
<content></content>
<content>Chronic Kidney Disease Staging per NKF:</content>
<content></content>
<content>Stage I & II GFR >=60 Normal to Mildly Decreased</content>
<content>Stage III GFR 30- 59 Moderately Decreased</content>
<content>Stage IV GFR 15-29 Severely Decreased</content>
<content>Stage V GFR <15 Very Little GFR Left</content>
<content>ESRD GFR <15 on BAR WAITER/WAITRESS</content>
<content></content> Laboratory test finding (navigational concept) 0.86 mg/dL 0 .70-1.30 Normal (applies to non-numeric results) [facility] (Mona Islas MD) ID Date Data Source [id number] 02/16/2021 11:37:00 AM EST [facility] (Mona Islas MD) Name Value Range Interpretation Code Description Data Rosalind rce(s) Supporting Document(s) Urea nitrogen [Mass/volume] in Serum or Plasma 21 mg/dL 7-18 Above high normal [facility] (Mona Islas MD) ID Date Data Source [id number] 01/23/2021 03:28:00 PM EDT [facility] ([facility], ) Name Value Range Interpretation Code Description Data Rosalind rce(s) Supporting Document(s) Surgical pathology study Laboratory test result [facility] ([facility], ) FINAL DIAGNOSIS Tongue, biopsy: Hyperplastic squamous mucosa with hyperkeratosis, irritated/reactive and acute inflammation with microabscess formation. Fungal organisms present. 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 Negative for malignancy. 01/25/20211245 CLINICAL DIAGNOSIS Biopsy of tongue 01/24/20211302 GROSS DIAGNOSIS Received in formalin labeled "biopsy of tongue" and consists of fragment of tissue 0.6 x 0.4 x 0.2 cm. All in one. -OA 01/24/20211302 Signed JENNIFER AU MD 01/25/20211246 ID Date Data Source [id number] 01/18/2021 07:30:00 PM EDT [facility] (Mona Islas MD) Name Value Range Interpretation Code Description Data Rosalind rce(s) Supporting Document(s) Laboratory test finding (navigational concept) 21.8 s 1 2.7-14.5 Above high normal [facility] (Mona Islas MD) Laboratory test finding (navigational concept) 1.85 Normal (applies to non- numeric results) [facility] (Mona Islas MD) THERAPUTIC HUMAN INR VALUES INDICATIONS NORMAL RANGES PROPHYLAXIS/TREATMENT OF: VENOUS THROMBOSIS 2.0-3.0 PULMONARY EMBOLISM 2.0-3.0 PREVENTION OF SYSTEMIC EMBOLISM FROM: TISSUE HEART VALVES 2.0-3.0 ACUTE MYOCARDIAL INFARCTION 2.0-3.0 VALVULAR HEART DISEASE 2.0-3.0 ATRIAL FIBRILLATION 2.0-3.0 MECHANICAL VALVES(HIGH RISK) 2.5-3.5 RECURRENT MYOCARDIAL INFARCTION 2.5-3.5 ID Date Data Source [id number] 01/18/2021 06:08:00 PM EDT [facility] (Mona Islas MD) Name Value Range Interpretation Code Description Data Rosalind rce(s) Supporting Document(s) Laboratory test finding (navigational concept) Laboratory test r esult 0.0-35.9 Normal (applies to non-numeric results) [facility] (Mona baez MD) <content>Negative <36.0</content>
<content>Equivocal 36.0 - 43.9</content>
<content>Positive >43.9</content>
<content></content> Laboratory test finding (navigational concept) 363.0 U/mL 0 .0-17.9 Above high normal [facility] (Mona Islas MD) <content>Negative <18.0</content>
<content>Equivocal 18.0 - 21.9</content>
<content>Positive >21.9</content>
<content></content> Laboratory test finding (navigational concept) Laboratory test r esult 0.0-17.9 Above high normal [facility] (Mona Islas MD) <content>Negative <18.0</content>
<content>Equivocal 18.0 - 21.9</content>
<content>Positive >21.9</content>
<content></content> Laboratory test finding (navigational concept) Laboratory test r esult Normal (applies to non-numeric results) [facility] A (Mona Islas MD) . EBV Interpretation Chart Sanchez: Antibody Present [...] to [facility]. Performed at: RN - [facility] [address] [id number] [employer] Support Professionals: Felecia Lopez MD, Phone: [phone] ID Date Data Source [id number] 01/18/2021 06:08:00 PM EDT [facility] A (Mona Islas MD) Name Value Range Interpretation Code Description Data Rosalind rce(s) Supporting Document(s) Arlette Turpin virus nuclear Ab [Presence] in Serum Laboratory alta t result Normal (applies to non-numeric results) YVETTE (Mona baez MD) Reflex test for EBV COMPREHENSIVE will be sent to [facility], [address] [place], [place]. [address]. ID Date Data Source [id number] 01/18/2021 05:39:00 PM EDT [facility] (Mona Islas MD) Name Value Range Interpretation Code Description Data Rosalind rce(s) Supporting Document(s) Streptococcus pyogenes Ag [Presence] in Throat by Rapi d immunoassay Laboratory test result Normal (applies to non-numeric results) [facility] (Mona Islas MD) ID Date Data Source [id number] 12/29/2020 11:03:00 AM EDT [facility] (Mona Islas MD) Name Value Range Interpretation Code Description Data Rosalind rce(s) Supporting Document(s) Laboratory test finding (navigational concept) 21.2 s 1 1.0-15.5 Above high normal [facility] (Mona Islas MD) Laboratory test finding (navigational concept) 1.81 0 .93-1.23 Above high normal [facility] (Mona Islas MD) \\BLDo\\INR INTERPRETATION\\BLDx\\ Therapeutic range for Coumadin and related oral anticoagulants. -International Normalized Ratio (INR): 2 .0 - 3.0 for Venous Thrombosis, Pulmonary Embolus, Tissue heart valves, Acute SC, Atrial Fibrillation, Valvular heart disease and recurrent Systemic Embolism. -International Normalized Ratio (INR): 2 .5 - 3.5 for Mechanical Prosthetic valve. ID Date Data Source [id number] 12/29/2020 11:03:00 AM EDT [facility] (Mona Islas MD) Name Value Range Interpretation Code Description Data Rosalind rce(s) Supporting Document(s) Iron [Mass/volume] in Serum or Plasma 38 ug/dL 42-135 Below low normal [facility] (Mona Islas MD) Thyrotropin [Units/volume] in Serum or Plasma by Detec tion limit <= 0.005 mIU/L 1.39 uIU/mL 0.47-5.01 [facility] (Mona Islas MD) ID Date Data Source [id number] 12/29/2020 11:03:00 AM EDT [facility] (Mona Islas [...] >32 mL/min Normal ID Date Data Source [id number] 12/29/2020 11:03:00 AM EDT [facility] (Mona Islas MD) Name Value Range Interpretation Code Description Data Rosalind rce(s) Supporting Document(s) Laboratory test finding (navigational concept) 154 mg/dL 131-200 [facility] (Mona Islas MD) Laboratory test finding (navigational concept) Laboratory test result [facility] (Mona Islas MD) LIPID PANEL Laboratory test finding (navigational concept) 115 mg/dL 35-160 [facility] (Mona Islas MD) Laboratory test finding (navigational concept) 48 mg/dL 29-86 [facility] (Mona Islas MD) Laboratory test finding (navigational concept) 3.2 3.4-4.9 [...] AVERAGE 11.04 6.14 ID Date Data Source [id number] 12/29/2020 11:03:00 AM EDT [facility] (Mona Islas MD) Name Value Range Interpretation Code Description Data Rosalind rce(s) Supporting Document(s) Hemoglobin A1c/Hemoglobin.total in Blood 10.3 % 4.4-6.1 Above high normal [facility] (Mona Islas MD) Magnesium [Mass/volume] in Serum or Plasma 1.7 mg/dL 1.7-2.2 [facility] (Mona Islas MD) ID Date Data Source [id number] 12/29/2020 11:03:00 AM EDT [facility] (Mona Islas [...] (Mona Islas MD) ID Date Data Source [id number] 12/29/2020 11:03:00 AM EDT [facility] (Mona Islas MD) Name Value Range Interpretation Code Description Data Rosalind rce(s) Supporting Document(s) Laboratory test finding (navigational concept) Laboratory test result [facility] (Mona Islas MD) COMPLETE BLOOD COUNT Laboratory test finding (navigational concept) 12.0 g/dL 1 4.0-16.0 Below low normal [facility] (Mona Islas MD) Laboratory test finding (navigational concept) 4.23 10^6/uL 4 .50-6.30 Below low normal [facility] (Mona Islas MD) Laboratory test finding (navigational concept) 5.0 10^3/uL [...] (Mona Islas MD) ID Date Data Source [id number] 12/29/2020 12:17:00 PM EDT [facility] Value Range Interpretation Code Description Data Rosalind rce(s) Supporting Document(s) Prothrombin time (PT) 21.2 SECONDS 11.0 - 15.5 H [facility] INR in Platelet poor plasma by Coagulation assay 1.81 0.93 - 1. 23 H [facility] \\BLDo\\INR INTERPRETATION\\BLDx\\ Therapeutic range for Coumadin and related oral anticoagulants. - International Normalized Ratio (INR): 2.0 - 3.0 for Venous Thrombosis, Pulmonary Embolus, Tissue heart valves, Acute SC, Atrial Fibrillation, Valvular heart disease and recurrent Systemic Embolism. -International Normalized Ratio (INR): 2.5 - 3.5 for Mechanical Prosthetic valve. ID Date Data Source [id number] 12/29/2020 12:07:00 PM T [facility] Value Range Interpretation Code Description Data Rosalind rce(s) Supporting Document(s) Thyrotropin [Units/volume] in Serum or Plasma by Detec tion limit <= 0.05 mIU/L 1.39 uIU/mL 0.47 - 5.01 [facility] ID Date Data Source [id number] 12/29/2020 11:59:00 AM EDT [facility] Value Range Interpretation Code Description Data Rosalind rce(s) Supporting Document(s) Iron [Mass/volume] in Serum or Plasma 38 UG/DL 42 - 135 L [facility] ID Date Data Source [id number] 12/29/2020 11:59:00 AM EDT [facility] Value Range Interpretation Code Description Data Rosalind rce(s) Supporting Document(s) [facility] Cholesterol [Mass/volume] in Serum or Plasma 154 MG/DL 131 - 200 [facility] Deprecated Triglyceride [Mass/volume] in Serum or Plasma 115 MG/DL 3 5 - 160 [facility] HDL 48 MG/DL 29 - 86 [facility] Cholesterol in LDL [Mass/volume] in Serum or Plasma by Direc t assay 91 mg/dL 65 - 175 [facility] Cholesterol.total/Cholesterol in HDL [Mass Ratio] in Serum o r Plasma 3.2 3.4 - 4.9 L [facility] LDL/HDL 1.90 1.00 - 3.55 [facility] ital CVE RISK CHOL/HDL LDL/HDLMEN: 1/2 AVERAGE 3.43 1.00 AVERAGE 4.97 3.55 2X AVERAGE 9.55 6.25 3X AVERAGE 23.99 7.99WOMEN: 1/2 AVERAGE 3.27 1.47 AVERAGE 4.44 3.22 2X AVERAGE 7.05 5.03 3X AVERAGE 11.04 6.14 ID Date Data Source [id number] 12/29/2020 11:58:00 AM EDT [facility] Name Value Range Interpretation Code Description Data Rosalind rce(s) Supporting Document(s) COMPREHENSIVE METABOLIC PANEL [facility] COMPREHENSIVE METABOLIC PANEL Sodium [Moles/volume] in Serum or Plasma 137 mEq/L 134 - 153 [facility] Potassium [Moles/volume] in Serum or Plasma 4.6 mEq/L 3.6 - 5.0 [facility] Chloride [Moles/volume] in Serum or Plasma 100 mEq/L 98 - 107 [facility] Carbon dioxide, total [Moles/volume] in Serum or Plasma 26 MEQ/L 22 - 30 [facility] Glucose [Mass/volume] in Serum or Plasma 183 MG/DL 70 - 99 H [facility] BUN 18 MG/DL 7 - 21 [facility] al Creatinine [Mass/volume] in Serum or Plasma 1.0 MG/DL 0.7 - 1.5 [facility] BUN/CREAT 18 8 - 27 [facility] al Protein [Mass/volume] in Serum or Plasma 6.7 G/DL 6.3 - 8.2 [facility] Albumin [Mass/volume] in Serum or Plasma 3.9 G/DL 3.9 - 5.0 [facility] Globulin [Mass/volume] in Serum by calculation 2.8 GM/DL 2.4 - 3.2 [facility] A/G RATIO 1.4 0.8 - 2.0 [facility] Calcium [Mass/volume] in Serum or Plasma 9.1 MG/DL 8.4 - 10.2 [facility] Bilirubin.total [Mass/volume] in Serum or Plasma <0.7 MG/DL 0.2 - 1.3 [facility] Alkaline phosphatase [Enzymatic activity/volume] in Serum or Plasma 90 U/L 38 - 126 [facility] Aspartate aminotransferase [Enzymatic activity/volume] in Serum or Plasma 16 U/L 5 - 40 [facility] Alanine aminotransferase [Enzymatic activity/volume] in Seru m or Plasma 14 U/L 7 - 56 [facility] Anion gap 3 in Serum or Plasma 11.0 mmol/L 8.0 - 16.0 [facility] AGE 70 yrs [facility] al NON-AA GFR >60 mL/min [facility] ital AFR AMER GFR >60 mL/min [facility] Male GFR In terprentation [...] >32 mL/min Normal ID Date Data Source [id number] 12/29/2020 11:55:00 AM EDT [facility] Name Value Range Interpretation Code Description Data Rosalind rce(s) Supporting Document(s) Magnesium [Mass/volume] in Serum or Plasma 1.7 MG/DL 1.7 - 2.2 [facility] ID Date Data Source [id number] 12/29/2020 11:36:00 AM EDT [facility] Name Value Range Interpretation Code Description Data Rosalind rce(s) Supporting Document(s) Hemoglobin A1c/Hemoglobin.total in Blood 10.3 % 4.4 - 6.1 H [facility] ID Date Data Source [id number] 12/29/2020 11:33:00 AM EDT [facility] Name Value Range Interpretation Code Description Data Rosalind rce(s) Supporting Document(s) URINALYSIS [facility]ma UR[facility] COL[facility] yellow NORMAL: Yellow [facility] CLARITY clear NORMAL: Clear [facility] Specific gravity of Urine by Test strip 1.015 1.001 - 1.030 [facility] pH 5 5 - 9 [facility] al Glucose [Mass/volume] in Urine by Test strip NORM NORMAL: Negat [facility] Bilirubin.total [Presence] in Urine by Test strip NEG NORMAL: Negative [facility] Ketones [Presence] in Urine by Test strip NEG NORMAL: Negative [facility] Protein [Mass/volume] in Urine by Test strip NEG NORMAL: Negat [facility] Nitrite [Presence] in Urine by Test strip NEG NORMAL: Negative [facility] BLOOD 25 NORMAL: Negative A [facility] LEUK EST NEG NORMAL: Negative [facility] Urobilinogen [Mass/volume] in Urine by Test strip NOR less tyron n 1.0 mg/dL [facility] MICROSCOPIC See Below [facility] ital WBC 1 - 3 NORMAL: NONE SEEN [facility] Erythrocytes [#/volume] in Urine by Test strip None Seen NORMAL: NON E SEEN [facility] EPITHELIAL FEW NORMAL: NONE SEEN [facility] Bacteria [Presence] in Urine sediment by Light microscopy No ne Seen NORMAL: NONE SEEN [facility] ID Date Data Source [id number] 12/29/2020 11:31:00 AM EDT [facility] Name Value Range Interpretation Code Description Data Rosalind e(s) Supporting Document(s) CBC W/AUTOMATED DIFF [facility] COMPLETE BLOOD COUNT Leukocytes [#/volume] in Blood by Automated count 5.0 10^3/uL 4.2 - 1 1.0 [facility] Erythrocytes [#/volume] in Blood by Automated count 4.23 10^6/uL 4. 50 - 6.30 L [facility] Hemoglobin [Mass/volume] in Blood 12.0 g/dL 14.0 - 16.0 L [facility] Hematocrit [Volume Fraction] of Blood by Automated count 37.5 % 4 1.0 - 51.0 L [facility] Erythrocyte mean corpuscular volume [Entitic volume] by Auto mated count 88.7 fL 80.0 - 94.0 [facility] Erythrocyte mean corpuscular hemoglobin [Entitic mass] by Automated count 28.4 pg 27.0 - 34.0 [facility] Erythrocyte mean corpuscular hemoglobin concentration [Mass/volume] by Automated count 32.0 g/dL 31.0 - 36.0 [facility] Erythrocyte distribution width [Ratio] by Automated count 14.2 % 11.5 - 14.8 [facility] Platelets [#/volume] in Blood by Automated count 173 10^3/uL 150 - 45 0 [facility] Platelet mean volume [Entitic volume] in Blood by Automated count 8.8 fL 7.4 - 10.4 [facility] Neutrophils/100 leukocytes in Blood by Automated count 73.2 % 37. 0 - 80.0 [facility] Lymphocytes/100 leukocytes in Blood by Manual count 13.9 % 25.0 - 40.0 L [facility] Monocytes/100 leukocytes in Blood by Automated count 10.1 % 3.0 - 8.0 H [facility] Eosinophils/100 leukocytes in Blood by Automated count 1.8 % 0.0 - 7.0 [facility] Basophils/100 leukocytes in Blood by Automated count 0.4 % 0.0 - 2.0 [facility] %IG 0.6 % 0.0 - 0.0 [facility] %NRBC 0.0 % 0.0 - 0.0 [facility] al Neutrophils [#/volume] in Blood by Automated count 3.63 10^3/uL 2.00 - 6.90 [facility] Lymphocytes [#/volume] in Blood by Automated count 0.69 10^3/uL 0.60 - 3.40 [facility] Monocytes [#/volume] in Blood by Automated count 0.50 10^3/uL 0.00 - 0.90 [facility] Eosinophils [#/volume] in Blood by Automated count 0.09 10^3/uL 0.00 - 0.70 [facility] Basophils [#/volume] in Blood by Automated count 0.02 10^3/uL 0.00 - 0.20 [facility] #IG 0.03 10^3/uL 0.00 - 0.10 [facility]spital #NRBC 0.00 10^3/uL 0.00 - 0.00 [facility] ospital MANUAL DIFF NOT INDICATED [facility] RBC MORPH NOT INDICATED [facility] spital ID Date Data Source [id number] 07/03/2020 01:43:00 PM EDT [facility] (Mona Islas [...] test finding (navigational concept) Laboratory test result [facility] A (Mona Islas MD) ID Date Data Source [id number] 07/03/2020 01:43:00 PM EDT [facility] (Mona Islas MD) Name Value Range Interpretation Code Description Data Rosalind rce(s) Supporting Document(s) Hemoglobin A1c/Hemoglobin.total in Blood 10.7 % 4.4-6.1 Above high normal [facility] (Mona Islas MD) {A1] {HB] ID Date Data Source [id number] 07/03/2020 01:43:00 PM EDT [facility] (Mona Islas [...] AVERAGE 11.04 6.14 ID Date Data Source [id number] 07/03/2020 01:43:00 PM EDT [facility] (Mona Islas [...] (Mona Islas MD) ID Date Data Source [id number] 07/03/2020 01:43:00 PM EDT [facility] (Mona Islas [...] Thrombosis, Pulmonary Embolus, Tissue heart valves, Acute SC, Atrial Fibrillation, Valvular heart disease and recurrent Systemic Embolism. -International Normalized Ratio (INR): 2 .5 - 3.5 for Mechanical Prosthetic valve. ID Date Data Source [id number] 07/03/2020 03:34:00 PM EDT [facility] Name Value Range Interpretation Code Description Data Rosalind rce(s) Supporting Document(s) COMPREHENSIVE METABOLIC PANEL [facility] COMPREHENSIVE METABOLIC PANEL Sodium [Moles/volume] in Serum or Plasma 136 mEq/L 134 - 153 [facility] Potassium [Moles/volume] in Serum or Plasma 4.7 mEq/L 3.6 - 5.0 [facility] Chloride [Moles/volume] in Serum or Plasma 97 mEq/L 98 - 107 L [facility] Carbon dioxide, total [Moles/volume] in Serum or Plasma 27 MEQ/L 22 - 30 [facility] Glucose [Mass/volume] in Serum or Plasma 311 MG/DL 70 - 99 H [facility] BUN 33 MG/DL 7 - 21 H [facility] al Creatinine [Mass/volume] in Serum or Plasma 1.2 MG/DL 0.7 - 1.5 [facility] BUN/CREAT 28 8 - 27 H [facility] al Protein [Mass/volume] in Serum or Plasma 6.6 G/DL 6.3 - 8.2 [facility] Albumin [Mass/volume] in Serum or Plasma 3.8 G/DL 3.9 - 5.0 L [facility] Globulin [Mass/volume] in Serum by calculation 2.8 GM/DL 2.4 - 3.2 [facility] A/G RATIO 1.4 0.8 - 2.0 [facility] Calcium [Mass/volume] in Serum or Plasma 8.9 MG/DL 8.4 - 10.2 [facility] Bilirubin.total [Mass/volume] in Serum or Plasma <0.7 MG/DL 0.2 - 1.3 [facility] Alkaline phosphatase [Enzymatic activity/volume] in Serum or Plasma 81 U/L 38 - 126 [facility] Aspartate aminotransferase [Enzymatic activity/volume] in Serum or Plasma 14 U/L 5 - 40 [facility] Alanine aminotransferase [Enzymatic activity/volume] in Seru m or Plasma 14 U/L 7 - 56 [facility] Anion gap 3 in Serum or Plasma 12.0 mmol/L 8.0 - 16.0 [facility] AGE 70 yrs [facility] al NON-AA GFR >60 mL/min [facility] ital AFR AMER GFR >60 mL/min [facility] sp[facility] Male GFR In terprentation [...] >32 mL/min Normal ID Date Data Source [id number] 07/03/2020 03:33:00 PM EDT [facility] Name Value Range Interpretation Code Description Data Rosalind rce(s) Supporting Document(s) Hemoglobin A1c/Hemoglobin.total in Blood 10.7 % 4.4 - 6.1 H [facility] {A1]{HB] ID Date Data Source [id number] 07/03/2020 03:23:00 PM EDT [facility] Name Value Range Interpretation Code Description Data Rosalind rce(s) Supporting Document(s) CVE PANEL [facility] al LIPID PANEL Cholesterol [Mass/volume] in Serum or Plasma 196 MG/DL 131 - 200 [facility] Deprecated Triglyceride [Mass/volume] in Serum or Plasma 153 MG/DL 3 5 - 160 [facility] HDL 48 MG/DL 29 - 86 [facility] al Cholesterol in LDL [Mass/volume] in Serum or Plasma by Direc t assay 142 mg/dL 65 - 175 [facility] Cholesterol.total/Cholesterol in HDL [Mass Ratio] in Serum o r Plasma 4.1 3.4 - 4.9 [facility] LDL/HDL 2.96 1.00 - 3.55 [facility] ital CVE RISK CHOL/HDL LDL/HDLMEN: 1/2 AVERAGE 3.43 1.00 AVERAGE 4.97 3.55 2X AVERAGE 9.55 6.25 3X AVERAGE 23.99 7.99WOMEN: 1/2 AVERAGE 3.27 1.47 AVERAGE 4.44 3.22 2X AVERAGE 7.05 5.03 3X AVERAGE 11.04 6.14 ID Date Data Source [id number] 07/03/2020 02:57:00 PM EDT [facility] Name Value Range Interpretation Code Description Data Rosalind rce(s) Supporting Document(s) CBC W/AUTOMATED DIFF [facility] COMPLETE BLOOD COUNT Leukocytes [#/volume] in Blood by Automated count 4.5 10^3/uL 4.2 - 1 1.0 [facility] Erythrocytes [#/volume] in Blood by Automated count 4.12 10^6/uL 4. 50 - 6.30 L [facility] Hemoglobin [Mass/volume] in Blood 12.3 g/dL 14.0 - 16.0 L [facility] Hematocrit [Volume Fraction] of Blood by Automated count 37.7 % 4 1.0 - 51.0 L [facility] Erythrocyte mean corpuscular volume [Entitic volume] by Auto mated count 91.5 fL 80.0 - 94.0 [facility] Erythrocyte mean corpuscular hemoglobin [Entitic mass] by Automated count 29.9 pg 27.0 - 34.0 [facility] Erythrocyte mean corpuscular hemoglobin concentration [Mass/volume] by Automated count 32.6 g/dL 31.0 - 36.0 [facility] Erythrocyte distribution width [Ratio] by Automated count 14.4 % 11.5 - 14.8 [facility] Platelets [#/volume] in Blood by Automated count 167 10^3/uL 150 - 45 0 [facility] Platelet mean volume [Entitic volume] in Blood by Automated count 9.8 fL 7.4 - 10.4 [facility] Neutrophils/100 leukocytes in Blood by Automated count 68.8 % 37. 0 - 80.0 [facility] Lymphocytes/100 leukocytes in Blood by Manual count 18.3 % 25.0 - 40.0 L [facility] Monocytes/100 leukocytes in Blood by Automated count 9.8 % 3.0 - 8.0 H [facility] Eosinophils/100 leukocytes in Blood by Automated count 2.5 % 0.0 - 7.0 [facility] Basophils/100 leukocytes in Blood by Automated count 0.4 % 0.0 - 2.0 [facility] %IG 0.2 % 0.0 - 0.0 [facility] %NR[facility] 0.0 % 0.0 - 0.0 [facility] al Neutrophils [#/volume] in Blood by Automated count 3.08 10^3/uL 2.00 - 6.90 [facility] Lymphocytes [#/volume] in Blood by Automated count 0.82 10^3/uL 0.60 - 3.40 [facility] Monocytes [#/volume] in Blood by Automated count 0.44 10^3/uL 0.00 - 0.90 [facility] Eosinophils [#/volume] in Blood by Automated count 0.11 10^3/uL 0.00 - 0.70 [facility] Basophils [#/volume] in Blood by Automated count 0.02 10^3/uL 0.00 - 0.20 [facility] #IG 0.01 10^3/uL 0.00 - 0.10 [facility] ospital #NRBC 0.00 10^3/uL 0.00 - 0.00 [facility] ospital MANUAL DIFF NOT INDICATED [facility] RBC MORPH NOT INDICATED [facility] spital ID Date Data Source [id number] 07/03/2020 02:57:00 PM EDT [facility] Name Value Range Interpretation Code Description Data Rosalind rce(s) Supporting Document(s) Prothrombin time (PT) 25.3 SECONDS 11.0 - 15.5 H [facility] INR in Platelet poor plasma by Coagulation assay 2.18 0.93 - 1. 23 H [facility] \\BLDo\\INR INTERPRETATION\\BLDx\\ Therapeutic range for Coumadin and related oral anticoagulants. - International Normalized Ratio (INR): 2.0 - 3.0 for Venous Thrombosis, Pulmonary Embolus, Tissue heart valves, Acute SC, Atrial Fibrillation, Valvular heart disease and recurrent Systemic Embolism. -International Normalized Ratio (INR): 2.5 - 3.5 for Mechanical Prosthetic valve. ID Date Data Source [id number] 07/03/2020 01:42:00 PM EDT YVETTE Islas MD) Name Value Range Interpretation Code [...] be used interchangeably. ID Date Data Source [id number] 07/03/2020 03:08:00 PM EDT [facility] Name Value Range Interpretation Code Description [facility] Supporting Document(s) Prostate specific Ag [Mass/volume] in Serum or Plasma 0.01 ng/mL 0.00 - 4.00 [facility] \\BLDo\\PSA INTERPRETA TION\\BLDx\\ The PSA assay should [...] be used interchangeably. ID Date Data Source [id number] 03/27/2020 10:20:00 AM EST MEDLUIS A (Mona Islas MD) Name Value Range Interpretation Code Description Data Rosalind [facility](s) Supporting Document(s) Laboratory test finding (navigational concept) [...] AVERAGE 11.04 6.14 ID Date Data Source [id number] 03/27/2020 10:20:00 AM EST MED[facility] (Mona Islas [...] >32 mL/min Normal ID Date Data Source [id number] 03/27/2020 10:20:00 AM EST [facility] A (Mona Islas MD) Name Value [...] (Mona Islas MD) ID Date Data Source [facility] 03/27/2020 10:20:00 AM EST MED[facility] (Mona Islas [...] Thrombosis, Pulmonary Embolus, Tissue heart valves, Acute SC, Atrial Fibrillation, Valvular heart disease and recurrent Systemic Embolism. -International Normalized Ratio (INR): 2 .5 - 3.5 for Mechanical Prosthetic valve. ID Date Data Source [id number] 03/27/2020 10:20:00 AM EST MEDENT (Mona Islas MD) Name Value Range Interpretation Code Description Data Rosalind rce(s) Supporting Document(s) Hemoglobin A1c/Hemoglobin.total in Blood 11.5 % 4.4-6.1 Above high normal MED[facility] (Mona Islas MD) {A1] {HB] ID Date Data Source [id number] 03/27/2020 12:04:[address] [facility] Name Value Range Interpretation Code Description Data Rosalind rce(s) Supporting Document(s) CVE PANEL [facility] al LIPID PANEL Cholesterol [Mass/volume] in Serum or Plasma 148 MG/DL 131 - 200 [facility] Deprecated Triglyceride [Mass/volume] in Serum or Plasma 87 MG/DL 3 5 - 160 [facility] HDL 56 MG/DL 29 - 86 [facility] al Cholesterol in LDL [Mass/volume] in Serum or Plasma by Direc t assay 74 mg/dL 65 - 175 [facility] Cholesterol.total/Cholesterol in HDL [Mass Ratio] in Serum o r Plasma 2.6 3.4 - 4.9 L [facility] LDL/HDL 1.32 1.00 - 3.55 [facility] ital CVE RISK CHOL/HDL LDL/HDLMEN: 1/2 AVERAGE 3.43 1.00 AVERAGE 4.97 3.55 2X AVERAGE 9.55 6.25 3X AVERAGE 23.99 7.99WOMEN: 1/2 AVERAGE 3.27 1.47 AVERAGE 4.44 3.22 2X AVERAGE 7.05 5.03 3X AVERAGE 11.04 6.14 ID Date Data Source [id number] 03/27/2020 12:04:[address] [facility] Name Value Range Interpretation Code Description Data Rosalind rce(s) Supporting Document(s) COMPREHENSIVE METABOLIC PANEL [facility] COMPREHENSIVE METABOLIC PANEL Sodium [Moles/volume] in Serum or Plasma 139 mEq/L 134 - 153 [facility] Potassium [Moles/volume] in Serum or Plasma 4.4 mEq/L 3.6 - 5.0 [facility] Chloride [Moles/volume] in Serum or Plasma 99 mEq/L 98 - 107 [facility] Carbon dioxide, total [Moles/volume] in Serum or Plasma 32 MEQ/L 22 - 30 H [facility] Glucose [Mass/volume] in Serum or Plasma 230 MG/DL 65 - 110 H [facility] BUN 23 MG/DL 7 - 21 H [facility] Creatinine [Mass/volume] in Serum or Plasma 1.0 MG/DL 0.7 - 1.5 [facility] BUN/CREAT 23 8 - 27 [facility] Protein [Mass/volume] in Serum or Plasma 6.5 G/DL 6.3 - 8.2 [facility] Albumin [Mass/volume] in Serum or Plasma 4.2 G/DL 3.9 - 5.0 [facility] Globulin [Mass/volume] in Serum by calculation 2.3 GM/DL 2.4 - 3.2 L [facility] A/G RATIO 1.8 0.8 - 2.0 [facility] Calcium [Mass/volume] in Serum or Plasma 9.2 MG/DL 8.4 - 10.2 [facility] Bilirubin.total [Mass/volume] in Serum or Plasma <0.7 MG/DL 0.2 - 1.3 [facility] Alkaline phosphatase [Enzymatic activity/volume] in Serum or Plasma 75 U/L 38 - 126 [facility] Aspartate aminotransferase [Enzymatic activity/volume] in Serum or Plasma 18 U/L 5 - 40 [facility] Alanine aminotransferase [Enzymatic activity/volume] in Seru m or Plasma 15 U/L 7 - 56 [facility] Anion gap 3 in Serum or Plasma 8.0 mmol/L 8.0 - 16.0 [facility] AGE 70 yrs [facility] al NON-AA GFR >60 mL/min [facility] ital AFR AMER GFR >60 mL/min [facility] Ho spital Male GFR In terprentation [...] >32 mL/min Normal ID Date Data Source [id number] 03/27/2020 11:56:00 AM EST [facility] Name Value Range Interpretation Code Description Data Rosalind rce(s) Supporting Document(s) CBC W/AUTOMATED DIFF [facility] COMPLETE BLOOD COUNT Leukocytes [#/volume] in Blood by Automated count 5.2 10^3/uL 4.2 - 1 1.0 [facility] Erythrocytes [#/volume] in Blood by Automated count 4.52 10^6/uL 4. 50 - 6.30 [facility] Hemoglobin [Mass/volume] in Blood 13.2 g/dL 14.0 - 16.0 L [facility] Hematocrit [Volume Fraction] of Blood by Automated count 40.6 % 4 1.0 - 51.0 L [facility] Erythrocyte mean corpuscular volume [Entitic volume] by Auto mated count 89.8 fL 80.0 - 94.0 [facility] Erythrocyte mean corpuscular hemoglobin [Entitic mass] by Automated count 29.2 pg 27.0 - 34.0 [facility] Erythrocyte mean corpuscular hemoglobin concentration [Mass/volume] by Automated count 32.5 g/dL 31.0 - 36.0 [facility] Erythrocyte distribution width [Ratio] by Automated count 13.6 % 11.5 - 14.8 [facility] Platelets [#/volume] in Blood by Automated count 185 10^3/uL 150 - 45 0 [facility] Platelet mean volume [Entitic volume] in Blood by Automated count 9.1 fL 7.4 - 10.4 [facility] Neutrophils/100 leukocytes in Blood by Automated count 71.4 % 37. 0 - 80.0 [facility] Lymphocytes/100 leukocytes in Blood by Manual count 14.3 % 25.0 - 40.0 L [facility] Monocytes/100 leukocytes in Blood by Automated count 11.6 % 3.0 - 8.0 H [facility] Eosinophils/100 leukocytes in Blood by Automated count 1.7 % 0.0 - 7.0 [facility] Basophils/100 leukocytes in Blood by Automated count 0.6 % 0.0 - 2.0 [facility] %IG 0.4 % 0.0 - 0.0 [facility] %NR[facility] 0.0 % 0.0 - 0.0 [facility] al Neutrophils [#/volume] in Blood by Automated count 3.70 10^3/uL 2.00 - 6.90 [facility] Lymphocytes [#/volume] in Blood by Automated count 0.74 10^3/uL 0.60 - 3.40 [facility] Monocytes [#/volume] in Blood by Automated count 0.60 10^3/uL 0.00 - 0.90 [facility] Eosinophils [#/volume] in Blood by Automated count 0.09 10^3/uL 0.00 - 0.70 [facility] Basophils [#/volume] in Blood by Automated count 0.03 10^3/uL 0.00 - 0.20 [facility] #IG 0.02 10^3/uL 0.00 - 0.10 [facility] ospital #NRBC 0.00 10^3/uL 0.00 - 0.00 [facility] ospital MANUAL DIFF NOT INDICATED [facility] RBC MORPH NOT INDICATED [facility] spital ID Date Data Source [id number] 03/27/2020 11:55:00 AM EST [facility] Name Value Range Interpretation Code Description Data Rosalind rce(s) Supporting Document(s) Prothrombin time (PT) 21.4 SECONDS 11.0 - 15.5 H [facility] INR in Platelet poor plasma by Coagulation assay 1.76 0.93 - 1. 23 H [facility] \\BLDo\\INR INTERPRETATION\\BLDx\\ Therapeutic range for Coumadin and related oral anticoagulants. - International Normalized Ratio (INR): 2.0 - 3.0 for Venous Thrombosis, Pulmonary Embolus, Tissue heart valves, Acute SC, Atrial Fibrillation, Valvular heart disease and recurrent Systemic Embolism. -International Normalized Ratio (INR): 2.5 - 3.5 for Mechanical Prosthetic valve. ID Date Data Source [id number] 03/27/2020 11:54:00 AM EST [facility] Name Value Range Interpretation Code Description Data Rosalind rce(s) Supporting Document(s) Hemoglobin A1c/Hemoglobin.total in Blood 11.5 % 4.4 - 6.1 H [facility] {A1]{HB] ID Date Data Source [id number] 02/02/2020 11:21:00 AM EST [facility] (Mona Islas [...] (Mona Islas MD) ID Date Data Source [id number] 02/02/2020 11:21:00 AM EST [facility] (Mona Islas [...] (Mona Islas MD) ID Date Data Source [id number] 02/02/2020 11:21:00 AM EST [facility] (Mona Islas [...] >32 mL/min Normal ID Date Data Source [id number] 02/02/2020 11:21:00 AM EST [facility] (Mona Islas [...] (Mona Islas MD) ID Date Data Source [id number] 02/02/2020 11:21:00 AM EST [facility] (Mona Islas MD) Name Value Range Interpretation Code Description Data Rosalind rce(s) Supporting Document(s) Laboratory test finding (navigational concept) 1.29 0 .93-1.23 Above high normal [facility] (Mona Islas MD) \\BLDo\\INR INTERPRETATION\\BLDx\\ Therapeutic range for Coumadin and related oral anticoagulants. -International Normalized Ratio (INR): 2 .0 - 3.0 for Venous Thrombosis, Pulmonary Embolus, Tissue heart valves, Acute SC, Atrial Fibrillation, Valvular heart disease and recurrent Systemic Embolism. -International Normalized Ratio (INR): 2 .5 - 3.5 for Mechanical Prosthetic valve. Laboratory test finding (navigational concept) 16.3 s 1 1.0-15.5 Above high normal [facility] (Mona Islas MD) ID Date Data Source [id number] 02/02/2020 11:21:00 AM EST [facility] (Mona Islas [...] (Mona Islas MD) ID Date Data Source [id number] 02/02/2020 12:34:00 PM EST [facility] Name Value Range Interpretation Code Description Data Rosalind rce(s) Supporting Document(s) [facility] R [facility] al COLOR yellow NORMAL: Yellow [facility] H ospital CLARITY clear NORMAL: Clear [facility] Ho spital Specific gravity of Urine by Test strip 1.010 1.001 - 1.030 [facility] pH 6.5 5 - 9 [facility] al Glucose [Mass/volume] in Urine by Test strip 1000 NORMAL: Negat [facility] Bilirubin.total [Presence] in Urine by Test strip NEG NORMAL: Negative [facility] Ketones [Presence] in Urine by Test strip NEG NORMAL: Negative [facility] Protein [Mass/volume] in Urine by Test strip 100 NORMAL: Negat [facility] Nitrite [Presence] in Urine by Test strip NEG NORMAL: Negative [facility] BLOOD 10 NORMAL: Negative [facility] Leukocyte esterase [Presence] in Urine by Test strip NEG MIRIAN L: Negative [facility] Urobilinogen [Mass/volume] in Urine by Test strip NOR less tyron n 1.0 mg/dL [facility] MICROSCOPIC See Below [facility] ital WBC 0 - 1 NORMAL: NONE SEEN [facility] Erythrocytes [#/volume] in Urine by Test strip 0 - 1 NORMAL: NON E SEEN [facility] EPITHELIAL FEW NORMAL: NONE SEEN [facility] Bacteria [Presence] in Urine sediment by Light microscopy Tr gustavo NORMAL: NONE SEEN [facility] ID Date Data Source [id number] 02/02/2020 12:01:00 PM EST [facility] Name Value Range Interpretation Code Description Data Rosalind rce(s) Supporting Document(s) CVE PANEL [facility] al LIPID PANEL Cholesterol [Mass/volume] in Serum or Plasma 170 MG/DL 131 - 200 [facility] Deprecated Triglyceride [Mass/volume] in Serum or Plasma 87 MG/DL 3 5 - 160 [facility] HDL 56 MG/DL 29 - 86 [facility] al Cholesterol in LDL [Mass/volume] in Serum or Plasma by Direc t assay 104 mg/dL 65 - 175 [facility] Cholesterol.total/Cholesterol in HDL [Mass Ratio] in Serum o r Plasma 3.0 3.4 - 4.9 L [facility] LDL/HDL 1.86 1.00 - 3.55 [facility] ital CVE RISK CHOL/HDL LDL/HDLMEN: 1/2 AVERAGE 3.43 1.00 AVERAGE 4.97 3.55 2X AVERAGE 9.55 6.25 3X AVERAGE 23.99 7.99WOMEN: 1/2 AVERAGE 3.27 1.47 AVERAGE 4.44 3.22 2X AVERAGE 7.05 5.03 3X AVERAGE 11.04 6.14 ID Date Data Source [id number] 02/02/2020 12:01:00 PM EST [facility] Name Value Range Interpretation Code Description Data Rosalind rce(s) Supporting Document(s) COMPREHENSIVE METABOLIC PANEL [facility] COMPREHENSIVE METABOLIC PANEL Sodium [Moles/volume] in Serum or Plasma 136 mEq/L 134 - 153 [facility] Potassium [Moles/volume] in Serum or Plasma 4.8 mEq/L 3.6 - 5.0 [facility] Chloride [Moles/volume] in Serum or Plasma 99 mEq/L 98 - 107 [facility] Carbon dioxide, total [Moles/volume] in Serum or Plasma 30 MEQ/L 22 - 30 [facility] Glucose [Mass/volume] in Serum or Plasma 294 MG/DL 65 - 110 H [facility] BUN 12 MG/DL 7 - 21 [facility] al Creatinine [Mass/volume] in Serum or Plasma 0.9 MG/DL 0.7 - 1.5 [facility] BUN/CREAT 13 8 - 27 [facility] Protein [Mass/volume] in Serum or Plasma 7.4 G/DL 6.3 - 8.2 [facility] Albumin [Mass/volume] in Serum or Plasma 4.2 G/DL 3.9 - 5.0 [facility] Globulin [Mass/volume] in Serum by calculation 3.2 GM/DL 2.4 - 3.2 [facility] A/G RATIO 1.3 0.8 - 2.0 [facility] Calcium [Mass/volume] in Serum or Plasma 9.0 MG/DL 8.4 - 10.2 [facility] Bilirubin.total [Mass/volume] in Serum or Plasma <0.7 MG/DL 0.2 - 1.3 [facility] Alkaline phosphatase [Enzymatic activity/volume] in Serum or Plasma 82 U/L 38 - 126 [facility] Aspartate aminotransferase [Enzymatic activity/volume] in Serum or Plasma 16 U/L 5 - 40 [facility] Alanine aminotransferase [Enzymatic activity/volume] in Seru m or Plasma 17 U/L 7 - 56 [facility] Anion gap 3 in Serum or Plasma 7.0 mmol/L 8.0 - 16.0 L [facility] 69 [facility] >60 mL/min [facility] ital AFR AMER GFR >60 mL/min [facility] Ho spital Male GFR In terprentation [...] >32 mL/min Normal ID Date Data Source [id number] 02/02/2020 12:01:[address] [facility] Name Value Range Interpretation Code Description Data Rosalind rce(s) Supporting Document(s) Magnesium [Mass/volume] in Serum or Plasma 1.8 MG/DL 1.7 - 2.2 [facility] ID Date Data Source [id number] 02/02/2020 11:59:[address] [facility] Name Value Range Interpretation Code Description Data Rosalind rce(s) Supporting Document(s) Iron [Mass/volume] in Serum or Plasma 46 UG/DL 42 - 135 [facility] ID Date Data Source [id number] 02/02/2020 11:50:00 AM [facility] Value Range Interpretation Code Description Data Rosalind rce(s) Supporting Document(s) Hemoglobin A1c/Hemoglobin.total in Blood 13.2 % 4.4 - 6.1 H [facility] {A1]{HB] ID Date Data Source [id number] 02/02/2020 11:48:[address] [facility] Name Value Range Interpretation Code Description Data [facility] Supporting Document(s) Prothrombin time (PT) 16.3 SECONDS 11.0 - 15.5 H [facility] INR in Platelet poor plasma by Coagulation assay 1.29 0.93 - 1. 23 H [facility] \\BLDo\\INR INTERPRETATION\\BLDx\\ Therapeutic range for Coumadin and related oral anticoagulants. - International Normalized Ratio (INR): 2.0 - 3.0 for Venous Thrombosis, Pulmonary Embolus, Tissue heart valves, Acute SC, Atrial Fibrillation, Valvular heart disease and recurrent Systemic Embolism. -International Normalized Ratio (INR): 2.5 - 3.5 for Mechanical Prosthetic valve. ID Date Data Source [id number] 02/02/2020 11:39:[address] [facility] Name Value Range Interpretation Code Description Data [facility](s) Supporting Document(s) CBC W/AUTOMATED DIFF [facility] COMPLETE BLOOD COUNT Leukocytes [#/volume] in Blood by Automated count 4.9 10^3/uL 4.2 - 1 1.0 [facility] Erythrocytes [#/volume] in Blood by Automated count 4.34 10^6/uL 4. 50 - 6.30 L [facility] Hemoglobin [Mass/volume] in Blood 12.9 g/dL 14.0 - 16.0 L [facility] Hematocrit [Volume Fraction] of Blood by Automated count 39.3 % 4 1.0 - 51.0 L [facility] Erythrocyte mean corpuscular volume [Entitic volume] by Auto mated count 90.6 fL 80.0 - 94.0 [facility] Erythrocyte mean corpuscular hemoglobin [Entitic mass] by Automated count 29.7 pg 27.0 - 34.0 [facility] Erythrocyte mean corpuscular hemoglobin concentration [Mass/volume] by Automated count 32.8 g/dL 31.0 - 36.0 [facility] Erythrocyte distribution width [Ratio] by Automated count 14.1 % 11.5 - 14.8 [facility] Platelets [#/volume] in Blood by Automated count 173 10^3/uL 150 - 45 0 [facility] Platelet mean volume [Entitic volume] in Blood by Automated count 9.1 fL 7.4 - 10.4 [facility] Neutrophils/100 leukocytes in Blood by Automated count 73.7 % 37. 0 - 80.0 [facility] Lymphocytes/100 leukocytes in Blood by Manual count 14.6 % 25.0 - 40.0 L [facility] Monocytes/100 leukocytes in Blood by Automated count 8.7 % 3.0 - 8.0 H [facility] Eosinophils/100 leukocytes in Blood by Automated count 1.8 % 0.0 - 7.0 [facility] Basophils/100 leukocytes in Blood by Automated count 0.6 % 0.0 - 2.0 [facility] %IG 0.6 % 0.0 - 0.0 [facility] %[facility] 0.0 % 0.0 - 0.0 [facility] al Neutrophils [#/volume] in Blood by Automated count 3.64 10^3/uL 2.00 - 6.90 [facility] Lymphocytes [#/volume] in Blood by Automated count 0.72 10^3/uL 0.60 - 3.40 [facility] Monocytes [#/volume] in Blood by Automated count 0.43 10^3/uL 0.00 - 0.90 [facility] Eosinophils [#/volume] in Blood by Automated count 0.09 10^3/uL 0.00 - 0.70 [facility] Basophils [#/volume] in Blood by Automated count 0.03 10^3/uL 0.00 - 0.20 [facility] #IG 0.03 10^3/uL 0.00 - 0.10 [facility] ospital #NRBC 0.00 10^3/uL 0.00 - 0.00 [facility] ospital MANUAL DIFF NOT INDICATED [facility] RBC MORPH NOT INDICATED [facility] Ho spital Procedure Social History Code Duration Value Status Description Data Source(s ) Smoking 02/16/2021 12:00:00 AM EST Never Smoked A Pipe complet ed Never Smoked A Pipe [facility] ([facility]) Smoking 07/04/2020 03:53:12 PM EDT Never smoked tobacco (yanelis hughes) completed Never smoked tobacco (finding) OPAL (Denton Waite MD [facility]) Smoking 07/04/2020 12:00:00 AM EDT Never Smoker completed Never S curtis eCW1 ([facility]) Vital Signs ID Date Data Source UNK Name Value Range Interpretation Code Description Data Source(s) Body height 69 [in_i] 69 [in_i] MED[facility] (Mona Islas MD) 5'9" Body weight 322.00 [lb_av] 322.00 [lb_av] MEDEN T (Mona Islas MD) Body mass index (BMI) [Ratio] 47.5 kg/m2 47.5 k g/m2 [facility] (Mona Islas MD) Body temperature 97.7 [degF] 97.7 [degF] [facility] (Mona Islas MD) Systolic blood pressure 137 mm[Hg] 137 mm[Hg] M EDENT (Mona Islas MD) Diastolic blood pressure 74 mm[Hg] 74 mm[Hg] [facility] (Mona Islas MD) Heart rate 89 /min 89 /min [facility] (Mona Islas MD) Oxygen saturation in Arterial blood by Pulse oximetry 87 % 87 % [facility] (Mona Islas MD) Body height 69 [in_i] 69 [in_i] [facility] ([facility], ) 5'9" Body weight 147.420 kg 147.420 kg MED[facility] ([facility], ) Body surface area Derived from formula 2.54 m2 2.54 m2 MED[facility] ([facility], ) Body mass index (BMI) [Ratio] 48.0 kg/m2 48.0 k g/m2 [facility] ([facility], ) [place] body weight 160 [lb_av] 160 [lb_av] MEDEN T ([facility], ) Body weight 325.00 [lb_av] 325.00 [lb_av] MEDEN T ([facility], ) Systolic blood pressure 150 mm[Hg] 150 mm[Hg] M EDENT ([facility]) Diastolic blood pressure 60 mm[Hg] 60 mm[Hg] [facility] ([facility]) Heart rate 65 /min 65 /min [facility] ([facility]) Oxygen saturation in Arterial blood by Pulse oximetry 96 % 96 % [facility] ([facility]) Body height 69 [in_i] 69 [in_i] [facility] ([facility]) 5'9" Body weight 325.00 [lb_av] 325.00 [lb_av] MEDEN T ([facility]) Body mass index (BMI) [Ratio] 48.0 kg/m2 48.0 k g/m2 [facility] ([facility]) [place] body weight 160 [lb_av] 160 [lb_av] MEDEN T ([facility]) Body weight 147.420 kg 147.420 kg [facility] ([facility]) Body surface area Derived from formula 2.54 m2 2.54 m2 [facility] ([facility]) Diastolic blood pressure 56 mm[Hg] 56 mm[Hg] [facility] ([facility]) Heart rate 69 /min 69 /min [facility] ([facility]) Oxygen saturation in Arterial blood by Pulse oximetry 94 % 94 % [facility] ([facility]) Body height 69 [in_i] 69 [in_i] [facility] ([facility]) 5'9" Body weight 325.00 [lb_av] 325.00 [lb_av] MEDEN T ([facility]) Body mass index (BMI) [Ratio] 48.0 kg/m2 48.0 k g/m2 [facility] ([facility]) [place] body weight 160 [lb_av] 160 [lb_av] MEDEN T ([facility]) Systolic blood pressure 118 mm[Hg] 118 [facility]Hg] [facility] Body weight 147.420 kg 147.420 kg [facility] ([facility]) Body surface area Derived from formula 2.54 m2 2.54 m2 [facility] ([facility] ) Body mass index (BMI) [Ratio] 47.1 kg/m2 47.1 k g/m2 [facility] (Mona Islas MD) Body temperature 97.2 [degF] 97.2 [degF] [facility] (Mona Islas MD) Systolic blood pressure 197 mm[Hg] 197 mm[Hg] M EDENT (Mona Islas MD) Diastolic blood pressure 85 mm[Hg] 85 mm[Hg] [facility] (Mona Islas MD) Heart rate 68 /min 68 /min [facility] (Mona Islas MD) Oxygen saturation in Arterial blood by Pulse oximetry 89 % 89 % FILIENT (Mona Islas MD) Oxygen saturation in Arterial blood by Pulse oximetry 89 % 89 % FIL[facility] (Mona Islas MD) Body mass index (BMI) [Ratio] 47.1 kg/m2 47.1 k g/m2 [facility] (Mona Islas MD) Body temperature 97.2 [degF] 97.2 [degF] [facility] (Mona Islas MD) Systolic blood pressure 197 mm[Hg] 197 mm[Hg] M EDENT (Mona Islas MD) Diastolic blood pressure 85 mm[Hg] 85 mm[Hg] MED[facility] (Mona Islas MD) Heart rate 68 /min 68 /min [facility] (Mona Islas MD) Body height 69 [in_i] 69 [in_i] MED[facility] (Mona Islas MD) 5'9" Body weight 319.00 [lb_av] 319.00 [lb_av] MEDEN [...] 84 /min [facility] (Mona Islas MD) Body weight 320.00 [lb_av] 320.00 [lb_av] MEDEN T (Mona Islas MD) Body height 69 [in_i] 69 [in_i] [facility] (Mona Islas MD) 5'9" Oxygen saturation in Arterial blood by Pulse oximetry 92 % 92 % [facility] (Mona Islas MD) Body mass index (BMI) [Ratio] 47.3 kg/m2 47.3 k g/m2 [facility] (Mona Islas MD) Body temperature 97.3 [degF] 97.3 [degF] [facility] (Mona Islas MD) Systolic blood pressure 159 mm[Hg] 159 mm[Hg] M EDENT (Mona Islas MD) Diastolic blood pressure 81 mm[Hg] 81 mm[Hg] MED[facility] (Mona Islas MD) Heart rate 84 /min 84 /min MED[facility] (Mona Islas MD) Oxygen saturation [...] Body weight 356 [lb_av] 356 [lb_av] eCW1 ([facility]) Body height 70 [in_i] 70 [in_i] eCW1 ([facility]) Body mass index (BMI) [Ratio] 51.08 kg/m2 51.08 kg/m2 eCW1 ([facility]) Heart rate 58 /min 58 /min eCW1 ([facility] Respiratory rate 18 /min 18 /min eCW1 ([facility]) Body temperature 97.6 [degF] 97.6 [degF] eCW1 ( [facility]) Systolic blood pressure 112 mm[Hg] 112 mm[Hg] e CW1 ([facility]) Diastolic blood pressure 62 mm[Hg] 62 mm[Hg] eCW1 ([facility]) Body temperature 97.9 [degF] 97.9 [degF] [...] Body temperature 97.1 [degF] 97.1 [degF] MEDENT ([facility]) Diastolic blood pressure 89 mm[Hg] 89 mm[Hg] MED[facility] (Mona Islas MD) Heart rate 66 /min 66 /min [facility] (Mona Islas MD) Systolic blood pressure 209 mm[Hg] 209 mm[Hg] Alberta EDLUIS A (Mona Islas MD) Body height 69 [in_i] [...]
[2021-02-20] MEDS ORDERED: WARF-22 PO (07:06)
[2021-02-20] MEDS ORDERED: ACET1TAB16 PO (07:06)
[2021-02-20 07:50] LABS: INR 0.94
[2021-02-20] MEDS ORDERED: LIDOCAINE 2% 100MG/5ML SDV (FOR ANES.) As Ordered ONE (07:55)
[2021-02-20] MEDS ORDERED: propofoL 200 MG/20 ML VIAL As Ordered ONE (07:55)
[2021-02-20] MEDS ORDERED: ROCURONIUM BROMIDE 50 MG/5 ML VIAL As Ordered ONE ×2 (07:55→09:35)
[2021-02-20] MEDS ORDERED: fentaNYL 250 MCG/5 ML INJECTION (J3010) As Ordered ONE (07:56)
[2021-02-20] MEDS ORDERED: MIDAZOLAM INJ 2MG/2ML VIAL (J2250 PER 1MG) As Ordered ONE (07:56)
[2021-02-20] MEDS ORDERED: METOPROLOL TART 50 MG TAB PO ONE (08:00)
[2021-02-20] MEDS ORDERED: LIDOCAINE W/EPINEPHRINE 1% 20ML VIAL As Ordered ONE (08:22)
[2021-02-20] MEDS ORDERED: PHENYLEPHRINE 0.5% NASAL SPRAY 15 ML As Ordered ONE (08:23)
[2021-02-20] MEDS ORDERED: OXYMETAZOLINE 0.05% NASAL SPRAY (AFRIN) As Ordered ONE (08:25)
[2021-02-20] MEDS ORDERED: dexameTHASONE 4 MG/ML 1ML VIAL (J1100 PER 1MG) As Ordered ONE (08:46)
[2021-02-20] MEDS ORDERED: SUCCINYLCHOLINE 100 MG/5 ML SYRINGE (J0330) As Ordered ONE (09:04)
[2021-02-20] MEDS ORDERED: ACETAMINOPHEN 1000MG 100ML IV BTL (OFIRMEV) (J0131 PER 10MG) As Ordered ONE (09:23)
[2021-02-20] MEDS ORDERED: SUGAMMADEX SODIUM 500 MG/5 ML VIAL (BRIDION) As Ordered ONE (09:24)
[2021-02-20] MEDS ORDERED: METOCLOPRAMIDE INJ 10MG/2ML VIAL (J2765 PER 1) As Ordered ONE (09:24)
[2021-02-20] MEDS ORDERED: KETOROLAC 60MG 2ML VIAL As Ordered ONE (09:24)
[2021-02-20] MEDS ORDERED: ONDANSETRON 4MG/2ML VIAL As Ordered ONE (09:24)
[2021-02-20] MEDS ORDERED: ePHEDrine SULFATE 25 MG/5 ML(5MG/ML) SYRINGE As Ordered ONE (09:32)
[2021-02-20] MEDS ORDERED: HEPARIN SOD (PORCINE) 5000UNITS/ML 1ML VIAL/SYRINGE As Ordered ONE (09:40)
[2021-02-20] MEDS ORDERED: EPINEPHrine 1MG/ML INJ 30ML MD-VIAL As Ordered ONE (09:42)
[2021-02-20] MEDS ORDERED: ONDANSETRON 4MG/2ML VIAL IV PRN ×2 (10:55→11:35)
[2021-02-20] MEDS ORDERED: LR 1,000 ML IV SCH (10:55)
[2021-02-20] MEDS ORDERED: METOCLOPRAMIDE INJ 10MG/2ML VIAL (J2765 PER 1) IV PRN (10:55)
[2021-02-20] MEDS: fentaNYL 100 MCG/2 ML INJECTION (J3010) IV PRN ×4 (11:12→11:58)
[2021-02-20] MEDS ORDERED: DEXTROSE 50% 50 ML SYRINGE IV PRN (11:35)
[2021-02-20] MEDS ORDERED: D5W/0.9% SODIUM CHLORIDE 1,000 ML IV SCH (11:35)
[2021-02-20] MEDS ORDERED: GLUCAGON INJ 1MG VIAL SC PRN (11:35)
[2021-02-20] MEDS ORDERED: GLUCOSE 4GM CHEW TABLET PO PRN (11:35)
[2021-02-20] MEDS ORDERED: HumaLOG INSULIN (NovoLOG) PER UNIT SC SCH ×2 (12:00→18:00)
[2021-02-20 12:08] LABS: HEMOGLOBIN 11.1 g/dl (13.5-17.5); MEAN CORPUSCULAR HEMOGLOBIN 27.9 pg (27.0-33.0); MEAN CORPUSCULAR HGB CONC 30.8 g/dl (32.0-36.5); MEAN CORPUSCULAR VOLUME 90.5 fl (80.0-96.0); PLATELET COUNT, AUTOMATED 188 10^3/uL (150-450); RED BLOOD COUNT 3.98 10^6/uL (4.30-6.10); WHITE BLOOD COUNT 7.9 10^3/uL (4.0-10.0)
[2021-02-20 12:36] LABS: BLOOD UREA NITROGEN 26 MG/DL (7-18); CALCIUM LEVEL 8.2 MG/DL (8.8-10.2); CARBON DIOXIDE LEVEL 27 MEQ/L (21-32); CHLORIDE LEVEL 107 MEQ/L (98-107); GLOMERULAR FILTRATION RATE > 60.0 (>42); GLUCOSE, FASTING 234 MG/DL (70-100); MAGNESIUM LEVEL 1.9 MG/DL (1.8-2.4); POTASSIUM SERUM 5.5 MEQ/L (3.5-5.1); SODIUM LEVEL 138 MEQ/L (136-145)
[2021-02-20] MEDS: CHLORHEXIDINE GLUCONATE 0.12 % 15ML UDC (PERIDEX ORAL RINSE) MT SCH ×3 (13:00→20:38)
--- NOTE | 2021-02-20 13:27 | HPEPDOC ---
[facility] Medical History & Physical Date of Admission Feb 20, 2021 Date of Service: Feb 20, 2021 Attending Physician: DENZEL ARORA MD History and Physical CHIEF COMPLAINT: Tongue mass HISTORY OF PRESENT ILLNESS: Patient is a 71-year-old male who presents postoperatively following a right hemiglossectomy with Dr. Fong for a right- sided tongue mass that has been progressively worsening for the last 6 months. He presented to the ENT office about 3 weeks ago and had a biopsy done that did not show anything of clinical significance however the mass continues to get worse and so the decision was made to take him to the OR for total excision of the mass. Patient denies any fever, chills, night sweats, recent unexpected weight change. He does admit to some difficulties with swallowing as a result of the mass and currently admits to some difficulties with speaking but otherwise denies any fever, chills, chest pain, difficulty breathing, abdominal pain, nausea, vomiting. ENT consulted the hospitalist service for monitoring of the patient on PCU for possible airway compromise in the setting of a recent oral surgery and recommended he be placed on Decadron, cefuroxime, and have speech therapy evaluate him. PAST MEDICAL HISTORY: Hypertension Hyperlipidemia Type 2 diabetes History of prostate cancers s/p radiation therapy History of DVT, right leg in 2009 History of MRSA of the right leg History of hospitalization for acute renal failure History of gout Obesity Sleep apnea Urinary retention PAST SURGICAL HISTORY: Hydrocele surgery 2011 Thumb surgery Appendectomy Ankle surgery Cardiac cath x2 Hydrocelectomy 06/13/2017 Bilateral cataract surgery 2018 Bilateral Bleph for ostomy 2019 SOCIAL HISTORY: Denies tobacco use. Denies alcohol use. Denies marijuana, heroin, cocaine, PCP, or other illicit drug use. Lives at home alone. No history of recent travel. No pets FAMILY HISTORY: Father at age 86 from brain tumor Mother at age 71 from a heart attack next ALLERGIES: Please see below. REVIEW OF SYSTEMS: Constitutional: Denies fevers, chills, night sweats, or recent unexpected weight change HEENT: Denies headaches, head trauma, no visual changes or eye pain, denies nosebleed. As above. Cardiovascular: Denies chest pain, palpitations, or orthopnea. Respiratory: Denies cough, wheezing, or shortness of breath GI: Denies nausea, vomiting, abdominal pain, diarrhea, or constipation : Denies pain with urination or frequency Musculoskeletal: Denies joint pain or swelling Neuro/psych: Denies muscle weakness or sensory loss Skin: Denies skin rashes HOME MEDICATIONS: Please see below. PHYSICAL EXAMINATION: VITAL SIGNS: See below GENERAL APPEARANCE: Tired appearing male who appears stated age sitting comfortably in bed in PACU in no acute distress speaking in complete sentences with some difficulty but easy to understand HEENT: NC, AT, EOMI, no scleral icterus, moist mucous membranes, no pharyngeal erythema, right part of the tongue with some blood and obvious signs of resection noted. CARDIOVASCULAR: RRR, normal S1-S2. No murmurs, gallops, rubs. LUNGS: CTAB with adventitious breath sounds, no wheezes, crackles, or rhonchi. ABDOMEN: Soft, obese, nontender, nondistended, bowel sounds present. No hepatosplenomegaly. No masses or ecchymosis. No CVA tenderness. EXTREMITIES: No swelling or edema NEUROLOGICAL: No focal or sensory deficits. CN II-XII grossly intact. PSYCHIATRIC: Normal mood and affect LABORATORY DATA: See below. IMAGIN02/20/2021 chest x-ray Ordered MICROBIOLOGY: Please see below. Assessment/Plan: # S/p R-hemiglossectomy on 02/20 -Per ENT patient will be on [id number] hours, Decadron 8 mg IV Q8H, chlorhexidine oral rinse -Per ENT, admit to PCU for closer post-op monitoring to ensure no compromises to his airway -They would like us to continue holding his warfarin for an additional 48 hours to prevent further post-operative bleeding -ENT, Dr. Fisher is consulted, Dr. Fong has already signed out the patient to him -Speech consulted, will keep NPO until they weigh in, D5 normal saline at 60 mL/HR #. Type 2 diabetes Sliding scale insulin with every 6 hours fingersticks in light of n.p.o. status #. Hypertension Holding oral antihypertensives #. Hyperlipidemia Holding home atorvastatin #. History of right leg DVT -Patient has stopped Warfarin 3 weeks ago in anticipation of Biopsy at that time; has not resumed since Holding warfarin X 2 days per ENT recommended #. History of gout Holding oral gout medication #. History of sleep apnea We will put on SEAN protocol DVT prophylaxis: Teds, seqs GI prophylaxis:IV pantoprazole Disposition: inpatient at least 2 midnights Vital Signs Vital Signs Date Time Temp Pulse Resp B/P (MAP) Pulse Ox O2 Delivery O2 Flow Rate FiO2 02/20/21 12:30 98.1 58 18 177/84 (115) 93 Nasal Cannula 2.0 02/20/21 11:22 100 Laboratory Data Labs 24H Laboratory Tests 2 02/20/21 07:18: Prothrombin Time 13.0, Prothromb Time International Ratio 0.94 02/20/21 11:53: Nucleated Red Blood Cells % (auto) 0.0, Anion Gap 4L, Glomerular Filtration Rate > 60.0, Calcium Level 8.2L, Magnesium Level 1.9 CBC/BMP Laboratory Tests 02/20/21 11:53 Home Medications Scheduled Amlodipine Besylate (Amlodipine Besylate) 5 Mg Tablet, 5 MG PO DAILY Atorvastatin Calcium (Atorvastatin Calcium) 40 Mg Tab, 40 MG PO DAILY Dulaglutide (Trulicity) 1.5 Mg/0.5 Ml Inj, 1.5 MG SC QWEEK TUESDAYS Febuxostat (Uloric) 40 Mg Tablet, 40 MG PO DAILY Furosemide (Furosemide) 40 Mg Tablet, 40 MG PO DAILY Gabapentin (Gabapentin) 600 Mg Tab, 600 MG PO BID Glimepiride (Glimepiride) 2 Mg Tab, 3 MG PO DAILY Irbesartan (Irbesartan) 75 Mg Tablet, 75 MG PO DAILY Loratadine (Loratadine) 10 Mg Tab, 10 MG PO DAILY Magnesium Chloride (Mag64) 64 Mg Tabcr, 64 MG PO DAILY Metformin HCl (Metformin HCl) 500 Mg Tablet, 1,000 MG PO BID Sitagliptin Phosphate (Januvia) 100 Mg Tab, 100 MG PO DAILY Tamsulosin Hcl (Tamsulosin HCl) 0.4 Mg Capsule, 0.8 MG PO BID Tramadol HCl (Tramadol HCl) 50 Mg Tablet, 50 MG PO TID Warfarin Sodium (Warfarin Sodium) 10 Mg Tablet, 10 MG PO DAILY Scheduled PRN Acetaminophen with Codeine (Acetaminophen-Cod #3 Tablet) 1 Each Tablet, 1 TAB PO TID PRN for PAIN LEVEL 5-10 Allergies Coded Allergies: No Known Allergies (Verified , 02/10/21) GME ATTESTATION GME ATTESTATION My faculty preceptor for this patient encounter was physically present during the encounter and was fully available. All aspects of the patient interview, examination, medical decision making process, and medical care plan development were reviewed and approved by the faculty preceptor. The faculty preceptor is aware and concurs with the plan as stated in the body of this note and will attest to such by his/her cosignature. ATTENDING NOTE I, Denzel Arora, have independently examined this patient and performed my own physical exam, as well as reviewed the documentation and edited where necessary with the resident. For medical students we have performed the physical exam together and discussed medical decision making and I have verified the history. I have discussed in detail with the resident / student the findings and plan of treatment as documented by the resident / student and edited their note. I agree with their findings and treatment plan and have edited their documentation. I will continue to follow the patient during this hospital stay. ANNA NEVILLE DO Feb 20, 2021 13:27 DENZEL ARORA MD Feb 20, 2021 16:51
[2021-02-20] MEDS ORDERED: MORPHINE 4 MG/ML 1ML VIAL/SYRINGE (J2270) IV PRN (14:25)
[2021-02-20] MEDS ORDERED: SOD POLYSTYRENE SULFONATE SUSP 15 GM/60 ML UD PO ONE (15:00)
[2021-02-20] MEDS ORDERED: TAMS1CAP17 PO (15:16)
[2021-02-20] MEDS ORDERED: IRBE75TA4 PO (15:16)
[2021-02-20] MEDS ORDERED: METF500T13 PO (15:16)
[2021-02-20] MEDS: PANTOPRAZOLE 40MG VIAL (C9113 PER 1) IV SCH (15:30)
[2021-02-20] MEDS: MORPHINE 2 MG/ML 1ML VIAL (J2270) IV PRN (15:32)
[2021-02-20] MEDS ORDERED: HOME MED LIST COMPLETE! XX SCH (15:40)
--- NOTE | 2021-02-20 15:59 | REP ---
INDICATION: post-op hypoxia. COMPARISON: 07/20/2010 TECHNIQUE: Portable FINDINGS: The technique utilized in obtaining the radiograph has magnified the cardiac silhouette and accentuated the interstitial markings. Bilateral patchy interstitial and airspace opacities are seen. The pleural angles are sharp. There is cardiomegaly accentuated by technique. The osseous structures are stable and intact. IMPRESSION: Pulmonary edema is likely. Pneumonia cannot be ruled out. <Electronically signed by Leeroy Harrington > 02/20/21 [id number]
[2021-02-20] MEDS: traMADol 50 MG TAB PO SCH ×2 (16:39→20:40)
[2021-02-20] MEDS ORDERED: PILL CUTTER 1 EACH XX PRN (16:40)
[2021-02-20] MEDS: dexameTHASONE 4 MG/ML 1ML VIAL (J1100 PER 1MG) IV SCH (16:42)
[2021-02-20] MEDS ORDERED: dexameTHASONE 20MG/5ML VIAL (J1100 PER 1MG) IV SCH (17:00)
[2021-02-20] MEDS ORDERED: FUROSEMIDE 40MG/4ML VIAL (J1940) IV ONE (17:40)
[2021-02-20] MEDS: IRBESARTAN 150MG TAB PO SCH (18:05)
[2021-02-20 18:26] LABS: C REACTIVE PROTEIN QUANTITATIV 0.34 MG/DL (0.00-0.30); NT-PRO BNP 283 PG/ML (<125)
[2021-02-20] MEDS: TAMSULOSIN 0.4 MG CAP PO SCH (20:39)
[2021-02-20] MEDS: HumaLOG INSULIN (NovoLOG) PER UNIT SC SCH (20:41)
[2021-02-21] VITALS (19 sets, daily range): BP systolic 142–169; BP diastolic 64–80; O2SAT 83–98
[2021-02-21] MEDS: dexameTHASONE 4 MG/ML 1ML VIAL (J1100 PER 1MG) IV SCH ×3 (00:57→17:09)
[2021-02-21 05:34] LABS: BASO % 0.1 % (0.0-1.0); HEMATOCRIT 35.3 % (42.0-52.0); LYMPH # 0.4 10^3/uL (1.5-5.0); LYMPH % 3.6 % (24.0-44.0); MEAN CORPUSCULAR HEMOGLOBIN 27.6 pg (27.0-33.0); MEAN CORPUSCULAR HGB CONC 31.2 g/dl (32.0-36.5); MEAN CORPUSCULAR VOLUME 88.5 fl (80.0-96.0); MONO # 0.3 10^3/uL (0.0-0.8); MONO % 3.1 % (2.0-8.0); NEUTROPHILS # 9.7 10^3/uL (1.5-8.5); NEUTROPHILS % 92.6 % (36.0-66.0); PLATELET COUNT, AUTOMATED 195 10^3/uL (150-450); RED BLOOD COUNT 3.99 10^6/uL (4.30-6.10); WHITE BLOOD COUNT 10.4 10^3/uL (4.0-10.0)
[2021-02-21 05:50] LABS: BLOOD UREA NITROGEN 27 MG/DL (7-18); CALCIUM LEVEL 8.3 MG/DL (8.8-10.2); CARBON DIOXIDE LEVEL 28 MEQ/L (21-32); CHLORIDE LEVEL 102 MEQ/L (98-107); CREATININE FOR GFR 0.99 MG/DL (0.70-1.30); GLOMERULAR FILTRATION RATE > 60.0 (>42); GLUCOSE, FASTING 322 MG/DL (70-100); POTASSIUM SERUM 4.5 MEQ/L (3.5-5.1); SODIUM LEVEL 138 MEQ/L (136-145)
[2021-02-21 05:52] LABS: INR 1.04
[2021-02-21] MEDS: IRBESARTAN 150MG TAB PO SCH (08:22)
[2021-02-21] MEDS: CHLORHEXIDINE GLUCONATE 0.12 % 15ML UDC (PERIDEX ORAL RINSE) MT SCH ×4 (08:22→20:52)
[2021-02-21] MEDS: FUROSEMIDE 40 MG TAB PO SCH (08:22)
[2021-02-21] MEDS: ATORVASTATIN 20 MG TAB PO SCH (08:22)
[2021-02-21] MEDS: TAMSULOSIN 0.4 MG CAP PO SCH ×2 (08:22→20:53)
[2021-02-21] MEDS: amLODIPine 5 MG TAB PO SCH (08:22)
[2021-02-21] MEDS: LORATADINE 10 MG TAB PO SCH (08:22)
[2021-02-21] MEDS: HumaLOG INSULIN (NovoLOG) PER UNIT SC SCH ×4 (08:22→20:54)
[2021-02-21] MEDS: FEBUXOSTAT 40 MG TABLET (ULORIC) PO SCH (08:22)
[2021-02-21] MEDS: traMADol 50 MG TAB PO SCH ×3 (08:23→20:53)
--- NOTE | 2021-02-21 08:57 | REP ---
INDICATION: hypoxia COMPARISON: 02/20/2021 TECHNIQUE: Portable AP view of the chest FINDINGS: The mediastinum and cardiac silhouette are stable and mild cardiomegaly is again suggested. The lung dave demonstrate chronic appearing changes although subtle superimposed airspace disease cannot be excluded. No discrete focal consolidation. No effusion. No pneumothorax. Skeletal structures are intact. IMPRESSION: Questionable subtle airspace disease. <Electronically signed by Stepan Mccormack > 02/21/21 [id number]
[2021-02-21] MEDS ORDERED: METOPROLOL TART 50 MG TAB PO SCH (09:00)
[2021-02-21] MEDS ORDERED: LEVEMIR (INSULIN DETEMIR) 1 UNITS/0.01ML SC SCH (09:00)
[2021-02-21] MEDS ORDERED: FLUBLOK(EGG FREE)(QUAD)INFLUENZA VACC 0.5ML SYRINGE 18YRS & OLDER IM ONE (09:00)
--- NOTE | 2021-02-21 11:35 | IPNPDOC ---
Text Note Date of Service The patient was seen on 02/21/21. NOTE Subjective: Patient is a 71-year-old male who with history of enlarging tongue mass over the last 6 months who had a right hemiglossectomy on 02/20/[address] Fong. ENT has asked medicine to admit for post-operative monitoring, IV antibiotics, IV steroids for 48 hours, and speech therapy consultation. No acute events overnight, patient was on 6 L of oxygen overnight as he could not tolerate his home CPAP with his tongue. His post-operative pain is currently well controlled at this time and he denies any fever, chills, lightheadedness, dizziness, chest pain, difficulty breathing, nausea, vomiting, difficulty swallowing, abdominal pain. Objective: General: Pleasant, NAD HEENT: NC, AT. EOMI, no scleral icterus. No pharyngeal erythema, mucous membranes moist. Neck: No lymphadenopathy or JVD CV: RRR, Normal S1 and S2. No murmurs, gallops, or rubs. Resp: CTAB with full breath sounds. No wheezes, crackles, or rhonchi. No dullness to percussion. Abdomen: Bowel sounds present. Soft, NT, ND. Extremities: No swelling or edema. Assessment/Plan: # S/p R-hemiglossectomy on 02/20 -Post-op day 1, doing well -Per ENT patient will be on [id number] hours, Decadron 8 mg IV Q8H, chlorhexidine oral rinse -Per ENT, admit to PCU for closer post-op monitoring to ensure no compromises to his airway -They would like us to continue holding his warfarin for an additional 48 hours to prevent further post-operative bleeding, restart per ENT recommendations -ENT, Dr. Fisher is consulted, Dr. Fong has already signed out the patient to him -Speech consulted, recommending pureed diet, continue to work w/ speech therapy #. Type 2 diabetes SSI AC/HS, levemir 40 U ordered Pured diet, consistent carbohydrate diet. #. Hypertension Continue home amlodipine, furosemide, irbesartan, metoprolol #. Hyperlipidemia Continue home atorvastatin #. History of right leg DVT -Patient has stopped Warfarin 3 weeks ago in anticipation of Biopsy at that time; has not resumed since Holding warfarin X 2 days per ENT recommendation #. History of gout Continue home febuxostat #. History of sleep apnea SEAN protocol DVT prophylaxis: Teds, seqs GI prophylaxis: IV pantoprazole Disposition: Per ENT, but likely will be able to DC in am. VS,Fishbone, I+O VS, Fishbone, I+O Laboratory Tests 02/20/21 11:53 02/21/21 05:08 Vital Signs Date Time Temp Pulse Resp B/P (MAP) Pulse Ox O2 Delivery O2 Flow Rate FiO2 02/21/21 08:23 19 02/21/21 08:22 163/70 02/21/21 08:22 68 02/21/21 08:00 98 Nasal Cannula 2.0 02/21/21 07:47 98.5 02/20/21 16:39 100 I&O- Last 24 Hours up to 6 AM 02/21/21 05:59 Intake Total 1230 ml Output Total 1735 ml Balance -505 ml GME ATTESTATION GME ATTESTATION My faculty preceptor for this patient encounter was physically present during the encounter and was fully available. All aspects of the patient interview, examination, medical decision making process, and medical care plan development were reviewed and approved by the faculty preceptor. The faculty preceptor is aware and concurs with the plan as stated in the body of this note and will attest to such by his/her cosignature. ATTENDING NOTE I personally examined Mr. Hsu and discussed his course, findings with the resident team and I agree with the above detailed assessment and plan. ANNA NEVILLE DO Feb 21, 2021 11:35 KEVIN SABA MD Feb 22, 2021 06:57
[2021-02-21] MEDS: MORPHINE 2 MG/ML 1ML VIAL (J2270) IV PRN (12:24)
[2021-02-21] MEDS: PANTOPRAZOLE 40MG VIAL (C9113 PER 1) IV SCH (15:08)
--- NOTE | 2021-02-21 19:03 | IPNPDOC ---
Subjective Date Seen The patient was seen on 02/21/21. Subjective Chief Complaint/HPI Tongue carcinoma Shadi is a 71-year-old gentleman who underwent right tongue resection for carcinoma. He is postoperative day 1. He had a bedside swallowing eval which she passed. He is tolerating p.o. soft diet. Objective Physical Examination ENT Exam: Positive: Atraumatic, Mucous membr. moist/pink, Pharynx Normal, Tongue Midline, Pharyngeal Edema, Nares Patent, Tympanic Membranes Normal, Ext Auditory Canal Nml, Pinna Normal, Other ENT (Examination of his tongue shows the incision healing normally. There is no evidence of bleeding. There is mild tongue swelling less than anticipated at this stage.) Assessment /Plan Assessment Shadi is doing well status post right tongue resection. We should continue to monitor him overnight if he is doing well tomorrow he may be able to go home. Plan/VTE VTE Prophylaxis Ordered?: No VTE Exclusion Pharmacological: Bleeding Risk VS, I&O, 24H, Fishbone Vital Signs/I&O Vital Signs Date Time Temp Pulse Resp B/P (MAP) Pulse Ox O2 Delivery O2 Flow Rate FiO2 02/21/21 16:00 95 Room Air 02/21/21 15:55 17 02/21/21 15:33 98.8 78 142/65 (90) 02/21/21 08:00 2.0 02/20/21 16:39 100 I&O- Last 24 Hours up to 6 AM 02/21/21 06:00 Intake Total 1230 ml Output Total 1735 ml Balance -505 ml Laboratory Data 24H LABS Laboratory Tests 2 02/20/21 20:33: Bedside Glucose (Misc Panel) 345H 02/21/21 05:08: Immature Granulocyte % (Auto) 0.6, Neutrophils (%) (Auto) 92.6H, Lymphocytes (%) (Auto) 3.6L, Monocytes (%) (Auto) 3.1, Eosinophils (%) (Auto) 0.0, Basophils (%) (Auto) 0.1, Neutrophils # (Auto) 9.7H, Lymphocytes # (Auto) 0.4L, Monocytes # (Auto) 0.3, Eosinophils # (Auto) 0.0, Basophils # (Auto) 0.0, Nucleated Red Blood Cells % (auto) 0.0, Prothrombin Time 14.0, Prothromb Time International Ratio 1.04, Anion Gap 8, Glomerular Filtration Rate > 60.0, Calcium Level 8.3L, C-Reactive Protein, Quantitative 2.60H 02/21/21 07:59: Bedside Glucose (Misc Panel) 332H 02/21/21 12:11: Bedside Glucose (Misc Panel) 293H 02/21/21 17:00: Bedside Glucose (Misc Panel) 288H CBC/BMP Laboratory Tests 02/21/21 05:08 Denton Fisher MD Feb 21, 2021 19:03
[2021-02-22] VITALS (7 sets, daily range): BP systolic 126–182; BP diastolic 54–79; O2SAT 88–93
[2021-02-22] MEDS: dexameTHASONE 4 MG/ML 1ML VIAL (J1100 PER 1MG) IV SCH ×2 (01:02→09:31)
[2021-02-22 05:09] LABS: HEMATOCRIT 32.9 % (42.0-52.0); HEMOGLOBIN 10.5 g/dl (13.5-17.5); LYMPH # 0.4 10^3/uL (1.5-5.0); LYMPH % 4.6 % (24.0-44.0); MEAN CORPUSCULAR HEMOGLOBIN 27.9 pg (27.0-33.0); MEAN CORPUSCULAR HGB CONC 31.9 g/dl (32.0-36.5); MEAN CORPUSCULAR VOLUME 87.3 fl (80.0-96.0); MONO # 0.3 10^3/uL (0.0-0.8); MONO % 3.2 % (2.0-8.0); NEUTROPHILS # 7.6 10^3/uL (1.5-8.5); NEUTROPHILS % 91.7 % (36.0-66.0); PLATELET COUNT, AUTOMATED 181 10^3/uL (150-450); RED BLOOD COUNT 3.77 10^6/uL (4.30-6.10); WHITE BLOOD COUNT 8.3 10^3/uL (4.0-10.0)
[2021-02-22 05:20] LABS: INR 1.03; PROTHROMBIN TIME 13.9 SECONDS (12.7-14.5)
[2021-02-22 05:33] LABS: BLOOD UREA NITROGEN 28 MG/DL (7-18); C REACTIVE PROTEIN QUANTITATIV 2.59 MG/DL (0.00-0.30); CALCIUM LEVEL 8.5 MG/DL (8.8-10.2); CARBON DIOXIDE LEVEL 31 MEQ/L (21-32); CHLORIDE LEVEL 102 MEQ/L (98-107); CREATININE FOR GFR 0.77 MG/DL (0.70-1.30); GLOMERULAR FILTRATION RATE > 60.0 (>42); GLUCOSE, FASTING 246 MG/DL (70-100); POTASSIUM SERUM 4.3 MEQ/L (3.5-5.1); SODIUM LEVEL 136 MEQ/L (136-145)
[2021-02-22] MEDS: TAMSULOSIN 0.4 MG CAP PO SCH (08:57)
[2021-02-22] MEDS: traMADol 50 MG TAB PO SCH (08:58)
[2021-02-22] MEDS: FUROSEMIDE 40 MG TAB PO SCH (08:58)
[2021-02-22] MEDS: ATORVASTATIN 20 MG TAB PO SCH (08:58)
[2021-02-22] MEDS: LORATADINE 10 MG TAB PO SCH (08:58)
--- NOTE | 2021-02-22 08:59 | IPNPDOC ---
Subjective Date Seen The patient was seen on 02/22/21. Subjective Chief Complaint/HPI Right tongue carcinoma status post tongue resection. Postop day 2. Patient doing well. Good pain control. Good p.o. intake. Objective Physical Examination ENT Exam: Positive: Atraumatic, Mucous membr. moist/pink, Pharynx Normal, Tongue Midline, Pharyngeal Edema, Nares Patent, Tympanic Membranes Normal, Ext Auditory Canal Nml, Pinna Normal, Other ENT (Examination of the tongue shows normal healing. No bleeding evident. Mild swelling not progressive.) Assessment /Plan Assessment Patient is doing well status post tongue resection. From an ENT point of view he is cleared to go home today. Would recommend p.o. tramadol and continued Augmentin at home. He has a follow-up appointment scheduled for next Saturday. Plan/VTE VTE Prophylaxis Ordered?: No VTE Exclusion Pharmacological: Bleeding Risk VS, I&O, 24H, Fishbone Vital Signs/I&O Vital Signs Date Time Temp Pulse Resp B/P (MAP) Pulse Ox O2 Delivery O2 Flow Rate FiO2 02/22/21 08:00 98.0 84 19 164/72 (102) 92 Room Air 02/21/21 08:00 2.0 02/20/21 16:39 100 I&O- Last 24 Hours up to 6 AM 02/22/21 06:00 Intake Total 1350 ml Output Total 2650 ml Balance -1300 ml Laboratory Data 24H LABS Laboratory Tests 2 02/21/21 12:11: Bedside Glucose (Misc Panel) 293H 02/21/21 17:00: Bedside Glucose (Misc Panel) 288H 02/21/21 20:24: Bedside Glucose (Misc Panel) 290H 02/22/21 04:33: Immature Granulocyte % (Auto) 0.5, Neutrophils (%) (Auto) 91.7H, Lymphocytes (%) (Auto) 4.6L, Monocytes (%) (Auto) 3.2, Eosinophils (%) (Auto) 0.0, Basophils (%) (Auto) 0.0, Neutrophils # (Auto) 7.6, Lymphocytes # (Auto) 0.4L, Monocytes # (Auto) 0.3, Eosinophils # (Auto) 0.0, Basophils # (Auto) 0.0, Nucleated Red Blood Cells % (auto) 0.0, Prothrombin Time 13.9, Prothromb Time International Ratio 1.03, Anion Gap 3L, Glomerular Filtration Rate > 60.0, Calcium Level 8.5L, C-Reactive Protein, Quantitative 2.59H CBC/BMP Laboratory Tests 02/22/21 04:33 Denton Fisher MD Feb 22, 2021 08:59
[2021-02-22] MEDS: FEBUXOSTAT 40 MG TABLET (ULORIC) PO SCH (09:00)
[2021-02-22] MEDS ORDERED: LEVEMIR (INSULIN DETEMIR) 1 UNITS/0.01ML SC SCH (09:00)
[2021-02-22] MEDS: amLODIPine 5 MG TAB PO SCH (09:01)
[2021-02-22] MEDS: CHLORHEXIDINE GLUCONATE 0.12 % 15ML UDC (PERIDEX ORAL RINSE) MT SCH (09:16)
[2021-02-22] MEDS: HumaLOG INSULIN (NovoLOG) PER UNIT SC SCH (09:18)
[2021-02-22] MEDS: IRBESARTAN 150MG TAB PO SCH (09:21)
[2021-02-22] MEDS ORDERED: AUGM875T28 PO (11:06)
[2021-02-22] MEDS ORDERED: PANT20TA6 PO (11:06)
[2021-02-22] MEDS ORDERED: DEXA6TAB PO (11:06)
--- NOTE | 2021-02-22 11:11 | DS.PDOC ---
Discharge Summary General Date of Admission 02/20/2021 Date of Discharge 02/22/2021 Primary Care Physician: John Islas MD Attending Physician: KEVIN SABA MD Specialist/Consultants Involve: Denton Fisher MD Discharge Summary PROCEDURES PERFORMED DURING STAY: R-hemiglossectomy on 02/20/21 ADMITTING/DISCHARGE DIAGNOSES: Squamous cell carcinoma of the tongue Type 2 diabetes Hypertension Hyperlipidemia History of right leg DVT Gout SEAN COMPLICATIONS/CHIEF COMPLAINT: tongue mass HISTORY OF PRESENT ILLNESS/HOSPITAL COURSE: "Patient is a 71-year-old male who presents postoperatively following a right hemiglossectomy with Dr. Fong for a right-sided tongue mass that has been progressively worsening for the last 6 mon ths. He presented to the ENT office about 3 weeks ago and had a biopsy done that did not show anything of clinical significance however the mass continues to get worse and so the decision was made to take him to the OR for total excision of the mass. Patient denies any fever, chills, night sweats, recent unexpected weight change. He does admit to some difficulties with swallowing as a result of the mass and currently admits to some difficulties with speaking but otherwise denies any fever, chills, chest pain, difficulty breathing, abdominal pain, nausea, vomiting. ENT consulted the hospitalist service for monitoring of the patient on PCU for possible airway compromise in the setting of a recent oral surgery and recommended he be placed on Decadron, cefuroxime, and have speech therapy evaluate him." Hospital course: Patient was started on the aforementioned antibiotics, steroids, and was evaluated by speech therapy who recommended a pureed diet initially. He did well overnight and on post op day [address] Fisher who thought he was doing well and recommended re-evaluation on post op day 2. He was seen on post-op day [address] Fisher who felt that from his stand point he was ok to go home and follow up with Dr. Fong as scheduled. The results of the biopsy were still pending at that point, but following DC were positive for squamous cell carcinoma of the tongue. He was discharged with Augmentin, dexamethasone, and pantoprazole for 5 days with instructions for f ollow up. He was also instructed not to restart his warfarin until 02/25/21 and discuss the continuation of this with his PCP as his RLE DVT occurred 10 years ago and he may not need to be on it anymore. On day of discharge patient was re- evaluated by speech therapy and cleared as safe for discharge by physical therapy. He felt comfortable and prepared for discharge home. DISCHARGE MEDICATIONS: Please see below. ALLERGIES: Please see below. PHYSICAL EXAMINATION ON DISCHARGE: VITAL SIGNS: Please see below. GENERAL APPEARANCE:Well appearing male who appears stated age sitting comfortably in bed eating breakfast in no acute distress speaking in complete sentences with improved speaking pattern HEENT: NC, AT, EOMI, no scleral icterus, moist mucous membranes, no pharyngeal erythema, right part of the tongue well healing, no current evidence of bleed or signs of infection CARDIOVASCULAR: RRR, normal S1-S2. No murmurs, gallops, rubs. LUNGS: CTAB with full breath sounds, no wheezes, crackles, or rhonchi. ABDOMEN: Soft, obese, nontender, nondistended, bowel sounds present. No hepatosplenomegaly. No masses or ecchymosis. No CVA tenderness. EXTREMITIES: No swelling or edema NEUROLOGICAL: No focal or sensory deficits. CN II-XII grossly intact. PSYCHIATRIC: Normal mood and affect LABORATORY DATA: Please see below. IMAGIN02/21/2021 chest x-ray: "IMPRESSION: Questionable subtle airspace disease." ACTIVITY: Soft solids as tolerated per ST DIET: As tolerated DISCHARGE PLAN: Home DISCHARGE INSTRUCTIONS: 1. Please follow up with Dr. Fong as scheduled and follow up with primary care in the next 7 days. Please remain compliant with treatment regimen. Please return to the emergency department if symptoms worsen. DO NOT RESTART YOUR COUMADIN (WARFARIN) UNTIL 02/25/21 DISCHARGE CONDITION: Stable. TIME SPENT ON DISCHARGE: 33 minutes. Vital Signs/I&Os Vital Signs Date Time Temp Pulse Resp B/P (MAP) Pulse Ox O2 Delivery O2 Flow Rate FiO2 02/22/21 10:00 93 Room Air 02/22/21 09:01 81 182/79 02/22/21 08:58 20 02/22/21 08:00 98.0 02/21/21 08:00 2.0 02/20/21 16:39 100 I&O- Last 24 Hours up to 6 AM 02/22/21 06:00 Intake Total 1350 ml Output Total 2650 ml Balance -1300 ml Laboratory Data Labs 24H Laboratory Tests 2 02/21/21 12:11: Bedside Glucose (Misc Panel) 293H 02/21/21 17:00: Bedside Glucose (Misc Panel) 288H 02/21/21 20:24: Bedside Glucose (Misc Panel) 290H 02/22/21 04:33: Immature Granulocyte % (Auto) 0.5, Neutrophils (%) (Auto) 91.7H, Lymphocytes (%) (Auto) 4.6L, Monocytes (%) (Auto) 3.2, Eosinophils (%) (Auto) 0.0, Basophils (%) (Auto) 0.0, Neutrophils # (Auto) 7.6, Lymphocytes # (Auto) 0.4L, Monocytes # (Auto) 0.3, Eosinophils # (Auto) 0.0, Basophils # (Auto) 0.0, Nucleated Red Blood Cells % (auto) 0.0, Prothrombin Time 13.9, Prothromb Time International Ratio 1.03, Anion Gap 3L, Glomerular Filtration Rate > 60.0, Calcium Level 8.5L, C-Reactive Protein, Quantitative 2.59H 02/22/21 08:53: Bedside Glucose (Misc Panel) 337H CBC/BMP Laboratory Tests 02/22/21 04:33 FSBS Laboratory Tests Test 02/21/21 12:11 02/21/21 17:00 02/21/21 20:24 02/22/21 08:53 Range/Units Bedside Glucose (Misc Panel) 293 288 290 337 83-110 MG/DL Discharge Medications Scheduled Amlodipine Besylate (Amlodipine Besylate) 5 Mg Tablet, 5 MG PO DAILY, (Reported) Amoxicillin/Potassium Clav (Augmentin 875-125 Tablet) 1 Each Tablet, 1 TAB PO BID Atorvastatin Calcium (Atorvastatin Calcium) 40 Mg Tab, 40 MG PO DAILY, (Reported) Dexamethasone (Dexamethasone) 6 Mg Tablet, 6 MG PO DAILY Dulaglutide (Trulicity) 1.5 Mg/0.5 Ml Inj, 1.5 MG SC QWEEK, (Reported) TUESDAYS Febuxostat (Uloric) 40 Mg Tablet, 40 MG PO DAILY, (Reported) Furosemide (Furosemide) 40 Mg Tablet, 40 MG PO DAILY, (Reported) Gabapentin (Gabapentin) 600 Mg Tab, 600 MG PO BID, (Reported) Glimepiride (Glimepiride) 2 Mg Tab, 3 MG PO DAILY, (Reported) Irbesartan (Irbesartan) 75 Mg Tablet, 75 MG PO DAILY, (Reported) Loratadine (Loratadine) 10 Mg Tab, 10 MG PO DAILY, (Reported) Magnesium Chloride (Mag64) 64 Mg Tabcr, 64 MG PO DAILY, (Reported) Metformin HCl (Metformin HCl) 500 Mg Tablet, 1,000 MG PO BID, (Reported) Pantoprazole Sodium (Pantoprazole Sodium) 20 Mg Tablet.dr, 1 TAB PO DAILY Sitagliptin Phosphate (Januvia) 100 Mg Tab, 100 MG PO DAILY, (Reported) Tamsulosin Hcl (Tamsulosin HCl) 0.4 Mg Capsule, 0.8 MG PO BID, (Reported) Tramadol HCl (Tramadol HCl) 50 Mg Tablet, 50 MG PO TID, (Reported) Warfarin Sodium (Warfarin Sodium) 10 Mg Tablet, 10 MG PO DAILY, (Reported) Scheduled PRN Acetaminophen with Codeine (Acetaminophen-Cod #3 Tablet) 1 Each Tablet, 1 TAB PO TID PRN for PAIN LEVEL 5-10, (Reported) Allergies Coded Allergies: No Known Allergies (Verified , 02/10/21) GME ATTESTATION GME ATTESTATION My faculty preceptor for this patient encounter was physically present during the encounter and was fully available. All aspects of the patient interview, examination, medical decision making process, and medical care plan development were reviewed and approved by the faculty preceptor. The faculty preceptor is aware and concurs with the plan as stated in the body of this note and will attest to such by his/her cosignature. ATTENDING NOTE I personally examined the patient and discussed his clinical progress, information technology consultant recommendations, findings and I agree with the above summary, assessment and plan as he is discharged home. ANNA NEVILLE DO Feb 22, 2021 11:11 KEVIN SABA MD Feb 23, 2021 10:23
[2021-03-01] MEDS ORDERED: FINA5TAB2 (10:26)
[2021-03-01] MEDS ORDERED: LABE100T4 (10:26)
[2021-03-01] MEDS ORDERED: LORA-674 (10:26)
--- OUTSIDE RECORDS SUMMARY | 2021-03-01 12:04 | CCD | Continuity of Care Document ---
Author Organization Unknown Address Unknown Phone Unavailable Care Team Providers Care Building Attendant Name Role Phone Andry Collins AUT [phone] [facility] [phone] Social History Type Date Description Comments Sex Unknown Allergies and adverse reactions Description No Known Drug Allergies Medications Active Medications SIG Qnty Indications Ordering Provide r Date Acetaminophen-Codeine #3 300-30mg Tablets take 1 tablet by oral route three times a day as needed prn for mouth pain [employer] [id number] 21tabs [facility] 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 02/08/2021 Lotrisone 1-0.05% Cream apply to affected area [...] [facility] 020 Warfarin Sodium 7.5mg Tablets [facility] Lidocaine Viscous HCL 2% Solution Unknown Hydrocodone Bitartrate/Acetaminophen 7.5-325mg Tablets Unknown Nystatin [id number] Suspension Unknown Chlorhexidine Gluconate 0.12% Solution Unknown [...] Date Facility Test Result H/L Range Note Complete Blood Count 02/22/2021 [place] [id number] [phone] White Blood Count 8.3 10 Normal 4.0-10.0 Red Blood Count 3.77 10 Low 4.30-6.10 Hemoglobin 10.5 g/dL Low 13.5-17.5 Hematocrit 32.9 % Low 42.0-52.0 Mean Corpuscular Volume 87.3 fl Normal 80.0-96.0 Mean Corpuscular Hemoglobin 27.9 pg Normal 27.0-33.0 Mean Corpuscular HGB Conc 31.9 g/dL Low 32.0-36.5 Red Cell Distribution Width 15.4 % High 11.5-14.5 Platelet Count, Automated 181 10 Normal 150-450 Neutrophils % 91.7 % High 36.0-66.0 Lymph % 4.6 % Low 24.0-44.0 Converse % 3.2 % Normal 2.0-8.0 Eos % 0.0 % Normal 0.0-3.0 Baso % 0.0 % Normal 0.0-1.0 Immature Granulocyte % 0.5 % Normal 0-3.0 Nucleated Red Blood Cell % 0.0 % Normal 0-0 Neutrophils # 7.6 10 Normal 1.5-8.5 Lymph # 0.4 10 Low 1.5-5.0 Converse # 0.3 10 Normal 0.0-0.8 Eos # 0.0 10 Normal 0.0-0.5 Baso # 0.0 10 Normal 0.0-0.2 Basic Metabolic Profile 02/22/[address] [id number] [phone] Glucose, Fasting 246 mg/dL High 70-100 Blood Urea Nitrogen 28 mg/dL High 7-18 Creatinine For GFR 0.77 mg/dL Normal 0.70-1.30 Glomerular Filtration Rate > 60.0 Normal >42 1 Sodium Level 136 mEq/L Normal 136-145 Potassium Serum 4.3 mEq/L Normal 3.5-5.1 Chloride Level 102 mEq/L Normal 98-107 Carbon Dioxide Level 31 mEq/L Normal 21-32 Anion Gap 3 mEq/L Low 8-16 Calcium Level 8.5 mg/dL Low 8.8-10.2 Laboratory test finding 02/22/[address] [id number] [phone] C Reactive Protein Quantitativ 2.59 mg/dL High 0 .00-0.30 Prothrombin Time/Inr 02/22/[address] [id number] [phone] Prothrombin Time 13.9 seconds Normal 12.7-14.5 Inr 1.03 Normal 2 Laboratory test finding 02/22/[address] [id number] [phone] Bedside Glucose 337 mg/dL High 83-110 Laboratory test finding 02/21/[address], [place] 7968758 [phone] Bedside Glucose 290 mg/dL High 83-110 Laboratory test finding 02/21/2021 [facility] [address] [place], [place] [id number] [phone] Bedside Glucose 288 mg/dL High 83-110 Laboratory test finding 02/21/2021 [facility] [address] [place], [place] 9976020 [phone] Bedside Glucose 293 mg/dL High 83-110 Laboratory test finding 02/21/2021 [place] [address] [place], [place] 2583596 [phone] Bedside Glucose 332 mg/dL High 83-110 Complete Blood Count 02/21/[address] [address] [phone] White Blood Count 10.4 10 High 4.0-10.0 Red Blood Count 3.99 10 Low 4.30-6.10 Hemoglobin 11.0 g/dL Low 13.5-17.5 Hematocrit 35.3 % Low 42.0-52.0 Mean Corpuscular Volume 88.5 fl Normal 80.0-96.0 Mean Corpuscular Hemoglobin 27.6 pg Normal 27.0-33.0 Mean Corpuscular HGB Conc 31.2 g/dL Low 32.0-36.5 Red Cell Distribution Width 15.2 % High 11.5-14.5 Platelet Count, Automated 195 10 Normal 150-450 Neutrophils % 92.6 % High 36.0-66.0 Lymph % 3.6 % Low 24.0-44.0 Converse % 3.1 % Normal 2.0-8.0 Eos % 0.0 % Normal 0.0-3.0 Baso % 0.1 % Normal 0.0-1.0 Immature Granulocyte % 0.6 % Normal 0-3.0 Nucleated Red Blood Cell % 0.0 % Normal 0-0 Neutrophils # 9.7 10 High 1.5-8.5 Lymph # 0.4 10 Low 1.5-5.0 Converse # 0.3 10 Normal 0.0-0.8 Eos # 0.0 10 Normal 0.0-0.5 Baso # 0.0 10 Normal 0.0-0.2 Basic Metabolic Profile 02/21/[address] [address] [phone] Glucose, Fasting 322 mg/dL High 70-100 Blood Urea Nitrogen 27 mg/dL High 7-18 Creatinine For GFR 0.99 mg/dL Normal 0.70-1.30 Glomerular Filtration Rate > 60.0 Normal >42 3 Sodium Level 138 mEq/L Normal 136-145 Potassium Serum 4.5 mEq/L Normal 3.5-5.1 Chloride Level 102 mEq/L Normal 98-107 Carbon Dioxide Level 28 mEq/L Normal 21-32 Anion Gap 8 mEq/L Normal 8-16 Calcium Level 8.3 mg/dL Low 8.8-10.2 Laboratory test finding 02/21/[address] [address] [phone] C Reactive Protein Quantitativ 2.60 mg/dL High 0 .00-0.30 Prothrombin Time/Inr 02/21/[address] [address] [phone] Prothrombin Time 14.0 seconds Normal 12.7-14.5 Inr 1.04 Normal 4 Basic Metabolic Profile 02/20/[address] [address] [phone] Glucose, Fasting 234 mg/dL High 70-100 Blood Urea Nitrogen 26 mg/dL High 7-18 Creatinine For GFR 1.10 mg/dL Normal 0.70-1.30 Glomerular Filtration Rate > 60.0 Normal >42 5 Sodium Level 138 mEq/L Normal 136-145 Potassium Serum 5.5 mEq/L High 3.5-5.1 Chloride Level 107 mEq/L Normal 98-107 Carbon Dioxide Level 27 mEq/L Normal 21-32 Anion Gap 4 mEq/L Low 8-16 Calcium Level 8.2 mg/dL Low 8.8-10.2 Prothrombin Time/Inr 02/20/[address] [address] [phone] Prothrombin Time 13.0 seconds Normal 12.7-14.5 Inr 0.94 Normal 6 Laboratory test finding 02/20/[address] [place] [address] [phone] Magnesium Level 1.9 mg/dL Normal 1.8-2.4 NT-Pro BNP 283 pg/mL High <125 C Reactive Protein Quantitativ 0.34 mg/dL High 0.00-0.30 Complete Blood Count 02/20/[address] [address] [phone] White Blood Count 7.9 10 Normal 4.0-10.0 Red Blood Count 3.98 10 Low 4.30-6.10 Hemoglobin 11.1 g/dL Low 13.5-17.5 Hematocrit 36.0 % Low 42.0-52.0 Mean Corpuscular Volume 90.5 fl Normal 80.0-96.0 Mean Corpuscular Hemoglobin 27.9 pg Normal 27.0-33.0 Mean Corpuscular HGB Conc 30.8 g/dL Low 32.0-36.5 Red Cell Distribution Width 15.6 % High 11.5-14.5 Platelet Count, Automated 188 10 Normal 150-450 Nucleated Red Blood Cell % 0.0 % Normal 0-0 Laboratory test finding 02/20/[address] [address] [phone] Bedside Glucose 382 mg/dL High 83-110 Laboratory test finding 02/20/[address] [address] [phone] Bedside Glucose 345 mg/dL High 83-110 Laboratory test finding 02/16/[address] [address] [phone] Blood Urea Nitrogen 21 mg/dL High 7-18 Creatinine With GFR 02/16/[address] [address] [phone] Creatinine For GFR 0.86 mg/dL Normal 0.70-1.30 Glomerular Filtration Rate > 60.0 Normal >42 7 Prothrombin Time/Inr 01/18/[address] [address] [phone] Prothrombin Time 21.8 seconds High 12.7-14.5 Inr 1.85 Normal 8 Laboratory test finding 01/18/[address] [facility] [address] [place] [address] [phone] Converse Reflex Ebv Comprehensive NEGATIVE Normal Ne gative 9 Ebv AB Comprehensive 01/18/2021 [facility] [address] [place], [place] 865[address]18 [phone] Ebv Viral Capsid Ag IgM <36.0 U/mL Normal 0.0-35.9 10 Ebv Viral Capsid Ag IgG 363.0 U/mL High 0.0-17.9 11 Ebv AB To Nuclear Antigen >600.0 U/mL High 0.0-17.9 12 Ebv Interpretation (SEE NOTE) Normal . 13 Laboratory test finding [facility] [address] [place] [address] [phone] Ligia Strep A NEGATIVE Normal Negative CBC W/Automated Diff 12/29/[address] [id number] [phone] CBC W/Automated Diff (SEE NOTE) 14 WBC 5.0 10^3/uL 4.2 - 11.0 RBC [...] Lymph 13.9 % Low 25.0 - 40.0 Converse 10.1 % High 3.0 - 8.0 Eos 1.8 % 0.0 - 7.0 Baso 0.4 % 0.0 - 2.0 %Ig 0.6 % High 0.0 - 0.0 %NRBC 0.0 % 0.0 - 0.0 #Neut 3.63 10^3/uL 2.00 - 6.90 #Lymph 0.69 10^3/uL 0.60 - 3.40 #Converse 0.50 10^3/uL 0.00 - 0.90 #Eos 0.09 10^3/uL 0.00 - 0.70 #Baso 0.02 10^3/uL 0.00 - 0.20 #Ig 0.03 10^3/uL 0.00 - 0.10 #NRBC 0.00 10^3/uL 0.00 - 0.00 Manual Diff NOT INDICATED RBC Morph NOT INDICATED Urinalysis 12/29/[address] [address] [phone] Urinalysis (SEE NOTE) 15 Source R Color yellow Normal: Yellow Clarity clear Normal: Clear Spec [place]er 1.015 1.001 - 1.030 pH 5 5 [...] Normal: None Seen Laboratory test finding 12/29/[facility] [address] [place] [phone] Hgba1c 10.3 % High 4.4 - 6.1 Magnesium Serum 1.7 mg/dL 1.7 - 2.2 Cve Panel 12/29/[address] [address] [phone] Cve Panel (SEE NOTE) 16 Cholesterol 154 mg/dL 131 - 200 Triglycerides 115 mg/dL 35 - 160 HDL 48 mg/dL 29 - 86 LDL 91 mg/dL 65 - 175 Risk Factor 3.2 Low 3.4 - 4.9 LDL/HDL 1.90 1.00 - 3.55 17 Comprehensive Metabolic Panel 12/29/2020 [facility] [address] [place] [phone] Comprehensive Metabo (SEE NOTE) 18 Sodium 137 mEq/L 134 - 153 Potassium [...] >60 mL/min Afr Amer GFR >60 mL/min 19 Laboratory test finding 12/29/[address] [address] [phone] Iron 38 g/dL Low 42 - 135 TSH Highly Sensitive 1.39 uIU/mL 0.47 - 5.01 Protime 12/29/[address] [address] [phone] Protime 21.2 seconds High 11.0 - 15.5 Inr 1.81 High 0.93 - 1.23 20 1 Units are mL/min/1.73 m2 Chronic Kidney Disease Staging per NKF: Stage I & II GFR >=60 Normal to Mildly Decreased Stage III GFR 30-59 Moderately Decreased Stage IV GFR 15-29 Severely Decreased Stage V GFR <15 Very Little GFR Left ESRD GFR <15 on [employer] 2 THERAPUTIC HUMAN INR VALUES INDICATIONS NORMAL RANGES PROPHYLAXIS/TREATMENT OF: VENOUS THROMBOSIS 2.0-3.0 PULMONARY EMBOLISM 2.0-3.0 PREVENTION OF SYSTEMIC EMBOLISM FROM: TISSUE HEART VALVES 2.0-3.0 ACUTE MYOCARDIAL INFARCTION 2.0-3.0 VALVULAR HEART DISEASE 2.0-3.0 ATRIAL FIBRILLATION 2.0-3.0 MECHANICAL VALVES(HIGH RISK) 2.5-3.5 RECURRENT MYOCARDIAL INFARCTION 2.5-3.5 3 Units are mL/min/1.73 m2 Chronic Kidney Disease Staging per NKF: Stage I & II GFR >=60 Normal to Mildly Decreased Stage III GFR 30-59 Moderately Decreased Stage IV GFR 15-29 Severely Decreased Stage V GFR <15 Very Little GFR Left ESRD GFR <15 on [employer] 4 THERAPUTIC HUMAN INR VALUES INDICATIONS NORMAL RANGES PROPHYLAXIS/TREATMENT OF: VENOUS THROMBOSIS 2.0-3.0 PULMONARY EMBOLISM 2.0-3.0 PREVENTION OF SYSTEMIC EMBOLISM FROM: TISSUE HEART VALVES 2.0-3.0 ACUTE MYOCARDIAL INFARCTION 2.0-3.0 VALVULAR HEART DISEASE 2.0-3.0 ATRIAL FIBRILLATION 2.0-3.0 MECHANICAL VALVES(HIGH RISK) 2.5-3.5 RECURRENT MYOCARDIAL INFARCTION 2.5-3.5 5 Units are mL/min/1.73 m2 Chronic Kidney Disease Staging per NKF: Stage I & II GFR >=60 Normal to Mildly Decreased Stage III GFR 30-59 Moderately Decreased Stage IV GFR 15-29 Severely Decreased Stage V GFR <15 Very Little GFR Left ESRD GFR <15 on [employer] 6 THERAPUTIC HUMAN INR VALUES INDICATIONS NORMAL RANGES PROPHYLAXIS/TREATMENT OF: VENOUS THROMBOSIS 2.0-3.0 PULMONARY EMBOLISM 2.0-3.0 PREVENTION OF SYSTEMIC EMBOLISM FROM: TISSUE HEART VALVES 2.0-3.0 ACUTE MYOCARDIAL INFARCTION 2.0-3.0 VALVULAR HEART DISEASE 2.0-3.0 ATRIAL FIBRILLATION 2.0-3.0 MECHANICAL VALVES(HIGH RISK) 2.5-3.5 RECURRENT MYOCARDIAL INFARCTION 2.5-3.5 7 Units are mL/min/1.73 m2 Chronic Kidney Disease Staging per NKF: Stage I & II GFR >=60 Normal to Mildly Decreased Stage III GFR 30-59 Moderately Decreased Stage IV GFR 15-29 Severely Decreased Stage V GFR <15 Very Little GFR Left ESRD GFR <15 on [employer] 8 THERAPUTIC HUMAN INR VALUES INDICATIONS NORMAL RANGES PROPHYLAXIS/TREATMENT OF: VENOUS THROMBOSIS 2.0-3.0 PULMONARY EMBOLISM 2.0-3.0 PREVENTION OF SYSTEMIC EMBOLISM FROM: TISSUE HEART VALVES 2.0-3.0 ACUTE MYOCARDIAL INFARCTION 2.0-3.0 VALVULAR HEART DISEASE 2.0-3.0 ATRIAL FIBRILLATION 2.0-3.0 MECHANICAL VALVES(HIGH RISK) 2.5-3.5 RECURRENT MYOCARDIAL INFARCTION 2.5-3.5 9 Reflex test for EBV COMPREHE NSIVE will be sent to [facility], [address] [place] [place] [address]. 10 Negative <36.0 Equivocal 36.0 - 43.9 Positive >43.9 11 Negative <18.0 Equivocal 18.0 - 21.9 Positive >21.9 12 Negative <18.0 Equivocal 18.0 - 21.9 Positive >21.9 13 . EBV Interpretation Chart Sanchez: Antibody Present [...] to [facility]. Performed at: RN - [facility] [address] [id number] Bottom Stop Attacher: Felecia Lopez MD, Phone: [phone] COMPLETE BLOOD COUNT 15 URINALYSIS 16 LIPID PANEL 17 CVE RISK CHOL/HDL LDL/HDL MEN: 1/2 AVERAGE 3.43 1.00 AVERAGE 4.97 3.55 2X AVERAGE 9.55 6.25 3X AVERAGE 23.99 7.99 WOMEN: 1/2 AVERAGE 3.27 1.47 AVERAGE 4.44 3.22 2X AVERAGE 7.05 5.03 3X AVERAGE 11.04 6.14 18 COMPREHENSIVE METABOLIC PANE L 19 Male GFR Interprentation 20-49 yrs >60 mL/min Normal 50-59 yrs >56 mL/min Normal 60-69 yrs >49 mL/min Normal 70-79yrs >42 mL/min Normal 80 and above >35 mL/min Normal Female GFR Interpretation 20-39 yrs >60 mL/min Normal 40-49 yrs >58 mL/min Normal 50-59 yrs >51 mL/min Normal 60-69 yrs >45 mL/min Normal 70-79 yrs >39 mL/min Normal 80 and above >32 mL/min Normal 20 \\BLDo\\INR INTERPRETATION\\BLD x\\ Therapeutic range for Coumadin and related oral anticoagulants. -International Normalized Ratio (INR): 2 .0 - 3.0 for Venous Thrombosis, Pulmonary Embolus, Tissue heart valves, Acute IA, Atrial Fibrillation, Valvular heart disease and recurrent Systemic Embolism. -International Normalized Ratio (INR): 2 .5 - 3.5 for Mechanical Prosthetic valve. Procedures Date Code Description Status 02/09/2021 85165 Myocardial Perfusion,WM & Ef Com pleted 02/08/2021 49596 Office/Outpatient Established Mo d MDM 30-39 Min Completed 02/08/2021 92518 Echocardiogram, Complete Complet ed 02/08/2021 39560 EKG Completed 12/29/2020 66899 Office/Outpatient Established Mo d MDM 30-39 Min Completed 11/01/2020 24627 Periodic Preventive Med Age 65+ Completed 09/09/2020 05945 Office/Outpatient Established Mo d MDM 30-39 Min Completed Encounters Type Date Location Provider Dx Diagnosis Office Visit 02/08/2021 9:30a [facility] John Islas M[facility] I11.9 Hypertensive heart disease without heart failure E10.9 Type 1 diabetes mellitus wit hout complications E78.5 Hyperlipidemia, unspecified Z01.810 Encounter for preprocedural cardiovascular examination I34.0 Nonrheumatic mitral (valve) insufficiency I49.49 Other premature depolarizati on Office Visit 12/29/2020 10:30a [facility] John Islas M[facility] I11.9 Hypertensive heart disease without heart failure E10.9 Type 1 diabetes mellitus wit hout complications Office Visit 11/01/2020 10:30a [facility] AUDREY Ang Z02.4 Encounter for [...] Islas M[facility] 02/08/2021 I49.49 Other premature depolarization Alberta [facility]las [facility] 12/29/2020 I11.9 Hypertensive heart disease witho or heart failure John [facility] 12/29/2020 E10.9 Type 1 diabetes mellitus without complications John [facility] 11/01/2020 Z02.4 Encounter for examination for dr daylin Glover, AUDREY 09/09/2020 I11.9 Hypertensive heart disease witho or heart failure John [facility]las [facility] 09/09/2020 R09.02 Hypoxemia Gena Haas,P.C. 09/09/2020 J44.9 Chronic obstructive pulmonary di sease, unspecified John [facility]las [facility] 09/09/2020 E11.9 Type 2 diabetes mellitus without complications John [facility] Referrals Refer to Reason for Referral Status Appt Date John Islas M.D. Created [address] [place] [address] [phone]
--- OUTSIDE RECORDS SUMMARY | 2021-03-01 12:04 | CCD | Continuity of Care Document ---
Author Organization Unknown Address Unknown Phone Unavailable Care Team Providers Care Service Correspondent Name Role Phone Andry Collins AUT [phone] [facility] [phone] Social History Type Date Description Comments Sex Unknown Allergies and adverse reactions Description No Known Drug Allergies Medications Active Medications SIG Qnty Indications Ordering Provide r Date Acetaminophen-Codeine #3 300-30mg Tablets take 1 tablet by oral route three times a day as needed prn for mouth pain [employer]AL[employer]OL TECH [id number] 21tabs oJhn Islas M.D.,P.C. 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 02/08/2021 Lotrisone 1-0.05% [...] 020 Warfarin Sodium 7.5mg Tablets [facility] Lidocaine Viscous HCL 2% Solution Unknown Hydrocodone Bitartrate/Acetaminophen 7.5-325mg Tablets Unknown Nystatin [id number]/ML Suspension Unknown Chlorhexidine Gluconate 0.12% Solution Unknown [...] H/L Range Note Complete Blood Count 02/22/2021 [place] [id number] [phone] White Blood Count 8.3 10 Normal 4.0-10.0 [...] 36.0-66.0 Lymph % 4.6 % Low 24.0-44.0 [place] % 3.2 % Normal 2.0-8.0 Eos % 0.0 % Normal 0.0-3.0 Baso % 0.0 % Normal 0.0-1.0 Immature Granulocyte % 0.5 % Normal 0-3.0 Nucleated Red Blood Cell % 0.0 % Normal 0-0 Neutrophils # 7.6 10 Normal 1.5-8.5 Lymph # 0.4 10 Low 1.5-5.0 [place] # 0.3 10 Normal 0.0-0.8 Eos # 0.0 10 Normal 0.0-0.5 Baso # 0.0 10 Normal 0.0-0.2 Basic Metabolic Profile 02/22/[address] [id number] [phone] Glucose, Fasting 246 mg/dL High 70-100 Blood [...] mg/dL Low 8.8-10.2 Laboratory test finding 02/22/[address] 7966571 [phone] C Reactive Protein Quantitativ 2.59 mg/dL High 0 .00-0.30 Prothrombin Time/Inr 02/22/[address] [phone] Prothrombin Time 13.9 seconds Normal 12.7-14.5 Inr 1.03 Normal 2 Laboratory test finding 02/22/[address] 8059232 [phone] Bedside Glucose 337 mg/dL High 83-110 Laboratory test finding 02/21/[address], [place] 3470927 [phone] Bedside Glucose 290 mg/dL High 83-110 Laboratory test finding 02/21/2021 [facility] [address] [place], [place] 2048134 [phone] Bedside Glucose 288 mg/dL High 83-110 Laboratory test finding 02/21/2021 [facility] [address] [place], [place] 1422616 [phone] Bedside Glucose 293 mg/dL High 83-110 Laboratory test finding 02/21/2021 [place] [address] [place], [place] 4458220 [phone] Bedside Glucose 332 mg/dL High 83-110 Complete Blood Count 02/21/[address] [address] [phone] White Blood Count 10.4 10 High 4.0-10.0 [...] 36.0-66.0 Lymph % 3.6 % Low 24.0-44.0 [place] % 3.1 % Normal 2.0-8.0 Eos % 0.0 % Normal 0.0-3.0 Baso % 0.1 % Normal 0.0-1.0 Immature Granulocyte % 0.6 % Normal 0-3.0 Nucleated Red Blood Cell % 0.0 % Normal 0-0 Neutrophils # 9.7 10 High 1.5-8.5 Lymph # 0.4 10 Low 1.5-5.0 [place] # 0.3 10 Normal 0.0-0.8 Eos # 0.0 10 Normal 0.0-0.5 Baso # 0.0 10 Normal 0.0-0.2 Basic Metabolic Profile 02/21/[address] [address] [phone] Glucose, Fasting 322 mg/dL High 70-100 Blood [...] mg/dL Low 8.8-10.2 Laboratory test finding 02/21/[address] [address] [phone] C Reactive Protein Quantitativ 2.60 mg/dL High 0 .00-0.30 Prothrombin Time/Inr 02/21/[address] [address] [phone] Prothrombin Time 14.0 seconds Normal 12.7-14.5 Inr 1.04 Normal 4 Basic Metabolic Profile 02/20/[address] [address] [phone] Glucose, Fasting 234 mg/dL High 70-100 Blood [...] 8.2 mg/dL Low 8.8-10.2 Prothrombin Time/Inr 02/20/[address] [address] [phone] Prothrombin Time 13.0 seconds Normal 12.7-14.5 Inr 0.94 Normal 6 Laboratory test finding 02/20/2021 [address] [place] [address] [phone] Magnesium Level 1.9 mg/dL Normal 1.8-2.4 NT-Pro BNP 283 pg/mL High <125 C Reactive Protein Quantitativ 0.34 mg/dL High 0.00-0.30 Complete Blood Count 02/20/[address] [address] [phone] White Blood Count 7.9 10 Normal 4.0-10.0 [...] % Normal 0-0 Laboratory test finding 02/20/[address] [address] [phone] Bedside Glucose 382 mg/dL High 83-110 Laboratory test finding 02/20/[address] [address] [phone] Bedside Glucose 345 mg/dL High 83-110 Laboratory test finding 02/16/[address] [address] [phone] Blood Urea Nitrogen 21 mg/dL High 7-18 Creatinine With GFR 02/16/[address] [address] [phone] Creatinine For GFR 0.86 mg/dL Normal 0.70-1.30 Glomerular Filtration Rate > 60.0 Normal >42 7 Prothrombin Time/Inr 01/18/[address] [address] [phone] Prothrombin Time 21.8 seconds High 12.7-14.5 Inr 1.85 Normal 8 Laboratory test finding 01/18/2021 [facility] [address] [place] [address] [phone] [place] Reflex Ebv Comprehensive NEGATIVE Normal Ne gative 9 Ebv AB Comprehensive 01/18/2021 [facility] [address] [place], [place] 0436557 [phone] Ebv Viral Capsid Ag IgM <36.0 U/mL Normal 0.0-35.9 10 Ebv Viral Capsid Ag IgG 363.0 U/mL High 0.0-17.9 11 Ebv AB To Nuclear Antigen >600.0 U/mL High 0.0-17.9 12 Ebv Interpretation (SEE NOTE) Normal . 13 Laboratory test finding [facility] [address] [place] [address] [phone] Ligia Strep A NEGATIVE Normal Negative CBC W/Automated Diff 12/29/[address] 2714043 [phone] CBC W/Automated Diff (SEE NOTE) 14 WBC [...] Lymph 13.9 % Low 25.0 - 40.0 [place] 10.1 % High 3.0 - 8.0 Eos 1.8 % 0.0 - 7.0 Baso 0.4 % 0.0 - 2.0 %Ig 0.6 % High 0.0 - 0.0 %NRBC 0.0 % 0.0 - 0.0 #Neut 3.63 10^3/uL 2.00 - 6.90 #Lymph 0.69 10^3/uL 0.60 - 3.40 #[place] 0.50 10^3/uL 0.00 - 0.90 #Eos 0.09 10^3/uL 0.00 - 0.70 #Baso 0.02 10^3/uL 0.00 - 0.20 #Ig 0.03 10^3/uL 0.00 - 0.10 #NRBC 0.00 10^3/uL 0.00 - 0.00 Manual Diff NOT INDICATED RBC Morph NOT INDICATED Urinalysis 12/29/[address] [address] [phone] Urinalysis (SEE NOTE) 15 Source R Color yellow Normal: Yellow Clarity clear Normal: Clear Spec [place] 1.015 1.001 - 1.030 pH 5 5 [...] Normal: None Seen Laboratory test finding 12/29[facility] [address] [place] [address] [phone] Hgba1c 10.3 % High 4.4 - 6.1 Magnesium Serum 1.7 mg/dL 1.7 - 2.2 Cve Panel 12/29/[address] [address] [phone] Cve Panel (SEE NOTE) 16 Cholesterol 154 mg/dL 131 - 200 Triglycerides 115 mg/dL 35 - 160 HDL 48 mg/dL 29 - 86 LDL 91 mg/dL 65 - 175 Risk Factor 3.2 Low 3.4 - 4.9 LDL/HDL 1.90 1.00 - 3.55 17 Comprehensive Metabolic Panel 12/29/2020 [facility] [address] [place] [phone] Comprehensive Metabo (SEE NOTE) 18 Sodium 137 [...] >60 mL/min 19 Laboratory test finding 12/29/[address] [address] [phone] Iron 38 g/dL Low 42 - 135 TSH Highly Sensitive 1.39 uIU/mL 0.47 - 5.01 Protime 12/29/[address] [address] [phone] Protime 21.2 seconds High 11.0 - 15.5 Inr 1.81 High 0.93 - 1.23 20 1 Units are mL/min/1.73 m2 Chronic Kidney Disease Staging per NKF: Stage I & II GFR >=60 Normal to Mildly Decreased Stage III GFR 30-59 Moderately Decreased Stage IV GFR 15-29 Severely Decreased Stage V GFR <15 Very Little GFR Left ESRD GFR <15 on [employer]IT [employer] CUTTER HAND 2 THERAPUTIC HUMAN INR VALUES INDICATIONS NORMAL [...] Little GFR Left ESRD GFR <15 on [employer] CUTTER HAND 4 THERAPUTIC HUMAN INR VALUES INDICATIONS NORMAL [...] Little GFR Left ESRD GFR <15 on [employer] CUTTER HAND 6 THERAPUTIC HUMAN INR VALUES INDICATIONS NORMAL [...] Little GFR Left ESRD GFR <15 on [employer] CUTTER HAND 8 THERAPUTIC HUMAN INR VALUES INDICATIONS NORMAL RANGES PROPHYLAXIS/TREATMENT OF: VENOUS THROMBOSIS 2.0-3.0 PULMONARY EMBOLISM 2.0-3.0 PREVENTION OF SYSTEMIC EMBOLISM FROM: TISSUE HEART VALVES 2.0-3.0 ACUTE MYOCARDIAL INFARCTION 2.0-3.0 VALVULAR HEART DISEASE 2.0-3.0 ATRIAL FIBRILLATION 2.0-3.0 MECHANICAL VALVES(HIGH RISK) 2.5-3.5 RECURRENT MYOCARDIAL INFARCTION 2.5-3.5 9 Reflex test for EBV COMPREHE NSIVE will be sent to [facility], [address] [place] [place] [address]. 10 Negative <36.0 Equivocal 36.0 - 43.9 [...] to [facility]NA. Performed at: RN - [facility] [address] [id number] Body Masker: Felecia Lopez MD, Phone: [phone] COMPLETE BLOOD COUNT 15 URINALYSIS 16 [...] valve. Procedures Date Code Description Status 02/09/2021 39993 Myocardial Perfusion,WM & Ef Com pleted 02/08/2021 83704 Office/Outpatient Established Mo d MDM 30-39 Min Completed 02/08/2021 44616 Echocardiogram, Complete Complet ed 02/08/2021 44777 EKG Completed 12/29/2020 62899 Office/Outpatient Established Mo d MDM 30-39 Min Completed 11/01/2020 86962 Periodic Preventive Med Age 65+ Completed 09/09/2020 46087 Office/Outpatient Established Mo d MDM 30-39 Min Completed Encounters Type Date Location Provider Dx Diagnosis Office Visit 02/08/2021 9:30a [facility] John Islas M.D.,P. C. I11.9 Hypertensive heart disease without heart failure E10.9 Type 1 diabetes mellitus wit hout complications E78.5 Hyperlipidemia, unspecified Z01.810 Encounter for preprocedural cardiovascular examination I34.0 Nonrheumatic mitral (valve) insufficiency I49.49 Other premature depolarizati on Office Visit 12/29/2020 10:30a [facility] John Islas M.D.,P. C. I11.9 Hypertensive heart disease without heart failure E10.9 Type 1 diabetes mellitus wit hout complications Office Visit 11/01/2020 10:30a [facility] AUDREY Ang Z02.4 Encounter for examination fo r driving license Office Visit 09/09/2020 10:30a [facility] John Islas M.D.,P. C. I11.9 Hypertensive heart [...] M.D.,P.C. 12/29/2020 I11.9 Hypertensive heart disease witho nm heart failure John Islas M.D.,P.C. 12/29/2020 E10.9 Type 1 diabetes mellitus without complications John Islas M.D.,[facility]. 11/01/2020 Z02.4 Encounter for examination for dr daylin Glover, AUDREY 09/09/2020 I11.9 Hypertensive heart disease witho nm heart failure John Islas M.D.,[facility].C. 09/09/2020 R09.02 Hypoxemia Gena Haas,P.C. 09/09/2020 J44.9 Chronic obstructive pulmonary di sease, unspecified John Islas M.D.,[facility]. 09/09/2020 E11.9 Type 2 diabetes mellitus without complications John Islas M.D[facility]. Referrals Refer to Reason for Referral Status Appt Date John Islas M.D. Created [address] [place] [address] [phone]
--- OUTSIDE RECORDS SUMMARY | 2021-03-01 12:04 | CCD | Continuity of Care Document ---
Author Author Shadi Hill Naheed Organization Unknown Address Unknown Phone [phone] Care Team Providers Care Scalper Operator Name Role Phone Andry Collins AUTM [phone] JOHN ISLAS M.D. P.C. 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 02/08/2021 Lotrisone 1-0.05% [...] Islas M.D.,P.C. 020 Warfarin Sodium 7.5mg Tablets [facility] Lidocaine Viscous HCL 2% Solution Unknown Hydrocodone Bitartrate/Acetaminophen 7.5-325mg Tablets Unknown Nystatin 156204Rixp/ML Suspension Unknown Chlorhexidine Gluconate 0.12% Solution Unknown Labetalol HCL 100mg Tablets take 1 tablet by mouth twice daily 180tabs John Islas M.D[facility]. Loratadine 10mg Tablets take 1 tablet by mouth once daily 90bs John Islas M.D[facility] 000 Mupirocin 2% Ointment Apply A Small Amount To Affected Area Once A Day Unknown Atorvastatin Calcium 40mg Tablets Take 1 tablet by mouth once daily 90tabs John Islas M.D[facility]. [facility] Gabapentin 600mg Tablets Take 1 tablet by mouth twice daily 180tabs John Islas M.D[facility] Januvia 100mg Tablets take 1 tablet by mouth once daily 90ta John Islas M.D[facility]. 000 Metformin HCL 500mg [...] H/L Range Note Complete Blood Count 02/22/[address] [id number] [phone] White Blood Count 8.3 10 Normal 4.0-10.0 [...] 36.0-66.0 Lymph % 4.6 % Low 24.0-44.0 [place] % 3.2 % Normal 2.0-8.0 Eos % 0.0 % Normal 0.0-3.0 Baso % 0.0 % Normal 0.0-1.0 Immature Granulocyte % 0.5 % Normal 0-3.0 Nucleated Red Blood Cell % 0.0 % Normal 0-0 Neutrophils # 7.6 10 Normal 1.5-8.5 Lymph # 0.4 10 Low 1.5-5.0 [place] # 0.3 10 Normal 0.0-0.8 Eos # 0.0 10 Normal 0.0-0.5 Baso # 0.0 10 Normal 0.0-0.2 Basic Metabolic Profile 02/22/[address] [address] [phone] Glucose, Fasting 246 mg/dL High 70-100 Blood [...] mg/dL Low 8.8-10.2 Laboratory test finding 02/22/[address] [address] [phone] C Reactive Protein Quantitativ 2.59 mg/dL High 0 .00-0.30 Prothrombin Time/Inr 02/22/[address] [address] [phone] Prothrombin Time 13.9 seconds Normal 12.7-14.5 Inr 1.03 Normal 2 Laboratory test finding 02/22/[address] [address] [phone] Bedside Glucose 337 mg/dL High 83-110 Laboratory test finding 02/21/2021 [facility] [address] [place] [address] [phone] Bedside Glucose 290 mg/dL High 83-110 Laboratory test finding 02/21/2021 [facility] [address] [place], [place] 7022536 [phone] Bedside Glucose 288 mg/dL High 83-110 Laboratory test finding 02/21/2021 [facility] [address] [place], [place] 3436112 [phone] Bedside Glucose 293 mg/dL High 83-110 Laboratory test finding 02/21/2021 [facility] [place] [address] [phone] Bedside Glucose 332 mg/dL High 83-110 Complete Blood Count 02/21/[address] [address] [phone] White Blood Count 10.4 10 High 4.0-10.0 [...] 36.0-66.0 Lymph % 3.6 % Low 24.0-44.0 [place] % 3.1 % Normal 2.0-8.0 Eos % 0.0 % Normal 0.0-3.0 Baso % 0.1 % Normal 0.0-1.0 Immature Granulocyte % 0.6 % Normal 0-3.0 Nucleated Red Blood Cell % 0.0 % Normal 0-0 Neutrophils # 9.7 10 High 1.5-8.5 Lymph # 0.4 10 Low 1.5-5.0 [place] # 0.3 10 Normal 0.0-0.8 Eos # 0.0 10 Normal 0.0-0.5 Baso # 0.0 10 Normal 0.0-0.2 Basic Metabolic Profile 02/21/2021 [place] 6728772 [phone] Glucose, Fasting 322 mg/dL High 70-100 Blood [...] mg/dL Low 8.8-10.2 Laboratory test finding 02/21/[address] [address] [phone] C Reactive Protein Quantitativ 2.60 mg/dL High 0 .00-0.30 Prothrombin Time/Inr 02/21/[address] [address] [phone] Prothrombin Time 14.0 seconds Normal 12.7-14.5 Inr 1.04 Normal 4 Basic Metabolic Profile 02/20/2021 [place] 6728736 [phone] Glucose, Fasting 234 mg/dL High 70-100 Blood [...] 8.2 mg/dL Low 8.8-10.2 Prothrombin Time/Inr 02/20/[address] [address] [phone] Prothrombin Time 13.0 seconds Normal 12.7-14.5 Inr 0.94 Normal 6 Laboratory test finding 02/20/[address] [address] [phone] Magnesium Level 1.9 mg/dL Normal 1.8-2.4 NT-Pro BNP 283 pg/mL High <125 C Reactive Protein Quantitativ 0.34 mg/dL High 0.00-0.30 Complete Blood Count 02/20/[address] [address] [phone] White Blood Count 7.9 10 Normal 4.0-10.0 [...] % Normal 0-0 Laboratory test finding 02/20/[address] 4465131 [phone] Bedside Glucose 382 mg/dL High 83-110 Laboratory test finding 02/20/[address] [address] [phone] Bedside Glucose 345 mg/dL High 83-110 Laboratory test finding 02/16/[address] [address] [phone] Blood Urea Nitrogen 21 mg/dL High 7-18 Creatinine With GFR 02/16/[address] [address] [phone] Creatinine For GFR 0.86 mg/dL Normal 0.70-1.30 Glomerular Filtration Rate > 60.0 Normal >42 7 Prothrombin Time/Inr 01/18/[address] [address] [phone] Prothrombin Time 21.8 seconds High 12.7-14.5 Inr 1.85 Normal 8 Laboratory test finding 01/18/2021 [facility] [address] [place] [address] [phone] [place] Reflex Ebv Comprehensive NEGATIVE Normal Ne gative 9 Ebv AB Comprehensive 01/18/2021 [place] 609930 [place] [address] [phone] Ebv Viral Capsid Ag IgM <36.0 U/mL Normal 0.0-35.9 10 Ebv Viral Capsid Ag IgG 363.0 U/mL High 0.0-17.9 11 Ebv AB To Nuclear Antigen >600.0 U/mL High 0.0-17.9 12 Ebv Interpretation (SEE NOTE) Normal . 13 Laboratory test finding 01/18/2021 [facility] [address] [place] [address] [phone] Ligia Strep A NEGATIVE Normal Negative CBC W/Automated Diff 12/29/2020 [facility] [address] [place] [address] [phone] CBC W/Automated Diff (SEE NOTE) 14 WBC [...] Lymph 13.9 % Low 25.0 - 40.0 [place] 10.1 % High 3.0 - 8.0 Eos 1.8 % 0.0 - 7.0 Baso 0.4 % 0.0 - 2.0 %Ig 0.6 % High 0.0 - 0.0 %NRBC 0.0 % 0.0 - 0.0 #Neut 3.63 10^3/uL 2.00 - 6.90 #Lymph 0.69 10^3/uL 0.60 - 3.40 #[place] 0.50 10^3/uL 0.00 - 0.90 #Eos 0.09 10^3/uL 0.00 - 0.70 #Baso 0.02 10^3/uL 0.00 - 0.20 #Ig 0.03 10^3/uL 0.00 - 0.10 #NRBC 0.00 10^3/uL 0.00 - 0.00 Manual Diff NOT INDICATED RBC Morph NOT INDICATED Urinalysis 12/29/[address] [address] [phone] Urinalysis (SEE NOTE) 15 Source R Color yellow Normal: Yellow Clarity clear Normal: Clear Spec [place] 1.015 1.001 - 1.030 pH 5 5 [...] Normal: None Seen Laboratory test finding 12/29/2020 [facility] [address] [place] [address] [phone] Hgba1c 10.3 % High 4.4 - 6.1 Magnesium Serum 1.7 mg/dL 1.7 - 2.2 Cve Panel 12/29/[address] [address] [phone] Cve Panel (SEE NOTE) 16 Cholesterol 154 mg/dL 131 - 200 Triglycerides 115 mg/dL 35 - 160 HDL 48 mg/dL 29 - 86 LDL 91 mg/dL 65 - 175 Risk Factor 3.2 Low 3.4 - 4.9 LDL/HDL 1.90 1.00 - 3.55 17 Comprehensive Metabolic Panel 12/29/2020 [facility] [address] [place] [address] [phone] Comprehensive Metabo (SEE NOTE) 18 Sodium 137 [...] >60 mL/min 19 Laboratory test finding 12/29/[address] 3448377 [phone] Iron 38 g/dL Low 42 - 135 TSH Highly Sensitive 1.39 uIU/mL 0.47 - 5.01 Protime 12/29/[address] [address] [phone] Protime 21.2 seconds High 11.0 - 15.5 Inr 1.81 High 0.93 - 1.23 20 1 Units are mL/min/1.73 m2 Chronic Kidney Disease Staging per NKF: Stage I & II GFR >=60 Normal to Mildly Decreased Stage III GFR 30-59 Moderately Decreased Stage IV GFR 15-29 Severely Decreased Stage V GFR <15 Very Little GFR Left ESRD GFR <15 on TELEVISION STATION MANAGER 2 THERAPUTIC HUMAN INR VALUES INDICATIONS NORMAL [...] Little GFR Left ESRD GFR <15 on TELEVISION STATION MANAGER 4 THERAPUTIC HUMAN INR VALUES INDICATIONS NORMAL [...] Little GFR Left ESRD GFR <15 on TELEVISION STATION MANAGER 6 THERAPUTIC HUMAN INR VALUES INDICATIONS NORMAL [...] Little GFR Left ESRD GFR <15 on TELEVISION STATION MANAGER 8 THERAPUTIC HUMAN INR VALUES INDICATIONS NORMAL RANGES PROPHYLAXIS/TREATMENT OF: VENOUS THROMBOSIS 2.0-3.0 PULMONARY EMBOLISM 2.0-3.0 PREVENTION OF SYSTEMIC EMBOLISM FROM: TISSUE HEART VALVES 2.0-3.0 ACUTE MYOCARDIAL INFARCTION 2.0-3.0 VALVULAR HEART DISEASE 2.0-3.0 ATRIAL FIBRILLATION 2.0-3.0 MECHANICAL VALVES(HIGH RISK) 2.5-3.5 RECURRENT MYOCARDIAL INFARCTION 2.5-3.5 9 Reflex test for EBV COMPREHE NSIVE will be sent to [email or web address], [address] [place], [place] [address]. 10 Negative <36.0 Equivocal 36.0 - 43.9 [...] to [facility]NA. Performed at: RN - [facility] [address] [id number] Behavioral Health Assistant: Felecia Lopez MD, Phone: [phone] COMPLETE BLOOD COUNT 15 URINALYSIS 16 [...] Thrombosis, Pulmonary Embolus, Tissue heart valves, Acute TX, Atrial Fibrillation, Valvular heart disease and recurrent Systemic Embolism. -International Normalized Ratio (INR): 2 .5 - 3.5 for Mechanical Prosthetic valve. Procedures Date Code Description Status 02/09/2021 80864 Myocardial Perfusion,WM & Ef Com pleted 02/08/2021 82511 Office/Outpatient Established Mo d MDM 30-39 Min Completed 02/08/2021 00348 Echocardiogram, Complete Complet ed 02/08/2021 89692 EKG Completed 12/29/2020 46095 Office/Outpatient Established Mo d MDM 30-39 Min Completed 11/01/2020 85027 Periodic Preventive Med Age 65+ Completed 09/09/2020 35250 Office/Outpatient Established Mo d MDM 30-39 Min Completed Encounters Type Date Location Provider Dx Diagnosis Office Visit 02/08/2021 9:30a [facility] John Islas M.D.,P. C. I11.9 Hypertensive heart disease without heart failure E10.9 Type 1 diabetes mellitus wit hout complications E78.5 Hyperlipidemia, unspecified Z01.810 Encounter for preprocedural cardiovascular examination I34.0 Nonrheumatic mitral (valve) insufficiency I49.49 Other premature depolarizati on Office Visit 12/29/2020 10:30a [facility] John Islas M.D.,P. C. I11.9 Hypertensive heart disease without heart failure E10.9 Type 1 diabetes mellitus wit hout complications Office Visit 11/01/2020 10:30a [facility] AUDREY Ang Z02.4 Encounter for examination fo r driving license Office Visit 09/09/2020 10:30a [facility] John Islas M.D.,P. C. I11.9 Hypertensive heart [...] M.D.,P.C. 12/29/2020 I11.9 Hypertensive heart disease witho ma heart failure John Islas M.D.,P.C. 12/29/2020 E10.9 Type 1 diabetes mellitus without complications John Islas M.D.,P.C. 11/01/2020 Z02.4 Encounter for examination for dr daylin Glover, AUDREY 09/09/2020 I11.9 Hypertensive heart disease witho ma heart failure John Islas M.D.,P.C. 09/09/2020 R09.02 Hypoxemia Gena Haas,P.C. 09/09/2020 J44.9 Chronic obstructive pulmonary di sease, unspecified John Islas M.D.,[facility].C. 09/09/2020 E11.9 Type 2 diabetes mellitus without complications John Islas M.D.,[facility].C. Referrals Refer to Reason for Referral Status Appt Date John Islas M.D. Created [address] [place] [address] [phone]
--- OUTSIDE RECORDS SUMMARY | 2021-03-01 12:04 | CCD | Continuity of Care Document ---
Author Organization Unknown Address Unknown Phone Unavailable Care Team Providers Care Library Serials Assistant Name Role Phone Andry Collins AUT [phone] [facility] [phone] Social History Type Date Description Comments Sex Unknown Allergies and adverse reactions Description No Known Drug Allergies Medications Active Medications SIG Qnty Indications Ordering Provide r Date Acetaminophen-Codeine #3 300-30mg Tablets take 1 tablet by oral route three times a day as needed prn for mouth pain BAKER TEST [id number] 21tabs [facility]las [facility] 02/16/20 21 Tramadol HCL 50mg Tablets 1 by mouth three times a day as needed prn medical policy specialist [id number] 30tabs John xiong M.D.,[facility]. 02/08/2021 Lotrisone 1-0.05% [...] Islas M.D.,[facility]. 020 Warfarin Sodium 7.5mg Tablets [facility] Lidocaine Viscous HCL 2% Solution Unknown Hydrocodone Bitartrate/Acetaminophen 7.5-325mg Tablets Unknown Nystatin [id number]/ML Suspension Unknown Chlorhexidine Gluconate 0.12% Solution Unknown [...] Result H/L Range Note Laboratory test finding 02/21/2021 [facility] [address] [place] [address] [phone] Bedside Glucose 332 mg/dL High 83-110 Complete Blood Count 02/21/2021 [facility] [address] [place] [address] [phone] White Blood Count 10.4 10 High 4.0-10.0 [...] 36.0-66.0 Lymph % 3.6 % Low 24.0-44.0 [place] % 3.1 % Normal 2.0-8.0 Eos % 0.0 % Normal 0.0-3.0 Baso % 0.1 % Normal 0.0-1.0 Immature Granulocyte % 0.6 % Normal 0-3.0 Nucleated Red Blood Cell % 0.0 % Normal 0-0 Neutrophils # 9.7 10 High 1.5-8.5 Lymph # 0.4 10 Low 1.5-5.0 [place] # 0.3 10 Normal 0.0-0.8 Eos # 0.0 10 Normal 0.0-0.5 Baso # 0.0 10 Normal 0.0-0.2 Basic Metabolic Profile 02/21/[address] [address] [phone] Glucose, Fasting 322 mg/dL High 70-100 Blood Urea Nitrogen 27 mg/dL High 7-18 Creatinine For GFR 0.99 mg/dL Normal 0.70-1.30 Glomerular Filtration Rate > 60.0 Normal >42 1 Sodium Level 138 mEq/L Normal 136-145 Potassium Serum 4.5 mEq/L Normal 3.5-5.1 Chloride Level 102 mEq/L Normal 98-107 Carbon Dioxide Level 28 mEq/L Normal 21-32 Anion Gap 8 mEq/L Normal 8-16 Calcium Level 8.3 mg/dL Low 8.8-10.2 Laboratory test finding 02/21/[address] [address] [phone] C Reactive Protein Quantitativ 2.60 mg/dL High 0 .00-0.30 Prothrombin Time/Inr 02/21/[address] [address] [phone] Prothrombin Time 14.0 seconds Normal 12.7-14.5 Inr 1.04 Normal 2 Laboratory test finding 02/21/[address] [place] [address] [phone] Bedside Glucose 293 mg/dL High 83-110 Laboratory test finding 02/20/[address] [address] [phone] Bedside Glucose 345 mg/dL High 83-110 Laboratory test finding 02/20/[address] [address] [phone] Bedside Glucose 382 mg/dL High 83-110 Complete Blood Count 02/20/[address] [address] [phone] White Blood Count 7.9 10 Normal 4.0-10.0 [...] Blood Cell % 0.0 % Normal 0-0 Basic Metabolic Profile 02/20/[address] [address] [phone] Glucose, Fasting 234 mg/dL High 70-100 Blood [...] 8-16 Calcium Level 8.2 mg/dL Low 8.8-10.2 Laboratory test finding 02/20/[address] [address] [phone] Magnesium Level 1.9 mg/dL Normal 1.8-2.4 NT-Pro BNP 283 pg/mL High <125 C Reactive Protein Quantitativ 0.34 mg/dL High 0.00-0.30 Prothrombin Time/Inr 02/20/[address] [address] [phone] Prothrombin Time 13.0 seconds Normal 12.7-14.5 Inr 0.94 Normal 4 Laboratory test finding 02/16/[address] [address] [phone] Blood Urea Nitrogen 21 mg/dL High 7-18 Creatinine With GFR 02/16/[address] [address] [phone] Creatinine For GFR 0.86 mg/dL Normal 0.70-1.30 Glomerular Filtration Rate > 60.0 Normal >42 5 Prothrombin Time/Inr 01/18/[address] [address] [phone] Prothrombin Time 21.8 seconds High 12.7-14.5 Inr 1.85 Normal 6 Laboratory test finding 01/18/[address] [address] [phone] [place] Reflex Ebv Comprehensive NEGATIVE Normal Ne gative 7 Ebv AB Comprehensive 01/18/[address] [address] [phone] Ebv Viral Capsid Ag IgM <36.0 U/mL Normal 0.0-35.9 8 Ebv Viral Capsid Ag IgG 363.0 U/mL High 0.0-17.9 9 Ebv AB To Nuclear Antigen >600.0 U/mL High 0.0-17.9 10 Ebv Interpretation (SEE NOTE) Normal . 11 Laboratory test finding 01/18/[address] [address] [phone] Ligia Strep A NEGATIVE Normal Negative CBC W/Automated Diff 12/29/[address] [address] [phone] CBC W/Automated Diff (SEE NOTE) 12 WBC 5.0 10^3/uL 4.2 - 11.0 RBC [...] Lymph 13.9 % Low 25.0 - 40.0 [place] 10.1 % High 3.0 - 8.0 Eos 1.8 % 0.0 - 7.0 Baso 0.4 % 0.0 - 2.0 %Ig 0.6 % High 0.0 - 0.0 %NRBC 0.0 % 0.0 - 0.0 #Neut 3.63 10^3/uL 2.00 - 6.90 #Lymph 0.69 10^3/uL 0.60 - 3.40 #[place] 0.50 10^3/uL 0.00 - 0.90 #Eos 0.09 10^3/uL 0.00 - 0.70 #Baso 0.02 10^3/uL 0.00 - 0.20 #Ig 0.03 10^3/uL 0.00 - 0.10 #NRBC 0.00 10^3/uL 0.00 - 0.00 Manual Diff NOT INDICATED RBC Morph NOT INDICATED Urinalysis 12/29/[address] [address] [phone] Urinalysis (SEE NOTE) 13 Source R Color yellow Normal: Yellow Clarity clear Normal: Clear Spec [place] 1.015 1.001 - 1.030 pH 5 5 [...] Normal: None Seen Laboratory test finding 12/29/2020 [facility] [address] [place] [address] [phone] Hgba1c 10.3 % High 4.4 - 6.1 Magnesium Serum 1.7 mg/dL 1.7 - 2.2 Cve Panel 12/29/[address] [address] [phone] Cve Panel (SEE NOTE) 14 Cholesterol 154 mg/dL 131 - 200 Triglycerides 115 mg/dL 35 - 160 HDL 48 mg/dL 29 - 86 LDL 91 mg/dL 65 - 175 Risk Factor 3.2 Low 3.4 - 4.9 LDL/HDL 1.90 1.00 - 3.55 15 Comprehensive Metabolic Panel 12/29/2020 [facility] [address] [place] [address] [phone] Comprehensive Metabo (SEE NOTE) 16 Sodium 137 mEq/L 134 - 153 Potassium [...] >60 mL/min Afr Amer GFR >60 mL/min 17 Laboratory test finding 12/29/2020 [facility] [address] [place] [address] [phone] Iron 38 g/dL Low 42 - 135 TSH Highly Sensitive 1.39 uIU/mL 0.47 - 5.01 Protime 12/29/[address] [address] [phone] Protime 21.2 seconds High 11.0 - 15.5 Inr 1.81 High 0.93 - 1.23 18 1 Units are mL/min/1.73 m2 Chronic Kidney Disease Staging per NKF: Stage I & II GFR >=60 Normal to Mildly Decreased Stage III GFR 30-59 Moderately Decreased Stage IV GFR 15-29 Severely Decreased Stage V GFR <15 Very Little GFR Left ESRD GFR <15 on ENTRY TABLE OPERATOR 2 THERAPUTIC HUMAN INR VALUES INDICATIONS NORMAL [...] Little GFR Left ESRD GFR <15 on ENTRY TABLE OPERATOR 4 THERAPUTIC HUMAN INR VALUES INDICATIONS NORMAL [...] Little GFR Left ESRD GFR <15 on ENTRY TABLE OPERATOR 6 THERAPUTIC HUMAN INR VALUES INDICATIONS NORMAL RANGES PROPHYLAXIS/TREATMENT OF: VENOUS THROMBOSIS 2.0-3.0 PULMONARY EMBOLISM 2.0-3.0 PREVENTION OF SYSTEMIC EMBOLISM FROM: TISSUE HEART VALVES 2.0-3.0 ACUTE MYOCARDIAL INFARCTION 2.0-3.0 VALVULAR HEART DISEASE 2.0-3.0 ATRIAL FIBRILLATION 2.0-3.0 MECHANICAL VALVES(HIGH RISK) 2.5-3.5 RECURRENT MYOCARDIAL INFARCTION 2.5-3.5 7 Reflex test for EBV COMPREHE NSIVE will be sent to [facility], [address] [place] [address]. [place] [address]. 8 Negative <36.0 Equivocal 36.0 - 43.9 Positive >43.9 9 Negative <18.0 Equivocal 18.0 - 21.9 Positive >21.9 10 Negative <18.0 Equivocal 18.0 - 21.9 Positive >21.9 11 . EBV Interpretation Chart Sanchez: Antibody Present [...] to EBNA. Performed at: RN - [facility] [address] [id number] Oral And Maxillofacial Surgery: Felecia Lopez MD, Phone: [phone] 12 COMPLETE BLOOD COUNT 13 URINALYSIS 14 LIPID PANEL 15 CVE RISK CHOL/HDL LDL/HDL MEN: 1/2 AVERAGE 3.43 1.00 AVERAGE 4.97 3.55 2X AVERAGE 9.55 6.25 3X AVERAGE 23.99 7.99 WOMEN: 1/2 AVERAGE 3.27 1.47 AVERAGE 4.44 3.22 2X AVERAGE 7.05 5.03 3X AVERAGE 11.04 6.14 16 COMPREHENSIVE METABOLIC PANE L 17 Male GFR Interprentation 20-49 yrs >60 mL/min Normal 50-59 yrs >56 mL/min Normal 60-69 yrs >49 mL/min Normal 70-79yrs >42 mL/min Normal 80 and above >35 mL/min Normal Female GFR Interpretation 20-39 yrs >60 mL/min Normal 40-49 yrs >58 mL/min Normal 50-59 yrs >51 mL/min Normal 60-69 yrs >45 mL/min Normal 70-79 yrs >39 mL/min Normal 80 and above >32 mL/min Normal 18 \\BLDo\\INR INTERPRETATION\\BLD x\\ Therapeutic range for Coumadin and related oral anticoagulants. -International Normalized Ratio (INR): 2 .0 - 3.0 for Venous Thrombosis, Pulmonary Embolus, Tissue heart valves, Acute OR, Atrial Fibrillation, Valvular heart disease and recurrent Systemic Embolism. -International Normalized Ratio (INR): 2 .5 - 3.5 for Mechanical Prosthetic valve. Procedures Date Code Description Status 02/09/2021 18766 Myocardial Perfusion,WM & Ef Com pleted 02/08/2021 27561 Office/Outpatient Established Mo d MDM 30-39 Min Completed 02/08/2021 44258 Echocardiogram, Complete Complet ed 02/08/2021 00402 EKG Completed 12/29/2020 05614 Office/Outpatient Established Mo d MDM 30-39 Min Completed 11/01/2020 93575 Periodic Preventive Med Age 65+ Completed 09/09/2020 42544 Office/Outpatient Established Mo d MDM 30-39 Min Completed Encounters Type Date Location Provider Dx Diagnosis Office Visit 02/08/2021 9:30a [facility] John Islas M.D.,P. C. I11.9 Hypertensive heart disease without heart failure E10.9 Type 1 diabetes mellitus wit hout complications E78.5 Hyperlipidemia, unspecified Z01.810 Encounter for preprocedural cardiovascular examination I34.0 Nonrheumatic mitral (valve) insufficiency I49.49 Other premature depolarizati on Office Visit 12/29/2020 10:30a [facility] John Islas M.D.,P. C. I11.9 Hypertensive heart disease without heart failure E10.9 Type 1 diabetes mellitus wit hout complications Office Visit 11/01/2020 10:30a [facility] AUDREY Ang Z02.4 Encounter for examination fo r driving license Office Visit 09/09/2020 10:30a [facility] John Islas M.D.,P. C. I11.9 Hypertensive heart disease without heart failure R09.02 Hypoxemia J44.9 Chronic obstructive pulmonar y disease, unspecified E11.9 Type 2 diabetes mellitus wit hout complications Assessments Date Code Description Provider 02/09/2021 Z01.810 Encounter for preprocedural card iovascular examination John Islas M.D.,[facility]. 02/09/2021 E10.9 Type 1 diabetes mellitus without complications John Islas M.D.,P.[facility]. 02/08/2021 I11.9 Hypertensive heart disease witho pa heart failure John Islas M.D.,P.C. 02/08/2021 E10.9 Type 1 diabetes mellitus without complications John Islas M.D.,[facility]. 02/08/2021 E78.5 Hyperlipidemia, unspecified Kana Islas M.D.,P.C. 02/08/2021 Z01.810 Encounter for preprocedural card iovascular examination John Islas M.D.,[facility]. 02/08/2021 I34.0 Nonrheumatic mitral (valve) insu fficiency John Islas M.D.,[facility]. 02/08/2021 I49.49 Other premature depolarization Alberta Islas M.D.,P.C. 12/29/2020 I11.9 Hypertensive heart disease witho pa heart failure John Islas M.D.,[facility]. 12/29/2020 E10.9 Type 1 diabetes mellitus without complications John Islas M.D.,[facility]. 11/01/2020 Z02.4 Encounter for examination for dr daylin Glover, AUDREY 09/09/2020 I11.9 Hypertensive heart disease witho pa heart failure John Islas M.D.,[facility]. 09/09/2020 R09.02 Hypoxemia Gena Haas,P.C. 09/09/2020 J44.9 Chronic obstructive pulmonary di sease, unspecified John Islas M.D.,[facility]. 09/09/2020 E11.9 Type 2 diabetes mellitus without complications John Islas M.D[facility]. Referrals Refer to Reason for Referral Status Appt Date John Islas M.D. Created [address] [place] [address] [phone]
--- OUTSIDE RECORDS SUMMARY | 2021-03-01 12:04 | CCD | Continuity of Care Document ---
Author Author Shadi Hill Naheed Organization Unknown Address Unknown Phone [phone] Care Team Providers Care Juvenile Correctional Officer Name Role Phone Andry Collins AUTM [phone] JOHN ISLAS M.D. [facility].C. AUT [phone] Social History Type Date Description Comments Sex Unknown Allergies and adverse reactions Description No Known Drug Allergies Medications Active Medications SIG Qnty Indications Ordering Provide r Date Acetaminophen-Codeine #3 300-30mg Tablets take 1 tablet by oral route three times a day as needed prn for mouth pain DIRECTOR OF SECURITIES AND REAL ESTATE [id number] 21tabs John Islas M.D[facility] 02/16/20 21 Tramadol HCL 50mg Tablets 1 by mouth three times a day as needed prn social insurance analyst [id number] 30tabs John xiong M.D.,[facility]. 02/08/2021 Lotrisone 1-0.05% [...] Islas M.D.,[facility]. 020 Warfarin Sodium 7.5mg Tablets [facility] Lidocaine Viscous HCL 2% Solution Unknown Hydrocodone Bitartrate/Acetaminophen 7.5-325mg Tablets Unknown Nystatin 182615Mctt/ML Suspension Unknown Chlorhexidine Gluconate 0.12% Solution Unknown [...] H/L Range Note Complete Blood Count 02/22/[address] [id number] [phone] White Blood Count 8.3 10 Normal 4.0-10.0 [...] 36.0-66.0 Lymph % 4.6 % Low 24.0-44.0 [place] % 3.2 % Normal 2.0-8.0 Eos % 0.0 % Normal 0.0-3.0 Baso % 0.0 % Normal 0.0-1.0 Immature Granulocyte % 0.5 % Normal 0-3.0 Nucleated Red Blood Cell % 0.0 % Normal 0-0 Neutrophils # 7.6 10 Normal 1.5-8.5 Lymph # 0.4 10 Low 1.5-5.0 [place] # 0.3 10 Normal 0.0-0.8 Eos # 0.0 10 Normal 0.0-0.5 Baso # 0.0 10 Normal 0.0-0.2 Basic Metabolic Profile 02/22/[address] [address] [phone] Glucose, Fasting 246 mg/dL High 70-100 Blood [...] mg/dL Low 8.8-10.2 Laboratory test finding 02/22/[address] [address] [phone] C Reactive Protein Quantitativ 2.59 mg/dL High 0 .00-0.30 Prothrombin Time/Inr 02/22/[address] [address] [phone] Prothrombin Time 13.9 seconds Normal 12.7-14.5 Inr 1.03 Normal 2 Laboratory test finding 02/22/[address] [address] [phone] Bedside Glucose 337 mg/dL High 83-110 Laboratory test finding 02/21/2021 [facility] [address] [place] [address] [phone] Bedside Glucose 290 mg/dL High 83-110 Laboratory test finding 02/21/2021 [facility] [address] [place], [place] [address]58 [phone] Bedside Glucose 288 mg/dL High 83-110 Laboratory test finding 02/21/2021 [facility] [address] [place], [place] [address]81 [phone] Bedside Glucose 293 mg/dL High 83-110 Laboratory test finding 02/21/2021 [facility] [place] [address] [phone] Bedside Glucose 332 mg/dL High 83-110 Complete Blood Count 02/21/[address] [address] [phone] White Blood Count 10.4 10 High 4.0-10.0 [...] 36.0-66.0 Lymph % 3.6 % Low 24.0-44.0 [place] % 3.1 % Normal 2.0-8.0 Eos % 0.0 % Normal 0.0-3.0 Baso % 0.1 % Normal 0.0-1.0 Immature Granulocyte % 0.6 % Normal 0-3.0 Nucleated Red Blood Cell % 0.0 % Normal 0-0 Neutrophils # 9.7 10 High 1.5-8.5 Lymph # 0.4 10 Low 1.5-5.0 [place] # 0.3 10 Normal 0.0-0.8 Eos # 0.0 10 Normal 0.0-0.5 Baso # 0.0 10 Normal 0.0-0.2 Basic Metabolic Profile 02/21/2021 [place] 6279037 [phone] Glucose, Fasting 322 mg/dL High 70-100 Blood [...] mg/dL Low 8.8-10.2 Laboratory test finding 02/21/[address] [address] [phone] C Reactive Protein Quantitativ 2.60 mg/dL High 0 .00-0.30 Prothrombin Time/Inr 02/21/[address] [address] [phone] Prothrombin Time 14.0 seconds Normal 12.7-14.5 Inr 1.04 Normal 4 Basic Metabolic Profile 02/20/2021 [place] 6279078 [phone] Glucose, Fasting 234 mg/dL High 70-100 Blood [...] 8.2 mg/dL Low 8.8-10.2 Prothrombin Time/Inr 02/20/[address] [address] [phone] Prothrombin Time 13.0 seconds Normal 12.7-14.5 Inr 0.94 Normal 6 Laboratory test finding 02/20/[address] [address] [phone] Magnesium Level 1.9 mg/dL Normal 1.8-2.4 NT-Pro BNP 283 pg/mL High <125 C Reactive Protein Quantitativ 0.34 mg/dL High 0.00-0.30 Complete Blood Count 02/20/[address] [address] [phone] White Blood Count 7.9 10 Normal 4.0-10.0 [...] % Normal 0-0 Laboratory test finding 02/20/[address] 1568607 [phone] Bedside Glucose 382 mg/dL High 83-110 Laboratory test finding 02/20/[address] [address] [phone] Bedside Glucose 345 mg/dL High 83-110 Laboratory test finding 02/16/[address] [address] [phone] Blood Urea Nitrogen 21 mg/dL High 7-18 Creatinine With GFR 02/16/[address] [address] [phone] Creatinine For GFR 0.86 mg/dL Normal 0.70-1.30 Glomerular Filtration Rate > 60.0 Normal >42 7 Prothrombin Time/Inr 01/18/[address] [address] [phone] Prothrombin Time 21.8 seconds High 12.7-14.5 Inr 1.85 Normal 8 Laboratory test finding 01/18/2021 [facility] [address] [place] [address] [phone] [place] Reflex Ebv Comprehensive NEGATIVE Normal Ne gative 9 Ebv AB Comprehensive 01/18/2021 [place] [address]4500 [place] [address] [phone] Ebv Viral Capsid Ag IgM <36.0 U/mL Normal 0.0-35.9 10 Ebv Viral Capsid Ag IgG 363.0 U/mL High 0.0-17.9 11 Ebv AB To Nuclear Antigen >600.0 U/mL High 0.0-17.9 12 Ebv Interpretation (SEE NOTE) Normal . 13 Laboratory test finding 01/18/2021 [facility] [address] [place] [address] [phone] Ligia Strep A NEGATIVE Normal Negative CBC W/Automated Diff 12/29/[address] [facility] [address] [place] [address] [phone] CBC W/Automated Diff (SEE NOTE) 14 WBC [...] Lymph 13.9 % Low 25.0 - 40.0 [place] 10.1 % High 3.0 - 8.0 Eos 1.8 % 0.0 - 7.0 Baso 0.4 % 0.0 - 2.0 %Ig 0.6 % High 0.0 - 0.0 %NRBC 0.0 % 0.0 - 0.0 #Neut 3.63 10^3/uL 2.00 - 6.90 #Lymph 0.69 10^3/uL 0.60 - 3.40 #[place] 0.50 10^3/uL 0.00 - 0.90 #Eos 0.09 10^3/uL 0.00 - 0.70 #Baso 0.02 10^3/uL 0.00 - 0.20 #Ig 0.03 10^3/uL 0.00 - 0.10 #NRBC 0.00 10^3/uL 0.00 - 0.00 Manual Diff NOT INDICATED RBC Morph NOT INDICATED Urinalysis 12/29/[address] [address] [phone] Urinalysis (SEE NOTE) 15 Source R Color yellow Normal: Yellow Clarity clear Normal: Clear Spec [place] 1.015 1.001 - 1.030 pH 5 5 [...] Normal: None Seen Laboratory test finding 12/29/2020 [facility] [address] [place] [address] [phone] Hgba1c 10.3 % High 4.4 - 6.1 Magnesium Serum 1.7 mg/dL 1.7 - 2.2 Cve Panel 12/29/[address] [address] [phone] Cve Panel (SEE NOTE) 16 Cholesterol 154 mg/dL 131 - 200 Triglycerides 115 mg/dL 35 - 160 HDL 48 mg/dL 29 - 86 LDL 91 mg/dL 65 - 175 Risk Factor 3.2 Low 3.4 - 4.9 LDL/HDL 1.90 1.00 - 3.55 17 Comprehensive Metabolic Panel 12/29/2020 [facility] [address] [place] [address] [phone] Comprehensive Metabo (SEE NOTE) 18 Sodium 137 [...] >60 mL/min 19 Laboratory test finding 12/29/[address] 1959332 [phone] Iron 38 g/dL Low 42 - 135 TSH Highly Sensitive 1.39 uIU/mL 0.47 - 5.01 Protime 12/29/[address] [address] [phone] Protime 21.2 seconds High 11.0 - 15.5 Inr 1.81 High 0.93 - 1.23 20 1 Units are mL/min/1.73 m2 Chronic Kidney Disease Staging per NKF: Stage I & II GFR >=60 Normal to Mildly Decreased Stage III GFR 30-59 Moderately Decreased Stage IV GFR 15-29 Severely Decreased Stage V GFR <15 Very Little GFR Left ESRD GFR <15 on SIEVE GRADER TENDER 2 THERAPUTIC HUMAN INR VALUES INDICATIONS NORMAL [...] Little GFR Left ESRD GFR <15 on SIEVE GRADER TENDER 4 THERAPUTIC HUMAN INR VALUES INDICATIONS NORMAL [...] Little GFR Left ESRD GFR <15 on SIEVE GRADER TENDER 6 THERAPUTIC HUMAN INR VALUES INDICATIONS NORMAL [...] Little GFR Left ESRD GFR <15 on SIEVE GRADER TENDER 8 THERAPUTIC HUMAN INR VALUES INDICATIONS NORMAL RANGES PROPHYLAXIS/TREATMENT OF: VENOUS THROMBOSIS 2.0-3.0 PULMONARY EMBOLISM 2.0-3.0 PREVENTION OF SYSTEMIC EMBOLISM FROM: TISSUE HEART VALVES 2.0-3.0 ACUTE MYOCARDIAL INFARCTION 2.0-3.0 VALVULAR HEART DISEASE 2.0-3.0 ATRIAL FIBRILLATION 2.0-3.0 MECHANICAL VALVES(HIGH RISK) 2.5-3.5 RECURRENT MYOCARDIAL INFARCTION 2.5-3.5 9 Reflex test for EBV COMPREHE NSIVE will be sent to [facility], [address] [place], [place]. [address]. 10 Negative <36.0 Equivocal 36.0 - 43.9 [...] to EBNA. Performed at: RN - [facility] [address] [id number] Lasting Room Machine Operator: Felecia Lopez MD, Phone: [phone] COMPLETE BLOOD COUNT 15 URINALYSIS 16 [...] Thrombosis, Pulmonary Embolus, Tissue heart valves, Acute [place], Atrial Fibrillation, Valvular heart disease and recurrent Systemic Embolism. -International Normalized Ratio (INR): 2 .5 - 3.5 for Mechanical Prosthetic valve. Procedures Date Code Description Status 02/09/2021 49876 Myocardial Perfusion,WM & Ef Com pleted 02/08/2021 77428 Office/Outpatient Established Mo d MDM 30-39 Min Completed 02/08/2021 63986 Echocardiogram, Complete Complet ed 02/08/2021 75074 EKG Completed 12/29/2020 94372 Office/Outpatient Established Mo d MDM 30-39 Min Completed 11/01/2020 33670 Periodic Preventive Med Age 65+ Completed 09/09/2020 10923 Office/Outpatient Established Mo d MDM 30-39 Min Completed Encounters Type Date Location Provider Dx Diagnosis Office Visit 02/08/2021 9:30a [facility] John Islas M.D.,P. C. I11.9 Hypertensive heart disease without heart failure E10.9 Type 1 diabetes mellitus wit hout complications E78.5 Hyperlipidemia, unspecified Z01.810 Encounter for preprocedural cardiovascular examination I34.0 Nonrheumatic mitral (valve) insufficiency I49.49 Other premature depolarizati on Office Visit 12/29/2020 10:30a [facility] John Islas M.D.,P. C. I11.9 Hypertensive heart disease without heart failure E10.9 Type 1 diabetes mellitus wit hout complications Office Visit 11/01/2020 10:30a [facility] AUDREY Ang Z02.4 Encounter for examination fo r driving license Office Visit 09/09/2020 10:30a [facility] John Islas M.D.,P. C. I11.9 Hypertensive [...] 02/08/2021 I34.0 Nonrheumatic mitral (valve) insu fficiency oJhn Islas M.D.,P.C. 02/08/2021 I49.49 Other premature depolarization Alberta Islas M.D.,P.C. 12/29/2020 I11.9 Hypertensive heart disease witho ga heart failure John Islas M.D[facility]. 12/29/2020 E10.9 Type 1 diabetes mellitus without complications John Islas M.D[facility]. 11/01/2020 Z02.4 Encounter for examination for dr daylin Glover, AUDREY 09/09/2020 I11.9 Hypertensive heart disease witho ga heart failure John Islas M.D[facility] 09/09/2020 R09.02 Hypoxemia Gena Haas,P.[facility]. 09/09/2020 J44.9 Chronic obstructive pulmonary di sease, unspecified John Islas M.D[facility]. 09/09/2020 E11.9 Type 2 diabetes mellitus without complications John Islas M.D[facility] Referrals Refer to Reason for Referral Status Appt Date John Islas M.D. Created [address] [place] [address] [phone]
--- OUTSIDE RECORDS SUMMARY | 2021-03-01 12:04 | CCD | Continuity of Care Document ---
Author Organization Unknown Address Unknown Phone Unavailable Care Team Providers Care Help Aid Name Role Phone Andry Collins AUT [phone] 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 02/08/2021 Lotrisone 1-0.05% [...] Islas M.D.,[facility]. 020 Warfarin Sodium 7.5mg Tablets [facility] Lidocaine Viscous HCL 2% Solution Unknown Hydrocodone Bitartrate/Acetaminophen 7.5-325mg Tablets Unknown Nystatin [id number] Suspension Unknown Chlorhexidine Gluconate 0.12% Solution Unknown [...] H/L Range Note Complete Blood Count 02/22/2021 [place] [id number] [phone] White Blood Count 8.3 10 Normal 4.0-10.0 [...] 36.0-66.0 Lymph % 4.6 % Low 24.0-44.0 Bailey % 3.2 % Normal 2.0-8.0 Eos % 0.0 % Normal 0.0-3.0 Baso % 0.0 % Normal 0.0-1.0 Immature Granulocyte % 0.5 % Normal 0-3.0 Nucleated Red Blood Cell % 0.0 % Normal 0-0 Neutrophils # 7.6 10 Normal 1.5-8.5 Lymph # 0.4 10 Low 1.5-5.0 Bailey # 0.3 10 Normal 0.0-0.8 Eos # 0.0 10 Normal 0.0-0.5 Baso # 0.0 10 Normal 0.0-0.2 Basic Metabolic Profile 02/22/[address] [id number] [phone] Glucose, Fasting 246 mg/dL High 70-100 Blood [...] mg/dL Low 8.8-10.2 Laboratory test finding 02/22/[address] [id number] [phone] C Reactive Protein Quantitativ 2.59 mg/dL High 0 .00-0.30 Prothrombin Time/Inr 02/22/[address] [id number] [phone] Prothrombin Time 13.9 seconds Normal 12.7-14.5 Inr 1.03 Normal 2 Laboratory test finding 02/22/[address] 3232191 [phone] Bedside Glucose 337 mg/dL High 83-110 Laboratory test finding 02/21/[address], [place] 5966624 [phone] Bedside Glucose 290 mg/dL High 83-110 Laboratory test finding 02/21/2021 [facility] [address], [place] 3367752 [phone] Bedside Glucose 288 mg/dL High 83-110 Laboratory test finding 02/21/2021 [facility] [address], [place] 6901717 [phone] Bedside Glucose 293 mg/dL High 83-110 Laboratory test finding 02/21/2021 [place] [address] [place], [place] 6597457 [phone] Bedside Glucose 332 mg/dL High 83-110 Complete Blood Count 02/21/[address] [address] [phone] White Blood Count 10.4 10 High 4.0-10.0 [...] 36.0-66.0 Lymph % 3.6 % Low 24.0-44.0 Bailey % 3.1 % Normal 2.0-8.0 Eos % 0.0 % Normal 0.0-3.0 Baso % 0.1 % Normal 0.0-1.0 Immature Granulocyte % 0.6 % Normal 0-3.0 Nucleated Red Blood Cell % 0.0 % Normal 0-0 Neutrophils # 9.7 10 High 1.5-8.5 Lymph # 0.4 10 Low 1.5-5.0 Bailey # 0.3 10 Normal 0.0-0.8 Eos # 0.0 10 Normal 0.0-0.5 Baso # 0.0 10 Normal 0.0-0.2 Basic Metabolic Profile 02/21/[address] [address] [phone] Glucose, Fasting 322 mg/dL High 70-100 Blood [...] mg/dL Low 8.8-10.2 Laboratory test finding 02/21/[address] [address] [phone] C Reactive Protein Quantitativ 2.60 mg/dL High 0 .00-0.30 Prothrombin Time/Inr 02/21/[address] [address] [phone] Prothrombin Time 14.0 seconds Normal 12.7-14.5 Inr 1.04 Normal 4 Basic Metabolic Profile 02/20/[address] [address] [phone] Glucose, Fasting 234 mg/dL High 70-100 Blood [...] 8.2 mg/dL Low 8.8-10.2 Prothrombin Time/Inr 02/20/[address] [address] [phone] Prothrombin Time 13.0 seconds Normal 12.7-14.5 Inr 0.94 Normal 6 Laboratory test finding 02/20/2021 [address] [place] [address] [phone] Magnesium Level 1.9 mg/dL Normal 1.8-2.4 NT-Pro BNP 283 pg/mL High <125 C Reactive Protein Quantitativ 0.34 mg/dL High 0.00-0.30 Complete Blood Count 02/20/[address] [address] [phone] White Blood Count 7.9 10 Normal 4.0-10.0 [...] % Normal 0-0 Laboratory test finding 02/20/[address] [address] [phone] Bedside Glucose 382 mg/dL High 83-110 Laboratory test finding 02/20/[address] [address] [phone] Bedside Glucose 345 mg/dL High 83-110 Laboratory test finding 02/16/[address] [address] [phone] Blood Urea Nitrogen 21 mg/dL High 7-18 Creatinine With GFR 02/16/[address] [address] [phone] Creatinine For GFR 0.86 mg/dL Normal 0.70-1.30 Glomerular Filtration Rate > 60.0 Normal >42 7 Prothrombin Time/Inr 01/18/[address] [address] [phone] Prothrombin Time 21.8 seconds High 12.7-14.5 Inr 1.85 Normal 8 Laboratory test finding 01/18/2021 [facility] [address] [place] [address] [phone] Bailey Reflex Ebv Comprehensive NEGATIVE Normal Ne gative 9 Ebv AB Comprehensive 01/18/2021 [facility] [address], [place] 9463751 [phone] Ebv Viral Capsid Ag IgM <36.0 U/mL Normal 0.0-35.9 10 Ebv Viral Capsid Ag IgG 363.0 U/mL High 0.0-17.9 11 Ebv AB To Nuclear Antigen >600.0 U/mL High 0.0-17.9 12 Ebv Interpretation (SEE NOTE) Normal . 13 Laboratory test finding [facility] [address] [place] [address] [phone] Ligia Strep A NEGATIVE Normal Negative CBC W/Automated Diff 12/29/[address] 9761593 [phone] CBC W/Automated Diff (SEE NOTE) 14 WBC [...] Lymph 13.9 % Low 25.0 - 40.0 Bailey 10.1 % High 3.0 - 8.0 Eos 1.8 % 0.0 - 7.0 Baso 0.4 % 0.0 - 2.0 %Ig 0.6 % High 0.0 - 0.0 %NRBC 0.0 % 0.0 - 0.0 #Neut 3.63 10^3/uL 2.00 - 6.90 #Lymph 0.69 10^3/uL 0.60 - 3.40 #Bailey 0.50 10^3/uL 0.00 - 0.90 #Eos 0.09 10^3/uL 0.00 - 0.70 #Baso 0.02 10^3/uL 0.00 - 0.20 #Ig 0.03 10^3/uL 0.00 - 0.10 #NRBC 0.00 10^3/uL 0.00 - 0.00 Manual Diff NOT INDICATED RBC Morph NOT INDICATED Urinalysis 12/29/[address] [address] [phone] Urinalysis (SEE NOTE) 15 Source R Color yellow Normal: Yellow Clarity clear Normal: Clear Spec [place] 1.015 1.001 - 1.030 pH 5 5 [...] Normal: None Seen Laboratory test finding [facility] [address] [place] [address] [phone] Hgba1c 10.3 % High 4.4 - 6.1 Magnesium Serum 1.7 mg/dL 1.7 - 2.2 Cve Panel 12/29/[address] [address] [phone] Cve Panel (SEE NOTE) 16 Cholesterol 154 mg/dL 131 - 200 Triglycerides 115 mg/dL 35 - 160 HDL 48 mg/dL 29 - 86 LDL 91 mg/dL 65 - 175 Risk Factor 3.2 Low 3.4 - 4.9 LDL/HDL 1.90 1.00 - 3.55 17 Comprehensive Metabolic Panel 12/29/2020 [facility] [address] [place] [address] [phone] Comprehensive Metabo (SEE NOTE) 18 Sodium 137 [...] >60 mL/min 19 Laboratory test finding 12/29/[address] [address] [phone] Iron 38 g/dL Low 42 - 135 TSH Highly Sensitive 1.39 uIU/mL 0.47 - 5.01 Protime 12/29/[address] [address] [phone] Protime 21.2 seconds High 11.0 - 15.5 Inr 1.81 High 0.93 - 1.23 20 1 Units are mL/min/1.73 m2 Chronic Kidney Disease Staging per NKF: Stage I & II GFR >=60 Normal to Mildly Decreased Stage III GFR 30-59 Moderately Decreased Stage IV GFR 15-29 Severely Decreased Stage V GFR <15 Very Little GFR Left ESRD GFR <15 on REGIONAL FACILITIES SPECIALIST 2 THERAPUTIC HUMAN INR VALUES INDICATIONS NORMAL [...] Little GFR Left ESRD GFR <15 on REGIONAL FACILITIES SPECIALIST 4 THERAPUTIC HUMAN INR VALUES INDICATIONS NORMAL [...] Little GFR Left ESRD GFR <15 on REGIONAL FACILITIES SPECIALIST 6 THERAPUTIC HUMAN INR VALUES INDICATIONS NORMAL [...] Little GFR Left ESRD GFR <15 on REGIONAL FACILITIES SPECIALIST 8 THERAPUTIC HUMAN INR VALUES INDICATIONS NORMAL RANGES PROPHYLAXIS/TREATMENT OF: VENOUS THROMBOSIS 2.0-3.0 PULMONARY EMBOLISM 2.0-3.0 PREVENTION OF SYSTEMIC EMBOLISM FROM: TISSUE HEART VALVES 2.0-3.0 ACUTE MYOCARDIAL INFARCTION 2.0-3.0 VALVULAR HEART DISEASE 2.0-3.0 ATRIAL FIBRILLATION 2.0-3.0 MECHANICAL VALVES(HIGH RISK) 2.5-3.5 RECURRENT MYOCARDIAL INFARCTION 2.5-3.5 9 Reflex test for EBV COMPREHE NSIVE will be sent to [facility], [address] [place] [place] [address]. 10 Negative <36.0 Equivocal 36.0 - 43.9 [...] to EBNA. Performed at: RN - [facility] [address] [id number] Quality Assurance Project Manager: Felecia Lopez MD, Phone: [phone] 14 COMPLETE BLOOD COUNT 15 URINALYSIS 16 [...] Thrombosis, Pulmonary Embolus, Tissue heart valves, Acute ND, Atrial Fibrillation, Valvular heart disease and recurrent Systemic Embolism. -International Normalized Ratio (INR): 2 .5 - 3.5 for Mechanical Prosthetic valve. Procedures Date Code Description Status 02/09/2021 04052 Myocardial Perfusion,WM & Ef Com pleted 02/08/2021 42899 Office/Outpatient Established Mo d MDM 30-39 Min Completed 02/08/2021 27288 Echocardiogram, Complete Complet ed 02/08/2021 82052 EKG Completed 12/29/2020 97788 Office/Outpatient Established Mo d MDM 30-39 Min Completed 11/01/2020 95226 Periodic Preventive Med Age 65+ Completed 09/09/2020 79512 Office/Outpatient Established Mo d MDM 30-39 Min Completed Encounters Type Date Location Provider Dx Diagnosis Office Visit 02/08/2021 9:30a [facility] John Islas M.D.,[facility]. C. I11.9 Hypertensive heart disease without heart failure E10.9 Type 1 diabetes mellitus wit hout complications E78.5 Hyperlipidemia, unspecified Z01.810 Encounter for preprocedural cardiovascular examination I34.0 Nonrheumatic mitral (valve) insufficiency I49.49 Other premature depolarizati on Office Visit 12/29/2020 10:30a [facility] John Islas M.D.,P. C. I11.9 Hypertensive heart disease without heart failure E10.9 Type 1 diabetes mellitus wit hout complications Office Visit 11/01/2020 10:30a [facility] AUDREY Ang Z02.4 Encounter for examination fo r driving license Office Visit 09/09/2020 10:30a [facility] John Islas M.D.,P. C. I11.9 Hypertensive [...] M.D.,P.C. 12/29/2020 I11.9 Hypertensive heart disease witho ky heart failure John Islas M.D[facility]. 12/29/2020 E10.9 Type 1 diabetes mellitus without complications John Islas M.D[facility] 11/01/2020 Z02.4 Encounter for examination for dr daylin Glover, AUDREY 09/09/2020 I11.9 Hypertensive heart disease witho ky heart failure John Islas M.D[facility]. 09/09/2020 R09.02 Hypoxemia Gena Haas,P.C. 09/09/2020 J44.9 Chronic obstructive pulmonary di sease, unspecified John Islas M.D[facility]. 09/09/2020 E11.9 Type 2 diabetes mellitus without complications John Islas M.D[facility] Referrals Refer to Reason for Referral Status Appt Date John Islas M.D. Created [address] [place] [address] [phone]
--- OUTSIDE RECORDS SUMMARY | 2021-03-01 12:04 | CCD | Continuity of Care Document ---
Author Author Shadi Hill Naheed Organization Unknown Address Unknown Phone [phone] Care Team Providers Care Design Architect Name Role Phone Andry Collins AUTM [phone] JOHN ISLAS M.D. [facility].C. 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 02/08/2021 Lotrisone 1-0.05% [...] Islas M.D.,[facility]. 020 Warfarin Sodium 7.5mg Tablets [facility] Lidocaine Viscous HCL 2% Solution Unknown Hydrocodone Bitartrate/Acetaminophen 7.5-325mg Tablets Unknown Nystatin [id number] Suspension Unknown Chlorhexidine Gluconate 0.12% Solution Unknown [...] Result H/L Range Note Complete Blood Count 02/21/[address] [address] [phone] White Blood Count 10.4 10 High 4.0-10.0 [...] 36.0-66.0 Lymph % 3.6 % Low 24.0-44.0 Mills % 3.1 % Normal 2.0-8.0 Eos % 0.0 % Normal 0.0-3.0 Baso % 0.1 % Normal 0.0-1.0 Immature Granulocyte % 0.6 % Normal 0-3.0 Nucleated Red Blood Cell % 0.0 % Normal 0-0 Neutrophils # 9.7 10 High 1.5-8.5 Lymph # 0.4 10 Low 1.5-5.0 Mills # 0.3 10 Normal 0.0-0.8 Eos # 0.0 10 Normal 0.0-0.5 Baso # 0.0 10 Normal 0.0-0.2 Basic Metabolic Profile 02/21/[address] [address] [phone] Glucose, Fasting 322 mg/dL High 70-100 Blood [...] mg/dL Low 8.8-10.2 Laboratory test finding 02/21/[address] [address] [phone] C Reactive Protein Quantitativ 2.60 mg/dL High 0 .00-0.30 Prothrombin Time/Inr 02/21/[address] [address] [phone] Prothrombin Time 14.0 seconds Normal 12.7-14.5 Inr 1.04 Normal 2 Laboratory test finding 02/21/[address] [address] [phone] Bedside Glucose 332 mg/dL High 83-110 Laboratory test finding 02/20/[address] [address] [phone] Bedside Glucose 345 mg/dL High 83-110 Laboratory test finding 02/20/[address] [address] [phone] Bedside Glucose 382 mg/dL High 83-110 Complete Blood Count 02/20/[address] [address] [phone] White Blood Count 7.9 10 Normal 4.0-10.0 [...] % Normal 0-0 Basic Metabolic Profile 02/20/[address] [address] [phone] Glucose, Fasting 234 mg/dL High 70-100 Blood [...] mg/dL Low 8.8-10.2 Laboratory test finding 02/20/[address] [address] [phone] Magnesium Level 1.9 mg/dL Normal 1.8-2.4 NT-Pro BNP 283 pg/mL High <125 C Reactive Protein Quantitativ 0.34 mg/dL High 0.00-0.30 Prothrombin Time/Inr 02/20/[address] [address] [phone] Prothrombin Time 13.0 seconds Normal 12.7-14.5 Inr 0.94 Normal 4 Creatinine With GFR 02/16/[address] [address] [phone] Creatinine For GFR 0.86 mg/dL Normal 0.70-1.30 Glomerular Filtration Rate > 60.0 Normal >42 5 Laboratory test finding 02/16/[address] [address] [phone] Blood Urea Nitrogen 21 mg/dL High 7-18 Prothrombin Time/Inr 01/18/[address] [address] [phone] Prothrombin Time 21.8 seconds High 12.7-14.5 Inr 1.85 Normal 6 Laboratory test finding 01/18/[address] [address] [phone] Mills Reflex Ebv Comprehensive NEGATIVE Normal Ne gative 7 Ebv AB Comprehensive 01/18/[address] [address] [phone] Ebv Viral Capsid Ag IgM <36.0 U/mL Normal 0.0-35.9 8 Ebv Viral Capsid Ag IgG 363.0 U/mL High 0.0-17.9 9 Ebv AB To Nuclear Antigen >600.0 U/mL High 0.0-17.9 10 Ebv Interpretation (SEE NOTE) Normal . 11 Laboratory test finding 01/18/[address] [address] [phone] Ligia Strep A NEGATIVE Normal Negative CBC W/Automated Diff 12/29/[address] [address] [phone] CBC W/Automated Diff (SEE NOTE) 12 WBC [...] Lymph 13.9 % Low 25.0 - 40.0 Mills 10.1 % High 3.0 - 8.0 Eos 1.8 % 0.0 - 7.0 Baso 0.4 % 0.0 - 2.0 %Ig 0.6 % High 0.0 - 0.0 %NRBC 0.0 % 0.0 - 0.0 #Neut 3.63 10^3/uL 2.00 - 6.90 #Lymph 0.69 10^3/uL 0.60 - 3.40 #Mills 0.50 10^3/uL 0.00 - 0.90 #Eos 0.09 10^3/uL 0.00 - 0.70 #Baso 0.02 10^3/uL 0.00 - 0.20 #Ig 0.03 10^3/uL 0.00 - 0.10 #NRBC 0.00 10^3/uL 0.00 - 0.00 Manual Diff NOT INDICATED RBC Morph NOT INDICATED Urinalysis 12/29/[address] [address] [phone] Urinalysis (SEE NOTE) 13 Source R Color yellow Normal: Yellow Clarity clear Normal: Clear Spec [place] 1.015 1.001 - 1.030 pH 5 5 [...] Normal: None Seen Laboratory test finding 12/29/[address] [address] [phone] Hgba1c 10.3 % High 4.4 - 6.1 Magnesium Serum 1.7 mg/dL 1.7 - 2.2 Cve Panel 12/29/[address] [address] [phone] Cve Panel (SEE NOTE) 14 Cholesterol 154 mg/dL 131 - 200 Triglycerides 115 mg/dL 35 - 160 HDL 48 mg/dL 29 - 86 LDL 91 mg/dL 65 - 175 Risk Factor 3.2 Low 3.4 - 4.9 LDL/HDL 1.90 1.00 - 3.55 15 Comprehensive Metabolic Panel 12/29/2020 [facility] [address] [place] [address] [phone] Comprehensive Metabo (SEE NOTE) 16 Sodium 137 [...] >60 mL/min 17 Laboratory test finding 12/29/2020 [facility] l [address] [place] [address] [phone] Iron 38 g/dL Low 42 - 135 TSH Highly Sensitive 1.39 uIU/mL 0.47 - 5.01 Protime 12/29/[address] [address] [phone] Protime 21.2 seconds High 11.0 - 15.5 Inr 1.81 High 0.93 - 1.23 18 1 Units are mL/min/1.73 m2 Chronic Kidney Disease Staging per NKF: Stage I & II GFR >=60 Normal to Mildly Decreased Stage III GFR 30-59 Moderately Decreased Stage IV GFR 15-29 Severely Decreased Stage V GFR <15 Very Little GFR Left ESRD GFR <15 on 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 2 THERAPUTIC HUMAN INR VALUES INDICATIONS [...] Little GFR Left ESRD GFR <15 on BOOKKEEPING 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 4 THERAPUTIC HUMAN INR VALUES INDICATIONS [...] Little GFR Left ESRD GFR <15 on BOOKKEEPING 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 6 THERAPUTIC HUMAN INR VALUES INDICATIONS NORMAL RANGES PROPHYLAXIS/TREATMENT OF: VENOUS THROMBOSIS 2.0-3.0 PULMONARY EMBOLISM 2.0-3.0 PREVENTION OF SYSTEMIC EMBOLISM FROM: TISSUE HEART VALVES 2.0-3.0 ACUTE MYOCARDIAL INFARCTION 2.0-3.0 VALVULAR HEART DISEASE 2.0-3.0 ATRIAL FIBRILLATION 2.0-3.0 MECHANICAL VALVES(HIGH RISK) 2.5-3.5 RECURRENT MYOCARDIAL INFARCTION 2.5-3.5 7 Reflex test for EBV COMPREHE NSIVE will be sent to [facility], [address] [place] [address]. German Gutierrez. [address]. 8 Negative <36.0 Equivocal 36.0 - 43.9 [...] to EBNA. Performed at: RN - [facility] [address] [id number] Feather Boner: Felecia Lopez MD, Phone: [phone] 12 COMPLETE BLOOD COUNT 13 URINALYSIS 14 [...] Thrombosis, Pulmonary Embolus, Tissue heart valves, Acute PA, Atrial Fibrillation, Valvular heart disease and recurrent Systemic Embolism. -International Normalized Ratio (INR): 2 .5 - 3.5 for Mechanical Prosthetic valve. Procedures Date Code Description Status 02/09/2021 83868 Myocardial Perfusion,WM & Ef Com pleted 02/08/2021 41963 Office/Outpatient Established Mo d MDM 30-39 Min Completed 02/08/2021 73369 Echocardiogram, Complete Complet ed 02/08/2021 55053 EKG Completed 12/29/2020 44706 Office/Outpatient Established Mo d MDM 30-39 Min Completed 11/01/2020 56295 Periodic Preventive Med Age 65+ Completed 09/09/2020 62180 Office/Outpatient Established Mo d MDM 30-39 Min Completed Encounters Type Date Location Provider Dx Diagnosis Office Visit 02/08/2021 9:30a [facility] John Islas M.D.,P. C. I11.9 Hypertensive heart disease without heart failure E10.9 Type 1 diabetes mellitus wit hout complications E78.5 Hyperlipidemia, unspecified Z01.810 Encounter for preprocedural cardiovascular examination I34.0 Nonrheumatic mitral (valve) insufficiency I49.49 Other premature depolarizati on Office Visit 12/29/2020 10:30a [facility] John Islas M.D.,P. C. I11.9 Hypertensive heart disease without heart failure E10.9 Type 1 diabetes mellitus wit hout complications Office Visit 11/01/2020 10:30a [facility] AUDREY Ang Z02.4 Encounter for examination fo r driving license Office Visit 09/09/2020 10:30a [facility] John Islas M.D.,P. C. I11.9 Hypertensive heart disease without heart failure R09.02 Hypoxemia J44.9 Chronic obstructive pulmonar y disease, unspecified E11.9 Type 2 diabetes mellitus wit hout complications Assessments Date Code Description Provider 02/09/2021 Z01.810 Encounter for preprocedural card iovascular examination John Islas M.D.,P.C. 02/09/2021 E10.9 Type 1 diabetes mellitus without complications John Islas M.D.,P.C. 02/08/2021 I11.9 Hypertensive heart disease witho ny heart failure John Islas M.D.,P.C. 02/08/2021 E10.9 Type 1 diabetes mellitus without complications John Islas M.D.,P.C. 02/08/2021 E78.5 Hyperlipidemia, unspecified Kana Islas M.D.,P.C. 02/08/2021 Z01.810 Encounter for preprocedural card iovascular examination John Islas M.D.,P.C. 02/08/2021 I34.0 Nonrheumatic mitral (valve) insu fficiency John Islas M.D.,P.C. 02/08/2021 I49.49 Other premature depolarization Alberta Islas M.D.,P.C. 12/29/2020 I11.9 Hypertensive heart disease witho ny heart failure John Islas M.D.,P.C. 12/29/2020 E10.9 Type 1 diabetes mellitus without complications John Islas M.D.,P.C. 11/01/2020 Z02.4 Encounter for examination for dr daylin Glover, AUDREY 09/09/2020 I11.9 Hypertensive heart disease witho ny heart failure John Islas M.D.,[facility].C. 09/09/2020 R09.02 Hypoxemia Gena Haas,P.C. 09/09/2020 J44.9 Chronic obstructive pulmonary di sease, unspecified John Islas M.D.,P.C. 09/09/2020 E11.9 Type 2 diabetes mellitus without complications John Islas M.D.,P.C. Referrals Refer to Reason for Referral Status Appt Date John Islas M.D. Created [address] [place] [address] [phone]
--- OUTSIDE RECORDS SUMMARY | 2021-03-01 12:05 | CCD | Continuity of Care Document ---
Author Organization Unknown Address Unknown Phone Unavailable Care Team Providers Care Hand Paster Name Role Phone Andry Collins AUT [phone] 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 02/08/2021 Lotrisone 1-0.05% [...] Islas M.D[facility] 020 Warfarin Sodium 7.5mg Tablets [facility] Lidocaine Viscous HCL 2% Solution Unknown Hydrocodone Bitartrate/Acetaminophen 7.5-325mg Tablets Unknown Nystatin [id number] Suspension Unknown Chlorhexidine Gluconate 0.12% Solution Unknown [...] H/L Range Note Complete Blood Count 02/21/2021 [place] [id number] [phone] White Blood Count 10.4 10 High 4.0-10.0 [...] 36.0-66.0 Lymph % 3.6 % Low 24.0-44.0 [place] % 3.1 % Normal 2.0-8.0 Eos % 0.0 % Normal 0.0-3.0 Baso % 0.1 % Normal 0.0-1.0 Immature Granulocyte % 0.6 % Normal 0-3.0 Nucleated Red Blood Cell % 0.0 % Normal 0-0 Neutrophils # 9.7 10 High 1.5-8.5 Lymph # 0.4 10 Low 1.5-5.0 [place] # 0.3 10 Normal 0.0-0.8 Eos # 0.0 10 Normal 0.0-0.5 Baso # 0.0 10 Normal 0.0-0.2 Basic Metabolic Profile 02/21/[address] [phone] [phone] Glucose, Fasting 322 mg/dL High 70-100 Blood [...] mg/dL Low 8.8-10.2 Laboratory test finding 02/21/[address] [phone] [phone] C Reactive Protein Quantitativ 2.60 mg/dL High 0 .00-0.30 Prothrombin Time/Inr 02/21/[address] [phone] Prothrombin Time 14.0 seconds Normal 12.7-14.5 Inr 1.04 Normal 2 Laboratory test finding 02/21/[address] [phone] Bedside Glucose 332 mg/dL High 83-110 Laboratory test finding 02/20/[address] [place] [address] [phone] Bedside Glucose 345 mg/dL High 83-110 Laboratory test finding 02/20/[address] [address] [phone] Bedside Glucose 382 mg/dL High 83-110 Complete Blood Count 02/20/[address] [address] [phone] White Blood Count 7.9 10 Normal 4.0-10.0 [...] % Normal 0-0 Basic Metabolic Profile 02/20/[address] [address] [phone] Glucose, Fasting 234 mg/dL High 70-100 Blood [...] mg/dL Low 8.8-10.2 Laboratory test finding 02/20/[address] [address] [phone] Magnesium Level 1.9 mg/dL Normal 1.8-2.4 NT-Pro BNP 283 pg/mL High <125 C Reactive Protein Quantitativ 0.34 mg/dL High 0.00-0.30 Prothrombin Time/Inr 02/20/[address] [address] [phone] Prothrombin Time 13.0 seconds Normal 12.7-14.5 Inr 0.94 Normal 4 Creatinine With GFR 02/16/[address] [address] [phone] Creatinine For GFR 0.86 mg/dL Normal 0.70-1.30 Glomerular Filtration Rate > 60.0 Normal >42 5 Laboratory test finding 02/16/[address] [address] [phone] Blood Urea Nitrogen 21 mg/dL High 7-18 Prothrombin Time/Inr 01/18/[address] [address] [phone] Prothrombin Time 21.8 seconds High 12.7-14.5 Inr 1.85 Normal 6 Laboratory test finding 01/18/[address] [address] [phone] [place] Reflex Ebv Comprehensive NEGATIVE Normal Ne gative 7 Ebv AB Comprehensive 01/18/[address] [address] [phone] Ebv Viral Capsid Ag IgM <36.0 U/mL Normal 0.0-35.9 8 Ebv Viral Capsid Ag IgG 363.0 U/mL High 0.0-17.9 9 Ebv AB To Nuclear Antigen >600.0 U/mL High 0.0-17.9 10 Ebv Interpretation (SEE NOTE) Normal . 11 Laboratory test finding 01/18/[address] [address] [phone] Ligia Strep A NEGATIVE Normal Negative CBC W/Automated Diff 12/29/[address] [id number] [phone] CBC W/Automated Diff (SEE NOTE) 12 WBC [...] Lymph 13.9 % Low 25.0 - 40.0 [place] 10.1 % High 3.0 - 8.0 Eos 1.8 % 0.0 - 7.0 Baso 0.4 % 0.0 - 2.0 %Ig 0.6 % High 0.0 - 0.0 %NRBC 0.0 % 0.0 - 0.0 #Neut 3.63 10^3/uL 2.00 - 6.90 #Lymph 0.69 10^3/uL 0.60 - 3.40 #[place] 0.50 10^3/uL 0.00 - 0.90 #Eos 0.09 10^3/uL 0.00 - 0.70 #Baso 0.02 10^3/uL 0.00 - 0.20 #Ig 0.03 10^3/uL 0.00 - 0.10 #NRBC 0.00 10^3/uL 0.00 - 0.00 Manual Diff NOT INDICATED RBC Morph NOT INDICATED Urinalysis 12/29/[address] [address] [phone] Urinalysis (SEE NOTE) 13 Source R Color yellow Normal: Yellow Clarity clear Normal: Clear Spec [place] 1.015 1.001 - 1.030 pH 5 5 [...] Normal: None Seen Laboratory test finding 12/29/[address] [address] [phone] Hgba1c 10.3 % High 4.4 - 6.1 Magnesium Serum 1.7 mg/dL 1.7 - 2.2 Cve Panel 12/29/[address] [address] [phone] Cve Panel (SEE NOTE) 14 Cholesterol 154 mg/dL 131 - 200 Triglycerides 115 mg/dL 35 - 160 HDL 48 mg/dL 29 - 86 LDL 91 mg/dL 65 - 175 Risk Factor 3.2 Low 3.4 - 4.9 LDL/HDL 1.90 1.00 - 3.55 15 Comprehensive Metabolic Panel 12/29/2020 [facility] [address] [place] [address] [phone] Comprehensive Metabo (SEE NOTE) 16 Sodium 137 [...] >60 mL/min 17 Laboratory test finding 12/29/2020 [facility] [address] [place] [address] [phone] Iron 38 g/dL Low 42 - 135 TSH Highly Sensitive 1.39 uIU/mL 0.47 - 5.01 Protime 12/29/[address] [address] [phone] Protime 21.2 seconds High 11.0 - 15.5 Inr 1.81 High 0.93 - 1.23 18 1 Units are mL/min/1.73 m2 Chronic Kidney Disease Staging per NKF: Stage I & II GFR >=60 Normal to Mildly Decreased Stage III GFR 30-59 Moderately Decreased Stage IV GFR 15-29 Severely Decreased Stage V GFR <15 Very Little GFR Left ESRD GFR <15 on HAND PASTER 2 THERAPUTIC HUMAN INR VALUES INDICATIONS NORMAL [...] Little GFR Left ESRD GFR <15 on HAND PASTER 4 THERAPUTIC HUMAN INR VALUES INDICATIONS NORMAL [...] Little GFR Left ESRD GFR <15 on HAND PASTER 6 THERAPUTIC HUMAN INR VALUES INDICATIONS NORMAL RANGES PROPHYLAXIS/TREATMENT OF: VENOUS THROMBOSIS 2.0-3.0 PULMONARY EMBOLISM 2.0-3.0 PREVENTION OF SYSTEMIC EMBOLISM FROM: TISSUE HEART VALVES 2.0-3.0 ACUTE MYOCARDIAL INFARCTION 2.0-3.0 VALVULAR HEART DISEASE 2.0-3.0 ATRIAL FIBRILLATION 2.0-3.0 MECHANICAL VALVES(HIGH RISK) 2.5-3.5 RECURRENT MYOCARDIAL INFARCTION 2.5-3.5 7 Reflex test for EBV COMPREHE NSIVE will be sent to [facility], [address] [place] [address]. Matt, Hellen.. [address]. 8 Negative <36.0 Equivocal 36.0 - 43.9 [...] EBNA. Performed at: RN - [facility] [address] [id number] Special Needs Tutor: Felecia Lopez MD, Phone: [phone] COMPLETE BLOOD COUNT 13 URINALYSIS 14 [...] Thrombosis, Pulmonary Embolus, Tissue heart valves, Acute [place], Atrial Fibrillation, Valvular heart disease and recurrent Systemic Embolism. -International Normalized Ratio (INR): 2 .5 - 3.5 for Mechanical Prosthetic valve. Procedures Date Code Description Status 02/09/2021 37722 Myocardial Perfusion,WM & Ef Com pleted 02/08/2021 85962 Office/Outpatient Established Mo d MDM 30-39 Min Completed 02/08/2021 61488 Echocardiogram, Complete Complet ed 02/08/2021 93312 EKG Completed 12/29/2020 38923 Office/Outpatient Established Mo d MDM 30-39 Min Completed 11/01/2020 82783 Periodic Preventive Med Age 65+ Completed 09/09/2020 82763 Office/Outpatient Established Mo d MDM 30-39 Min Completed Encounters Type Date Location Provider Dx Diagnosis Office Visit 02/08/2021 9:30a [facility] John Islas M.D.,P. C. I11.9 Hypertensive heart disease without heart failure E10.9 Type 1 diabetes mellitus wit hout complications E78.5 Hyperlipidemia, unspecified Z01.810 Encounter for preprocedural cardiovascular examination I34.0 Nonrheumatic mitral (valve) insufficiency I49.49 Other premature depolarizati on Office Visit 12/29/2020 10:30a [facility] John Islas M.D[facility]. [facility] I11.9 Hypertensive heart disease without heart failure E10.9 Type 1 diabetes mellitus wit hout complications Office Visit 11/01/2020 10:30a [facility] AUDREY Ang Z02.4 Encounter for examination fo r driving license Office Visit 09/09/2020 10:30a [facility] John Islas M.D.,[facility]. C. I11.9 Hypertensive [...] M.D.,P.C. 12/29/2020 I11.9 Hypertensive heart disease witho me heart failure John Islas M.D[facility] 12/29/2020 E10.9 Type 1 diabetes mellitus without complications John [facility]las M[facility] 11/01/2020 Z02.4 Encounter for examination for AUDREY Bang 09/09/2020 I11.9 Hypertensive heart disease witho me heart failure John Islas M.D[facility] 09/09/2020 R09.02 Hypoxemia Gena Haas,P.C. 09/09/2020 J44.9 Chronic obstructive pulmonary di sease, unspecified John Islas M[facility] 09/09/2020 E11.9 Type 2 diabetes mellitus without complications John [facility]las [facility] Referrals Refer to Reason for Referral Status Appt Date John Islas M.D. Created [address] [place], [place] [address] [phone]
--- OUTSIDE RECORDS SUMMARY | 2021-03-01 12:05 | CCD | Continuity of Care Document ---
Author Author Shadi Hill Naheed Organization Unknown Address Unknown Phone [phone] Care Team Providers Care Supervisor Brine Name Role Phone Andry Collins AUTM [phone] JOHN [facility]LAS M[facility] 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 02/08/2021 Lotrisone 1-0.05% [...] M.D.,P.C. 020 Warfarin Sodium 7.5mg Tablets [facility] Lidocaine Viscous HCL 2% Solution Unknown Hydrocodone Bitartrate/Acetaminophen 7.5-325mg Tablets Unknown Nystatin [id number]/ML Suspension Unknown Chlorhexidine Gluconate 0.12% Solution Unknown Labetalol HCL 100mg Tablets take 1 tablet by mouth twice daily 180tabs Jonh Islas M.D[facility]. Loratadine 10mg Tablets take 1 [...] Date Facility Test Result H/L Range Note Basic Metabolic Profile 02/20/[address] [address] [phone] Glucose, Fasting 234 mg/dL High 70-100 Blood [...] mg/dL Low 8.8-10.2 Laboratory test finding 02/20/[address] [address] [phone] Magnesium Level 1.9 mg/dL Normal 1.8-2.4 Prothrombin Time/Inr 02/20/[address] [address] [phone] Prothrombin Time 13.0 seconds Normal 12.7-14.5 Inr 0.94 Normal 2 Complete Blood Count 02/20/[address] [address] [phone] White Blood Count 7.9 10 Normal 4.0-10.0 [...] 0.0 % Normal 0-0 Laboratory test finding 02/16/[address] [address] [phone] Blood Urea Nitrogen 21 mg/dL High 7-18 Creatinine With GFR 02/16/[address] [address] [phone] Creatinine For GFR 0.86 mg/dL Normal 0.70-1.30 Glomerular Filtration Rate > 60.0 Normal >42 3 Ebv AB Comprehensive 01/18/[address] [address] [phone] Ebv Viral Capsid Ag IgM <36.0 U/mL Normal 0.0-35.9 4 Ebv Viral Capsid Ag IgG 363.0 U/mL High 0.0-17.9 5 Ebv AB To Nuclear Antigen >600.0 U/mL High 0.0-17.9 6 Ebv Interpretation (SEE NOTE) Normal . 7 Laboratory test finding 01/18/2021 [facility] [address] [place] [address] [phone] Ligia Strep A NEGATIVE Normal Negative Laboratory test finding 01/18/2021 [facility] [address] [place] [address] [phone] [place] Reflex Ebv Comprehensive NEGATIVE Normal Ne gative 8 Prothrombin Time/Inr 01/18/2021 [facility] [address] [place], [place] 3628268 [phone] Prothrombin Time 21.8 seconds High 12.7-14.5 Inr 1.85 Normal 9 CBC W/Automated Diff 12/29/[address] [address] [phone] CBC W/Automated Diff (SEE NOTE) 10 WBC 5.0 10^3/uL 4.2 - 11.0 RBC [...] Lymph 13.9 % Low 25.0 - 40.0 [place] 10.1 % High 3.0 - 8.0 Eos 1.8 % 0.0 - 7.0 Baso 0.4 % 0.0 - 2.0 %Ig 0.6 % High 0.0 - 0.0 %NRBC 0.0 % 0.0 - 0.0 #Neut 3.63 10^3/uL 2.00 - 6.90 #Lymph 0.69 10^3/uL 0.60 - 3.40 #[place] 0.50 10^3/uL 0.00 - 0.90 #Eos 0.09 10^3/uL 0.00 - 0.70 #Baso 0.02 10^3/uL 0.00 - 0.20 #Ig 0.03 10^3/uL 0.00 - 0.10 #NRBC 0.00 10^3/uL 0.00 - 0.00 Manual Diff NOT INDICATED RBC Morph NOT INDICATED Urinalysis 12/29/[address] [address] [phone] Urinalysis (SEE NOTE) 11 Source R Color yellow Normal: Yellow Clarity clear Normal: Clear Spec [place] 1.015 1.001 - 1.030 pH 5 5 [...] Normal: None Seen Laboratory test finding 12/29/[address] [address] [phone] Hgba1c 10.3 % High 4.4 - 6.1 Magnesium Serum 1.7 mg/dL 1.7 - 2.2 Cve Panel 12/29/[address] [address] [phone] Cve Panel (SEE NOTE) 12 Cholesterol 154 mg/dL 131 - 200 Triglycerides 115 mg/dL 35 - 160 HDL 48 mg/dL 29 - 86 LDL 91 mg/dL 65 - 175 Risk Factor 3.2 Low 3.4 - 4.9 LDL/HDL 1.90 1.00 - 3.55 13 Comprehensive Metabolic Panel 12/29/2020 [facility] [address] [place] [address] [phone] Comprehensive Metabo (SEE NOTE) 14 Sodium 137 mEq/L 134 - 153 Potassium [...] >60 mL/min Afr Amer GFR >60 mL/min 15 Laboratory test finding 12/29/[address] [address] [phone] Iron 38 g/dL Low 42 - 135 TSH Highly Sensitive 1.39 uIU/mL 0.47 - 5.01 Protime 12/29/[address] [address] [phone] Protime 21.2 seconds High 11.0 - 15.5 Inr 1.81 High 0.93 - 1.23 16 1 Units are mL/min/1.73 m2 Chronic Kidney Disease Staging per NKF: Stage I & II GFR >=60 Normal to Mildly Decreased Stage III GFR 30-59 Moderately Decreased Stage IV GFR 15-29 Severely Decreased Stage V GFR <15 Very Little GFR Left ESRD GFR <15 on ON AIR DIRECTOR 2 THERAPUTIC HUMAN INR VALUES INDICATIONS NORMAL [...] Little GFR Left ESRD GFR <15 on ON AIR DIRECTOR 4 Negative <36.0 Equivocal 36.0 - 43.9 [...] to EBNA. Performed at: RN - [facility] [address], [place], [place] [id number] Dispatcher Radioactive Waste Disposal: Felecia Lopez MD, Phone: [phone] Reflex test for EBV COMPREHE NSIVE will be sent to [facility], [address] [place] [address]. [place].. [address]. 9 THERAPUTIC HUMAN INR VALUES INDICATIONS NORMAL RANGES PROPHYLAXIS/TREATMENT OF: VENOUS THROMBOSIS 2.0-3.0 PULMONARY EMBOLISM 2.0-3.0 PREVENTION OF SYSTEMIC EMBOLISM FROM: TISSUE HEART VALVES 2.0-3.0 ACUTE MYOCARDIAL INFARCTION 2.0-3.0 VALVULAR HEART DISEASE 2.0-3.0 ATRIAL FIBRILLATION 2.0-3.0 MECHANICAL VALVES(HIGH RISK) 2.5-3.5 RECURRENT MYOCARDIAL INFARCTION 2.5-3.5 10 COMPLETE BLOOD COUNT 11 URINALYSIS 12 LIPID PANEL 13 CVE RISK CHOL/HDL LDL/HDL MEN: 1/2 AVERAGE 3.43 1.00 AVERAGE 4.97 3.55 2X AVERAGE 9.55 6.25 3X AVERAGE 23.99 7.99 WOMEN: 1/2 AVERAGE 3.27 1.47 AVERAGE 4.44 3.22 2X AVERAGE 7.05 5.03 3X AVERAGE 11.04 6.14 14 COMPREHENSIVE METABOLIC PANE L 15 Male GFR Interprentation 20-49 yrs >60 mL/min Normal 50-59 yrs >56 mL/min Normal 60-69 yrs >49 mL/min Normal 70-79yrs >42 mL/min Normal 80 and above >35 mL/min Normal Female GFR Interpretation 20-39 yrs >60 mL/min Normal 40-49 yrs >58 mL/min Normal 50-59 yrs >51 mL/min Normal 60-69 yrs >45 mL/min Normal 70-79 yrs >39 mL/min Normal 80 and above >32 mL/min Normal 16 \\BLDo\\INR INTERPRETATION\\BLD x\\ Therapeutic range for Coumadin and related oral anticoagulants. -International Normalized Ratio (INR): 2 .0 - 3.0 for Venous Thrombosis, Pulmonary Embolus, Tissue heart valves, Acute [place], Atrial Fibrillation, Valvular heart disease and recurrent Systemic Embolism. -International Normalized Ratio (INR): 2 .5 - 3.5 for Mechanical Prosthetic valve. Procedures Date Code Description Status 02/09/2021 21235 Myocardial Perfusion,WM & Ef Com pleted 02/08/2021 50516 Office/Outpatient Established Mo d MDM 30-39 Min Completed 02/08/2021 16056 Echocardiogram, Complete Complet ed 02/08/2021 18437 EKG Completed 12/29/2020 20094 Office/Outpatient Established Mo d MDM 30-39 Min Completed 11/01/2020 24892 Periodic Preventive Med Age 65+ Completed 09/09/2020 02990 Office/Outpatient Established Mo d MDM 30-39 Min Completed Encounters Type Date Location Provider Dx Diagnosis Office Visit 02/08/2021 9:30a [facility] John Islas M.D.,P. C. I11.9 Hypertensive heart disease without heart failure E10.9 Type 1 diabetes mellitus wit hout complications E78.5 Hyperlipidemia, unspecified Z01.810 Encounter for preprocedural cardiovascular examination I34.0 Nonrheumatic mitral (valve) insufficiency I49.49 Other premature depolarizati on Office Visit 12/29/2020 10:30a [facility] Emory Islas M.D.,P. C. I11.9 Hypertensive heart disease without heart failure E10.9 Type 1 diabetes mellitus wit hout complications Office Visit 11/01/2020 10:30a [facility] AUDREY Ang Z02.4 Encounter for examination fo r driving license Office Visit 09/09/2020 10:30a [facility] Emory Islas M.D.,P. C. I11.9 Hypertensive heart disease without heart failure R09.02 Hypoxemia J44.9 Chronic obstructive pulmonar y disease, unspecified E11.9 Type 2 diabetes mellitus wit hout complications Assessments Date Code Description Provider 02/09/2021 Z01.810 Encounter for preprocedural card iovascular examination John Islas M.D[facility]. 02/09/2021 E10.9 Type 1 diabetes mellitus without complications John Islas M.D[facility] 02/08/2021 I11.9 Hypertensive heart disease witho nm heart failure John Islas M.D[facility] 02/08/2021 E10.9 [...] John Islas M[facility] Referrals Refer to Dr Ramirez for Referral Status Appt Date John Islas M.D. Created [address] [place] [address] [phone]
--- OUTSIDE RECORDS SUMMARY | 2021-03-01 12:05 | CCD | Continuity of Care Document ---
Author Author Shadi Hill Naheed Organization Unknown Address Unknown Phone [phone] Care Team Providers Care Pumper Helper Name Role Phone Andry Collins AUTM [phone] JOHN ISLAS M.D. P.C. AUT [phone] Social History Type Date Description Comments Sex Unknown Allergies and adverse reactions Description No Known Drug Allergies Medications Active Medications SIG Qnty Indications Ordering Provide r Date Acetaminophen-Codeine #3 300-30mg Tablets take 1 tablet by oral route three times a day as needed prn for mouth pain CRANE CHASER [id number] 21tabs John Islas M[facility] 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 02/08/2021 Lotrisone 1-0.05% [...] 020 Warfarin Sodium 7.5mg Tablets [facility] Lidocaine Viscous HCL 2% Solution Unknown Hydrocodone Bitartrate/Acetaminophen 7.5-325mg Tablets Unknown Nystatin 382122Udew/ML Suspension Unknown Chlorhexidine Gluconate 0.12% Solution Unknown [...] Test Result H/L Range Note Prothrombin Time/Inr 02/20/[address] [address] [phone] Prothrombin Time 13.0 seconds Normal 12.7-14.5 Inr 0.94 Normal 1 Laboratory test finding 02/16/[address] [address] [phone] Blood Urea Nitrogen 21 mg/dL High 7-18 Creatinine With GFR 02/16/[address] [address] [phone] Creatinine For GFR 0.86 mg/dL Normal 0.70-1.30 Glomerular Filtration Rate > 60.0 Normal >42 2 Prothrombin Time/Inr 01/18/[address] [address] [phone] Prothrombin Time 21.8 seconds High 12.7-14.5 Inr 1.85 Normal 3 Laboratory test finding 01/18/2021 [facility] [address] [place] [address] [phone] [place] Reflex Ebv Comprehensive NEGATIVE Normal Ne gative 4 Ebv AB Comprehensive 01/18/[address] [id number] [phone] Ebv Viral Capsid Ag IgM <36.0 U/mL Normal 0.0-35.9 5 Ebv Viral Capsid Ag IgG 363.0 U/mL High 0.0-17.9 6 Ebv AB To Nuclear Antigen >600.0 U/mL High 0.0-17.9 7 Ebv Interpretation (SEE NOTE) Normal . 8 Laboratory test finding 01/18/2021 [place] [address] [place] [address] [phone] [place] Strep A NEGATIVE Normal Negative CBC W/Automated Diff 12/29/[address] [id number] [phone] CBC W/Automated Diff (SEE NOTE) 9 WBC 5.0 10^3/uL 4.2 - 11.0 RBC [...] Lymph 13.9 % Low 25.0 - 40.0 [place] 10.1 % High 3.0 - 8.0 Eos 1.8 % 0.0 - 7.0 Baso 0.4 % 0.0 - 2.0 %Ig 0.6 % High 0.0 - 0.0 %NRBC 0.0 % 0.0 - 0.0 #Neut 3.63 10^3/uL 2.00 - 6.90 #Lymph 0.69 10^3/uL 0.60 - 3.40 #[place] 0.50 10^3/uL 0.00 - 0.90 #Eos 0.09 10^3/uL 0.00 - 0.70 #Baso 0.02 10^3/uL 0.00 - 0.20 #Ig 0.03 10^3/uL 0.00 - 0.10 #NRBC 0.00 10^3/uL 0.00 - 0.00 Manual Diff NOT INDICATED RBC Morph NOT INDICATED Urinalysis 12/29/[address] [address] [phone] Urinalysis (SEE NOTE) 10 Source R Color yellow Normal: Yellow Clarity clear Normal: Clear Spec [place] 1.015 1.001 - 1.030 pH 5 5 [...] Normal: None Seen Laboratory test finding 12/29/[address] [address] [phone] Hgba1c 10.3 % High 4.4 - 6.1 Magnesium Serum 1.7 mg/dL 1.7 - 2.2 Cve Panel 12/29/[address] [address] [phone] Cve Panel (SEE NOTE) 11 Cholesterol 154 mg/dL 131 - 200 Triglycerides 115 mg/dL 35 - 160 HDL 48 mg/dL 29 - 86 LDL 91 mg/dL 65 - 175 Risk Factor 3.2 Low 3.4 - 4.9 LDL/HDL 1.90 1.00 - 3.55 12 Comprehensive Metabolic Panel 12/29/2020 [facility] [address] [place] [address] [phone] Comprehensive Metabo (SEE NOTE) 13 Sodium 137 mEq/L 134 - 153 Potassium [...] >60 mL/min Afr Amer GFR >60 mL/min 14 Laboratory test finding 12/29/[address] [phone] Iron 38 g/dL Low 42 - 135 TSH Highly Sensitive 1.39 uIU/mL 0.47 - 5.01 Protime 12/29/[address] [id number] [phone] Protime 21.2 seconds High 11.0 - 15.5 Inr 1.81 High 0.93 - 1.23 15 1 THERAPUTIC HUMAN INR VALUES INDICATIONS NORMAL RANGES PROPHYLAXIS/TREATMENT OF: VENOUS THROMBOSIS 2.0-3.0 PULMONARY EMBOLISM 2.0-3.0 PREVENTION OF SYSTEMIC EMBOLISM FROM: TISSUE HEART VALVES 2.0-3.0 ACUTE MYOCARDIAL INFARCTION 2.0-3.0 VALVULAR HEART DISEASE 2.0-3.0 ATRIAL FIBRILLATION 2.0-3.0 MECHANICAL VALVES(HIGH RISK) 2.5-3.5 RECURRENT MYOCARDIAL INFARCTION 2.5-3.5 2 Units are mL/min/1.73 m2 Chronic Kidney Disease Staging per NKF: Stage I & II GFR >=60 Normal to Mildly Decreased Stage III GFR 30-59 Moderately Decreased Stage IV GFR 15-29 Severely Decreased Stage V GFR <15 Very Little GFR Left ESRD GFR <15 on METEOROLOGIST LIAISON 3 THERAPUTIC HUMAN INR VALUES INDICATIONS NORMAL RANGES PROPHYLAXIS/TREATMENT OF: VENOUS THROMBOSIS 2.0-3.0 PULMONARY EMBOLISM 2.0-3.0 PREVENTION OF SYSTEMIC EMBOLISM FROM: TISSUE HEART VALVES 2.0-3.0 ACUTE MYOCARDIAL INFARCTION 2.0-3.0 VALVULAR HEART DISEASE 2.0-3.0 ATRIAL FIBRILLATION 2.0-3.0 MECHANICAL VALVES(HIGH RISK) 2.5-3.5 RECURRENT MYOCARDIAL INFARCTION 2.5-3.5 4 Reflex test for EBV COMPREHE NSIVE will be sent to [employer], [address] [place] [address]. Matt, Hellen.. [address]. 5 Negative <36.0 Equivocal 36.0 - 43.9 Positive >43.9 6 Negative <18.0 Equivocal 18.0 - 21.9 Positive >21.9 7 Negative <18.0 Equivocal 18.0 - 21.9 Positive >21.9 8 . EBV Interpretation Chart Sanchez: Antibody Present [...] to EBNA. Performed at: RN - [facility] [address] [id number] Cocktail Lounge Manager: Felecia Lopez MD, Phone: [phone] COMPLETE BLOOD COUNT 10 URINALYSIS 11 LIPID PANEL 12 CVE RISK CHOL/HDL LDL/HDL MEN: 1/2 AVERAGE 3.43 1.00 AVERAGE 4.97 3.55 2X AVERAGE 9.55 6.25 3X AVERAGE 23.99 7.99 WOMEN: 1/2 AVERAGE 3.27 1.47 AVERAGE 4.44 3.22 2X AVERAGE 7.05 5.03 3X AVERAGE 11.04 6.14 13 COMPREHENSIVE METABOLIC PANE L 14 Male GFR Interprentation 20-49 yrs >60 mL/min Normal 50-59 yrs >56 mL/min Normal 60-69 yrs >49 mL/min Normal 70-79yrs >42 mL/min Normal 80 and above >35 mL/min Normal Female GFR Interpretation 20-39 yrs >60 mL/min Normal 40-49 yrs >58 mL/min Normal 50-59 yrs >51 mL/min Normal 60-69 yrs >45 mL/min Normal 70-79 yrs >39 mL/min Normal 80 and above >32 mL/min Normal 15 \\BLDo\\INR INTERPRETATION\\BLD x\\ Therapeutic range for Coumadin and related oral anticoagulants. -International Normalized Ratio (INR): 2 .0 - 3.0 for Venous Thrombosis, Pulmonary Embolus, Tissue heart valves, Acute UT, Atrial Fibrillation, Valvular heart disease and recurrent Systemic Embolism. -International Normalized Ratio (INR): 2 .5 - 3.5 for Mechanical Prosthetic valve. Procedures Date Code Description Status 02/09/2021 47203 Myocardial Perfusion,WM & Ef Com pleted 02/08/2021 43175 Office/Outpatient Established Mo d MDM 30-39 Min Completed 02/08/2021 20187 Echocardiogram, Complete Complet ed 02/08/2021 40054 EKG Completed 12/29/2020 66779 Office/Outpatient Established Mo d MDM 30-39 Min Completed 11/01/2020 24516 Periodic Preventive Med Age 65+ Completed 09/09/2020 15393 Office/Outpatient Established Mo d MDM 30-39 Min Completed Encounters Type Date Location Provider Dx Diagnosis Office Visit 02/08/2021 9:30a [facility] Emory Islas M.D.,P. C. I11.9 Hypertensive heart disease without heart failure E10.9 Type 1 diabetes mellitus wit hout complications E78.5 Hyperlipidemia, unspecified Z01.810 Encounter for preprocedural cardiovascular examination I34.0 Nonrheumatic mitral (valve) insufficiency I49.49 Other premature depolarizati on Office Visit 12/29/2020 10:30a [facility] John Islas M.D.,P. C. I11.9 Hypertensive heart disease without heart failure E10.9 Type 1 diabetes mellitus wit hout complications Office Visit 11/01/2020 10:30a [facility] AUDREY Ang Z02.4 Encounter for examination fo r driving license Office Visit 09/09/2020 10:30a [facility] Emory Islas M.D.,P. C. I11.9 Hypertensive heart disease without heart failure R09.02 Hypoxemia J44.9 Chronic obstructive pulmonar y disease, unspecified E11.9 Type 2 diabetes mellitus wit hout complications Assessments Date Code Description Provider 02/09/2021 Z01.810 Encounter for preprocedural card iovascular examination John Islas M.D.,P.C. 02/09/2021 E10.9 Type 1 diabetes mellitus without complications John Islas M.D.,P.C. 02/08/2021 I11.9 Hypertensive heart disease witho ct heart failure John Islas M.D.,P.C. 02/08/2021 E10.9 Type 1 diabetes mellitus without complications John Islas M.D.,P.C. 02/08/2021 E78.5 Hyperlipidemia, unspecified Kana Islas M.D.,P.C. 02/08/2021 Z01.810 Encounter for preprocedural card iovascular examination John Islas M.D.,P.C. 02/08/2021 I34.0 Nonrheumatic mitral (valve) insu fficiency John Islas M.D.,P.C. 02/08/2021 I49.49 Other premature depolarization M arlene Islas M.D.,P.C. 12/29/2020 I11.9 Hypertensive heart disease witho ct heart failure John Islas M.D.,P.C. 12/29/2020 E10.9 Type 1 diabetes mellitus without complications John Islas M.D.,P.C. 11/01/2020 Z02.4 Encounter for examination for dr daylin Glover, AUDREY 09/09/2020 I11.9 Hypertensive heart disease witho ct heart failure John Islas M.D.,P.C. 09/09/2020 R09.02 Hypoxemia Gena Haas,P.C. 09/09/2020 J44.9 Chronic obstructive pulmonary di sease, unspecified John Islas M.D.,P.C. 09/09/2020 E11.9 Type 2 diabetes mellitus without complications John Janel, M.D.,P.C. Referrals Refer to Reason for Referral Status Appt Date John Islas M.D. Created [address] [place], [place] [address] [phone]
--- OUTSIDE RECORDS SUMMARY | 2021-03-01 12:05 | CCD | Continuity of Care Document ---
Author Organization Unknown Address Unknown Phone Unavailable Care Team Providers Care Detective Chief Name Role Phone Andry Collins AUT [phone] JOHN ISLAS M.D. P.C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 02/08/2021 Lotrisone 1-0.05% [...] Unknown Hydrocodone Bitartrate/Acetaminophen 7.5-325mg Tablets Unknown Nystatin [id number]/ML Suspension Unknown Chlorhexidine Gluconate 0.12% Solution Unknown [...] H/L Range Note Complete Blood Count 02/21/2021 [place] [id number] [phone] White Blood Count 10.4 10 High 4.0-10.0 [...] 36.0-66.0 Lymph % 3.6 % Low 24.0-44.0 [place] % 3.1 % Normal 2.0-8.0 Eos % 0.0 % Normal 0.0-3.0 Baso % 0.1 % Normal 0.0-1.0 Immature Granulocyte % 0.6 % Normal 0-3.0 Nucleated Red Blood Cell % 0.0 % Normal 0-0 Neutrophils # 9.7 10 High 1.5-8.5 Lymph # 0.4 10 Low 1.5-5.0 [place] # 0.3 10 Normal 0.0-0.8 Eos # 0.0 10 Normal 0.0-0.5 Baso # 0.0 10 Normal 0.0-0.2 Basic Metabolic Profile 02/21/[address] [id number] [phone] Glucose, Fasting 322 mg/dL High 70-100 Blood [...] mg/dL Low 8.8-10.2 Laboratory test finding 02/21/[address] 0852152 [phone] C Reactive Protein Quantitativ 2.60 mg/dL High 0 .00-0.30 Prothrombin Time/Inr 02/21/[address] 1059433 [phone] Prothrombin Time 14.0 seconds Normal 12.7-14.5 Inr 1.04 Normal 2 Laboratory test finding 02/21/[address] 0981384 [phone] Bedside Glucose 332 mg/dL High 83-110 Laboratory test finding 02/20/[address] [place] [address] [phone] Bedside Glucose 345 mg/dL High 83-110 Laboratory test finding 02/20/[address] [address] [phone] Bedside Glucose 382 mg/dL High 83-110 Complete Blood Count 02/20/[address] [address] [phone] White Blood Count 7.9 10 Normal 4.0-10.0 [...] % Normal 0-0 Basic Metabolic Profile 02/20/[address] [address] [phone] Glucose, Fasting 234 mg/dL High 70-100 Blood [...] mg/dL Low 8.8-10.2 Laboratory test finding 02/20/[address] [address] [phone] Magnesium Level 1.9 mg/dL Normal 1.8-2.4 NT-Pro BNP 283 pg/mL High <125 C Reactive Protein Quantitativ 0.34 mg/dL High 0.00-0.30 Prothrombin Time/Inr 02/20/[address] [address] [phone] Prothrombin Time 13.0 seconds Normal 12.7-14.5 Inr 0.94 Normal 4 Creatinine With GFR 02/16/[address] [address] [phone] Creatinine For GFR 0.86 mg/dL Normal 0.70-1.30 Glomerular Filtration Rate > 60.0 Normal >42 5 Laboratory test finding 02/16/[address] [address] [phone] Blood Urea Nitrogen 21 mg/dL High 7-18 Prothrombin Time/Inr 01/18/[address] [address] [phone] Prothrombin Time 21.8 seconds High 12.7-14.5 Inr 1.85 Normal 6 Laboratory test finding 01/18/[address] [address] [phone] [place] Reflex Ebv Comprehensive NEGATIVE Normal Ne gative 7 Ebv AB Comprehensive 01/18/[address] [address] [phone] Ebv Viral Capsid Ag IgM <36.0 U/mL Normal 0.0-35.9 8 Ebv Viral Capsid Ag IgG 363.0 U/mL High 0.0-17.9 9 Ebv AB To Nuclear Antigen >600.0 U/mL High 0.0-17.9 10 Ebv Interpretation (SEE NOTE) Normal . 11 Laboratory test finding 01/18/[address] [address] [phone] [place] Strep A NEGATIVE Normal Negative CBC W/Automated Diff 12/29/[address] [id number] [phone] CBC W/Automated Diff (SEE NOTE) 12 WBC [...] Lymph 13.9 % Low 25.0 - 40.0 [place] 10.1 % High 3.0 - 8.0 Eos 1.8 % 0.0 - 7.0 Baso 0.4 % 0.0 - 2.0 %Ig 0.6 % High 0.0 - 0.0 %NRBC 0.0 % 0.0 - 0.0 #Neut 3.63 10^3/uL 2.00 - 6.90 #Lymph 0.69 10^3/uL 0.60 - 3.40 #[place] 0.50 10^3/uL 0.00 - 0.90 #Eos 0.09 10^3/uL 0.00 - 0.70 #Baso 0.02 10^3/uL 0.00 - 0.20 #Ig 0.03 10^3/uL 0.00 - 0.10 #NRBC 0.00 10^3/uL 0.00 - 0.00 Manual Diff NOT INDICATED RBC Morph NOT INDICATED Urinalysis 12/29/[address] [address] [phone] Urinalysis (SEE NOTE) 13 Source R Color yellow Normal: Yellow Clarity clear Normal: Clear Spec [place] 1.015 1.001 - 1.030 pH 5 5 [...] Normal: None Seen Laboratory test finding 12/29/[address] [address] [phone] Hgba1c 10.3 % High 4.4 - 6.1 Magnesium Serum 1.7 mg/dL 1.7 - 2.2 Cve Panel 12/29/[address] [address] [phone] Cve Panel (SEE NOTE) 14 Cholesterol 154 mg/dL 131 - 200 Triglycerides 115 mg/dL 35 - 160 HDL 48 mg/dL 29 - 86 LDL 91 mg/dL 65 - 175 Risk Factor 3.2 Low 3.4 - 4.9 LDL/HDL 1.90 1.00 - 3.55 15 Comprehensive Metabolic Panel 12/29/2020 [facility] [address] [place] [address] [phone] Comprehensive Metabo (SEE NOTE) 16 Sodium 137 [...] >60 mL/min 17 Laboratory test finding 12/29/2020 [facility] [address] [place] [address] [phone] Iron 38 g/dL Low 42 - 135 TSH Highly Sensitive 1.39 uIU/mL 0.47 - 5.01 Protime 12/29/[address] [address] [phone] Protime 21.2 seconds High 11.0 - 15.5 Inr 1.81 High 0.93 - 1.23 18 1 Units are mL/min/1.73 m2 Chronic Kidney Disease Staging per NKF: Stage I & II GFR >=60 Normal to Mildly Decreased Stage III GFR 30-59 Moderately Decreased Stage IV GFR 15-29 Severely Decreased Stage V GFR <15 Very Little GFR Left ESRD GFR <15 on CERTIFIED PERSONAL FINANCE COUNSELOR 2 THERAPUTIC HUMAN INR VALUES INDICATIONS NORMAL [...] Little GFR Left ESRD GFR <15 on CERTIFIED PERSONAL FINANCE COUNSELOR 4 THERAPUTIC HUMAN INR VALUES INDICATIONS NORMAL [...] Little GFR Left ESRD GFR <15 on CERTIFIED PERSONAL FINANCE COUNSELOR 6 THERAPUTIC HUMAN INR VALUES INDICATIONS NORMAL RANGES PROPHYLAXIS/TREATMENT OF: VENOUS THROMBOSIS 2.0-3.0 PULMONARY EMBOLISM 2.0-3.0 PREVENTION OF SYSTEMIC EMBOLISM FROM: TISSUE HEART VALVES 2.0-3.0 ACUTE MYOCARDIAL INFARCTION 2.0-3.0 VALVULAR HEART DISEASE 2.0-3.0 ATRIAL FIBRILLATION 2.0-3.0 MECHANICAL VALVES(HIGH RISK) 2.5-3.5 RECURRENT MYOCARDIAL INFARCTION 2.5-3.5 7 Reflex test for EBV COMPREHE NSIVE will be sent to [facility], [address] [place] [address]. Matt, Hellen.. [address]. 8 Negative <36.0 Equivocal 36.0 - 43.9 [...] EBNA. Performed at: RN - [facility] [address] [id number] [employer] Paraprofessional: Felecia Lopez MD, Phone: [phone] COMPLETE BLOOD COUNT 13 URINALYSIS 14 [...] Thrombosis, Pulmonary Embolus, Tissue heart valves, Acute RI, Atrial Fibrillation, Valvular heart disease and recurrent Systemic Embolism. -International Normalized Ratio (INR): 2 .5 - 3.5 for Mechanical Prosthetic valve. Procedures Date Code Description Status 02/09/2021 16433 Myocardial Perfusion,WM & Ef Com pleted 02/08/2021 19714 Office/Outpatient Established Mo d MDM 30-39 Min Completed 02/08/2021 35355 Echocardiogram, Complete Complet ed 02/08/2021 58732 EKG Completed 12/29/2020 97584 Office/Outpatient Established Mo d MDM 30-39 Min Completed 11/01/2020 71774 Periodic Preventive Med Age 65+ Completed 09/09/2020 03355 Office/Outpatient Established Mo d MDM 30-39 Min Completed Encounters Type Date Location Provider Dx Diagnosis Office Visit 02/08/2021 9:30a [facility] John Islas M.D.,P. C. I11.9 Hypertensive heart disease without heart failure E10.9 Type 1 diabetes mellitus wit hout complications E78.5 Hyperlipidemia, unspecified Z01.810 Encounter for preprocedural cardiovascular examination I34.0 Nonrheumatic mitral (valve) insufficiency I49.49 Other premature depolarizati on Office Visit 12/29/2020 10:30a [facility] John Islas M.D.,P. C. I11.9 Hypertensive heart disease without heart failure E10.9 Type 1 diabetes mellitus wit hout complications Office Visit 11/01/2020 10:30a [facility] AUDREY Ang Z02.4 Encounter for examination fo r driving license Office Visit 09/09/2020 10:30a [facility] John Islas M.D.,P. C. I11.9 Hypertensive [...] M.D.,P.C. 12/29/2020 I11.9 Hypertensive heart disease witho la heart failure John Islas M.D.,P.C. 12/29/2020 E10.9 Type 1 diabetes mellitus without complications John Islas M.D.,P.C. 11/01/2020 Z02.4 Encounter for examination for AUDREY Bang 09/09/2020 I11.9 Hypertensive heart disease witho la heart failure John Islas M.D.,P.C. 09/09/2020 R09.02 Hypoxemia Gena Haas,P.C. 09/09/2020 J44.9 Chronic obstructive pulmonary di sease, unspecified John Islas M.D.,P.C. 09/09/2020 E11.9 Type 2 diabetes mellitus without complications John Islas M.D.,P.C. Referrals Refer to Reason for Referral Status Appt Date John Islas M.D. Created [address] [place], [place] [address] [phone]
--- OUTSIDE RECORDS SUMMARY | 2021-03-01 12:05 | CCD | Continuity of Care Document ---
Author Author Shadi Hill Nahede Organization Unknown Address Unknown Phone [phone] Care Team Providers Care Statistical Reporting Analyst Name Role Phone Andry Collins AUTM [phone] JOHN [facility]LAS M[facility] 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 02/08/2021 Lotrisone 1-0.05% [...] Unknown Hydrocodone Bitartrate/Acetaminophen 7.5-325mg Tablets Unknown Nystatin [id number] Suspension Unknown Chlorhexidine Gluconate 0.12% Solution Unknown [...] 1 tablet by mouth twice daily 180tabs Jhon Islas M.D[facility]. Januvia 100mg Tablets take 1 [...] H/L Range Note Complete Blood Count 02/21/[address] [address] [phone] White Blood Count 10.4 10 High 4.0-10.0 [...] 36.0-66.0 Lymph % 3.6 % Low 24.0-44.0 Dundy % 3.1 % Normal 2.0-8.0 Eos % 0.0 % Normal 0.0-3.0 Baso % 0.1 % Normal 0.0-1.0 Immature Granulocyte % 0.6 % Normal 0-3.0 Nucleated Red Blood Cell % 0.0 % Normal 0-0 Neutrophils # 9.7 10 High 1.5-8.5 Lymph # 0.4 10 Low 1.5-5.0 Dundy # 0.3 10 Normal 0.0-0.8 Eos # 0.0 10 Normal 0.0-0.5 Baso # 0.0 10 Normal 0.0-0.2 Basic Metabolic Profile 02/21/[address] [address] [phone] Glucose, Fasting 322 mg/dL High 70-100 Blood [...] mg/dL Low 8.8-10.2 Laboratory test finding 02/21/[address] [address] [phone] C Reactive Protein Quantitativ 2.60 mg/dL High 0 .00-0.30 Prothrombin Time/Inr 02/21/[address] [address] [phone] Prothrombin Time 14.0 seconds Normal 12.7-14.5 Inr 1.04 Normal 2 Laboratory test finding 02/21/[address] [address] [phone] Bedside Glucose 332 mg/dL High 83-110 Laboratory test finding 02/20/[address] [address] [phone] Bedside Glucose 345 mg/dL High 83-110 Laboratory test finding 02/20/[address] [address] [phone] Bedside Glucose 382 mg/dL High 83-110 Complete Blood Count 02/20/[address] [address] [phone] White Blood Count 7.9 10 Normal 4.0-10.0 [...] % Normal 0-0 Basic Metabolic Profile 02/20/[address] [address] [phone] Glucose, Fasting 234 mg/dL High 70-100 Blood [...] mg/dL Low 8.8-10.2 Laboratory test finding 02/20/[address] [address] [phone] Magnesium Level 1.9 mg/dL Normal 1.8-2.4 NT-Pro BNP 283 pg/mL High <125 C Reactive Protein Quantitativ 0.34 mg/dL High 0.00-0.30 Prothrombin Time/Inr 02/20/[address] [address] [phone] Prothrombin Time 13.0 seconds Normal 12.7-14.5 Inr 0.94 Normal 4 Creatinine With GFR 02/16/[address] [address] [phone] Creatinine For GFR 0.86 mg/dL Normal 0.70-1.30 Glomerular Filtration Rate > 60.0 Normal >42 5 Laboratory test finding 02/16/[address] [address] [phone] Blood Urea Nitrogen 21 mg/dL High 7-18 Prothrombin Time/Inr 01/18/[address] [address] [phone] Prothrombin Time 21.8 seconds High 12.7-14.5 Inr 1.85 Normal 6 Laboratory test finding 01/18/[address] [address] [phone] Dundy Reflex Ebv Comprehensive NEGATIVE Normal Ne gative 7 Ebv AB Comprehensive 01/18/[address] [address] [phone] Ebv Viral Capsid Ag IgM <36.0 U/mL Normal 0.0-35.9 8 Ebv Viral Capsid Ag IgG 363.0 U/mL High 0.0-17.9 9 Ebv AB To Nuclear Antigen >600.0 U/mL High 0.0-17.9 10 Ebv Interpretation (SEE NOTE) Normal . 11 Laboratory test finding 01/18/[address] [address] [phone] Ligia Strep A NEGATIVE Normal Negative CBC W/Automated Diff 12/29/[address] [address] [phone] CBC W/Automated Diff (SEE NOTE) 12 WBC [...] Lymph 13.9 % Low 25.0 - 40.0 Dundy 10.1 % High 3.0 - 8.0 Eos 1.8 % 0.0 - 7.0 Baso 0.4 % 0.0 - 2.0 %Ig 0.6 % High 0.0 - 0.0 %NRBC 0.0 % 0.0 - 0.0 #Neut 3.63 10^3/uL 2.00 - 6.90 #Lymph 0.69 10^3/uL 0.60 - 3.40 #Dundy 0.50 10^3/uL 0.00 - 0.90 #Eos 0.09 10^3/uL 0.00 - 0.70 #Baso 0.02 10^3/uL 0.00 - 0.20 #Ig 0.03 10^3/uL 0.00 - 0.10 #NRBC 0.00 10^3/uL 0.00 - 0.00 Manual Diff NOT INDICATED RBC Morph NOT INDICATED Urinalysis 12/29/[address] [address] [phone] Urinalysis (SEE NOTE) 13 Source R Color yellow Normal: Yellow Clarity clear Normal: Clear Spec [place] 1.015 1.001 - 1.030 pH 5 5 [...] Normal: None Seen Laboratory test finding 12/29/[address] [address] [phone] Hgba1c 10.3 % High 4.4 - 6.1 Magnesium Serum 1.7 mg/dL 1.7 - 2.2 Cve Panel 12/29/[address] [address] [phone] Cve Panel (SEE NOTE) 14 Cholesterol 154 mg/dL 131 - 200 Triglycerides 115 mg/dL 35 - 160 HDL 48 mg/dL 29 - 86 LDL 91 mg/dL 65 - 175 Risk Factor 3.2 Low 3.4 - 4.9 LDL/HDL 1.90 1.00 - 3.55 15 Comprehensive Metabolic Panel 12/29/2020 [facility] [address] [place] [address] [phone] Comprehensive Metabo (SEE NOTE) 16 Sodium 137 [...] >60 mL/min 17 Laboratory test finding 12/29/2020 [facility] l [address] [place] [address] [phone] Iron 38 g/dL Low 42 - 135 TSH Highly Sensitive 1.39 uIU/mL 0.47 - 5.01 Protime 12/29/[address] [address] [phone] Protime 21.2 seconds High 11.0 - 15.5 Inr 1.81 High 0.93 - 1.23 18 1 Units are mL/min/1.73 m2 Chronic Kidney Disease Staging per NKF: Stage I & II GFR >=60 Normal to Mildly Decreased Stage III GFR 30-59 Moderately Decreased Stage IV GFR 15-29 Severely Decreased Stage V GFR <15 Very Little GFR Left ESRD GFR <15 on PHILATELIC CONSULTANT 2 THERAPUTIC HUMAN INR VALUES INDICATIONS NORMAL [...] Little GFR Left ESRD GFR <15 on PHILATELIC CONSULTANT 4 THERAPUTIC HUMAN INR VALUES INDICATIONS NORMAL [...] Little GFR Left ESRD GFR <15 on PHILATELIC CONSULTANT 6 THERAPUTIC HUMAN INR VALUES INDICATIONS NORMAL RANGES PROPHYLAXIS/TREATMENT OF: VENOUS THROMBOSIS 2.0-3.0 PULMONARY EMBOLISM 2.0-3.0 PREVENTION OF SYSTEMIC EMBOLISM FROM: TISSUE HEART VALVES 2.0-3.0 ACUTE MYOCARDIAL INFARCTION 2.0-3.0 VALVULAR HEART DISEASE 2.0-3.0 ATRIAL FIBRILLATION 2.0-3.0 MECHANICAL VALVES(HIGH RISK) 2.5-3.5 RECURRENT MYOCARDIAL INFARCTION 2.5-3.5 7 Reflex test for EBV COMPREHE NSIVE will be sent to [facility], [address] [place] [address]. German Gutierrez. [address]. 8 Negative <36.0 Equivocal 36.0 - 43.9 [...] to [facility]NA. Performed at: RN - [facility] [address] [id number] Bag Loader Machine Operator: Felecia Lopez MD, Phone: [phone] COMPLETE BLOOD COUNT 13 URINALYSIS 14 [...] Thrombosis, Pulmonary Embolus, Tissue heart valves, Acute [place], Atrial Fibrillation, Valvular heart disease and recurrent Systemic Embolism. -International Normalized Ratio (INR): 2 .5 - 3.5 for Mechanical Prosthetic valve. Procedures Date Code Description Status 02/09/2021 86894 Myocardial Perfusion,WM & Ef Com pleted 02/08/2021 96393 Office/Outpatient Established Mo d MDM 30-39 Min Completed 02/08/2021 67455 Echocardiogram, Complete Complet ed 02/08/2021 05790 EKG Completed 12/29/2020 85862 Office/Outpatient Established Mo d MDM 30-39 Min Completed 11/01/2020 03805 Periodic Preventive Med Age 65+ Completed 09/09/2020 425[address] Office/Outpatient Established Mo d MDM 30-39 Min Completed Encounters Type Date Location Provider Dx Diagnosis Office Visit 02/08/2021 9:30a [facility] John Islas M.D.,P. C. I11.9 Hypertensive heart disease without heart failure E10.9 Type 1 diabetes mellitus wit hout complications E78.5 Hyperlipidemia, unspecified Z01.810 Encounter for preprocedural cardiovascular examination I34.0 Nonrheumatic mitral (valve) insufficiency I49.49 Other premature depolarizati on Office Visit 12/29/2020 10:30a [facility] John Islas M.D.,P. C. I11.9 Hypertensive heart disease without heart failure E10.9 Type 1 diabetes mellitus wit hout complications Office Visit 11/01/2020 10:30a [facility] AUDREY Ang Z02.4 Encounter for examination fo r driving license Office Visit 09/09/2020 10:30a [facility] John Islas M.D.,P. C. I11.9 Hypertensive heart disease without heart failure R09.02 Hypoxemia J44.9 Chronic obstructive pulmonar y disease, unspecified E11.9 Type 2 diabetes mellitus wit hout complications Assessments Date Code Description Provider 02/09/2021 Z01.810 Encounter for preprocedural card iovascular examination John Islas M.D.,P.C. 02/09/2021 E10.9 Type 1 diabetes mellitus without complications John Islas M.D.,P.C. 02/08/2021 I11.9 Hypertensive heart disease witho mt heart failure John Islas M.D.,P.C. 02/08/2021 E10.9 Type 1 diabetes mellitus without complications John Islas M.D.,P.C. 02/08/2021 E78.5 Hyperlipidemia, unspecified Kana Islas M.D.,P.C. 02/08/2021 Z01.810 Encounter for preprocedural card iovascular examination John Islas M.D.,P.C[facility] 02/08/2021 I34.0 Nonrheumatic mitral (valve) insu fficiency John Islas M.D.,[facility] 02/08/2021 I49.49 Other premature depolarization Alberta Islas M.D.,P.C. 12/29/2020 I11.9 Hypertensive heart disease witho mt [...] Status Appt Date John Islas M.D. Created [address] [place] [address] [phone]
--- OUTSIDE RECORDS SUMMARY | 2021-03-01 12:05 | CCD | Continuity of Care Document ---
Author Organization Unknown Address Unknown Phone Unavailable Care Team Providers Care Data Integration Developer Name Role Phone Andry Collins AUT [phone] JOHN ISLAS M[facility] P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 02/08/2021 Lotrisone 1-0.05% [...] 020 Warfarin Sodium 7.5mg Tablets [facility] Lidocaine Viscous HCL 2% Solution Unknown Hydrocodone Bitartrate/Acetaminophen 7.5-325mg Tablets Unknown Nystatin [id number] Suspension Unknown Chlorhexidine Gluconate 0.12% Solution Unknown [...] H/L Range Note Complete Blood Count 02/21/2021 [place] [id number] [phone] White Blood Count 10.4 10 High 4.0-10.0 [...] 36.0-66.0 Lymph % 3.6 % Low 24.0-44.0 Ogle % 3.1 % Normal 2.0-8.0 Eos % 0.0 % Normal 0.0-3.0 Baso % 0.1 % Normal 0.0-1.0 Immature Granulocyte % 0.6 % Normal 0-3.0 Nucleated Red Blood Cell % 0.0 % Normal 0-0 Neutrophils # 9.7 10 High 1.5-8.5 Lymph # 0.4 10 Low 1.5-5.0 Ogle # 0.3 10 Normal 0.0-0.8 Eos # 0.0 10 Normal 0.0-0.5 Baso # 0.0 10 Normal 0.0-0.2 Basic Metabolic Profile 02/21/[address] [phone] [phone] Glucose, Fasting 322 mg/dL High 70-100 Blood [...] mg/dL Low 8.8-10.2 Laboratory test finding 02/21/[address] [phone] C Reactive Protein Quantitativ 2.60 mg/dL High 0 .00-0.30 Prothrombin Time/Inr 02/21/[address] 6907509 [phone] Prothrombin Time 14.0 seconds Normal 12.7-14.5 Inr 1.04 Normal 2 Laboratory test finding 02/21/[address] [phone] Bedside Glucose 332 mg/dL High 83-110 Laboratory test finding 02/20/[address] [place] [address] [phone] Bedside Glucose 345 mg/dL High 83-110 Laboratory test finding 02/20/[address] [address] [phone] Bedside Glucose 382 mg/dL High 83-110 Complete Blood Count 02/20/[address] [address] [phone] White Blood Count 7.9 10 Normal 4.0-10.0 [...] % Normal 0-0 Basic Metabolic Profile 02/20/[address] [address] [phone] Glucose, Fasting 234 mg/dL High 70-100 Blood [...] mg/dL Low 8.8-10.2 Laboratory test finding 02/20/[address] [address] [phone] Magnesium Level 1.9 mg/dL Normal 1.8-2.4 NT-Pro BNP 283 pg/mL High <125 C Reactive Protein Quantitativ 0.34 mg/dL High 0.00-0.30 Prothrombin Time/Inr 02/20/[address] [address] [phone] Prothrombin Time 13.0 seconds Normal 12.7-14.5 Inr 0.94 Normal 4 Creatinine With GFR 02/16/[address] [address] [phone] Creatinine For GFR 0.86 mg/dL Normal 0.70-1.30 Glomerular Filtration Rate > 60.0 Normal >42 5 Laboratory test finding 02/16/[address] [address] [phone] Blood Urea Nitrogen 21 mg/dL High 7-18 Prothrombin Time/Inr 01/18/[address] [address] [phone] Prothrombin Time 21.8 seconds High 12.7-14.5 Inr 1.85 Normal 6 Laboratory test finding 01/18/[address] [address] [phone] Ogle Reflex Ebv Comprehensive NEGATIVE Normal Ne gative 7 Ebv AB Comprehensive 01/18/[address] [address] [phone] Ebv Viral Capsid Ag IgM <36.0 U/mL Normal 0.0-35.9 8 Ebv Viral Capsid Ag IgG 363.0 U/mL High 0.0-17.9 9 Ebv AB To Nuclear Antigen >600.0 U/mL High 0.0-17.9 10 Ebv Interpretation (SEE NOTE) Normal . 11 Laboratory test finding 01/18/[address] [address] [phone] Ligia Strep A NEGATIVE Normal Negative CBC W/Automated Diff 12/29/[address] [phone] [phone] CBC W/Automated Diff (SEE NOTE) 12 WBC [...] Lymph 13.9 % Low 25.0 - 40.0 Ogle 10.1 % High 3.0 - 8.0 Eos 1.8 % 0.0 - 7.0 Baso 0.4 % 0.0 - 2.0 %Ig 0.6 % High 0.0 - 0.0 %NRBC 0.0 % 0.0 - 0.0 #Neut 3.63 10^3/uL 2.00 - 6.90 #Lymph 0.69 10^3/uL 0.60 - 3.40 #Ogle 0.50 10^3/uL 0.00 - 0.90 #Eos 0.09 10^3/uL 0.00 - 0.70 #Baso 0.02 10^3/uL 0.00 - 0.20 #Ig 0.03 10^3/uL 0.00 - 0.10 #NRBC 0.00 10^3/uL 0.00 - 0.00 Manual Diff NOT INDICATED RBC Morph NOT INDICATED Urinalysis 12/29/[address] [address] [phone] Urinalysis (SEE NOTE) 13 Source R Color yellow Normal: Yellow Clarity clear Normal: Clear Spec [place] 1.015 1.001 - 1.030 pH 5 5 [...] Normal: None Seen Laboratory test finding 12/29/[address] [address] [phone] Hgba1c 10.3 % High 4.4 - 6.1 Magnesium Serum 1.7 mg/dL 1.7 - 2.2 Cve Panel 12/29/[address] [address] [phone] Cve Panel (SEE NOTE) 14 Cholesterol 154 mg/dL 131 - 200 Triglycerides 115 mg/dL 35 - 160 HDL 48 mg/dL 29 - 86 LDL 91 mg/dL 65 - 175 Risk Factor 3.2 Low 3.4 - 4.9 LDL/HDL 1.90 1.00 - 3.55 15 Comprehensive Metabolic Panel 12/29/2020 [facility] [address] [place] [address] [phone] Comprehensive Metabo (SEE NOTE) 16 Sodium 137 [...] >60 mL/min 17 Laboratory test finding 12/29/2020 [facility] [address] [place] [address] [phone] Iron 38 g/dL Low 42 - 135 TSH Highly Sensitive 1.39 uIU/mL 0.47 - 5.01 Protime 12/29/[address] [address] [phone] Protime 21.2 seconds High 11.0 - 15.5 Inr 1.81 High 0.93 - 1.23 18 1 Units are mL/min/1.73 m2 Chronic Kidney Disease Staging per NKF: Stage I & II GFR >=60 Normal to Mildly Decreased Stage III GFR 30-59 Moderately Decreased Stage IV GFR 15-29 Severely Decreased Stage V GFR <15 Very Little GFR Left ESRD GFR <15 on RECREATION ASSISTANT 2 THERAPUTIC HUMAN INR VALUES INDICATIONS NORMAL [...] Little GFR Left ESRD GFR <15 on RECREATION ASSISTANT 4 THERAPUTIC HUMAN INR VALUES INDICATIONS NORMAL [...] Little GFR Left ESRD GFR <15 on RECREATION ASSISTANT 6 THERAPUTIC HUMAN INR VALUES INDICATIONS NORMAL RANGES PROPHYLAXIS/TREATMENT OF: VENOUS THROMBOSIS 2.0-3.0 PULMONARY EMBOLISM 2.0-3.0 PREVENTION OF SYSTEMIC EMBOLISM FROM: TISSUE HEART VALVES 2.0-3.0 ACUTE MYOCARDIAL INFARCTION 2.0-3.0 VALVULAR HEART DISEASE 2.0-3.0 ATRIAL FIBRILLATION 2.0-3.0 MECHANICAL VALVES(HIGH RISK) 2.5-3.5 RECURRENT MYOCARDIAL INFARCTION 2.5-3.5 7 Reflex test for EBV COMPREHE NSIVE will be sent to [facility], [address] [place] [address]. Matt, Hellen.. [address]. 8 Negative <36.0 Equivocal 36.0 - 43.9 [...] to [facility]NA. Performed at: RN - [facility] [address] [id number] Cruise Agent: Felecia Lopez MD, Phone: [phone] COMPLETE BLOOD COUNT 13 URINALYSIS 14 [...] Thrombosis, Pulmonary Embolus, Tissue heart valves, Acute [place], Atrial Fibrillation, Valvular heart disease and recurrent Systemic Embolism. -International Normalized Ratio (INR): 2 .5 - 3.5 for Mechanical Prosthetic valve. Procedures Date Code Description Status 02/09/2021 51997 Myocardial Perfusion,WM & Ef Com pleted 02/08/2021 89811 Office/Outpatient Established Mo d MDM 30-39 Min Completed 02/08/2021 25822 Echocardiogram, Complete Complet ed 02/08/2021 93352 EKG Completed 12/29/2020 55918 Office/Outpatient Established Mo d MDM 30-39 Min Completed 11/01/2020 34953 Periodic Preventive Med Age 65+ Completed 09/09/2020 97100 Office/Outpatient Established Mo d MDM 30-39 Min Completed Encounters Type Date Location Provider Dx Diagnosis Office Visit 02/08/2021 9:30a [facility] John Islas M.D.,P. C. I11.9 Hypertensive heart disease without heart failure E10.9 Type 1 diabetes mellitus wit hout complications E78.5 Hyperlipidemia, unspecified Z01.810 Encounter for preprocedural cardiovascular examination I34.0 Nonrheumatic mitral (valve) insufficiency I49.49 Other premature depolarizati on Office Visit 12/29/2020 10:30a [facility] John Islas M.D.,P. C. I11.9 Hypertensive heart disease without heart failure E10.9 Type 1 diabetes mellitus wit hout complications Office Visit 11/01/2020 10:30a [facility] AUDREY Ang Z02.4 Encounter for examination fo r driving license Office Visit 09/09/2020 10:30a [facility] John Islas M.D.,P. C. I11.9 Hypertensive [...] Islas M.D.,P.C. 02/08/2021 E78.5 Hyperlipidemia, unspecified Kana Ilsas M.D.,P.C. 02/08/2021 Z01.810 Encounter for preprocedural card iovascular examination John Islas M.D.,P.C. 02/08/2021 I34.0 Nonrheumatic mitral (valve) insu fficiency John Islas M.D.,P.C. 02/08/2021 I49.49 Other premature depolarization Alberta Islas M.D.,P.C. 12/29/2020 I11.9 Hypertensive heart disease witho ok heart failure John Islas M.D.,P.C. 12/29/2020 E10.9 Type 1 diabetes mellitus without complications John Islas M.D.,P.C. 11/01/2020 Z02.4 Encounter for examination for AUDREY Bang 09/09/2020 I11.9 Hypertensive heart disease witho ok heart failure John Islas M.D.,P.C. 09/09/2020 R09.02 Hypoxemia Gena Haas,P.C. 09/09/2020 J44.9 Chronic obstructive pulmonary di sease, unspecified John Islas M.D.,P.C. 09/09/2020 E11.9 Type 2 diabetes mellitus without complications John Islas M.D[facility]P.C. Referrals Refer to Reason for Referral Status Appt Date John Islas M.D. Created [address] [place], [place] [id number] [phone]
--- OUTSIDE RECORDS SUMMARY | 2021-03-01 12:05 | CCD | Continuity of Care Document ---
Author Author Shadi Hill Naheed Organization Unknown Address Unknown Phone [phone] Care Team Providers Care Medical Professionals Name Role Phone Andry Collins AUTM [phone] JOHN ISLAS M[facility] P.C[facility] AUT [phone] Social History Type Date Description Comments Sex Unknown Allergies and adverse reactions Description No Known Drug Allergies Medications Active Medications SIG Qnty Indications Ordering Provide r Date Acetaminophen-Codeine #3 300-30mg Tablets take 1 tablet by oral route three times a day as needed prn for mouth pain PARTS IDENTIFIER [id number] 21tabs John Islas M[facility] 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 02/08/2021 Lotrisone 1-0.05% [...] Islas M.D.,P.C. 020 Warfarin Sodium 7.5mg Tablets [facility] Lidocaine Viscous HCL 2% Solution Unknown Hydrocodone Bitartrate/Acetaminophen 7.5-325mg Tablets Unknown Nystatin 019122Ttgs/ML Suspension Unknown Chlorhexidine Gluconate 0.12% Solution Unknown [...] H/L Range Note Complete Blood Count 02/21/[address] [address] [phone] White Blood Count 10.4 10 High 4.0-10.0 [...] 36.0-66.0 Lymph % 3.6 % Low 24.0-44.0 [place] % 3.1 % Normal 2.0-8.0 Eos % 0.0 % Normal 0.0-3.0 Baso % 0.1 % Normal 0.0-1.0 Immature Granulocyte % 0.6 % Normal 0-3.0 Nucleated Red Blood Cell % 0.0 % Normal 0-0 Neutrophils # 9.7 10 High 1.5-8.5 Lymph # 0.4 10 Low 1.5-5.0 [place] # 0.3 10 Normal 0.0-0.8 Eos # 0.0 10 Normal 0.0-0.5 Baso # 0.0 10 Normal 0.0-0.2 Basic Metabolic Profile 02/21/[address] [address] [phone] Glucose, Fasting 322 mg/dL High 70-100 Blood [...] Low 8.8-10.2 Laboratory test finding 02/21/[address] [address] [phone] C Reactive Protein Quantitativ 2.60 mg/dL High 0 .00-0.30 Prothrombin Time/Inr 02/21/[address] [address] [phone] Prothrombin Time 14.0 seconds Normal 12.7-14.5 Inr 1.04 Normal 2 Laboratory test finding 02/21/[address] [address] [phone] Bedside Glucose 332 mg/dL High 83-110 Laboratory test finding 02/20/[address] [address] [phone] Bedside Glucose 345 mg/dL High 83-110 Laboratory test finding 02/20/[address] [address] [phone] Bedside Glucose 382 mg/dL High 83-110 Complete Blood Count 02/20/[address] [address] [phone] White Blood Count 7.9 10 Normal 4.0-10.0 [...] Normal 0-0 Basic Metabolic Profile 02/20/[address] [address] [phone] Glucose, Fasting 234 mg/dL High 70-100 Blood [...] Low 8.8-10.2 Laboratory test finding 02/20/[address] [address] [phone] Magnesium Level 1.9 mg/dL Normal 1.8-2.4 NT-Pro BNP 283 pg/mL High <125 C Reactive Protein Quantitativ 0.34 mg/dL High 0.00-0.30 Prothrombin Time/Inr 02/20/[address] [address] [phone] Prothrombin Time 13.0 seconds Normal 12.7-14.5 Inr 0.94 Normal 4 Creatinine With GFR 02/16/[address] [address] [phone] Creatinine For GFR 0.86 mg/dL Normal 0.70-1.30 Glomerular Filtration Rate > 60.0 Normal >42 5 Laboratory test finding 02/16/[address] [address] [phone] Blood Urea Nitrogen 21 mg/dL High 7-18 Prothrombin Time/Inr 01/18/[address] [address] [phone] Prothrombin Time 21.8 seconds High 12.7-14.5 Inr 1.85 Normal 6 Laboratory test finding 01/18/[address] [address] [phone] [place] Reflex Ebv Comprehensive NEGATIVE Normal Ne gative 7 Ebv AB Comprehensive 01/18/[address] [address] [phone] Ebv Viral Capsid Ag IgM <36.0 U/mL Normal 0.0-35.9 8 Ebv Viral Capsid Ag IgG 363.0 U/mL High 0.0-17.9 9 Ebv AB To Nuclear Antigen >600.0 U/mL High 0.0-17.9 10 Ebv Interpretation (SEE NOTE) Normal . 11 Laboratory test finding 01/18/[address] [address] [phone] Ligia Strep A NEGATIVE Normal Negative CBC W/Automated Diff 12/29/[address] [address] [phone] CBC W/Automated Diff (SEE NOTE) 12 WBC [...] Lymph 13.9 % Low 25.0 - 40.0 [place] 10.1 % High 3.0 - 8.0 Eos 1.8 % 0.0 - 7.0 Baso 0.4 % 0.0 - 2.0 %Ig 0.6 % High 0.0 - 0.0 %NRBC 0.0 % 0.0 - 0.0 #Neut 3.63 10^3/uL 2.00 - 6.90 #Lymph 0.69 10^3/uL 0.60 - 3.40 #[place] 0.50 10^3/uL 0.00 - 0.90 #Eos 0.09 10^3/uL 0.00 - 0.70 #Baso 0.02 10^3/uL 0.00 - 0.20 #Ig 0.03 10^3/uL 0.00 - 0.10 #NRBC 0.00 10^3/uL 0.00 - 0.00 Manual Diff NOT INDICATED RBC Morph NOT INDICATED Urinalysis 12/29/[address] [address] [phone] Urinalysis (SEE NOTE) 13 Source R Color yellow Normal: Yellow Clarity clear Normal: Clear Spec [place] 1.015 1.001 - 1.030 pH 5 5 [...] None Seen Laboratory test finding 12/29/[address] [address] [phone] Hgba1c 10.3 % High 4.4 - 6.1 Magnesium Serum 1.7 mg/dL 1.7 - 2.2 Cve Panel 12/29/[address] [address] [phone] Cve Panel (SEE NOTE) 14 Cholesterol 154 mg/dL 131 - 200 Triglycerides 115 mg/dL 35 - 160 HDL 48 mg/dL 29 - 86 LDL 91 mg/dL 65 - 175 Risk Factor 3.2 Low 3.4 - 4.9 LDL/HDL 1.90 1.00 - 3.55 15 Comprehensive Metabolic Panel 12/29/2020 [facility] [address] [place] [address] [phone] Comprehensive Metabo (SEE NOTE) 16 Sodium 137 [...] >60 mL/min 17 Laboratory test finding 12/29/2020 [facility] l [address] [place] [address] [phone] Iron 38 g/dL Low 42 - 135 TSH Highly Sensitive 1.39 uIU/mL 0.47 - 5.01 Protime 12/29/[address] [address] [phone] Protime 21.2 seconds High 11.0 - 15.5 Inr 1.81 High 0.93 - 1.23 18 1 Units are mL/min/1.73 m2 Chronic Kidney Disease Staging per NKF: Stage I & II GFR >=60 Normal to Mildly Decreased Stage III GFR 30-59 Moderately Decreased Stage IV GFR 15-29 Severely Decreased Stage V GFR <15 Very Little GFR Left ESRD GFR <15 on MEDICAL OFFICE PROFESSIONAL INSTRUCTOR 2 THERAPUTIC HUMAN INR VALUES INDICATIONS NORMAL [...] Little GFR Left ESRD GFR <15 on MEDICAL OFFICE PROFESSIONAL INSTRUCTOR 4 THERAPUTIC HUMAN INR VALUES INDICATIONS NORMAL [...] Little GFR Left ESRD GFR <15 on MEDICAL OFFICE PROFESSIONAL INSTRUCTOR 6 THERAPUTIC HUMAN INR VALUES INDICATIONS NORMAL RANGES PROPHYLAXIS/TREATMENT OF: VENOUS THROMBOSIS 2.0-3.0 PULMONARY EMBOLISM 2.0-3.0 PREVENTION OF SYSTEMIC EMBOLISM FROM: TISSUE HEART VALVES 2.0-3.0 ACUTE MYOCARDIAL INFARCTION 2.0-3.0 VALVULAR HEART DISEASE 2.0-3.0 ATRIAL FIBRILLATION 2.0-3.0 MECHANICAL VALVES(HIGH RISK) 2.5-3.5 RECURRENT MYOCARDIAL INFARCTION 2.5-3.5 7 Reflex test for EBV COMPREHE NSIVE will be sent to [facility], [address] [place] [address]. German Gutierrez. [address]. 8 Negative <36.0 Equivocal 36.0 - 43.9 [...] to [facility]. Performed at: RN - [facility] [address] [id number] Brusher Operator: Felecia Lopez MD, Phone: [phone] 12 COMPLETE BLOOD COUNT 13 URINALYSIS 14 [...] Thrombosis, Pulmonary Embolus, Tissue heart valves, Acute NE, Atrial Fibrillation, Valvular heart disease and recurrent Systemic Embolism. -International Normalized Ratio (INR): 2 .5 - 3.5 for Mechanical Prosthetic valve. Procedures Date Code Description Status 02/09/2021 49117 Myocardial Perfusion,WM & Ef Com pleted 02/08/2021 85901 Office/Outpatient Established Mo d MDM 30-39 Min Completed 02/08/2021 48798 Echocardiogram, Complete Complet ed 02/08/2021 64692 EKG Completed 12/29/2020 13069 Office/Outpatient Established Mo d MDM 30-39 Min Completed 11/01/2020 34986 Periodic Preventive Med Age 65+ Completed 09/09/2020 79944 Office/Outpatient Established Mo d MDM 30-39 Min Completed Encounters Type Date Location Provider Dx Diagnosis Office Visit 02/08/2021 9:30a [facility] John Islas M.D.,P. C. I11.9 Hypertensive heart disease without heart failure E10.9 Type 1 diabetes mellitus wit hout complications E78.5 Hyperlipidemia, unspecified Z01.810 Encounter for preprocedural cardiovascular examination I34.0 Nonrheumatic mitral (valve) insufficiency I49.49 Other premature depolarizati on Office Visit 12/29/2020 10:30a [facility] John Islas M.D.,P. C. I11.9 Hypertensive heart disease without heart failure E10.9 Type 1 diabetes mellitus wit hout complications Office Visit 11/01/2020 10:30a [facility] AUDREY Ang Z02.4 Encounter for examination fo r driving license Office Visit 09/09/2020 10:30a [facility] John Islas M.D.,P. C. I11.9 Hypertensive heart disease without heart failure R09.02 Hypoxemia J44.9 Chronic obstructive pulmonar y disease, unspecified E11.9 Type 2 diabetes mellitus wit hout complications Assessments Date Code Description Provider 02/09/2021 Z01.810 Encounter for preprocedural card iovascular examination John Islas M.D.,P.[facility]. 02/09/2021 E10.9 Type 1 diabetes mellitus without complications John Islas M.D.,P.C. 02/08/2021 I11.9 Hypertensive heart disease witho co heart failure John Islas M.D.,P.C. 02/08/2021 E10.9 Type 1 diabetes mellitus without complications John Islas M.D.,P.C. 02/08/2021 E78.5 Hyperlipidemia, unspecified Kana Islas M.D.,P.C. 02/08/2021 Z01.810 Encounter for preprocedural card iovascular examination John Islas M.D.,P.C. 02/08/2021 I34.0 Nonrheumatic mitral (valve) insu fficiency John Islas M.D[facility] 02/08/2021 I49.49 Other premature depolarization Alberta Islas M.D.,P.C. 12/29/2020 I11.9 Hypertensive heart disease witho co heart failure John Islas M.D[facility]P.C. 12/29/2020 E10.9 Type 1 diabetes mellitus without complications John Islas M.D[facility]P.C. 11/01/2020 Z02.4 Encounter for examination for dr daylin Glover, AUDREY 09/09/2020 I11.9 Hypertensive heart disease witho co heart failure John Islas M.D.,P.C. 09/09/2020 R09.02 Hypoxemia Gena Haas,P.C. 09/09/2020 J44.9 Chronic obstructive pulmonary di sease, unspecified John Islas M.D[facility]. 09/09/2020 E11.9 Type 2 diabetes mellitus without complications John Islas M.D.,P.C. Referrals Refer to Reason for Referral Status Appt Date John Islas M.D. Created [address] [place] [address] [phone]
--- OUTSIDE RECORDS SUMMARY | 2021-03-01 12:05 | CCD | Continuity of Care Document ---
Author Author Shadi TRUJILLO MD Organization Unknown Address [address] [facility] [address] [place] [address] Phone [phone] Care Team Providers Care Weigh And Charge Worker Name Role Phone Yasmany Ramos M.D. AUTM [phone] John Islas M.D. AUTM [phone] Central Scheduling AUTM [phone] Sdio AUTM [phone] Problems Active Problems Provider Date Sensorineural hearing [...] days 473ml Yariel Trujillo MD 01/27/2021 Nystatin [id number]/ML Suspension 6 milliliters swish and spit 4 times a day for 2 weeks 473ml Yariel Trujillo MD 01/27/2021 Hydrocodone-Acetaminophen 7.5-325mg Tablets 1 by mouth every 4-6 hours as needed 30tabs K14.8 Henrique analia Fisher MD 01/19/2021 Febuxostat 40mg Tablets once [...] lb BMI (Body Mass Index) 48.0 kg/m2 [place] Body Weight 160 lb Weight 147.420 kg BSA (Body Surface Area) 2.54 m2 01/23/2021 2:28pm BP Systolic 150 mmHg BP Diastolic 60 mmHg Heart Rate 65 /min O2 % BldC Oximetry 96 % Height 69 inches 5'9" Weight 325.00 lb BMI (Body Mass Index) 48.0 kg/m2 [place] Body Weight 160 lb Weight 147.420 kg BSA (Body Surface Area) 2.54 m2 Results Test Acquired Date Facility Test Result H/L Range Note Complete Blood Count 02/20/2021 [facility] enter Main Lab [address] [place] [address] [phone] White Blood Count 7.9 10 Normal 4.0-10.0 [...] % Normal 0-0 Basic Metabolic Profile 02/20/2021 [facility] Main Lab [address] [place], [place] [id number] [phone] Glucose, Fasting 234 mg/dL High 70-100 Blood [...] mg/dL Low 8.8-10.2 Laboratory test finding 02/20/2021 [facility] Main Lab [address] [place] [address] [phone] Magnesium Level 1.9 mg/dL Normal 1.8-2.4 Prothrombin Time/Inr 02/20/2021 [facility] enter Main Lab [address] [place] [address] [phone] Prothrombin Time 13.0 seconds Normal 12.7-14.5 Inr 0.94 Normal 2 BUN & Creatinine ([facility]) 02/16/2021 [facility] Main Lab [address] [place] [address] [phone] Blood Urea Nitrogen 21 mg/dL High 7-18 Creatinine With GFR 02/16/2021 [facility] nter Main Lab [address] [place] [address] [phone] Creatinine For GFR 0.86 mg/dL Normal 0.70-1.30 Glomerular Filtration Rate > 60.0 Normal >42 3 Laboratory test finding 01/23/2021 [facility] Main Lab [address] [place] [address] [phone] Pathology Request For Service (SEE NOTE) 4 1 Units are mL/min/1.73 m2 Chronic Kidney Disease Staging per NKF: Stage I & II GFR >=60 Normal to Mildly Decreased Stage III GFR 30-59 Moderately Decreased Stage IV GFR 15-29 Severely Decreased Stage V GFR <15 Very Little GFR Left ESRD GFR <15 on LABOR STANDARDS DIRECTOR 2 THERAPUTIC HUMAN INR VALUES INDICATIONS [...] Little GFR Left ESRD GFR <15 on LABOR STANDARDS DIRECTOR 4 FINAL DIAGNOSIS Tongue, biopsy: Hyperplastic squamous mucosa with hyperkeratosis, irritated/reactive and acute inflammation with microabscess formation. Fungal organisms present. 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 Negative for malignancy. 01/25/2021 - 124 CLINICAL DIAGNOSIS Biopsy of tongue 01/24/2021 - 1302 GROSS DIAGNOSIS Received in formalin labeled "biopsy of tongue" and consists of fragment of tissue 0.6 x 0.4 x 0.2 cm. All in one. -OA 01/24/2021 - 1302 Signed JENNIFER AU MD 01/25/2021 1247 Procedures Date Code Description Status 02/01/2021 17433 Office/Outpatient Established Mo d MDM 30-39 Min Completed 01/23/2021 95341 Biopsy Tongue Anterior Two-Third s Completed 01/19/2021 21722 Office/Outpatient New Moderate M DM 45-59 Minutes Completed Medical Devices Description No Information Available Encounters Type Date Location Provider Dx Diagnosis Office Visit 02/01/2021 10:15a [facility] Yariel Trujillo MD K14.8 Other diseases of tongue Office Visit 01/19/2021 4:15p [facility] Alberta Astudillo K14.8 Other diseases of tongue Assessments Date Code Description Provider 02/01/2021 K14.8 Other diseases of tongue Yariel alvarenga MD 01/23/2021 K14.8 Other diseases of tongue [place] avalos MD 01/19/2021 K14.8 Other diseases of tongue [place] avalos MD Plan of Treatment Future Appointment(s):* 03/01/2021 8:15 am - Yariel Trujillo MD at [facility] 02/01/2021 - Yariel Trujillo MD* K14.8 Other diseases of tongue Functional Status Description No Information Available Mental Status Description No Information Available Referrals Description No Information Available
--- OUTSIDE RECORDS SUMMARY | 2021-03-01 12:07 | CCD ---
Author Author [facility] Organization [facility] Address Unknown Phone Unavailable Care Team Providers Care Soldering Inspector Name Role Phone [facility], [facility]-C Unavailable Unavailabl e [facility], [facility]-C Unavailable [facility]availabl [facility] Unavailable Unavailabl [facility], [facility] Unavailable Unavailabl [facility], [facility]C Unavailable Unavailabl [facility], [facility] Unavailable Unavailabl e [facility], PA-C Unavailable Unavailabl e [facility], [facility]-C Unavailable Unavailabl e Fish, [facility], PA-C Unavailable Unavailabl e [facility], PA-C Unavailable Unavailabl e [facility], PA-C Unavailable Unavailabl e [facility], PA-C Unavailable Unavailabl e Fish, [facility], PA-C Unavailable Unavailabl e Fish, [facility], PA-C Unavailable Unavailabl e Fish, [facility], PA-C Unavailable Unavailabl e Fish, [facility], PA-C Unavailable Unavailabl e Fish, [facility], PA-C Unavailable Unavailabl e Fish, [facility], PA-C Unavailable Unavailabl e Fish, [facility], PA-C Unavailable Unavailabl e Fish, [facility], PA-C Unavailable Unavailabl e Fish, [facility], PA-C Unavailable Unavailabl e Fish, [facility], PA-C Unavailable Unavailabl e Fish, [facility], PA-C Unavailable Unavailabl e Fish, [facility], PA-C Unavailable Unavailabl e Fish, [facility], PA-C Unavailable Unavailabl e Fish, [facility], PA-C Unavailable Unavailabl e Fish, [facility], PA-C Unavailable Unavailabl e Fish, [facility], PA-C Unavailable Unavailabl e Fish, [facility], PA-C Unavailable Unavailabl e Fish, [facility], PA-C Unavailable Unavailabl e Fish, [facility], PA-C Unavailable Unavailabl e Fish, [facility], PA-C Unavailable Unavailabl e Fish, [facility], PA-C Unavailable Unavailabl e Fish, [facility], PA-C Unavailable Unavailabl e Fish, [facility], PA-C Unavailable Unavailabl e Fish, [facility], PA-C Unavailable Unavailabl e EDWARD ISLAS MD [...] MONA MD Unavailable Unavailable NISSA, MAQBOOL MONA Unavailable Unavailable NISSA, MAQBOOL MONA MD Unavailable [...] NISSA, MAQBOOL MONA MD Unavailable Unavailable Davion FONG MD Unavailable Unavailable Davion FONG MD Unavailable Unavailable Davion FONG MD Unavailable Unavailable Davion FONG MD Unavailable Unavailable Davion FONG MD Unavailable Unavailable Davion FONG MD Unavailable Unavailable Davion FONG MD Unavailable Unavailable Davion FONG MD Unavailable Unavailable Davion FONG MD Unavailable Unavailable Davion FONG MD Unavailable Unavailable Davion FONG MD Unavailable Unavailable Davion FONG MD Unavailable Unavailable Davion FONG MD Unavailable Unavailable Davion FONG MD Unavailable Unavailable Davion FONG MD Unavailable Unavailable Davion FONG MD Unavailable Unavailable aDvion FONG MD Unavailable Unavailable Davion FONG MD Unavailable Unavailable Davion FONG MD Unavailable Unavailable HETAL, Davion LEIVA MD Unavailable Unavailable HETAL, C CALI BEAR Unavailable Unavailable HETAL, C CALI Unavailable Unavailable HETAL, C CALI MD Unavailable Unavailable HETAL, C CALI MD Unavailable Unavailable HETAL, C CALI MD Unavailable Unavailable HETAL, C CALI MD Unavailable Unavailable HETAL, C CALI MD Unavailable Unavailable HETAL, C CALI MD Unavailable Unavailable HETAL, C CALI MD Unavailable Unavailable HETAL, C CALI MD Unavailable Unavailable HETAL, C CALI MD Unavailable Unavailable HETAL, C CALI MD Unavailable Unavailable HETAL, C CALI MD Unavailable Unavailable HETAL, C CALI MD Unavailable Unavailable Phillip, Davion Chawla PH.D., M.D. Unavailable Unavailable Phillip, Davion Chawla PH.D., M.D. Unavailable Unavailable Phillip, Davion Chawla PH.D., M.D. Unavailable Unavailable Phillip, Davion Chawla PH.D., M.D. Unavailable Unavailable Phillip, Davion Chawla PH.D., M.D. Unavailable Unavailable Phillip, Davion Chawla PH.D., M.D. Unavailable Unavailable Phillip, Davion Chawla PH.D., M.D. Unavailable Unavailable Phillip, Davion Chawla PH.D., M.D. Unavailable Unavailable Phillip, Davion Chawla PH.D., M.D. Unavailable Unavailable Phillip, Davion Chawla PH.D., M.D. Unavailable Unavailable Phillip, Davion Chawla PH.D., M.D. Unavailable Unavailable Phillip, Davion Chawla PH.D., M.D. Unavailable Unavailable Phillip, Davion Chawla PH.D., M.D. Unavailable Unavailable Phillip, Davion Chawla PH.D., M.D. Unavailable Unavailable Phillip, Davion Chawla PH.D., M.D. Unavailable Unavailable Phillip, Davion Chawla PH.D., M.D. Unavailable Unavailable Phillip, Davion Chawla PH.D., M.D. Unavailable Unavailable Phillip, Davion Chawla PH.D., M.D. Unavailable Unavailable Phillip, Davion Chawla PH.D., M.D. Unavailable Unavailable Phillip, Davion Chawla PH.D., M.D. Unavailable Unavailable Phillip, Davion Chawla PH.D., M.D. Unavailable Unavailable Phillip, Davion Chawla PH.D., M.D. Unavailable Unavailable Phillip, Davion Chawla PH.D., M.D. Unavailable Unavailable Phlilip, Davion Chawla PH.D., M.D. Unavailable Unavailable Phillip, C Denton [...] C Denton PH.D., M.D. Unavailable Unavailable Phillip, Davion Chawla PH.D., M.D. Unavailable Unavailable Phillip, Davion Chawla PH.D., M.D. Unavailable Unavailable Phillip, C Denton PH.D., M.D. Unavailable Unavailable Phillip, C Denton PH.D., M.D. Unavailable Unavailable Phillip, Davion Chawla PH.D., M.D. Unavailable Unavailable Phillip, C Denton PH.D., M.D. Unavailable Unavailable Phillip, Davion Chawla PH.D., M.D. Unavailable Unavailable Phillip, Davion Chawla PH.D., M.D. Unavailable Unavailable Phillip, Davion Chawla PH.D., M.D. Unavailable Unavailable Phillip, Davion Chawla PH.D., M.D. Unavailable Unavailable Phillip, Davion Chawla PH.D., M.D. Unavailable Unavailable Phillip, Davion Chawla PH.D., M.D. Unavailable Unavailable Phillip, Davion Chawla PH.D., M.D. Unavailable Unavailable Phillip, Davion Chawla PH.D., M.D. Unavailable Unavailable Phillip, Davion Chawla PH.D., M.D. Unavailable Unavailable Phillip, Davion Chawla PH.D., M.D. Unavailable Unavailable Phillip, Davion Chawla PH.D., M.D. Unavailable Unavailable Phillip, Davion Chawla PH.D., M.D. Unavailable Unavailable Phillip, Davion Chawla PH.D., M.D. Unavailable Unavailable Phillip, Davion Chawla PH.D., M.D. Unavailable Unavailable Phillip, Davion Chawla PH.D., M.D. Unavailable Unavailable Phillip, Davion Chawla PH.D., M.D. Unavailable Unavailable Phillip, Davion Chawla PH.D., M.D. Unavailable Unavailable Phillip, C Denton PH.D., M.D. Unavailable Unavailable Re-disclosure Warning The records that [...] is protected by Article 27-F of the [facility] Public Health law. If you continue you may have access to information: Regarding HIV / AIDS; Provided by facilities licensed or operated by the [facility] Office of Mental Health; or Provided by the [facility] Office for People With Developmental Disabilities. If such information is present, then the following [facility] mandated warning applies: This information has been [...] law may result in a fine or alf sentence or both. A general authorization for the release of medical or other information is NOT sufficient authorization for further disc losure. Allergies and Adverse Reactions Type Description Substance Reaction Status Data Source(s ) No Known Drug Allergies No Known Drug Allergies [facility] Allergy to substance No Known Allergies No known allergies (situation ) TAVARES (Denton Waite MD [facility]) Allergy to substance No Known Allergies No known allergies (situation ) TAVARES (Denton Watie MD [facility]) Family History Family Member Name Family Member Gender Family Member Status Date o f Status Description Data Source(s) Unknown Unknown Problem [facility] ([facility]) Unknown Unknown Problem [facility] ([facility] ) Unknown Female Problem [facility] ([facility]) Unknown Female Problem [facility] ([facility]) Unknown Female Problem [facility] ([facility]) Unknown Female Problem [facility] ([facility]) Unknown Female Problem MED[facility] ([facility]) Encounters Encounter Providers Location Date Indications Data Source(s ) Outpatient Attender: NINA GARCIAM PCConsultant: MONA ISLAS MD 02/16/2021 02:27:00 PM EST - 02/16/2021 02:27:00 PM [facility] OFFICE OUTPATIENT VISIT 15 MINUTES Attender: HENRIQUE VENTURA Phys ical Therapy 02/14/2021 08:30:00 AM EST MED[facility] ([facility]) Outpatient Attender: MONA ISLAS MD [facility] 02/08 08:30:00 AM EST MEDENT (Mona Islas MD) Outpatient Attender: CALI Fong/Ayden/Erik/David ceballos 02/01/2021 10:15:00 AM EDT MED[facility] ([facility] Outpatient Attender: Denton Fisher PH.D., M.D. Hetal/Ayden/Keely bird/Lucretia 01/19/2021 04:15:00 PM EDT [facility] ([facility] Outpatient Attender: MONA ISLAS MDConsultant: MONA Huang MD 12/29/2020 10:55:00 AM EDT - 12/29/2020 11:55:00 AM EDT [facility] Outpatient Attender: MONA ISLAS MD [facility] 12/29 10:30:00 AM EDT MEDENT (Mona Islas MD) OFFICE OUTPATIENT VISIT 15 MINUTES Attender: HENRIQUE VENTURA Phys ical Therapy 11/03/2020 01:00:00 PM EDT MED[facility] ([facility]) Outpatient Attender: MINA VENTURA [facility] 11/01/2020 10:30:00 AM EDT MED[facility] (Mona Islas MD) Outpatient Attender: NINA ARAUJO DPM PCConsultant: MONA ISLAS MD 09/12/2020 02:55:00 PM EDT - 09/12/2020 02:55:00 PM EDT [facility] Outpatient Attender: MONA ISLAS MD [facility] 09/09 10:30:00 AM EDT MEDENT (Mona Islas MD) Office Visit Attender: Arelis WILLSON PA-C Physical Therapy 07/07/2020 08:30:00 AM EDT [facility] ([facility]) Outpatient Attender: MONA ISLAS MD [facility] 07/04 04:00:00 PM EDT MEDENT (Mona Islas MD) <td ID="encounterTypeDescriptionID0">9 M onth Follow-Up</td><td>Denton Waite MD, FACS</td><td>Denton Ruiz MD [facility]</td><td>07/04/2020</td><td>2:33PM</td><td>3:42PM</td><td><content ID="encounterDiagnosisID0-0">Essential Hypertension</content>, <content ID="encounterDiagnosisID0-1">Assessment of Taking Medication For Diabetes Long- term Use of Oral Hypoglycemics</content>, <content ID="encounterDiagnosisID0- 2">Diabetes Mellitus Type 2 - Uncomplicated, Controlled</content>, <content ID="encounterDiagnosisID0-3">Macular Puckering Both Eyes</content>, <content ID="encounterDiagnosisID0-4">Dry Eye Syndrome Both Eyes</content></td>Outpatient Attender: Denton Waite MD, FACS Denton Ruiz MD [facility] 07/04/2020 02:33:00 PM EDT - 07/04/2020 03:42:00 PM EDT Macular Puckering Both EyesMacular Pucke ring Both EyesDry Eye Syndrome Both EyesDiabetes Mellitus Type 2 - Uncomplicated, ControlledAssessment of Taking Medication For Diabetes Long-term Use of Oral HypoglycemicsEssential HypertensionDry Eye Syndrome Both EyesDiabetes Mellitus Type 2 - Uncomplicated, ControlledAssessment of Taking Medication For Diabetes Long-term Use of Oral HypoglycemicsEssential Hypertension TAVARES (Denton Waite MD [facility]) Macular Puckering Both Eyes Macular Puckering Both [...] of Oral Hypoglycemics Essential Hypertension Out[place] [address] [address] 07/04/2020 12:00:00 AM EDT eCW1 ([facility]) Outpatient Attender: MONA ISLAS MDConsultant: MONA Huang MD 07/03/2020 01:38:00 PM EDT - 07/03/2020 02:38:00 PM EDT [facility] Patient discharged. Outpatient Attender: BRIDGET TONY MDConsultant: MONA BAEZ MD 07/03/2020 01:36:00 PM EDT - 07/03/2020 02:36:00 PM EDT [facility] Outpatient Attender: MONA ISLAS MDConsultant: MONA Huang MD 03/27/2020 10:18:00 AM EST - 03/27/2020 11:18:00 AM [facility] Outpatient Attender: MONA ISLAS MD [facility] 03/23 09:30:00 AM EST MED[facility] (Mona Islas MD) Outpatient Attender: NINA ARAUJO DPM PCConsultant: MONA ISLAS MD 03/22/2020 11:09:00 AM EST - 03/22/2020 11:09:00 AM [facility] Office Visit Attender: Arelis WILLSON PA-C Physical Therapy 03/22/2020 07:30:00 AM EST MED[facility] ([facility]) OFFICE OUTPATIENT VISIT 15 MINUTES Attender: Arelis WILLSON PA-C Physical Therapy 02/04/2020 08:30:00 AM EST [facility] ([facility]) Outpatient Attender: MONA ISLAS MDConsultant: MONA Huang MD 02/02/2020 11:10:00 AM EST - 02/02/2020 12:10:00 PM [facility] Outpatient Attender: MONA ISLAS MD Medical Building 02/01 09:30:00 AM EST MEDENT (Mona Islas MD) Immunizations Vaccine Date Status Description Data Source(s) COVID-19 VACCINE Moderna 02/27/2021 12:00:00 AM EST completed [facility] Vaccine Series Complete: YESThis Data wa s Submitted to [facility]. COVID-19 VACCINE Moderna 08/01/2020 12:00:00 AM EDT completed [facility] Vaccine Series Complete: YESThis Data wa s Submitted to [facility] [employer]. COVID-19 VACCINE Moderna 07/07/2020 12:00:00 AM EDT completed [facility] Vaccine Series Complete: NOThis Data was Submitted to [facility] [employer]. Medications Medication Brand Name Start Date Product [...] ORAL active MEDENT (Sommer Islas MD) Nystatin [id number] UNT/ML Oral Suspension Nystatin 01/27/2021 12:00:00 AM EDT active MEDENT ([facility], ) chlorhexidine gluconate 1.2 MG/ML Mouthwash Chlorhexidine Gl uconate 01/27/2021 12:00:00 AM EDT ORAL active M EDENT ([facility], ) Acetaminophen 325 MG / Hydrocodone Bitartrate 7.5 MG O ral Tablet Hydrocodone-Acetaminophen 01/19/2021 12:00:00 AM EDT ORAL active MEDENT ([facility]) Betamethasone 0.5 MG/ML / Clotrimazole 10 MG/ML [...] Prefilled Syringe [Gel-One] Gel-One 03/22/2020 12:00:00 AM KEKE COE ([facility]) Warfarin Sodium 7.5 MG Oral Tablet Warfarin Sodium 7.5 MG Oral Tablet Warfarin Sodium 7.5MG Oral Tablet 11/08/2016 12:00:00 AM EDT 1 aborted warfarin sodium 7.5 MG Oral Tablet OPAL (Denton Waite MD [facility]) Insurance Providers Payer name Policy type / Coverage type Policy ID Covered constitution party ID Covered constitution party's relationship to nichols Policy Nichols Plan Information [facility] (Medicare) Medigap Part B [id number] Self [facility] (Medicare) Medigap Part B [id number] Self [id number] UHC UNITED MEDICARE COMPLETE G [id number] Self [id number] MEDICARE COMPLETE [id number] SP [id number] MEDICARE COMPLETE [id number] SP [id number] MEDICARE COMPLETE [id number] SP [id number] ANSI-Medicare Part B [id number] [facility] MEDICARE [id number] S [id number] ANSI-Medicare Part B [id number] [facility] ([facility]) Commercial [id number] Self [id number] [facility] COMMUNTY PLAN [id number] 18 [id number] ANSI-Medicare Part B [id number] ANSI-Medicare Part B [id number] [facility] MEDICARE [id number] S [id number] UN[employer] COMMUNITY PLAN XIX [id number] 18 [id number] [facility] [id number] 18 [id number] [employer] [place] [employer] MEDICARE O/P [id number] 18 [id number] [facility] Communty Plan Medicaid [id number] Self [id number] [facility] COMMUNTY PLAN [id number] 18 [id number] [facility] Medicare Commercial [id number] Self [id number] [facility] Commercial [id number] Self MEDICARE COMPLETE [id number] SP [id number] [employer] Medicare Commercial [id number] Self MEDICARE COMPLETE-[facility] O [id number] S [id number] MEDICARE COMPLETE [id number] SP [id number] [employer] [place] UN MEDICARE-O/P [id number] 18 [id number] [place] [place] BLUE SHIELD-O/P [id number] 18 [id number] MEDICARE COMPLETE [id number] SP [id number] MEDICARE COMPLETE [id number] SP [id number] [place] [id number] 18 [id number] [employer] [place] MEDICARE O/P [id number] 18 [id number] [facility] [place] [place] [facility] [place] [id number] 18 [id number] [facility] MEDICARE [id number] S [id number] Problems, Conditions, and Diagnoses Code Display Name Description Problem Type Effective Dates Data Source(s) M2040 Other hammer toe(s) (acquired), unspecif ied foot Other hammer toe(s) (acquired), unspecified foot Diagnosis 02/16/2021 02:27:00 PM [facility] R601 Generalized edema Generalized edema Diagnosis 02/16/2021 02:27:00 PM [facility] L84 Corns and callosities Corns and callosities Diagnosis 02/16/2021 02:27:00 PM [facility] B351 Tinea unguium Tinea unguium Diagnosis 02/16/2021 02:27:00 PM [facility] 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 Diagnosis 02/16/2021 02:27:00 PM [facility] D649 Anemia, unspecified Anemia, unspecified Diagnosis 0 12/29/2020 10:55:00 AM EDT [facility] E8342 Hypomagnesemia Hypomagnesemia Diagnosis 12/29/2020 10:55: 00 AM EDT [facility] N390 Urinary tract infection, site not specif ied Urinary tract infection, site not specified Diagnosis 12/29/2020 10:55:00 AM EDT [facility] E039 Hypothyroidism, unspecified Hypothyroidism, unspecifie d Diagnosis 12/29/2020 10:55:00 AM EDT [facility] E785 Hyperlipidemia, unspecified Hyperlipidemia, unspecifie d Diagnosis 12/29/2020 10:55:00 AM EDT [facility] E119 Type 2 diabetes mellitus without complic ations Type 2 diabetes mellitus without complications Diagnosis 12/29/2020 10:55:00 AM EDT [facility] C61 Malignant neoplasm of prostate Malignant neoplasm of p rostate Diagnosis 07/03/2020 01:38:00 PM EDT [facility] I10 Essential (primary) hypertension Essential (primary) h ypertension Diagnosis 07/03/2020 01:38:00 PM EDT [facility] Z8672 Personal history of thrombophlebitis Personal hi story of thrombophlebitis Diagnosis 03/27/2020 10:18:00 AM [facility] I4891 Unspecified atrial fibrillation Unspecified atrial fib rillation Diagnosis 02/02/2020 11:10:00 AM [facility] K14.8 Disorder of tongue Disorder of tongue Problem 12:00:00 AM EDT MEDENT ([facility], ) Surgeries/Procedures Procedure Description Date Indications Data Source(s) Pare Hyperkeratotic Lesion, 2-4 02/16/2021 12:00:00 AM EST [facility] ([facility]) Debridement Nails Any Method 6 Or More 02/16/2021 12:0 0:00 AM EST [facility] ([facility]) ARTHROCENTESIS ASPIR&/INJECTION MAJOR JT/BURSA 12:00:00 AM EST MEDENT ([facility]) OFFICE OUTPATIENT VISIT 15 MINUTES 02/14/2021 12:00:00 AM EST [facility] ([facility]) MYOCARDIAL SPECT MULTIPLE STUDIES 02/09/2021 12:00:00 AM EST MEDENT (Mona Islas MD) ECG ROUTINE ECG W/LEAST 12 LDS W/I&R 02/08/2021 12:00: 00 AM EST [facility] (Mona Islas MD) ECHO TTHRC R-T 2D W/WOM-MODE COMPL SPEC&COLR DOP 02/08 12:00:00 AM EST [facility] (Mona Islas MD) OFFICE OUTPATIENT VISIT 25 MINUTES 02/08/2021 12:00:00 AM EST MEDENT (Mona Islas MD) OFFICE OUTPATIENT VISIT 25 MINUTES 02/01/2021 12:00:00 AM EDT MEDENT ([facility], ) BIOPSY TONGUE ANTERIOR TWO-THIRDS 01/23/2021 12:00:00 AM EDT MEDENT ([facility]) OFFICE OUTPATIENT NEW 45 MINUTES 01/19/2021 12:00:00 A M EDT MEDENT ([facility], ) OFFICE OUTPATIENT VISIT 25 MINUTES 12/29/2020 12:00:00 AM EDT MEDENT (Mona Islas MD) ARTHROCENTESIS ASPIR&/INJECTION MAJOR JT/BURSA 12:00:00 AM EDT MEDENT ([facility]) OFFICE OUTPATIENT VISIT 15 MINUTES 11/03/2020 12:00:00 AM EDT MEDENT ([facility]) PERIODIC PREVENTIVE MED EST PATIENT 63YRS&> 11/01/2020 12:00:00 AM EDT MEDENT (Mona Islas MD) Pare Hyperkeratotic Lesion, 2-4 09/12/2020 12:00:00 AM EDT MED[facility] ([facility]) Debridement Nails Any Method 6 Or More 09/12/2020 12:0 0:00 AM EDT MED[facility] ([facility]) OFFICE OUTPATIENT VISIT 25 MINUTES 09/09/2020 12:00:00 AM EDT MEDENT (Mona Islas MD) ARTHROCENTESIS ASPIR&/INJECTION MAJOR JT/BURSA 021 12:00:00 AM EDT MEDENT ([facility]) OFFICE OUTPATIENT VISIT 25 MINUTES 07/04/2020 12:00:00 AM EDT MEDENT (Mona Islas MD) 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 Ruiz 10/22/18 07/04/2020 12:00:00 AM EDT OPAL (Noah Waite MD [facility]) Cataract surgery (procedure) History of cataract surge ry PCIOL OS 03/17/[address] Collins ~PCIOL OD 03/20/[address] Collins 07/04/2020 12:00:00 AM EDT OPAL (Denton Waite MD [facility]) Intermediate Eye Exam Established Patient Intermediate Eye Exam Established Patient 07/04/2020 12:00:00 AM EDT OPAL (Noah Waite MD [facility]) Intermediate Eye Exam Established Patient Intermediate Eye Exam Established Patient 07/04/2020 12:00:00 AM EDT OPAL (Noah Waite MD [facility]) Pare Hyperkeratotic Lesion, 2-4 03/22/2020 12:00:00 AM EST MED[facility] ([facility]) Debridement Nails Any Method 6 Or More 03/22/2020 12:0 0:00 AM EST MED[facility] ([facility]) ARTHROCENTESIS ASPIR&/INJECTION MAJOR JT/BURSA 020 12:00:00 AM EST MEDENT ([facility]) ARTHROCENTESIS ASPIR&/INJECTION MAJOR JT/BURSA 12:00:00 AM EST MEDENT ([facility]) RADIOLOGIC EXAM KNEE COMPLETE 4/MORE VIEWS 02/04/2020 12:00:00 AM EST MEDENT ([facility]) RADIOLOGIC EXAM KNEE COMPLETE 4/MORE VIEWS 02/04/2020 12:00:00 AM EST MEDENT ([facility]) Results ID Date Data Source [id number] 02/22/2021 08:53:00 AM EST MEDENT (Mona Islas MD) Name Value Range Interpretation Code Description Data Rosalind rce(s) Supporting Document(s) Glucose [Mass/volume] in Capillary blood by Glucometer 337 mg/dL 83-110 Above high normal MEDENT (Mona Islas MD) ID Date Data Source [id number] 02/22/2021 04:33:00 AM EST MEDENT (Mona Islas MD) Name Value Range Interpretation Code Description Data Rosalind rce(s) Supporting Document(s) Laboratory test finding (navigational concept) 1.03 Normal (applies to non- numeric results) MEDENT (Mona Islas MD) THERAPUTIC HUMAN INR VALUES INDICATIONS NORMAL RANGES PROPHYLAXIS/TREATMENT OF: VENOUS THROMBOSIS 2.0-3.0 PULMONARY EMBOLISM 2.0-3.0 PREVENTION OF SYSTEMIC EMBOLISM FROM: TISSUE HEART VALVES 2.0-3.0 ACUTE MYOCARDIAL INFARCTION 2.0-3.0 VALVULAR HEART DISEASE 2.0-3.0 ATRIAL FIBRILLATION 2.0-3.0 MECHANICAL VALVES(HIGH RISK) 2.5-3.5 RECURRENT MYOCARDIAL INFARCTION 2.5-3.5 Laboratory test finding (navigational concept) 13.9 s 1 2.7-14.5 Normal (applies to non-numeric results) [facility] (Mona Islas MD) ID Date Data Source [id number] 02/22/2021 04:33:00 AM EST [facility] (Mona Islas MD) Name Value Range Interpretation Code Description Data Rosalind rce(s) Supporting Document(s) C reactive protein [Mass/volume] in Serum or Plasma by High sensitivity method 2.59 mg/dL 0.00-0.30 Above high normal [facility] (Mona Islas MD) ID Date Data Source [id number] 02/22/2021 04:33:00 AM EST [facility] (Mona Islas MD) Name Value Range Interpretation Code Description Data Rosalind rce(s) Supporting Document(s) Laboratory test finding (navigational concept) 28 mg/dL 7-18 Above high normal [facility] (Mona Islas MD) Laboratory test finding (navigational concept) 246 mg/dL 7 0-100 Above high normal [facility] (Mona Islas MD) [...] Little GFR Left</content>
<content>ESRD GFR <15 on NEWS CLERK</content>
<content></content> Laboratory test finding (navigational concept) 0.77 mg/dL 0 .70-1.30 Normal (applies to non-numeric results) [facility] (Mona Islas MD) Laboratory test finding (navigational concept) 136 meq/L 1 36-145 Normal (applies to non-numeric results) [facility] (Mona Islas MD) Laboratory test finding (navigational concept) 4.3 meq/L 3 .5-5.1 Normal (applies to non-numeric results) [facility] (Mona Islas MD) Laboratory test finding (navigational concept) 102 meq/L 9 8-107 Normal (applies to non-numeric results) [facility] (Mona Islas MD) Laboratory test finding (navigational concept) 31 meq/L 2 1-32 Normal (applies to non-numeric results) [facility] (Mona Islas MD) Laboratory test finding (navigational concept) 3 meq/L 8-16 Below low normal [facility] (Mona Islas MD) Laboratory test finding (navigational concept) 8.5 mg/dL 8 .8-10.2 Below low normal [facility] (Mona Islas MD) ID Date Data Source [id number] 02/22/2021 04:33:00 AM EST [facility] (Mona Islas MD) Name Value Range Interpretation Code Description Data Rosalind rce(s) Supporting Document(s) Laboratory test finding (navigational concept) 8.3 10 4 .0-10.0 Normal (applies to non-numeric results) [facility] (Mona Islas MD) Laboratory test finding (navigational concept) 3.77 10 4 .30-6.10 Below low normal [facility] (Mona Islas MD) Laboratory test finding (navigational concept) 10.5 g/dL 1 3.5-17.5 Below low normal [facility] (Mona Islas MD) Laboratory test finding (navigational concept) 32.9 % 4 2.0-52.0 Below low normal [facility] (Mona Islas MD) Laboratory test finding (navigational concept) 87.3 fl 8 0.0-96.0 Normal (applies to non-numeric results) [facility] (Mona Islas MD) Laboratory test finding (navigational concept) 27.9 pg 2 7.0-33.0 Normal (applies to non-numeric results) [facility] (Mona Islas MD) Laboratory test finding (navigational concept) 31.9 g/dL 3 2.0-36.5 Below low normal [facility] (Mona Islas MD) Laboratory test finding (navigational concept) 181 10 1 50-450 Normal (applies to non-numeric results) [facility] (Mona Islas MD) Laboratory test finding (navigational concept) 15.4 % 1 1.5-14.5 Above high normal [facility] (Mona Islas MD) Laboratory test finding (navigational concept) 91.7 % 3 6.0-66.0 Above high normal [facility] (Mona Islas MD) Laboratory test finding (navigational concept) 4.6 % 24.0-44 .0 Below low normal [facility] (Mona Islas MD) Laboratory test finding (navigational concept) 3.2 % 2 .0-8.0 Normal (applies to non-numeric results) [facility] (Mona Islas MD) Laboratory test finding (navigational concept) 0.0 % 0 .0-1.0 Normal (applies to non-numeric results) [facility] (Mona Islas MD) Laboratory test finding (navigational concept) 0.0 % 0 .0-3.0 Normal (applies to non-numeric results) [facility] (Mona Islas MD) Laboratory test finding (navigational concept) 0.0 % 0 -0 Normal (applies to non- numeric results) [facility] (Mona Islas MD) Laboratory test finding (navigational concept) 0.5 % 0 -3.0 Normal (applies to non-numeric results) [facility] (Mona Islas MD) Laboratory test finding (navigational concept) 7.6 10 1 .5-8.5 Normal (applies to non-numeric results) [facility] (Mona Islas MD) Laboratory test finding (navigational concept) 0.3 10 0 .0-0.8 Normal (applies to non-numeric results) [facility] (Mona Islas MD) Laboratory test finding (navigational concept) 0.4 10 1.5-5.0 Below low normal [facility] (Mona Islas MD) Laboratory test finding (navigational concept) 0.0 10 0 .0-0.5 Normal (applies to non-numeric results) [facility] (Mona Islas MD) Laboratory test finding (navigational concept) 0.0 10 0 .0-0.2 Normal (applies to non-numeric results) [facility] (Mona Islas MD) ID Date Data Source [id number] 02/21/2021 08:24:00 PM EST [facility] (Mona Islas MD) Name Value Range Interpretation Code Description Data Rosalind rce(s) Supporting Document(s) Glucose [Mass/volume] in Capillary blood by Glucometer 290 mg/dL 83-110 Above high normal [facility] (Mona Islas MD) ID Date Data Source [id number] 02/21/2021 05:00:00 PM EST [facility] (Mona Islas MD) Name Value Range Interpretation Code Description Data Rosalind rce(s) Supporting Document(s) Glucose [Mass/volume] in Capillary blood by Glucometer 288 mg/dL 83-110 Above high normal [facility] (Mona Islas MD) ID Date Data Source [id number] 02/21/2021 12:11:00 PM EST [facility] (Mona Islas MD) Name Value Range Interpretation Code Description Data Rosalind rce(s) Supporting Document(s) Glucose [Mass/volume] in Capillary blood by Glucometer 293 mg/dL 83-110 Above high normal [facility] (Mona Islas MD) ID Date Data Source [id number] 02/21/2021 07:59:00 AM EST [facility] (Mona Islas MD) Name Value Range Interpretation Code Description Data Rosalind rce(s) Supporting Document(s) Glucose [Mass/volume] in Capillary blood by Glucometer 332 mg/dL 83-110 Above high normal [facility] (Mona Islas MD) ID Date Data Source [id number] 02/21/2021 05:08:00 AM EST [facility] (Mona Ilsas MD) Name Value Range Interpretation Code Description Data Rosalind rce(s) Supporting Document(s) Laboratory test finding (navigational concept) 14.0 s 1 2.7-14.5 Normal (applies to non-numeric results) [facility] (Mona Islas MD) Laboratory test finding (navigational concept) 1.04 Normal (applies to non- numeric results) [facility] (Mona Islas MD) THERAPUTIC HUMAN INR VALUES INDICATIONS NORMAL RANGES PROPHYLAXIS/TREATMENT OF: VENOUS THROMBOSIS 2.0-3.0 PULMONARY EMBOLISM 2.0-3.0 PREVENTION OF SYSTEMIC EMBOLISM FROM: TISSUE HEART VALVES 2.0-3.0 ACUTE MYOCARDIAL INFARCTION 2.0-3.0 VALVULAR HEART DISEASE 2.0-3.0 ATRIAL FIBRILLATION 2.0-3.0 MECHANICAL VALVES(HIGH RISK) 2.5-3.5 RECURRENT MYOCARDIAL INFARCTION 2.5-3.5 ID Date Data Source [id number] 02/21/2021 05:08:00 AM EST [facility] (Moan Islas MD) Name Value Range Interpretation Code Description Data Rosalind rce(s) Supporting Document(s) C reactive protein [Mass/volume] in Serum or Plasma by High sensitivity method 2.60 mg/dL 0.00-0.30 Above high normal [facility] (Mona Islas MD) ID Date Data Source [id number] 02/21/2021 05:08:00 AM EST [facility] (Mona Islas MD) Name Value Range Interpretation Code Description Data Rosalind rce(s) Supporting Document(s) Laboratory test finding (navigational concept) 27 mg/dL 7-18 Above high normal [facility] (Mona Islas MD) Laboratory test finding (navigational concept) 322 mg/dL 7 0-100 Above high normal [facility] (Mona Islas MD) Laboratory test finding (navigational concept) 0.99 mg/dL 0 .70-1.30 Normal (applies to non-numeric results) [facility] (Mona Islas MD) Laboratory test [...] Little GFR Left</content>
<content>ESRD GFR <15 on NEWS CLERK</content>
<content></content> Laboratory test finding (navigational concept) 138 meq/L 1 36-145 Normal (applies to non-numeric results) [facility] (Mona Islas MD) Laboratory test finding (navigational concept) 4.5 meq/L 3 .5-5.1 Normal (applies to non-numeric results) [facility] (Mona Islas MD) Laboratory test finding (navigational concept) 28 meq/L 2 1-32 Normal (applies to non-numeric results) [facility] (Mona Islas MD) Laboratory test finding (navigational concept) 102 meq/L 9 8-107 Normal (applies to non-numeric results) [facility] (Mona Islas MD) Laboratory test finding (navigational concept) 8 meq/L 8 -16 Normal (applies to non-numeric results) [facility] (Mona Islas MD) Laboratory test finding (navigational concept) 8.3 mg/dL 8 .8-10.2 Below low normal [facility] (Mona Islas MD) ID Date Data Source [id number] 02/21/2021 05:08:00 AM EST [facility] (Mona Islas MD) Name Value Range Interpretation Code Description Data Rosalind rce(s) Supporting Document(s) Laboratory test finding (navigational concept) 3.99 10 4 .30-6.10 Below low normal [facility] (Mona Islas MD) Laboratory test finding (navigational concept) 10.4 10 4 .0-10.0 Above high normal [facility] (Mona Islas MD) Laboratory test finding (navigational concept) 35.3 % 4 2.0-52.0 Below low normal [facility] (Mona Islas MD) Laboratory test finding (navigational concept) 88.5 fl 8 0.0-96.0 Normal (applies to non-numeric results) [facility] (Mona Islas MD) Laboratory test finding (navigational concept) 11.0 g/dL 1 3.5-17.5 Below low normal [facility] (Mona Islas MD) Laboratory test finding (navigational concept) 27.6 pg 2 7.0-33.0 Normal (applies to non-numeric results) [facility] (Mona Islas MD) Laboratory test finding (navigational concept) 31.2 g/dL 3 2.0-36.5 Below low normal [facility] (Mona Islas MD) Laboratory test finding (navigational concept) 15.2 % 1 1.5-14.5 Above high normal [facility] (Mona Islas MD) Laboratory test finding (navigational concept) 195 10 1 50-450 Normal (applies to non-numeric results) [facility] (Mona Islas MD) Laboratory test finding (navigational concept) 92.6 % 3 6.0-66.0 Above high normal [facility] (Mona Islas MD) Laboratory test finding (navigational concept) 3.6 % 24.0-44 .0 Below low normal [facility] (Mona Islas MD) Laboratory test finding (navigational concept) 3.1 % 2 .0-8.0 Normal (applies to non-numeric results) [facility] (Mona Islas MD) Laboratory test finding (navigational concept) 0.0 % 0 .0-3.0 Normal (applies to non-numeric results) [facility] (Mona Islas MD) Laboratory test finding (navigational concept) 0.6 % 0 -3.0 Normal (applies to non-numeric results) [facility] (Mona Islas MD) Laboratory test finding (navigational concept) 0.1 % 0 .0-1.0 Normal (applies to non-numeric results) [facility] (Mona Islas MD) Laboratory test finding (navigational concept) 0.0 % 0 -0 Normal (applies to non- numeric results) [facility] (Mona Islas MD) Laboratory test finding (navigational concept) 0.4 10 1.5-5.0 Below low normal [facility] (Mona Islas MD) Laboratory test finding (navigational concept) 9.7 10 1.5-8.5 Above high normal [facility] (Mona Islas MD) Laboratory test finding (navigational concept) 0.0 10 0 .0-0.5 Normal (applies to non-numeric results) [facility] (Mona Islas MD) Laboratory test finding (navigational concept) 0.3 10 0 .0-0.8 Normal (applies to non-numeric results) [facility] (Mona Islas MD) Laboratory test finding (navigational concept) 0.0 10 0 .0-0.2 Normal (applies to non-numeric results) [facility] (Mona Islas MD) ID Date Data Source [id number] 02/20/2021 08:33:00 PM EST [facility] (Mona Islas MD) Name Value Range Interpretation Code Description Data Rosalind rce(s) Supporting Document(s) Glucose [Mass/volume] in Capillary blood by Glucometer 345 mg/dL 83-110 Above high normal [facility] (Mona Islas MD) ID Date Data Source [id number] 02/20/2021 05:34:00 PM EST [facility] (Mona Islas MD) Name Value Range Interpretation Code Description Data Rosalind rce(s) Supporting Document(s) Glucose [Mass/volume] in Capillary blood by Glucometer 382 mg/dL 83-110 Above high normal [facility] (Mona Islas MD) ID Date Data Source [id number] 02/20/2021 11:53:00 AM EST [facility] (Mona Islas MD) Name Value Range Interpretation Code Description Data Rosalind rce(s) Supporting Document(s) Laboratory test finding (navigational concept) 7.9 10 4 .0-10.0 Normal (applies to non-numeric results) [facility] (Mona Islas MD) Laboratory test finding (navigational concept) 11.1 g/dL 1 3.5-17.5 Below low normal [facility] (Mona Islas MD) Laboratory test finding (navigational concept) 3.98 10 4 .30-6.10 Below low normal [facility] (Mona Islas MD) Laboratory test finding (navigational concept) 36.0 % 4 2.0-52.0 Below low normal [facility] (Mona Islas MD) Laboratory test finding (navigational concept) 90.5 fl 8 0.0-96.0 Normal (applies to non-numeric results) [facility] (Mona Islas MD) Laboratory test finding (navigational concept) 27.9 pg 2 7.0-33.0 Normal (applies to non-numeric results) [facility] (Mona Islas MD) Laboratory test finding (navigational concept) 30.8 g/dL 3 2.0-36.5 Below low normal [facility] (Mona Isals MD) Laboratory test finding (navigational concept) 15.6 % 1 1.5-14.5 Above high normal [facility] (Mona Islas MD) Laboratory test finding (navigational concept) 188 10 1 50-450 Normal (applies to non-numeric results) [facility] (Mona Islas MD) Laboratory test finding (navigational concept) 0.0 % 0 -0 Normal (applies to non- numeric results) [facility] (Mona Ilsas MD) ID Date Data Source [id number] 02/20/2021 11:53:00 AM EST [facility] (Mona Islas MD) Name Value Range Interpretation Code Description Data Rosalind rce(s) Supporting Document(s) Magnesium [Mass/volume] in Serum or Plasma 1.9 mg/dL 1.8-2 .4 Normal (applies to non-numeric results) [facility] (Mona Islas MD) C reactive protein [Mass/volume] in Serum or Plasma by High sensitivity method 0.34 mg/dL 0.00-0.30 Above high normal [facility] (Mona Islas MD) Natriuretic peptide.B prohormone N-Terminal [Mass/volu me] in Serum or Plasma 283 pg/mL Above high normal [facility] (Mona Islas MD) ID Date Data Source [id number] 02/20/2021 11:53:00 AM EST [facility] (Mona Islas MD) Name Value Range Interpretation Code Description Data Rosalind rce(s) Supporting Document(s) Laboratory test finding (navigational concept) 26 mg/dL 7-18 Above high normal [facility] (Mona Islas MD) Laboratory test finding (navigational concept) 234 mg/dL 7 0-100 Above high normal [facility] (Mona Islas MD) [...] Little GFR Left</content>
<content>ESRD GFR <15 on NEWS CLERK</content>
<content></content> Laboratory test finding (navigational concept) 1.10 mg/dL 0 .70-1.30 Normal (applies to non-numeric results) [facility] (Mona Islas MD) Laboratory test finding (navigational concept) 5.5 meq/L 3 .5-5.1 Above high normal [facility] (Mona Islas MD) Laboratory test finding (navigational concept) 138 meq/L 1 36-145 Normal (applies to non-numeric results) [facility] (Mona Islas MD) Laboratory test finding (navigational concept) 107 meq/L 9 8-107 Normal (applies to non-numeric results) [facility] (Mona Islas MD) Laboratory test finding (navigational concept) 27 meq/L 2 1-32 Normal (applies to non-numeric results) [facility] (Mona Islas MD) Laboratory test finding (navigational concept) 8.2 mg/dL 8 .8-10.2 Below low normal [facility] (Mona Islas MD) Laboratory test finding (navigational concept) 4 meq/L 8-16 Below low normal [facility] (Mona Islas MD) ID Date Data Source [id number] 02/20/2021 11:53:00 AM EST [facility] ([facility]) Name Value Range Interpretation Code Description Data Rosalind rce(s) Supporting Document(s) Magnesium [Mass/volume] in Serum or Plasma 1.9 mg/dL 1.8-2 .4 Normal (applies to non-numeric results) [facility] ([facility]) ID Date Data Source [id number] 02/20/2021 11:53:00 AM [facility] ([facility]) Name Value Range Interpretation Code Description Data Rosalind rce(s) Supporting Document(s) Glucose, Fasting 234 mg/dL 70-100 Above high normal [facility] Blood Urea Nitrogen 26 mg/dL 7-18 Above high normal [facility] ([facility]) Creatinine For GFR 1.10 mg/dL 0.70-1.30 Normal (applies to non -numeric results) [facility] ([facility]) Glomerular Filtration Rate Laboratory test result Normal (applies to non- numeric results) [facility]) <content>Units are mL/min/1.73 m2</content>
<content></content>
<content>Chronic Kidney Disease Staging per NKF:</content>
<content></content>
<content>Stage I & II GFR >=60 Normal to Mildly Decreased</content>
<content>Stage III GFR 30- 59 Moderately Decreased</content>
<content>Stage IV GFR 15-29 Severely Decreased</content>
<content>Stage V GFR <15 Very Little GFR Left</content>
<content>ESRD GFR <15 on NEWS CLERK</content>
<content></content> Sodium Level 138 meq/L 136-145 Normal (applies to non-numeric res ults) [facility] ([facility]) Potassium Serum 5.5 meq/L 3.5-5.1 Above high normal [facility] ([facility]) Carbon Dioxide Level 27 meq/L 21-32 Normal (applies to non-num jake results) [facility] ([facility]) Chloride Level 107 meq/L 98-107 Normal (applies to non-numeric r esults) [facility] ([facility]) Anion Gap 4 meq/L 8-16 Below low normal [facility] ( [facility]) Calcium Level 8.2 mg/dL 8.8-10.2 Below low normal [facility] ([facility]) ID Date Data Source [id number] 02/20/2021 11:53:00 AM EST [facility] ([facility]) Name Value Range Interpretation Code Description Data Rosalind rce(s) Supporting Document(s) White Blood Count 7.9 10 4.0-10.0 Normal (applies to non-numeri c results) [facility] ([facility]) Red Blood Count 3.98 10 4.30-6.10 Below low normal [facility] ([facility]) Hemoglobin 11.1 g/dL 13.5-17.5 Below low normal [facility] ( [facility]) Hematocrit 36.0 % 42.0-52.0 Below low normal [facility] ( [facility]) Mean Corpuscular Volume 90.5 fl 80.0-96.0 Normal ( applies to non-numeric results) [facility] ([facility]) Mean Corpuscular Hemoglobin 27.9 pg 27.0-33.0 Norm al (applies to non-numeric results) [facility] ([facility]) Platelet Count, Automated 188 10 150-450 Normal (applies to non-numeric results) [facility] ([facility]) Mean Corpuscular HGB Conc 30.8 g/dL 32.0-36.5 Below low normal [facility] ([facility]) Red Cell Distribution Width 15.6 % 11.5-14.5 Above high normal [facility] ([facility]) Nucleated Red Blood Cell % 0.0 % 0-0 Normal (applies to n on-numeric results) [facility]) ID Date Data Source [id number] 02/20/2021 07:18:00 AM EST [facility] (Mona Islas MD) Name Value Range Interpretation Code Description Data Rosalind rce(s) Supporting Document(s) Laboratory test finding (navigational concept) 13.0 s 1 2.7-14.5 Normal (applies to non-numeric results) [facility] Laboratory test finding (navigational concept) 0.94 Normal (applies to non- numeric results) [facility] (Mona Islas MD) THERAPUTIC HUMAN INR VALUES INDICATIONS NORMAL RANGES PROPHYLAXIS/TREATMENT OF: VENOUS THROMBOSIS 2.0-3.0 PULMONARY EMBOLISM 2.0-3.0 PREVENTION OF SYSTEMIC EMBOLISM FROM: TISSUE HEART VALVES 2.0-3.0 ACUTE MYOCARDIAL INFARCTION 2.0-3.0 VALVULAR HEART DISEASE 2.0-3.0 ATRIAL FIBRILLATION 2.0-3.0 MECHANICAL VALVES(HIGH RISK) 2.5-3.5 RECURRENT MYOCARDIAL INFARCTION 2.5-3.5 ID Date Data Source [id number] 02/20/2021 07:18:00 AM EST [facility] ([facility]) Name Value Range Interpretation Code Description Data Rosalind rce(s) Supporting Document(s) Prothrombin Time 13.0 s 12.7-14.5 Normal (applies to non-numeric results) [facility] ([facility], ) Inr 0.94 Normal (applies to non-numeric resul ts) [facility] ([facility], ) THERAPUTIC HUMAN INR VALUES INDICATIONS NORMAL RANGES PROPHYLAXIS/TREATMENT OF: VENOUS THROMBOSIS 2.0-3.0 PULMONARY EMBOLISM 2.0-3.0 PREVENTION OF SYSTEMIC EMBOLISM FROM: TISSUE HEART VALVES 2.0-3.0 ACUTE MYOCARDIAL INFARCTION 2.0-3.0 VALVULAR HEART DISEASE 2.0-3.0 ATRIAL FIBRILLATION 2.0-3.0 MECHANICAL VALVES(HIGH RISK) 2.5-3.5 RECURRENT MYOCARDIAL INFARCTION 2.5-3.5 ID Date Data Source [id number] 02/16/2021 11:37:00 AM EST [facility] (Mona Islas MD) Name Value Range Interpretation Code Description Data Rosalind rce(s) Supporting Document(s) Laboratory test finding (navigational concept) 0.86 mg/dL 0 .70-1.30 Normal (applies to non-numeric results) [facility] (Mona Islas MD) Laboratory test [...] Little GFR Left</content>
<content>ESRD GFR <15 on NEWS CLERK</content>
<content></content> ID Date Data Source [id number] 02/16/2021 11:37:00 AM EST [facility] (Mona Islas MD) Name Value Range Interpretation Code Description Data Rosalind rce(s) Supporting Document(s) Urea nitrogen [Mass/volume] in Serum or Plasma 21 mg/dL 7-18 Above high normal [facility] ID Date Data Source [id number] 02/16/2021 11:37:00 AM EST [facility] ([facility]) Name Value Range Interpretation Code Description Data Rosalind rce(s) Supporting Document(s) Creatinine For GFR 0.86 mg/dL 0.70-1.30 Normal (applies to non -numeric results) [facility] ([facility]) Glomerular Filtration Rate Laboratory test result Normal (applies to non- numeric results) [facility] ([facility]) <content>Units are mL/min/1.73 m2</content>
<content></content>
<content>Chronic Kidney Disease Staging per NKF:</content>
<content></content>
<content>Stage I & II GFR >=60 Normal to Mildly Decreased</content>
<content>Stage III GFR 30- 59 Moderately Decreased</content>
<content>Stage IV GFR 15-29 Severely Decreased</content>
<content>Stage V GFR <15 Very Little GFR Left</content>
<content>ESRD GFR <15 on NEWS CLERK</content>
<content></content> ID Date Data Source [id number] 02/16/2021 11:37:00 AM EST [facility] ([facility]) Name Value Range Interpretation Code Description Data Rosalind rce(s) Supporting Document(s) Urea nitrogen [Mass/volume] in Serum or Plasma 21 mg/dL 7-18 Above high normal [facility] ([facility]) ID Date Data Source [id number] 01/23/2021 03:28:00 PM EDT [facility] ([facility]) Name Value Range Interpretation Code Description Data Rosalind rce(s) Supporting Document(s) Surgical pathology study Laboratory test result [facility] ([facility]) FINAL DIAGNOSIS Tongue, biopsy: Hyperplastic squamous mucosa with hyperkeratosis, irritated/reactive and acute inflammation with microabscess formation. Fungal organisms present. 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 Negative for malignancy. 01/25/2021 - 1245 CLINICAL DIAGNOSIS Biopsy of tongue 01/24/20211302 GROSS DIAGNOSIS Received in formalin labeled "biopsy of tongue" and consists of fragment of tissue 0.6 x 0.4 x 0.2 cm. All in one. -OA 01/24/2021 - 1302 Signed JENNIFER AU MD 01/25/2021 1247 ID Date Data Source [id number] 01/18/2021 07:30:00 PM EDT [facility] (Mona Islas MD) Name Value Range Interpretation Code Description Data Rosalind rce(s) Supporting Document(s) Laboratory test finding (navigational concept) 1.85 Normal (applies to non- numeric results) [facility] (Mona Islas MD) THERAPUTIC HUMAN INR VALUES INDICATIONS NORMAL RANGES PROPHYLAXIS/TREATMENT OF: VENOUS THROMBOSIS 2.0-3.0 PULMONARY EMBOLISM 2.0-3.0 PREVENTION OF SYSTEMIC EMBOLISM FROM: TISSUE HEART VALVES 2.0-3.0 ACUTE MYOCARDIAL INFARCTION 2.0-3.0 VALVULAR HEART DISEASE 2.0-3.0 ATRIAL FIBRILLATION 2.0-3.0 MECHANICAL VALVES(HIGH RISK) 2.5-3.5 RECURRENT MYOCARDIAL INFARCTION 2.5-3.5 Laboratory test finding (navigational concept) 21.8 s 1 2.7-14.5 Above high normal [facility] (Mona Islas MD) ID Date Data Source [id number] 01/18/2021 06:08:00 PM EDT [facility] (Mona Islas MD) Name Value Range Interpretation Code Description Data Rosalind rce(s) Supporting Document(s) Laboratory test finding (navigational concept) 363.0 U/mL 0 .0-17.9 Above high normal [facility] (Mona Islas MD) <content>Negative <18.0</content>
<content>Equivocal 18.0 - 21.9</content>
<content>Positive >21.9</content>
<content></content> Laboratory test finding (navigational concept) Laboratory test r esult 0.0-35.9 Normal (applies to non-numeric results) [facility] (Mona baez MD) <content>Negative <36.0</content>
<content>Equivocal 36.0 - 43.9</content>
<content>Positive >43.9</content>
<content></content> Laboratory test finding (navigational concept) Laboratory test r esult Normal (applies to non-numeric results) [facility] (Mona Islas MD) . EBV Interpretation Chart [...] never develop antibodies to EBNA. Performed at: - [facility] [id number] Sample Driller: Felecia Lopez MD, Phone: [phone] Laboratory test finding (navigational concept) Laboratory test r esult 0.0-17.9 Above high normal [facility] (Mona Islas MD) <content>Negative <18.0</content>
<content>Equivocal 18.0 - 21.9</content>
<content>Positive >21.9</content>
<content></content> ID Date Data Source [id number] 01/18/2021 06:08:00 PM EDT [facility] (Mona Islas MD) Name Value Range Interpretation Code Description Data Rosalind rce(s) Supporting Document(s) Arlette Turpin virus nuclear Ab [Presence] in Serum Laboratory alta t result Normal (applies to non-numeric results) [facility] (Mona baez MD) Reflex test for EBV COMPREHENSIVE will be sent to [facility] [address], [place] [address]. ID Date Data Source [id number] 01/18/2021 05:39:00 PM EDT [facility] (Mona Ilsas MD) Name Value Range Interpretation Code Description Data Rosalind rce(s) Supporting Document(s) Streptococcus pyogenes Ag [Presence] in Throat by Rapi d immunoassay Laboratory test result Normal (applies to non-numeric results) [facility] (Mona Islas MD) ID Date Data Source [id number] 12/29/2020 11:03:00 AM EDT [facility] (Mona Islas [...] Mechanical Prosthetic valve. ID Date Data Source [id number] 12/29/2020 11:03:00 AM EDT [facility] (Mona Islas MD) Name Value Range Interpretation Code Description Data Rosalind rce(s) Supporting Document(s) Iron [Mass/volume] in Serum or Plasma 38 ug/dL 42-135 Below low normal [facility] (Mona Islas MD) Thyrotropin [Units/volume] in Serum or Plasma by Detec tion limit <= 0.005 mIU/L 1.39 uIU/mL 0.47-5.01 [facility] (Mona Islas MD) ID Date Data Source [id number] 12/29/2020 11:03:00 AM EDT [facility] (Mona Islas MD) Name Value Range Interpretation Code Description Data Rosalind rce(s) Supporting Document(s) Laboratory test finding (navigational concept) Laboratory test result [facility] (Mona Islas MD) COMPREHENSIVE METABOLIC PANEL Laboratory test finding (navigational concept) 137 meq/L 134-153 [facility] (Mona Islas MD) Laboratory test finding (navigational concept) 4.6 meq/L [...] >32 mL/min Normal ID Date Data Source [id number] 12/29/2020 11:03:00 AM EDT [facility] (Mona Islas MD) Name Value Range Interpretation Code Description Data Rosalind rce(s) Supporting Document(s) Laboratory test finding (navigational concept) Laboratory test result [facility] (Mona Islas MD) LIPID PANEL Laboratory test finding (navigational concept) 154 mg/dL [...] AVERAGE 11.04 6.14 ID Date Data Source [id number] 12/29/2020 11:03:00 AM EDT [facility] (Mona Islas MD) Name Value Range Interpretation Code Description Data Rosalind rce(s) Supporting Document(s) Hemoglobin A1c/Hemoglobin.total in Blood 10.3 % 4.4-6.1 Above high normal [facility] (Mona Islas MD) Magnesium [Mass/volume] in Serum or Plasma 1.7 mg/dL 1.7-2.2 [facility] (Mona Islas MD) ID Date Data Source [id number] 12/29/2020 11:03:00 AM EDT [facility] (Mona Islas [...] (Mona Islas MD) ID Date Data Source [id number] 12/29/2020 11:03:00 AM EDT [facility] (Mona Islas MD) Name Value Range Interpretation Code Description Data Rosalind rce(s) Supporting Document(s) Laboratory test finding (navigational concept) Laboratory test result [facility] (Mona Islas MD) COMPLETE BLOOD COUNT Laboratory test finding (navigational concept) 4.23 10^6/uL [...] (Mona Islas MD) ID Date Data Source [id number] 12/29/2020 12:17:00 PM EDT [facility] Name Value Range Interpretation Code Description Data Rosalind rce(s) Supporting Document(s) Prothrombin time (PT) 21.2 SECONDS 11.0 - 15.5 [facility] INR in Platelet poor plasma by Coagulation assay 1.81 0.93 - 1. 23 H [facility] \\BLDo\\INR INTERPRETATION\\BLDx\\ Therapeutic range for Coumadin and related oral anticoagulants. - International Normalized Ratio (INR): 2.0 - 3.0 for Venous Thrombosis, Pulmonary Embolus, Tissue heart valves, Acute PR, Atrial Fibrillation, Valvular heart disease and recurrent Systemic Embolism. -International Normalized Ratio (INR): 2.5 - 3.5 for Mechanical Prosthetic valve. ID Date Data Source [id number] 12/29/2020 12:07:00 PM EDT [facility] Name Value Range Interpretation Code Description Data Rosalind rce(s) Supporting Document(s) Thyrotropin [Units/volume] in Serum or Plasma by Detec tion limit <= 0.05 mIU/L 1.39 uIU/mL 0.47 - 5.01 [facility] ID Date Data Source [id number] 12/29/2020 11:59:00 AM EDT [facility] Name Value Range Interpretation Code Description Data Rosalind rce(s) Supporting Document(s) Iron [Mass/volume] in Serum or Plasma 38 UG/DL 42 - 135 L [facility] ID Date Data Source [id number] 12/29/2020 11:59:00 AM EDT [facility] Name Value Range Interpretation Code Description Data Rosalind rce(s) Supporting Document(s) CVE PANEL [facility] LIPID PANEL Cholesterol [Mass/volume] in Serum or Plasma 154 MG/DL 131 - 200 [facility] Deprecated Triglyceride [Mass/volume] in Serum or Plasma 115 MG/DL 3 5 - 160 [facility] HDL 48 MG/DL 29 - 86 [facility] al Cholesterol in LDL [Mass/volume] in Serum or Plasma by Direc t assay 91 mg/dL 65 - 175 [facility] Cholesterol.total/Cholesterol in HDL [Mass Ratio] in Serum o r Plasma 3.2 3.4 - 4.9 L [facility] LDL/HDL 1.90 1.00 - 3.55 [facility] ital CVE RISK CHOL/HDL LDL/HDLMEN: 1/2 AVERAGE 3.43 1.00 AVERAGE 4.97 3.55 2X AVERAGE 9.55 6.25 3X AVERAGE 23.99 7.99WOMEN: 1/2 AVERAGE 3.27 1.47 AVERAGE 4.44 3.22 2X AVERAGE 7.05 5.03 3X AVERAGE 11.04 6.14 ID Date Data Source [id number] 12/29/2020 11:58:00 AM EDT [facility] Name Value Range Interpretation Code Description Data Rosalind rce(s) Supporting Document(s) COMPREHENSIVE METABOLIC PANEL [facility] COMPREHENSIVE METABOLIC PANEL Sodium [Moles/volume] in Serum or Plasma 137 mEq/L 134 - 153 [facility] Potassium [Moles/volume] in Serum or Plasma 4.6 mEq/L 3.6 - 5.0 [facility] Chloride [Moles/volume] in Serum or Plasma 100 mEq/L 98 - 107 [facility] Carbon dioxide, total [Moles/volume] in Serum or Plasma 26 MEQ/L 22 - 30 [facility] Glucose [Mass/volume] in Serum or Plasma 183 MG/DL 70 - 99 H [facility] BUN 18 MG/DL 7 - 21 [facility] al Creatinine [Mass/volume] in Serum or Plasma 1.0 MG/DL 0.7 - 1.5 [facility] BUN/CREAT 18 8 - 27 [facility] al Protein [Mass/volume] in Serum or Plasma 6.7 G/DL 6.3 - 8.2 [facility] Albumin [Mass/volume] in Serum or Plasma 3.9 G/DL 3.9 - 5.0 [facility] Globulin [Mass/volume] in Serum by calculation 2.8 GM/DL 2.4 - 3.2 [facility] A/G RATIO 1.4 0.8 - 2.0 [facility] al Calcium [Mass/volume] in Serum or Plasma 9.1 MG/DL 8.4 - 10.2 [facility] Bilirubin.total [Mass/volume] in Serum or Plasma <0.7 MG/DL 0.2 - 1.3 [facility] Alkaline phosphatase [Enzymatic activity/volume] in Serum or Plasma 90 U/L 38 - 126 [facility] Aspartate aminotransferase [Enzymatic activity/volume] in Serum or Plasma 16 U/L 5 - 40 [facility] Alanine aminotransferase [Enzymatic activity/volume] in Seru m or Plasma 14 U/L 7 - 56 [facility] Anion gap 3 in Serum or Plasma 11.0 mmol/L 8.0 - 16.0 [facility] AGE 70 yrs [facility] al NON-AA GFR >60 mL/min [facility] ital AFR AMER GFR >60 mL/min [facility] Ho spital Male GFR In terprentation 20-49 [...] >32 mL/min Normal ID Date Data Source [id number] 12/29/2020 11:55:00 AM EDT [facility] Name Value Range Interpretation Code Description Data Rosalind rce(s) Supporting Document(s) Magnesium [Mass/volume] in Serum or Plasma 1.7 MG/DL 1.7 - 2.2 [facility] ID Date Data Source [id number] 12/29/2020 11:36:00 AM EDT [facility] Name Value Range Interpretation Code Description Data Rosalind rce(s) Supporting Document(s) Hemoglobin A1c/Hemoglobin.total in Blood 10.3 % 4.4 - 6.1 H [facility] ID Date Data Source [id number] 12/29/2020 11:33:00 AM EDT [facility] Name Value Range Interpretation Code Description Data Rosalind rce(s) Supporting Document(s) [facility] COL[facility] yellow NORMAL: Yellow [facility] CLARITY clear NORMAL: Clear [facility] sp[facility] Specific gravity of Urine by Test strip 1.015 1.001 - 1.030 [facility] pH 5 5 - 9 [facility] Glucose [Mass/volume] in Urine by Test strip NORM NORMAL: Negat [facility] Bilirubin.total [Presence] in Urine by Test strip NEG NORMAL: Negative [facility] Ketones [Presence] in Urine by Test strip NEG NORMAL: Negative [facility] Protein [Mass/volume] in Urine by Test strip NEG NORMAL: Negat [facility] Nitrite [Presence] in Urine by Test strip NEG NORMAL: Negative [facility] BLOOD 25 NORMAL: Negative A [facility] LEUK EST NEG NORMAL: Negative [facility] Urobilinogen [Mass/volume] in Urine by Test strip NOR less tyron n 1.0 mg/dL [facility] MICROSCOPIC See Below [facility] ital WBC 1 - 3 NORMAL: NONE SEEN [facility] Erythrocytes [#/volume] in Urine by Test strip None Seen NORMAL: NON E SEEN [facility] EPITHELIAL FEW NORMAL: NONE SEEN [facility] Bacteria [Presence] in Urine sediment by Light microscopy No ne Seen NORMAL: NONE SEEN [facility] ID Date Data Source [id number] 12/29/2020 11:31:00 AM EDT [facility] Name Value Range Interpretation Code Description Data [facility](s) Supporting Document(s) CBC W/AUTOMATED DIFF [facility] COMPLETE BLOOD COUNT Leukocytes [#/volume] in Blood by Automated count 5.0 10^3/uL 4.2 - 1 1.0 [facility] Erythrocytes [#/volume] in Blood by Automated count 4.23 10^6/uL 4. 50 - 6.30 L [facility] Hemoglobin [Mass/volume] in Blood 12.0 g/dL 14.0 - 16.0 L [facility] Hematocrit [Volume Fraction] of Blood by Automated count 37.5 % 4 1.0 - 51.0 L [facility] Erythrocyte mean corpuscular volume [Entitic volume] by Auto mated count 88.7 fL 80.0 - 94.0 [facility] Erythrocyte mean corpuscular hemoglobin [Entitic mass] by Automated count 28.4 pg 27.0 - 34.0 [facility] Erythrocyte mean corpuscular hemoglobin concentration [Mass/volume] by Automated count 32.0 g/dL 31.0 - 36.0 [facility] Erythrocyte distribution width [Ratio] by Automated count 14.2 % 11.5 - 14.8 [facility] Platelets [#/volume] in Blood by Automated count 173 10^3/uL 150 - 45 0 [facility] Platelet mean volume [Entitic volume] in Blood by Automated count 8.8 fL 7.4 - 10.4 [facility] Neutrophils/100 leukocytes in Blood by Automated count 73.2 % 37. 0 - 80.0 [facility] Lymphocytes/100 leukocytes in Blood by Manual count 13.9 % 25.0 - 40.0 L [facility] Monocytes/100 leukocytes in Blood by Automated count 10.1 % 3.0 - 8.0 H [facility] Eosinophils/100 leukocytes in Blood by Automated count 1.8 % 0.0 - 7.0 [facility] Basophils/100 leukocytes in Blood by Automated count 0.4 % 0.0 - 2.0 [facility] %IG 0.6 % 0.0 - 0.0 H [facility] al %NRBC 0.0 % 0.0 - 0.0 [facility] al Neutrophils [#/volume] in Blood by Automated count 3.63 10^3/uL 2.00 - 6.90 [facility] Lymphocytes [#/volume] in Blood by Automated count 0.69 10^3/uL 0.60 - 3.40 [facility] Monocytes [#/volume] in Blood by Automated count 0.50 10^3/uL 0.00 - 0.90 [facility] Eosinophils [#/volume] in Blood by Automated count 0.09 10^3/uL 0.00 - 0.70 [facility] Basophils [#/volume] in Blood by Automated count 0.02 10^3/uL 0.00 - 0.20 [facility] #IG 0.03 10^3/uL 0.00 - 0.10 [facility] #NRBC 0.00 10^3/uL 0.00 - 0.00 [facility] MANUAL DIFF NOT INDICATED [facility] RBC MORPH NOT INDICATED [facility] ID Date Data Source [id number] 07/03/2020 01:43:00 PM EDT [facility] (Mona Islas [...] (Mona Islas MD) ID Date Data Source [id number] 07/03/2020 01:43:00 PM EDT [facility] (Mona Islas MD) Name Value Range Interpretation Code Description Data Rosalind rce(s) Supporting Document(s) Hemoglobin A1c/Hemoglobin.total in Blood 10.7 % 4.4-6.1 Above high normal [facility] (Mona Islas MD) {A1] {HB] ID Date Data Source [id number] 07/03/2020 01:43:00 PM EDT [facility] (Mona Islas [...] AVERAGE 11.04 6.14 ID Date Data Source [id number] 07/03/2020 01:43:00 PM EDT [facility] (Mona Islas [...] 4 1.0-51.0 Below low normal [facility] (Mona Isals MD) Laboratory test finding (navigational concept) 12.3 [...] (Mona Islas MD) ID Date Data Source [id number] 07/03/2020 01:43:00 PM EDT [facility] (Mona Islas [...] Mechanical Prosthetic valve. ID Date Data Source [id number] 07/03/2020 03:34:00 PM EDT [facility] Name Value Range Interpretation Code Description Data Rosalind rce(s) Supporting Document(s) COMPREHENSIVE METABOLIC PANEL [facility] COMPREHENSIVE METABOLIC PANEL Sodium [Moles/volume] in Serum or Plasma 136 mEq/L 134 - 153 [facility] Potassium [Moles/volume] in Serum or Plasma 4.7 mEq/L 3.6 - 5.0 [facility] Chloride [Moles/volume] in Serum or Plasma 97 mEq/L 98 - 107 L [facility] Carbon dioxide, total [Moles/volume] in Serum or Plasma 27 MEQ/L 22 - 30 [facility] Glucose [Mass/volume] in Serum or Plasma 311 MG/DL 70 - 99 H [facility] BUN 33 MG/DL 7 - 21 H [facility] Creatinine [Mass/volume] in Serum or Plasma 1.2 MG/DL 0.7 - 1.5 [facility] BUN/CREAT 28 8 - 27 H [facility] Protein [Mass/volume] in Serum or Plasma 6.6 G/DL 6.3 - 8.2 [facility] Albumin [Mass/volume] in Serum or Plasma 3.8 G/DL 3.9 - 5.0 L [facility] Globulin [Mass/volume] in Serum by calculation 2.8 GM/DL 2.4 - 3.2 [facility] A/G RATIO 1.4 0.8 - 2.0 [facility] Calcium [Mass/volume] in Serum or Plasma 8.9 MG/DL 8.4 - 10.2 [facility] Bilirubin.total [Mass/volume] in Serum or Plasma <0.7 MG/DL 0.2 - 1.3 [facility] Alkaline phosphatase [Enzymatic activity/volume] in Serum or Plasma 81 U/L 38 - 126 [facility] Aspartate aminotransferase [Enzymatic activity/volume] in Serum or Plasma 14 U/L 5 - 40 [facility] Alanine aminotransferase [Enzymatic activity/volume] in Seru m or Plasma 14 U/L 7 - 56 [facility] Anion gap 3 in Serum or Plasma 12.0 mmol/L 8.0 - 16.0 [facility] AGE 70 yrs [facility] al NON-AA GFR >60 mL/min [facility] ital AFR AMER GFR >60 mL/min [facility] Ho spital Male GFR In terprentation 20-49 [...] >32 mL/min Normal ID Date Data Source [id number] 07/03/2020 03:33:00 PM EDT [facility] Name Value Range Interpretation Code Description Data Rosalind rce(s) Supporting Document(s) Hemoglobin A1c/Hemoglobin.total in Blood 10.7 % 4.4 - 6.1 H [facility] {A1]{HB] ID Date Data Source [id number] 07/03/2020 03:23:00 PM EDT [facility] Name Value Range Interpretation Code Description Data Rosalind rce(s) Supporting Document(s) CVE PANEL [facility] al LIPID PANEL Cholesterol [Mass/volume] in Serum or Plasma 196 MG/DL 131 - 200 [facility] Deprecated Triglyceride [Mass/volume] in Serum or Plasma 153 MG/DL 3 5 - 160 [facility] HDL 48 MG/DL 29 - 86 [facility] al Cholesterol in LDL [Mass/volume] in Serum or Plasma by Direc t assay 142 mg/dL 65 - 175 [facility] Cholesterol.total/Cholesterol in HDL [Mass Ratio] in Serum o r Plasma 4.1 3.4 - 4.9 [facility] LDL/HDL 2.96 1.00 - 3.55 [facility] CVE RISK CHOL/HDL LDL/HDLMEN: 1/2 AVERAGE 3.43 1.00 AVERAGE 4.97 3.55 2X AVERAGE 9.55 6.25 3X AVERAGE 23.99 7.99WOMEN: 1/2 AVERAGE 3.27 1.47 AVERAGE 4.44 3.22 2X AVERAGE 7.05 5.03 3X AVERAGE 11.04 6.14 ID Date Data Source [id number] 07/03/2020 02:57:00 PM EDT [facility] Name Value Range Interpretation Code Description Data Rosalind rce(s) Supporting Document(s) CBC W/AUTOMATED DIFF [facility] COMPLETE BLOOD COUNT Leukocytes [#/volume] in Blood by Automated count 4.5 10^3/uL 4.2 - 1 1.0 [facility] Erythrocytes [#/volume] in Blood by Automated count 4.12 10^6/uL 4. 50 - 6.30 L [facility] Hemoglobin [Mass/volume] in Blood 12.3 g/dL 14.0 - 16.0 L [facility] Hematocrit [Volume Fraction] of Blood by Automated count 37.7 % 4 1.0 - 51.0 L [facility] Erythrocyte mean corpuscular volume [Entitic volume] by Auto mated count 91.5 fL 80.0 - 94.0 [facility] Erythrocyte mean corpuscular hemoglobin [Entitic mass] by Automated count 29.9 pg 27.0 - 34.0 [facility] Erythrocyte mean corpuscular hemoglobin concentration [Mass/volume] by Automated count 32.6 g/dL 31.0 - 36.0 [facility] Erythrocyte distribution width [Ratio] by Automated count 14.4 % 11.5 - 14.8 [facility] Platelets [#/volume] in Blood by Automated count 167 10^3/uL 150 - 45 0 [facility] Platelet mean volume [Entitic volume] in Blood by Automated count 9.8 fL 7.4 - 10.4 [facility] Neutrophils/100 leukocytes in Blood by Automated count 68.8 % 37. 0 - 80.0 [facility] Lymphocytes/100 leukocytes in Blood by Manual count 18.3 % 25.0 - 40.0 L [facility] Monocytes/100 leukocytes in Blood by Automated count 9.8 % 3.0 - 8.0 H [facility] Eosinophils/100 leukocytes in Blood by Automated count 2.5 % 0.0 - 7.0 [facility] Basophils/100 leukocytes in Blood by Automated count 0.4 % 0.0 - 2.0 [facility] %IG 0.2 % 0.0 - 0.0 [facility] %[facility] 0.0 % 0.0 - 0.0 [facility] al Neutrophils [#/volume] in Blood by Automated count 3.08 10^3/uL 2.00 - 6.90 [facility] Lymphocytes [#/volume] in Blood by Automated count 0.82 10^3/uL 0.60 - 3.40 [facility] Monocytes [#/volume] in Blood by Automated count 0.44 10^3/uL 0.00 - 0.90 [facility] Eosinophils [#/volume] in Blood by Automated count 0.11 10^3/uL 0.00 - 0.70 [facility] Basophils [#/volume] in Blood by Automated count 0.02 10^3/uL 0.00 - 0.20 [facility] #IG 0.01 10^3/uL 0.00 - 0.10 [facility] ospital #NRBC 0.00 10^3/uL 0.00 - 0.00 [facility] ospital MANUAL DIFF NOT INDICATED [facility] RBC MORPH NOT INDICATED [facility] spital ID Date Data Source [id number] 07/03/2020 02:57:00 PM EDT [facility] Name Value Range Interpretation Code Description Data Rosalind rce(s) Supporting Document(s) Prothrombin time (PT) 25.3 SECONDS 11.0 - 15.5 H [facility] INR in Platelet poor plasma by Coagulation assay 2.18 0.93 - 1. 23 H [facility] \\BLDo\\INR INTERPRETATION\\BLDx\\ Therapeutic range for Coumadin and related oral anticoagulants. - International Normalized Ratio (INR): 2.0 - 3.0 for Venous Thrombosis, Pulmonary Embolus, Tissue heart valves, Acute PR, Atrial Fibrillation, Valvular heart disease and recurrent Systemic Embolism. -International Normalized Ratio (INR): 2.5 - 3.5 for Mechanical Prosthetic valve. ID Date Data Source [id number] 07/03/2020 01:42:00 PM EDT [facility] (Mona Islas [...] be used interchangeably. ID Date Data Source [id number] 07/03/2020 03:08:00 PM EDT [facility] Name Value Range Interpretation Code Description Data Rosalind rce(s) Supporting Document(s) Prostate specific Ag [Mass/volume] in Serum or Plasma 0.01 ng/mL 0.00 - 4.00 [facility] \\BLDo\\PSA INTERPRETA TION\\BLDx\\ The PSA assay [...] be used interchangeably. ID Date Data Source [id number] 03/27/2020 10:20:00 AM EST [facility] (Mona Islas [...] AVERAGE 11.04 6.14 ID Date Data Source [id number] 03/27/2020 10:20:00 AM EST [facility] (Mona Islas [...] >32 mL/min Normal ID Date Data Source [id number] 03/27/2020 10:20:00 AM EST [facility] (Mona Islas MD) Name Value Range Interpretation Code Description Data Rosalind rce(s) Supporting Document(s) Laboratory test finding (navigational concept) Laboratory test result [facility] (Mona Islas MD) COMPLETE BLOOD COUNT Laboratory test finding (navigational concept) 5.2 10^3/uL 4.2-11.0 [facility] (Mona Islas MD) Laboratory test finding (navigational [...] (Mona Islas MD) ID Date Data Source [id number] 03/27/2020 10:20:00 AM EST [facility] (Mona Islas [...] Mechanical Prosthetic valve. ID Date Data Source [id number] 03/27/2020 10:20:00 AM EST [facility] (Mona Islas MD) Name Value Range Interpretation Code Description Data Rosalind rce(s) Supporting Document(s) Hemoglobin A1c/Hemoglobin.total in Blood 11.5 % 4.4-6.1 Above high normal [facility] (Mona Islas MD) {A1] {HB] ID Date Data Source [id number] 03/27/2020 12:04:00 PM EST [facility] Name Value Range Interpretation Code Description Data Rosalind rce(s) Supporting Document(s) [facility] Cholesterol [Mass/volume] in Serum or Plasma 148 MG/DL 131 - 200 [facility] Deprecated Triglyceride [Mass/volume] in Serum or Plasma 87 MG/DL 3 5 - 160 [facility] HDL 56 MG/DL 29 - 86 [facility] al Cholesterol in LDL [Mass/volume] in Serum or Plasma by Direc t assay 74 mg/dL 65 - 175 [facility] Cholesterol.total/Cholesterol in HDL [Mass Ratio] in Serum o r Plasma 2.6 3.4 - 4.9 L [facility] LDL/HDL 1.32 1.00 - 3.55 [facility] ital CVE RISK CHOL/HDL LDL/HDLMEN: 1/2 AVERAGE 3.43 1.00 AVERAGE 4.97 3.55 2X AVERAGE 9.55 6.25 3X AVERAGE 23.99 7.99WOMEN: 1/2 AVERAGE 3.27 1.47 AVERAGE 4.44 3.22 2X AVERAGE 7.05 5.03 3X AVERAGE 11.04 6.14 ID Date Data Source [id number] 03/27/2020 12:04:00 PM EST [facility] Name Value Range Interpretation Code Description Data Rosalind rce(s) Supporting Document(s) COMPREHENSIVE METABOLIC PANEL [facility] COMPREHENSIVE METABOLIC PANEL Sodium [Moles/volume] in Serum or Plasma 139 mEq/L 134 - 153 [facility] Potassium [Moles/volume] in Serum or Plasma 4.4 mEq/L 3.6 - 5.0 [facility] Chloride [Moles/volume] in Serum or Plasma 99 mEq/L 98 - 107 [facility] Carbon dioxide, total [Moles/volume] in Serum or Plasma 32 MEQ/L 22 - 30 H [facility] Glucose [Mass/volume] in Serum or Plasma 230 MG/DL 65 - 110 H [facility] BUN 23 MG/DL 7 - 21 H [facility] Creatinine [Mass/volume] in Serum or Plasma 1.0 MG/DL 0.7 - 1.5 [facility] BUN/CREAT 23 8 - 27 [facility] Protein [Mass/volume] in Serum or Plasma 6.5 G/DL 6.3 - 8.2 [facility] Albumin [Mass/volume] in Serum or Plasma 4.2 G/DL 3.9 - 5.0 [facility] Globulin [Mass/volume] in Serum by calculation 2.3 GM/DL 2.4 - 3.2 L [facility] A/G RATIO 1.8 0.8 - 2.0 [facility] Calcium [Mass/volume] in Serum or Plasma 9.2 MG/DL 8.4 - 10.2 [facility] Bilirubin.total [Mass/volume] in Serum or Plasma <0.7 MG/DL 0.2 - 1.3 [facility] Alkaline phosphatase [Enzymatic activity/volume] in Serum or Plasma 75 U/L 38 - 126 [facility] Aspartate aminotransferase [Enzymatic activity/volume] in Serum or Plasma 18 U/L 5 - 40 [facility] Alanine aminotransferase [Enzymatic activity/volume] in Seru m or Plasma 15 U/L 7 - 56 [facility] Anion gap 3 in Serum or Plasma 8.0 mmol/L 8.0 - 16.0 [facility] AGE 70 yrs [facility] NON-AA GFR >60 mL/min [facility] ital AFR AMER GFR >60 mL/min [facility] Ho spital Male GFR In terprentation 20-49 [...] >32 mL/min Normal ID Date Data Source [id number] 03/27/2020 11:56:00 AM EST [facility] Name Value Range Interpretation Code Description Data Rosalind rce(s) Supporting Document(s) CBC W/AUTOMATED DIFF [facility] COMPLETE BLOOD COUNT Leukocytes [#/volume] in Blood by Automated count 5.2 10^3/uL 4.2 - 1 1.0 [facility] Erythrocytes [#/volume] in Blood by Automated count 4.52 10^6/uL 4. 50 - 6.30 [facility] Hemoglobin [Mass/volume] in Blood 13.2 g/dL 14.0 - 16.0 L [facility] Hematocrit [Volume Fraction] of Blood by Automated count 40.6 % 4 1.0 - 51.0 L [facility] Erythrocyte mean corpuscular volume [Entitic volume] by Auto mated count 89.8 fL 80.0 - 94.0 [facility] Erythrocyte mean corpuscular hemoglobin [Entitic mass] by Automated count 29.2 pg 27.0 - 34.0 [facility] Erythrocyte mean corpuscular hemoglobin concentration [Mass/volume] by Automated count 32.5 g/dL 31.0 - 36.0 [facility] Erythrocyte distribution width [Ratio] by Automated count 13.6 % 11.5 - 14.8 [facility] Platelets [#/volume] in Blood by Automated count 185 10^3/uL 150 - 45 0 [facility] Platelet mean volume [Entitic volume] in Blood by Automated count 9.1 fL 7.4 - 10.4 [facility] Neutrophils/100 leukocytes in Blood by Automated count 71.4 % 37. 0 - 80.0 [facility] Lymphocytes/100 leukocytes in Blood by Manual count 14.3 % 25.0 - 40.0 L [facility] Monocytes/100 leukocytes in Blood by Automated count 11.6 % 3.0 - 8.0 H [facility] Eosinophils/100 leukocytes in Blood by Automated count 1.7 % 0.0 - 7.0 [facility] Basophils/100 leukocytes in Blood by Automated count 0.6 % 0.0 - 2.0 [facility] %IG 0.4 % 0.0 - 0.0 H [facility] al %NRBC 0.0 % 0.0 - 0.0 [facility] al Neutrophils [#/volume] in Blood by Automated count 3.70 10^3/uL 2.00 - 6.90 [facility] Lymphocytes [#/volume] in Blood by Automated count 0.74 10^3/uL 0.60 - 3.40 [facility] Monocytes [#/volume] in Blood by Automated count 0.60 10^3/uL 0.00 - 0.90 [facility] Eosinophils [#/volume] in Blood by Automated count 0.09 10^3/uL 0.00 - 0.70 [facility] Basophils [#/volume] in Blood by Automated count 0.03 10^3/uL 0.00 - 0.20 [facility] #IG 0.02 10^3/uL 0.00 - 0.10 [facility] ospital #NRBC 0.00 10^3/uL 0.00 - 0.00 [facility] ospital MANUAL DIFF NOT INDICATED [facility] RBC MORPH NOT INDICATED [facility] spital ID Date Data Source [id number] 03/27/2020 11:55:00 AM [facility] Name Value Range Interpretation Code Description Data Rosalind rce(s) Supporting Document(s) Prothrombin time (PT) 21.4 SECONDS 11.0 - 15.5 H [facility] INR in Platelet poor plasma by Coagulation assay 1.76 0.93 - 1. 23 H [facility] \\BLDo\\INR INTERPRETATION\\BLDx\\ Therapeutic range for Coumadin and related oral anticoagulants. - International Normalized Ratio (INR): 2.0 - 3.0 for Venous Thrombosis, Pulmonary Embolus, Tissue heart valves, Acute PR, Atrial Fibrillation, Valvular heart disease and recurrent Systemic Embolism. -International Normalized Ratio (INR): 2.5 - 3.5 for Mechanical Prosthetic valve. ID Date Data Source [id number] 03/27/2020 11:54:00 AM [facility] Name Value Range Interpretation Code Description Data Rosalind rce(s) Supporting Document(s) Hemoglobin A1c/Hemoglobin.total in Blood 11.5 % 4.4 - 6.1 H [facility] {A1]{HB] ID Date Data Source [id number] 02/02/2020 11:21:00 AM EST [facility] (Mona Islas [...] (Mona Islas MD) ID Date Data Source [id number] 02/02/2020 11:21:00 AM EST [facility] (Mona Islas [...] (Mona Islas MD) ID Date Data Source [id number] 02/02/2020 11:21:00 AM EST [facility] (Mona Islas [...] >32 mL/min Normal ID Date Data Source [id number] 02/02/2020 11:21:00 AM EST [facility] (Mona Islas [...] (Mona Islas MD) ID Date Data Source [id number] 02/02/2020 11:21:00 AM EST [facility] (Mona Islas [...] (Mona Islas MD) ID Date Data Source [id number] 02/02/2020 11:21:00 AM EST [facility] (Mona Islas [...] (Mona Islas MD) ID Date Data Source [id number] 02/02/2020 12:34:00 PM EST [facility] Name Value Range Interpretation Code Description Data Rosalind rce(s) Supporting Document(s) URINALYSIS [facility] URINALYSIS SOURCE R [facility] COLOR yellow NORMAL: Yellow [facility] CLARITY clear NORMAL: Clear [facility] Ho spital Specific gravity of Urine by Test strip 1.010 1.001 - 1.030 [facility] pH 6.5 5 - 9 [facility] al Glucose [Mass/volume] in Urine by Test strip 1000 NORMAL: [facility] Bilirubin.total [Presence] in Urine by Test strip NEG NORMAL: Negative [facility] Ketones [Presence] in Urine by Test strip NEG NORMAL: Negative [facility] Protein [Mass/volume] in Urine by Test strip 100 NORMAL: Negat [place] Nitrite [Presence] in Urine by Test strip NEG NORMAL: Negative [facility] BLOOD 10 NORMAL: Negative [facility] Leukocyte esterase [Presence] in Urine by Test strip NEG MIRIAN L: Negative [facility] Urobilinogen [Mass/volume] in Urine by Test strip NOR less tyron n 1.0 mg/dL [facility] MICROSCOPIC See Below [facility] ital WBC 0 - 1 NORMAL: NONE SEEN [facility] Erythrocytes [#/volume] in Urine by Test strip 0 - 1 NORMAL: NON E SEEN [facility] EPITHELIAL FEW NORMAL: NONE SEEN [facility] Bacteria [Presence] in Urine sediment by Light microscopy Tr gustavo NORMAL: NONE SEEN [facility] ID Date Data Source [id number] 02/02/2020 12:01:00 PM EST [facility] Name Value Range Interpretation Code Description Data Rosalind rce(s) Supporting Document(s) CVE PANEL [facility] al LIPID PANEL Cholesterol [Mass/volume] in Serum or Plasma 170 MG/DL 131 - 200 [facility] Deprecated Triglyceride [Mass/volume] in Serum or Plasma 87 MG/DL 3 5 - 160 [facility] HDL 56 MG/DL 29 - 86 [facility] al Cholesterol in LDL [Mass/volume] in Serum or Plasma by Direc t assay 104 mg/dL 65 - 175 [facility] Cholesterol.total/Cholesterol in HDL [Mass Ratio] in Serum o r Plasma 3.0 3.4 - 4.9 L [facility] LDL/HDL 1.86 1.00 - 3.55 [facility] ital CVE RISK CHOL/HDL LDL/HDLMEN: 1/2 AVERAGE 3.43 1.00 AVERAGE 4.97 3.55 2X AVERAGE 9.55 6.25 3X AVERAGE 23.99 7.99WOMEN: 1/2 AVERAGE 3.27 1.47 AVERAGE 4.44 3.22 2X AVERAGE 7.05 5.03 3X AVERAGE 11.04 6.14 ID Date Data Source [id number] 02/02/2020 12:01:00 PM EST [facility] Name Value Range Interpretation Code Description Data Rosalind rce(s) Supporting Document(s) COMPREHENSIVE METABOLIC PANEL [facility] COMPREHENSIVE METABOLIC PANEL Sodium [Moles/volume] in Serum or Plasma 136 mEq/L 134 - 153 [facility] Potassium [Moles/volume] in Serum or Plasma 4.8 mEq/L 3.6 - 5.0 [facility] Chloride [Moles/volume] in Serum or Plasma 99 mEq/L 98 - 107 [facility] Carbon dioxide, total [Moles/volume] in Serum or Plasma 30 MEQ/L 22 - 30 [facility] Glucose [Mass/volume] in Serum or Plasma 294 MG/DL 65 - 110 H [facility] BUN 12 MG/DL 7 - 21 [facility] al Creatinine [Mass/volume] in Serum or Plasma 0.9 MG/DL 0.7 - 1.5 [facility] BUN/CREAT 13 8 - 27 [facility] al Protein [Mass/volume] in Serum or Plasma 7.4 G/DL 6.3 - 8.2 [facility] Albumin [Mass/volume] in Serum or Plasma 4.2 G/DL 3.9 - 5.0 [facility] Globulin [Mass/volume] in Serum by calculation 3.2 GM/DL 2.4 - 3.2 [facility] A/G RATIO 1.3 0.8 - 2.0 [facility] al Calcium [Mass/volume] in Serum or Plasma 9.0 MG/DL 8.4 - 10.2 [facility] Bilirubin.total [Mass/volume] in Serum or Plasma <0.7 MG/DL 0.2 - 1.3 [facility] Alkaline phosphatase [Enzymatic activity/volume] in Serum or Plasma 82 U/L 38 - 126 [facility] Aspartate aminotransferase [Enzymatic activity/volume] in Serum or Plasma 16 U/L 5 - 40 [facility] Alanine aminotransferase [Enzymatic activity/volume] in Seru m or Plasma 17 U/L 7 - 56 [facility] Anion gap 3 in Serum or Plasma 7.0 mmol/L 8.0 - 16.0 L [facility] AGE 69 yrs [facility] Hospit al NON-AA GFR >60 mL/min [facility] Hosp ital AFR AMER GFR >60 mL/min [facility] Ho spital Male GFR In terprentation 20-49 [...] >32 mL/min Normal ID Date Data Source [id number] 02/02/2020 12:01:00 PM [facility] Name Value Range Interpretation Code Description Data Rosalind rce(s) Supporting Document(s) Magnesium [Mass/volume] in Serum or Plasma 1.8 MG/DL 1.7 - 2.2 [facility] ID Date Data Source [id number] 02/02/2020 11:59:00 AM [facility] Value Range Interpretation Code Description Data Rosalind rce(s) Supporting Document(s) Iron [Mass/volume] in Serum or Plasma 46 UG/DL 42 - 135 [facility] ID Date Data Source [id number] 02/02/2020 11:50:00 AM [facility] Name Value Range Interpretation Code Description Data Rosalind rce(s) Supporting Document(s) Hemoglobin A1c/Hemoglobin.total in Blood 13.2 % 4.4 - 6.1 H [facility] {A1]{HB] ID Date Data Source [id number] 02/02/2020 11:48:00 AM [facility] Name Value Range Interpretation Code Description Data Rosalind rce(s) Supporting Document(s) Prothrombin time (PT) 16.3 SECONDS 11.0 - 15.5 H [facility] INR in Platelet poor plasma by Coagulation assay 1.29 0.93 - 1. 23 H [facility] \\BLDo\\INR INTERPRETATION\\BLDx\\ Therapeutic range for Coumadin and related oral anticoagulants. - International Normalized Ratio (INR): 2.0 - 3.0 for Venous Thrombosis, Pulmonary Embolus, Tissue heart valves, Acute PR, Atrial Fibrillation, Valvular heart disease and recurrent Systemic Embolism. -International Normalized Ratio (INR): 2.5 - 3.5 for Mechanical Prosthetic valve. ID Date Data Source [id number] 02/02/2020 11:39:00 AM EST [facility] Name Value Range Interpretation Code Description Data Rosalind [facility](s) Supporting Document(s) CBC W/AUTOMATED DIFF [facility] COMPLETE BLOOD COUNT Leukocytes [#/volume] in Blood by Automated count 4.9 10^3/uL 4.2 - 1 1.0 [facility] Erythrocytes [#/volume] in Blood by Automated count 4.34 10^6/uL 4. 50 - 6.30 L [facility] Hemoglobin [Mass/volume] in Blood 12.9 g/dL 14.0 - 16.0 L [facility] Hematocrit [Volume Fraction] of Blood by Automated count 39.3 % 4 1.0 - 51.0 L [facility] Erythrocyte mean corpuscular volume [Entitic volume] by Auto mated count 90.6 fL 80.0 - 94.0 [facility] Erythrocyte mean corpuscular hemoglobin [Entitic mass] by Automated count 29.7 pg 27.0 - 34.0 [facility] Erythrocyte mean corpuscular hemoglobin concentration [Mass/volume] by Automated count 32.8 g/dL 31.0 - 36.0 [facility] Erythrocyte distribution width [Ratio] by Automated count 14.1 % 11.5 - 14.8 [facility] Platelets [#/volume] in Blood by Automated count 173 10^3/uL 150 - 45 0 [facility] Platelet mean volume [Entitic volume] in Blood by Automated count 9.1 fL 7.4 - 10.4 [facility] Neutrophils/100 leukocytes in Blood by Automated count 73.7 % 37. 0 - 80.0 [facility] Lymphocytes/100 leukocytes in Blood by Manual count 14.6 % 25.0 - 40.0 L [facility] Monocytes/100 leukocytes in Blood by Automated count 8.7 % 3.0 - 8.0 H [facility] Eosinophils/100 leukocytes in Blood by Automated count 1.8 % 0.0 - 7.0 [facility] Basophils/100 leukocytes in Blood by Automated count 0.6 % 0.0 - 2.0 [facility] %IG 0.6 % 0.0 - 0.0 H [facility] Hospit al %NRBC 0.0 % 0.0 - 0.0 [facility] al Neutrophils [#/volume] in Blood by Automated count 3.64 10^3/uL 2.00 - 6.90 [facility] Lymphocytes [#/volume] in Blood by Automated count 0.72 10^3/uL 0.60 - 3.40 [facility] Monocytes [#/volume] in Blood by Automated count 0.43 10^3/uL 0.00 - 0.90 [facility] Eosinophils [#/volume] in Blood by Automated count 0.09 10^3/uL 0.00 - 0.70 [facility] Basophils [#/volume] in Blood by Automated count 0.03 10^3/uL 0.00 - 0.20 [facility] #IG 0.03 10^3/uL 0.00 - 0.10 [facility] H ospital #NRBC 0.00 10^3/uL 0.00 - 0.00 [facility] H osp[facility] MANUAL DIFF NOT INDICATED [facility] RBC MORPH NOT INDICATED [facility] Ho spital Procedure Social History Code Duration Value Status Description Data Source(s ) Smoking 02/16/2021 12:00:00 AM EST Never Smoked A Pipe complet ed Never Smoked A Pipe [facility] ([facility]) Smoking 07/04/2020 03:53:12 PM EDT Never smoked tobacco (findi ng) completed Never smoked tobacco (finding) OPAL (Denton Waite MD [facility]) Smoking 07/04/2020 12:00:00 AM EDT Never Smoker completed Never S curtis eCW1 ([facility]) Vital Signs ID Date Data Source [...] MD) Heart rate 89 /min 89 /min [facility] Oxygen saturation in Arterial blood by Pulse oximetry 87 % 87 % [facility]Mona s[facility] Body height 69 [in_i] 69 [in_i] [facility] ) 5'9" Body weight 325.00 [lb_av] 325.00 [lb_av] MEDEN T ([facility]) Body mass index (BMI) [Ratio] 48.0 kg/m2 48.0 k g/m2 [facility] ([facility]) Valmy body weight 160 [lb_av] 160 [lb_av] MEDEN T ([facility]) Body weight 147.420 kg 147.420 kg [facility] ([facility]) Body surface area Derived from formula 2.54 m2 2.54 m2 [facility] ([facility]) Systolic blood pressure 150 mm[Hg] 150 mm[Hg] M EDENT ([facility]) Diastolic blood pressure 60 mm[Hg] 60 mm[Hg] [facility] Heart rate 65 /min 65 /min [facility] ([facility]) Oxygen saturation in Arterial blood by Pulse oximetry 96 % 96 % [facility] ([facility]) Body height 69 [in_i] 69 [in_i] [facility] ([facility]) 5'9" Body weight 325.00 [lb_av] 325.00 [lb_av] MEDEN T ([facility]) Body mass index (BMI) [Ratio] 48.0 kg/m2 48.0 k g/m2 [facility] ([facility]) Valmy body weight 160 [lb_av] 160 [lb_av] MEDEN T ([facility]) Body weight 147.420 kg 147.420 kg [facility] ([facility]) Body surface area Derived from formula 2.54 m2 2.54 m2 [facility] ([facility]) Diastolic blood pressure 56 mm[Hg] 56 mm[Hg] [facility] ([facility]) Heart rate 69 /min 69 /min [facility] ([facility]) Oxygen saturation in Arterial blood by Pulse oximetry 94 % 94 % [facility] ([facility]) Body height 69 [in_i] 69 [in_i] [facility] ([facility]) 5'9" Body weight 325.00 [lb_av] 325.00 [lb_av] MEDEN T ([facility]) Body mass index (BMI) [Ratio] 48.0 kg/m2 48.0 k g/m2 [facility] ([facility]) Valmy body weight 160 [lb_av] 160 [lb_av] MEDEN T ([facility]) Systolic blood pressure 118 mm[Hg] 118 mm[Hg] [facility] ([facility]) Body weight 147.420 kg 147.420 kg [facility] ([facility]) Body surface area Derived from formula 2.54 m2 2.54 m2 [facility] ([facility]) Oxygen saturation in Arterial blood by Pulse oximetry 89 % 89 % [facility] (Mona Islas MD) Body mass index (BMI) [Ratio] 47.1 kg/m2 47.1 k g/m2 [facility] Body temperature 97.2 [degF] 97.2 [degF] [facility] (Mona Islas MD) Systolic blood pressure 197 mm[Hg] 197 mm[Hg] M [facility] (Mona Islas MD) Diastolic blood pressure 85 mm[Hg] 85 mm[Hg] [facility] (Mona Islas MD) Heart rate 68 /min 68 /min [facility] (Mona Islas MD) Heart rate 68 [...] mm[Hg] 85 mm[Hg] [facility] (Mona Islas MD) Oxygen saturation in Arterial blood by Pulse oximetry 89 % 89 % [facility] (Mona Islas MD) Body mass [...] Body weight 356 [lb_av] 356 [lb_av] eCW1 ([facility]) Body height 70 [in_i] 70 [in_i] eCW1 ([facility]) Body mass index (BMI) [Ratio] 51.08 kg/m2 51.08 kg/m2 eCW1 ([facility]) Heart rate 58 /min 58 /min eCW1 ([facility] Respiratory rate 18 /min 18 /min eCW1 ([facility]) Body temperature 97.6 [degF] 97.6 [degF] eCW1 ( [facility]) Systolic blood pressure 112 mm[Hg] 112 mm[Hg] e CW1 ([facility]) Diastolic blood pressure 62 mm[Hg] 62 mm[Hg] eCW1 ([facility]) Body temperature 97.9 [degF] 97.9 [degF] [...] Body temperature 97.1 [degF] 97.1 [degF] [facility] ([facility]) Diastolic blood pressure 89 mm[Hg] 89 mm[Hg] [facility] (Mona Islas MD) Systolic blood pressure 209 mm[Hg] 209 mm[Hg] M [facility] (Mona Islas MD) Heart rate 66 /min 66 /min [facility] (Mona Islas MD) Body height 69 [in_i] 69 [in_i] [facility] (Mona Islas MD) 5'9" Body weight 312.00 [lb_av] 312.00 [lb_av] MED[facility] T (Mona Islas MD) Body mass index (BMI) [Ratio] 46.1 kg/m2 46.1 k g/m2 [facility] (Mona Islas MD) Body temperature 98.1 [degF] 98.1 [degF] [facility] (Mona Islas MD) Oxygen saturation in Arterial blood by Pulse oximetry 93 % 93 % [facility] (Mona Islas MD)
--- NOTE | 2021-03-08 15:31 | RO ---
OPERATIVE NOTE DATE OF OPERATION: 02/20/2021 PREOPERATIVE DIAGNOSIS: Neoplasm of uncertain significance, right lateral oral tongue. 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 PROCEDURE PERFORMED: SURGEON: Yariel Fong MD CHIEF SAFETY OFFICER: ANESTHESIA: General CLINICAL PREAMBLE: This 71-year-old man who presented to the ENT office with a history of enlarging mass on the right oral tongue. 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 As such, management options including excision of the right lateral oral tongue lesion have been discussed with the patient in great detail. He is made aware of the need for further postoperative treatment including radiation therapy as well as management of the cervical lymph node depending on the final pathology has been discussed with the patient. He understood and consented to the procedure. INTRAOPERATIVE FINDINGS: Excision of the right lateral oral tongue lesion including the margin measures 4 x 3.5 cm x 2 cm, anterior margin marked with two suture ends and the dorsal margin marked with one suture end. OR NARRATION: The patient was identified in preholding and brought to the operating room in stable condition. In supine position on the operating table, the patient received general anesthesia followed by nasotracheal intubation without incident. The patient was prepped and draped in the usual fashion for the procedure. The oral cavity was then retracted open and then in such position with the dental block. The tongue was then retracted anterolaterally to the contralateral side of the tumor. There was a silk suture used as a retraction point. The tumor mass lesion was identified and margin that was at least 1 cm was then marked all around the entire mass of the right lateral oral tongue. Using the electrocautery, incision was made through the mucosa of the oral tongue down to the musculature of the tongue including the longitudinal and transverse portion and down to the genioglossus region. The excision was then carried out carefully to ensure good deep margin was maintained by frequent palpation of the tongue mass. The mass was extended towards the right tongue base lesion as well. The entire mass was then excised en bloc. The frozen section was then obtained and reported to be squamous cell carcinoma. An additional inspection showed that a somewhat nodular mass was palpated in the deep margin towards the base of tongue region. This was excised and measured 1 x 1 x 0.5 cm and submitted for additional oncologic evaluation. Upon inspection of the completion of the excision, the entire deep margin was noted to be free of any palpable nodule nor any visually identifiable residual mass. After satisfactory excision, hemostasis was achieved by using bipolar electrocautery. The closure of the tongue was achieved in layers. Mattress sutures were then placed to reapproximate the deep musculature of the oral tongue. Final mattress suture was then placed over the mucosa of the right lateral tongue as well. At the end of the procedure, sponge and instrument counts were correct. No complications were encountered. Estimated blood loss was approximately 20 mL. General anesthesia was reversed and the patient was extubated and brought to the recovery room in stable condition.
== END 2021-02-22 12:37 | disposition home or self-care (01) | DRG 145 ==
LOC: M SDC 06:53 → M PCU 11:42 → M SDC 02-22 12:27
PROVIDERS: ADMIT Internal Medicine; ATTEND Internal Medicine
PROC: 0CB70ZZ Excision of Tongue, Open Approach (ICD-10-PCS; 2021-02-20)
PROC: 0CBM0ZZ Excision of Pharynx, Open Approach (ICD-10-PCS; principal; 2021-02-20 08:15)
DX: C02.8 Malignant neoplasm of overlapping sites of tongue (principal); E11.9 Type 2 diabetes mellitus without complications; I10 Essential (primary) hypertension; E78.5 Hyperlipidemia, unspecified; M10.9 Gout, unspecified; Z79.84 Long term (current) use of oral hypoglycemic drugs; Z79.01 Long term (current) use of anticoagulants; Z79.899 Other long term (current) drug therapy; Z85.46 Personal history of malignant neoplasm of prostate; Z92.3 Personal history of irradiation; Z86.718 Personal history of other venous thrombosis and embolism; Z86.14 Personal history of Methicillin resistant Staphylococcus aureus infection; G47.33 Obstructive sleep apnea (adult) (pediatric); R33.9 Retention of urine, unspecified; Z98.41 Cataract extraction status, right eye; Z98.42 Cataract extraction status, left eye; Z90.49 Acquired absence of other specified parts of digestive tract; Z79.891 Long term (current) use of opiate analgesic; Z91.11 Patient's noncompliance with dietary regimen

== ENCOUNTER → 2021-03-01 | Outpatient (CLI) | payer MEDICARE ==
[~2021-03-01] MED LIST changes: +ACET1TAB16 PO; +DECA4TAB PO; +DEXA6TAB PO; +FINA5TAB2; +IRBE75TA4 PO; +LABE100T4; +LORA-674; -LR 1,000 ML IV ONE; +MAGICMW SSP; +METF500T13 PO; +ONDA-83 PO; +OXYC1SOL3 PO; +PANT20TA6 PO; +TAMS1CAP17 PO; +XARE15TA PO; -dexameTHASONE 4 MG/ML 1ML VIAL (J1100 PER 1MG) IV ONE
== END ==
LOC: M ONCR 10:06
PROVIDERS: ATTEND General Practice
DX: C02.9 Malignant neoplasm of tongue, unspecified (principal); Z85.46 Personal history of malignant neoplasm of prostate; Z79.899 Other long term (current) drug therapy
CPT/HCPCS: 31575; G0463

== ENCOUNTER 2021-03-16 08:24 | Outpatient (RCR) | payer MEDICARE ==
[~2021-03-16 08:24] MED LIST changes: -DECA4TAB PO; -MAGICMW SSP; -ONDA-83 PO; -OXYC1SOL3 PO; -XARE15TA PO
[2021-04-03] MEDS ORDERED: XARE15TA PO (13:19)
== END 2021-03-31 ==
LOC: M ST 08:24
PROVIDERS: ATTEND Otolaryngology
DX: C02.9 Malignant neoplasm of tongue, unspecified (principal); R13.10 Dysphagia, unspecified

== ENCOUNTER → 2021-03-20 | Outpatient (CLI) | payer MEDICARE ==
--- NOTE | 2021-03-21 13:52 | REP ---
INDICATION: Malignant neoplasm of the tongue COMPARISON: No prior PET CTs for comparison. Previous diagnostic contrast-enhanced CT examination of the neck of 01/18/2021 was reviewed. TECHNIQUE: After the intravenous administration of 9.80 mCi of FDG 18 triplane whole-body PET CT was performed. NONCONTRAST HELICAL CT IMAGING WAS PERFORMED OVER THE SAME RANGE WITHOUT BREATH HOLD FOR ATTENUATION CORRECTION OF PET IMAGES AND ANATOMIC CORRELATION, BUT NOT FOR PRIMARY INTERPRETATION IT IS NOT OF STANDARD DIAGNOSTIC QUALITY. THE CT IMAGES OBTAINED TODAY SHOULD NOT BE USED TO COMPARE TO THE STANDARD DIAGNOSTIC CT OBTAINED 01/18/2021. FINDINGS: There is hypermetabolic activity seen in the right-side of the tongue and having a maximal SUV value of 8.52. There is focal hypermetabolism seen in the anterior aspect of the platysma muscle bilaterally the maximal SUV value on the right is 8.15 and on the left 6.88 in the same anatomical region. There is extensive bilateral multifocal diffuse hypermetabolic activity seen in numerous muscle groups throughout the body. There is also diffuse nonspecific multifocal hypermetabolism in the genital region. There is nonspecific diffuse hypermetabolism in the skin of the nose. The maximal SUV value of this region is 4.82. No other areas of abnormal hypermetabolic activity are seen in the neck, chest, abdomen, or pelvis. Review of non corrected images of the skin show no definite abnormal epidermal or dermal hypermetabolism other than the aforementioned involving the nose. IMPRESSION: 1. Abnormal hypermetabolic activity seen in the tongue as described above. 2. Hypermetabolism involving the skin of the nose as described above which is nonspecific. Does the patient have a runny nose? 3. Hypermetabolism in the platysma muscle as described above. This is nonspecific. 4. Extensive muscular hypermetabolism as described above and to such a degree the sensitivity of this examination in detecting small neoplastic areas of hypermetabolism can be decreased. The muscular hypermetabolism is likely secondary to insufficient post injection resting. 5. Other findings as described. <Electronically signed by Leeroy Harrington > 03/21/21 2059
== END ==
LOC: M PLARAD 13:10
PROVIDERS: ATTEND Otolaryngology
DX: C02.8 Malignant neoplasm of overlapping sites of tongue (principal)
CPT/HCPCS: 78816; A9552

== ENCOUNTER 2021-03-30 12:06 | Outpatient (RCR) | payer MEDICARE ==
[2021-04-03] MEDS ORDERED: XARE15TA PO (13:19)
== END 2021-03-31 ==
LOC: M ONCR 12:06
PROVIDERS: ATTEND General Practice
DX: C02.1 Malignant neoplasm of border of tongue (principal)

== ENCOUNTER → 2021-05-01 | Outpatient (RCR) | payer MEDICARE ==
[~2021-05-01] MED LIST changes: +MAGICMW SSP; +OXYC1SOL3 PO; +XARE15TA PO
== END ==
LOC: M ONCR 04-03 12:12
PROVIDERS: ATTEND General Practice
DX: C02.1 Malignant neoplasm of border of tongue (principal)

== ENCOUNTER 2021-05-15 08:40 | Outpatient (RCR) | payer MEDICARE ==
[~2021-05-15 08:40] MED LIST changes: +DECA4TAB PO; +ONDA-83 PO
[2021-05-15] MEDS ORDERED: OXYC1SOL3 PO (09:30)
== END 2021-05-29 ==
LOC: M ONCR 08:40
PROVIDERS: ATTEND General Practice
DX: C02.1 Malignant neoplasm of border of tongue (principal)

== ENCOUNTER → 2021-05-22 | Outpatient (CLI) | payer MEDICARE | LOC: M ONCR 07:47 | PROVIDERS: ATTEND General Practice | DX: C02.1 Malignant neoplasm of border of tongue (principal); K12.30 Oral mucositis (ulcerative), unspecified ==

== ENCOUNTER → 2021-07-05 | Outpatient (CLI) | payer MEDICARE ==
[~2021-07-05] MED LIST changes: -ACET1TAB16 PO; +ACET300T48 PO
== END ==
LOC: M ONCR 09:33
PROVIDERS: ATTEND General Practice
DX: C02.1 Malignant neoplasm of border of tongue (principal); Z90.49 Acquired absence of other specified parts of digestive tract; Z85.46 Personal history of malignant neoplasm of prostate; Z92.3 Personal history of irradiation

== ENCOUNTER → 2021-09-05 | Outpatient (CLI) | payer MEDICARE | LOC: M ONCR 13:45 | PROVIDERS: ATTEND General Practice | DX: C02.9 Malignant neoplasm of tongue, unspecified (principal); Z79.84 Long term (current) use of oral hypoglycemic drugs; Z79.899 Other long term (current) drug therapy; Z85.46 Personal history of malignant neoplasm of prostate; Z92.3 Personal history of irradiation ==

== ENCOUNTER → 2021-10-12 | Outpatient (CLI) | payer MEDICARE ==
[~2021-10-12] MED LIST changes: +ISOVUE-370 76% 100ML VIAL As Ordered ONE
== END ==
LOC: M RAD 16:28
PROVIDERS: ATTEND General Practice
DX: C02.1 Malignant neoplasm of border of tongue (principal)
CPT/HCPCS: 70487; 70491; Q9967

== ENCOUNTER → 2021-10-13 | Outpatient (CLI) | payer MEDICARE ==
[~2021-10-13] MED LIST changes: -ISOVUE-370 76% 100ML VIAL As Ordered ONE
== END ==
LOC: M ONCR 07:44
PROVIDERS: ATTEND General Practice
DX: Z08 Encounter for follow-up examination after completed treatment for malignant neoplasm (principal); K14.6 Glossodynia; K14.8 Other diseases of tongue; R43.9 Unspecified disturbances of smell and taste; R68.2 Dry mouth, unspecified; Z85.810 Personal history of malignant neoplasm of tongue; Z85.46 Personal history of malignant neoplasm of prostate; Z90.49 Acquired absence of other specified parts of digestive tract; Z92.3 Personal history of irradiation; Z79.899 Other long term (current) drug therapy
CPT/HCPCS: 10005; 88173; G0463

== ENCOUNTER → 2022-04-12 | Outpatient (REF) | payer MEDICARE ==
[~2022-04-12] MED LIST changes: -LABE100T4; +LABE100T6
[2022-04-12 18:22] LABS: CREATININE, URINE 101.4 MG/DL; MAU/CREAT RATIO 33.5 MCG/MG (0.0-30.0)
== END ==
LOC: M LAB REF 17:01
PROVIDERS: ATTEND Internal Medicine Nephrology
DX: N18.31 Chronic kidney disease, stage 3a (principal); E11.22 Type 2 diabetes mellitus with diabetic chronic kidney disease

== ENCOUNTER → 2022-09-18 | Outpatient (CLI) | payer MEDICARE ==
[~2022-09-18] MED LIST changes: +LIDO15SO2 SSP; -LIDO2SO SSP
== END ==
LOC: M ONCR 13:19
PROVIDERS: ATTEND General Practice
DX: C61 Malignant neoplasm of prostate (principal); C02.1 Malignant neoplasm of border of tongue; Z71.2 Person consulting for explanation of examination or test findings; Z92.3 Personal history of irradiation

== ENCOUNTER → 2023-04-26 | Outpatient (CLI) | payer MEDICARE ==
[~2023-04-26] MED LIST changes: +IRBE75TA11 PO; -IRBE75TA4 PO; +LORA-1041; -LORA-674
[2023-04-26 18:21] LABS: HEMATOCRIT 33.5 % (42.0-52.0); HEMOGLOBIN 10.8 g/dl (13.5-17.5); MEAN CORPUSCULAR HEMOGLOBIN 31.7 pg (27.0-33.0); MEAN CORPUSCULAR HGB CONC 32.2 g/dl (32.0-36.5); MEAN CORPUSCULAR VOLUME 98.2 fl (80.0-96.0); PLATELET COUNT, AUTOMATED 365 10^3/uL (150-450); RED BLOOD COUNT 3.41 10^6/uL (4.30-6.10); WHITE BLOOD COUNT 5.3 10^3/uL (4.0-10.0)
[2023-04-26 18:45] LABS: ALBUMIN 2.8 G/DL (3.2-5.2); ALKALINE PHOSPHATASE 67 U/L (46-116); ALT/SGPT 10 U/L (7.0-40); AST/SGOT 12 U/L (<34); BILIRUBIN,TOTAL 0.3 MG/DL (0.3-1.2); BLOOD UREA NITROGEN 19 MG/DL (9-23); CALCIUM LEVEL 8.4 MG/DL (8.3-10.6); CARBON DIOXIDE LEVEL 32 MMOL/L (20-31); CHLORIDE LEVEL 103 MMOL/L (98-107); CREATININE FOR GFR 0.62 MG/DL (0.70-1.30); GLOMERULAR FILTRATION RATE > 60.0 (>42); GLUCOSE, FASTING 222 MG/DL (74-106); SODIUM LEVEL 138 MMOL/L (136-145); TOTAL PROTEIN 6.7 G/DL (5.7-8.2)
== END ==
LOC: M PLALAB 15:59
PROVIDERS: ATTEND Urology
DX: N49.2 Inflammatory disorders of scrotum (principal)

== ENCOUNTER → 2023-04-29 | Outpatient (CLI) | payer MEDICARE ==
[~2023-04-29] MED LIST changes: +ISOVUE-370 76% 100ML VIAL ONE
== END ==
LOC: M PLAIMG 08:01
PROVIDERS: ATTEND Urology
DX: N49.2 Inflammatory disorders of scrotum (principal); K40.20 Bilateral inguinal hernia, without obstruction or gangrene, not specified as recurrent
CPT/HCPCS: 72193; Q9967

== ENCOUNTER 2024-06-23 09:56 | Inpatient (IN) | payer MEDICARE ==
[~2024-06-23] VITALS: Ht 175.3 cm; Wt 91.3 kg
[2024-06-23] VITALS (7 sets, daily range): BP systolic 79–191; BP diastolic 51–90; TEMP 97.7–98.9; O2SAT 94–97
[2024-06-23] MEDS: PIPERACILLIN/TAZOBACTAM SOD 4.5 GM in DEXTROSE 5% (D5W) ADV/MINI-BAG 50 ML IV SCH (00:25)
[~2024-06-23 09:56] MED LIST changes: -FLOM0.4C39 PO; +GABA-1490 PO; -GABA600T4 PO; -ISOVUE-370 76% 100ML VIAL ONE; -LIDO15SO2 SSP; +LIDO15SO9 SSP; +TAMS-18 PO
[2024-06-23 10:58] LABS: BASO % 0.3 % (0.0-1.0); EOS # 0.1 10^3/uL (0.0-0.5); EOS % 0.6 % (0.0-3.0); HEMATOCRIT 32.1 % (42.0-52.0); HEMOGLOBIN 10.4 g/dl (13.5-17.5); LYMPH # 0.3 10^3/uL (1.5-5.0); LYMPH % 2.8 % (24.0-44.0); MEAN CORPUSCULAR HEMOGLOBIN 30.3 pg (27.0-33.0); MEAN CORPUSCULAR HGB CONC 32.4 g/dl (32.0-36.5); MEAN CORPUSCULAR VOLUME 93.6 fl (80.0-96.0); MONO # 0.5 10^3/uL (0.0-0.8); MONO % 6.1 % (2.0-8.0); NEUTROPHILS # 7.9 10^3/uL (1.5-8.5); NEUTROPHILS % 88.8 % (36.0-66.0); PLATELET COUNT, AUTOMATED 278 10^3/uL (150-450); RED BLOOD COUNT 3.43 10^6/uL (4.30-6.10); WHITE BLOOD COUNT 8.8 10^3/uL (4.0-10.0)
[2024-06-23 11:04] LABS: ERYTHROCYTE SEDIMENTATION RATE 105 mm/hr (0-20)
[2024-06-23 11:08] LABS: INR 1.28; PARTIAL THROMBOPLASTIN TIME 36.2 SECONDS (24.8-34.2); PROTHROMBIN TIME 16.3 SECONDS (12.5-14.5)
[2024-06-23] MEDS ORDERED: ISOVUE-370 76% 100ML VIAL As Ordered ONE (11:33)
[2024-06-23 11:35] LABS: ALBUMIN 2.1 G/DL (3.2-5.2); ALKALINE PHOSPHATASE 95 U/L (40-129); ALT/SGPT 12 U/L (7.0-40); AST/SGOT 16 U/L (<34); BILIRUBIN,DIRECT 0.4 MG/DL (<0.4); BILIRUBIN,TOTAL 0.8 MG/DL (0.3-1.2); BLOOD UREA NITROGEN 35 MG/DL (9-23); CALCIUM LEVEL 7.9 MG/DL (8.3-10.6); CARBON DIOXIDE LEVEL 28 MMOL/L (20-31); CHLORIDE LEVEL 103 MMOL/L (98-107); GLOMERULAR FILTRATION RATE > 60.0 (>42); GLUCOSE, FASTING 175 MG/DL (74-106); POTASSIUM SERUM 3.5 MMOL/L (3.5-5.1); SODIUM LEVEL 138 MMOL/L (136-145); TOTAL PROTEIN 6.3 G/DL (5.7-8.2)
[2024-06-23 11:41] LABS: PROCALCITONIN 0.61 ng/ml
[2024-06-23 11:50] LABS: C REACTIVE PROTEIN QUANTITATIV 28.97 MG/DL (<1.0)
[2024-06-23 11:59] LABS: APPEARANCE, URINE CLOUDY (CLEAR); BACTERIA, URINE AUTO 3+ (NEGATIVE); BILIRUBIN, URINE AUTO NEGATIVE (NEGATIVE); BLOOD, URINE BLOOD 2+ (NEGATIVE); COLOR, URINE AMBER (YELLOW); GLUCOSE, URINE (UA) AUTO NEGATIVE (NEGATIVE); KETONE, URINE AUTO TRACE mg/dL (NEGATIVE); LEUKOCYTE ESTERASE, URINE AUTO 3+ (NEGATIVE); NITRITE, URINE AUTO NEGATIVE (NEGATIVE); PROTEIN, URINE AUTO 1+ mg/dL (NEGATIVE); RBC, URINE AUTO 14 /HPF (0-3); SPECIFIC GRAVITY URINE AUTO 1.016 (1.002-1.035); SQUAMOUS EPITHELIAL CELL UR AU 1 /HPF (0-6); WBC, URINE AUTO TNTC /HPF (0-3)
[2024-06-23] MEDS ORDERED: metroNIDAZOLE 500 MG in IV 1 EA IV ONE (12:25)
[2024-06-23] MEDS: VANCOMYCIN HCL 1,750 MG, VIAL MATE ADAPTER 1 EACH in NS 500 ML IV ONE (12:50)
[2024-06-23] MEDS ORDERED: VANCOMYCIN HCL 1,330 MG in IV FLUID PLACE HOLDER 1 EA IV SCH (13:25)
[2024-06-23] MEDS ORDERED: ACETAMINOPHEN 325 MG TAB PO PRN (13:30)
[2024-06-23] MEDS: LR 1,000 ML IV SCH ×2 (13:30→18:05)
[2024-06-23] MEDS ORDERED: MOM 30ML SUSPENSION UDC PO PRN (13:30)
[2024-06-23] MEDS ORDERED: GLUCAGON INJ 1MG VIAL SC PRN (13:55)
[2024-06-23] MEDS ORDERED: DEXTROSE 50% 50ML SYRINGE IV PRN (13:55)
[2024-06-23] MEDS ORDERED: GLUCOSE 4 GM CHEW PO PRN (13:55)
[2024-06-23] MEDS ORDERED: HOME MED LIST COMPLETE! XX SCH (14:15)
[2024-06-23 14:52] LABS: MAGNESIUM LEVEL 1.9 MG/DL (1.8-2.4)
[2024-06-23 14:55] LABS: HEMOGLOBIN A1c 8.2 % (4.0-6.0)
[2024-06-23 14:56] LABS: THYROID STIMULATING HORMONE 1.984 uIU/ML (0.55-4.78)
[2024-06-23] MEDS: LIDOCAINE W/EPINEPHRINE 1% 20ML VIAL As Ordered ONE (17:42)
[2024-06-23] MEDS: BUPivacaine LIPOSOME/PF 266MG 20ML VIAL (13.3MG/ML)(EXPAREL) As Ordered ONE (17:42)
[2024-06-23] MEDS: INSULIN LISPRO (NovoLOG) PER UNIT SC SCH (18:00)
[2024-06-23] MEDS ORDERED: ONDANSETRON 4MG 2ML VIAL IV PRN (18:05)
[2024-06-23] MEDS ORDERED: oxyCODONE 5MG TAB PO PRN (18:05)
[2024-06-23] MEDS ORDERED: fentaNYL 100 MCG/2 ML INJECTION IV PRN (18:05)
[2024-06-23] MEDS ORDERED: HYDROMORPHONE HCL 0.5 MG/ 0.5 ML SYRINGE IV PRN (18:05)
[2024-06-23] MEDS: DOCUSATE SODIUM 100MG CAPSULE PO SCH (21:00)
[2024-06-23] MEDS: CLINDAMYCIN 900 MG in IV 1 EA IV SCH (22:00)
[2024-06-23] MEDS: VANCOMYCIN HCL 1,250 MG, VIAL MATE ADAPTER 1 EACH in NS 250 ML IV SCH (23:07)
[2024-06-24] VITALS (27 sets, daily range): BP systolic 118–142; BP diastolic 57–70; TEMP 97.4–99.3; O2SAT 93–100
[2024-06-24] MEDS: INSULIN LISPRO (NovoLOG) PER UNIT SC ONE (01:18)
[2024-06-24 08:49] LABS: BASO % 0.3 % (0.0-1.0); EOS # 0.1 10^3/uL (0.0-0.5); HEMATOCRIT 28.8 % (42.0-52.0); HEMOGLOBIN 9.4 g/dl (13.5-17.5); LYMPH # 0.3 10^3/uL (1.5-5.0); LYMPH % 3.7 % (24.0-44.0); MEAN CORPUSCULAR HEMOGLOBIN 30.4 pg (27.0-33.0); MEAN CORPUSCULAR HGB CONC 32.6 g/dl (32.0-36.5); MEAN CORPUSCULAR VOLUME 93.2 fl (80.0-96.0); MONO # 0.5 10^3/uL (0.0-0.8); MONO % 6.3 % (2.0-8.0); NEUTROPHILS # 6.8 10^3/uL (1.5-8.5); NEUTROPHILS % 87.3 % (36.0-66.0); PLATELET COUNT, AUTOMATED 247 10^3/uL (150-450); RED BLOOD COUNT 3.09 10^6/uL (4.30-6.10); WHITE BLOOD COUNT 7.8 10^3/uL (4.0-10.0)
[2024-06-24] MEDS: MOM 30ML SUSPENSION UDC PO SCH (09:00)
[2024-06-24] MEDS: MIRALAX *UNIT DOSE* 17GM PACKET PO SCH (09:00)
[2024-06-24 09:12] LABS: BLOOD UREA NITROGEN 31 MG/DL (9-23); CALCIUM LEVEL 7.4 MG/DL (8.3-10.6); CARBON DIOXIDE LEVEL 25 MMOL/L (20-31); CHLORIDE LEVEL 103 MMOL/L (98-107); CREATININE FOR GFR 0.69 MG/DL (0.70-1.30); GLOMERULAR FILTRATION RATE > 60.0 (>42); GLUCOSE, FASTING 106 MG/DL (74-106); POTASSIUM SERUM 3.6 MMOL/L (3.5-5.1); SODIUM LEVEL 136 MMOL/L (136-145)
[2024-06-24] MEDS: INSULIN LISPRO (NovoLOG) PER UNIT SC SCH ×2 (09:24→20:34)
[2024-06-24 10:49] LABS: HIV 1&2 SCREEN NEGATIVE (NEGATIVE)
[2024-06-24 13:05] LABS: Trichomonas vaginalis (AMP) NOT DETECTED (NEGATIVE)
[2024-06-24 13:29] LABS: GC DNA AMPLIFICATION NEGATIVE (NEGATIVE)
[2024-06-24] MEDS: KETOROLAC 30 MG/ML 1ML VIAL IV PRN (16:12)
[2024-06-24] MEDS: HEPARIN SOD (PORCINE) 5000UNITS/ML 1ML VIAL/SYRINGE SQ SCH (20:54)
[2024-06-25] VITALS (32 sets, daily range): BP systolic 111–138; BP diastolic 59–85; TEMP 97.4–98.9; O2SAT 89–100
[2024-06-25 08:46] LABS: BASO % 0.4 % (0.0-1.0); EOS # 0.1 10^3/uL (0.0-0.5); EOS % 1.9 % (0.0-3.0); HEMATOCRIT 29.6 % (42.0-52.0); HEMOGLOBIN 9.6 g/dl (13.5-17.5); LYMPH # 0.3 10^3/uL (1.5-5.0); LYMPH % 5.1 % (24.0-44.0); MEAN CORPUSCULAR HEMOGLOBIN 30.7 pg (27.0-33.0); MEAN CORPUSCULAR HGB CONC 32.4 g/dl (32.0-36.5); MEAN CORPUSCULAR VOLUME 94.6 fl (80.0-96.0); MONO # 0.4 10^3/uL (0.0-0.8); MONO % 6.7 % (2.0-8.0); NEUTROPHILS # 4.8 10^3/uL (1.5-8.5); NEUTROPHILS % 84.1 % (36.0-66.0); PLATELET COUNT, AUTOMATED 264 10^3/uL (150-450); RED BLOOD COUNT 3.13 10^6/uL (4.30-6.10); WHITE BLOOD COUNT 5.7 10^3/uL (4.0-10.0)
[2024-06-25 08:50] LABS: ERYTHROCYTE SEDIMENTATION RATE 100 mm/hr (0-20)
[2024-06-25 09:09] LABS: BLOOD UREA NITROGEN 31 MG/DL (9-23); CALCIUM LEVEL 7.3 MG/DL (8.3-10.6); CARBON DIOXIDE LEVEL 26 MMOL/L (20-31); CHLORIDE LEVEL 103 MMOL/L (98-107); CREATININE FOR GFR 0.74 MG/DL (0.70-1.30); GLOMERULAR FILTRATION RATE > 60.0 (>42); GLUCOSE, FASTING 243 MG/DL (74-106); POTASSIUM SERUM 4.1 MMOL/L (3.5-5.1); SODIUM LEVEL 136 MMOL/L (136-145)
[2024-06-25 09:16] LABS: PROCALCITONIN 0.48 ng/ml
[2024-06-25 09:22] LABS: C REACTIVE PROTEIN QUANTITATIV 20.62 MG/DL (<1.0)
[2024-06-25] MEDS: VANCOMYCIN HCL 1,000 MG, VIAL MATE ADAPTER 1 EACH in NS 250 ML IV SCH (11:00)
[2024-06-25] MEDS ORDERED: PROHANCE 279.3MG/ML 5ML VIAL As Ordered ONE (18:49)
[2024-06-25] MEDS ORDERED: PROHANCE 279.3MG/ML 15ML VIAL As Ordered ONE (18:49)
[2024-06-26] VITALS (19 sets, daily range): BP systolic 114–159; BP diastolic 56–83; TEMP 97.9–98.8; O2SAT 91–99
[2024-06-26 05:37] LABS: BASO % 0.3 % (0.0-1.0); EOS # 0.1 10^3/uL (0.0-0.5); EOS % 1.6 % (0.0-3.0); HEMATOCRIT 28.4 % (42.0-52.0); HEMOGLOBIN 9.1 g/dl (13.5-17.5); LYMPH # 0.5 10^3/uL (1.5-5.0); MEAN CORPUSCULAR HEMOGLOBIN 29.9 pg (27.0-33.0); MEAN CORPUSCULAR VOLUME 93.4 fl (80.0-96.0); MONO # 0.5 10^3/uL (0.0-0.8); MONO % 6.8 % (2.0-8.0); NEUTROPHILS # 6.4 10^3/uL (1.5-8.5); NEUTROPHILS % 83.6 % (36.0-66.0); PLATELET COUNT, AUTOMATED 300 10^3/uL (150-450); RED BLOOD COUNT 3.04 10^6/uL (4.30-6.10); WHITE BLOOD COUNT 7.7 10^3/uL (4.0-10.0)
[2024-06-26 05:54] LABS: BLOOD UREA NITROGEN 29 MG/DL (9-23); CALCIUM LEVEL 7.4 MG/DL (8.3-10.6); CARBON DIOXIDE LEVEL 25 MMOL/L (20-31); CHLORIDE LEVEL 102 MMOL/L (98-107); GLOMERULAR FILTRATION RATE > 60.0 (>42); GLUCOSE, FASTING 218 MG/DL (74-106); POTASSIUM SERUM 4.4 MMOL/L (3.5-5.1); SODIUM LEVEL 135 MMOL/L (136-145)
[2024-06-26] MEDS ORDERED: INSULIN LISPRO (NovoLOG) PER UNIT SC PRN (09:40)
[2024-06-26] MEDS: INSULIN LISPRO (NovoLOG) PER UNIT SC ONE (09:47)
[2024-06-26] MEDS ORDERED: propofoL 200 MG/20 ML VIAL As Ordered ONE (10:15)
[2024-06-26] MEDS ORDERED: MIDAZOLAM INJ 2MG/2ML VIAL As Ordered ONE (10:15)
[2024-06-26] MEDS ORDERED: ROCURONIUM BROMIDE 50MG/5ML VIAL As Ordered ONE (10:15)
[2024-06-26] MEDS ORDERED: LIDOCAINE 2% INJ 100 MG/5 ML SYRINGE As Ordered ONE (10:15)
[2024-06-26] MEDS ORDERED: fentaNYL 100 MCG/2 ML INJECTION As Ordered ONE (10:15)
[2024-06-26 10:48] LABS: VANCOMYCIN RANDOM 18.8 UG/ML
[2024-06-26] MEDS ORDERED: ePHEDrine SULFATE 25 MG/5 ML(5MG/ML) SYRINGE As Ordered ONE (11:21)
[2024-06-26] MEDS: LR 1,000 ML IV SCH (12:35)
[2024-06-26] MEDS ORDERED: fentaNYL 100 MCG/2 ML INJECTION IV PRN (12:35)
[2024-06-26] MEDS ORDERED: ONDANSETRON 4MG 2ML VIAL IV PRN (12:35)
[2024-06-26] MEDS ORDERED: HYDROMORPHONE HCL 0.5 MG/ 0.5 ML SYRINGE IV PRN (12:35)
[2024-06-26] MEDS ORDERED: oxyCODONE 5MG TAB PO PRN (12:35)
[2024-06-26] MEDS ORDERED: cefTRIAXone SOD 2GM VIAL IM SCH (16:45)
[2024-06-26] MEDS: KETOROLAC 30 MG/ML 1ML VIAL IV PRN (17:22)
[2024-06-26] MEDS: cefTRIAXone SOD 2 GM in DEXTROSE 5% (D5W) ADV/MINI-BAG 50 ML IV SCH (21:12)
[2024-06-27 04:00] VITALS: BP 153/71; TEMP 98.6; O2SAT 92
[2024-06-27 06:02] LABS: BASO % 0.1 % (0.0-1.0); EOS # 0.1 10^3/uL (0.0-0.5); HEMATOCRIT 26.8 % (42.0-52.0); HEMOGLOBIN 8.6 g/dl (13.5-17.5); LYMPH # 0.5 10^3/uL (1.5-5.0); LYMPH % 6.9 % (24.0-44.0); MEAN CORPUSCULAR HEMOGLOBIN 30.5 pg (27.0-33.0); MEAN CORPUSCULAR HGB CONC 32.1 g/dl (32.0-36.5); MONO # 0.6 10^3/uL (0.0-0.8); MONO % 8.1 % (2.0-8.0); NEUTROPHILS # 5.6 10^3/uL (1.5-8.5); NEUTROPHILS % 80.6 % (36.0-66.0); PLATELET COUNT, AUTOMATED 300 10^3/uL (150-450); RED BLOOD COUNT 2.82 10^6/uL (4.30-6.10); WHITE BLOOD COUNT 6.9 10^3/uL (4.0-10.0)
[2024-06-27 06:09] LABS: ERYTHROCYTE SEDIMENTATION RATE 84 mm/hr (0-20)
[2024-06-27 06:33] LABS: BLOOD UREA NITROGEN 24 MG/DL (9-23); CALCIUM LEVEL 7.5 MG/DL (8.3-10.6); CARBON DIOXIDE LEVEL 30 MMOL/L (20-31); CHLORIDE LEVEL 101 MMOL/L (98-107); CREATININE FOR GFR 0.66 MG/DL (0.70-1.30); GLOMERULAR FILTRATION RATE > 60.0 (>42); GLUCOSE, FASTING 216 MG/DL (74-106); POTASSIUM SERUM 4.7 MMOL/L (3.5-5.1); SODIUM LEVEL 136 MMOL/L (136-145)
[2024-06-27 07:37] LABS: C REACTIVE PROTEIN QUANTITATIV 12.97 MG/DL (<1.0)
[2024-06-27 12:00] VITALS: BP 148/72; TEMP 98.2; O2SAT 95
[2024-06-27] MEDS: ENOXAPARIN 40MG/0.4ML SYRINGE (J1650 PER 10MG) SC SCH (12:28)
[2024-06-27] MEDS: LanTUS (INSULIN GLARGINE INJ) 1 UNITS/0.01 ML SC ONE (15:42)
[2024-06-27 19:57] VITALS: BP 124/74; TEMP 98.2; O2SAT 92
[2024-06-28 06:06] VITALS: BP 176/79; TEMP 98.2; O2SAT 93
[2024-06-28 06:06] LABS: BASO % 0.4 % (0.0-1.0); EOS # 0.2 10^3/uL (0.0-0.5); EOS % 2.5 % (0.0-3.0); HEMATOCRIT 28.4 % (42.0-52.0); HEMOGLOBIN 9.3 g/dl (13.5-17.5); LYMPH # 0.6 10^3/uL (1.5-5.0); MEAN CORPUSCULAR HEMOGLOBIN 31.1 pg (27.0-33.0); MEAN CORPUSCULAR HGB CONC 32.7 g/dl (32.0-36.5); MONO # 0.5 10^3/uL (0.0-0.8); MONO % 7.4 % (2.0-8.0); NEUTROPHILS # 5.3 10^3/uL (1.5-8.5); NEUTROPHILS % 78.3 % (36.0-66.0); PLATELET COUNT, AUTOMATED 354 10^3/uL (150-450); RED BLOOD COUNT 2.99 10^6/uL (4.30-6.10); WHITE BLOOD COUNT 6.8 10^3/uL (4.0-10.0)
[2024-06-28 06:30] LABS: BLOOD UREA NITROGEN 21 MG/DL (9-23); CALCIUM LEVEL 7.6 MG/DL (8.3-10.6); CARBON DIOXIDE LEVEL 29 MMOL/L (20-31); CHLORIDE LEVEL 104 MMOL/L (98-107); CREATININE FOR GFR 0.61 MG/DL (0.70-1.30); GLOMERULAR FILTRATION RATE > 60.0 (>42); GLUCOSE, FASTING 180 MG/DL (74-106); POTASSIUM SERUM 5.4 MMOL/L (3.5-5.1); SODIUM LEVEL 137 MMOL/L (136-145)
[2024-06-28] MEDS: LanTUS (INSULIN GLARGINE INJ) 1 UNITS/0.01 ML SC SCH (08:07)
[2024-06-28 12:00] VITALS: BP 135/72; TEMP 99; O2SAT 95
[2024-06-28] MEDS: PATIROMER SORBITEX CALCIUM 8.4 GM POWDER PACKET (VELTASSA) PO ONE (12:11)
[2024-06-28 19:35] VITALS: BP 146/77; TEMP 98.1; O2SAT 92
[2024-06-28] MEDS: APIXABAN 5 MG TAB (ELIQUIS) PO SCH (21:10)
[2024-06-29 05:26] VITALS: BP 148/79; TEMP 98.1; O2SAT 99
[2024-06-29 06:17] LABS: BASO % 0.6 % (0.0-1.0); EOS # 0.1 10^3/uL (0.0-0.5); EOS % 2.6 % (0.0-3.0); HEMOGLOBIN 9.5 g/dl (13.5-17.5); LYMPH # 0.6 10^3/uL (1.5-5.0); LYMPH % 10.1 % (24.0-44.0); MEAN CORPUSCULAR HEMOGLOBIN 30.8 pg (27.0-33.0); MEAN CORPUSCULAR HGB CONC 32.8 g/dl (32.0-36.5); MEAN CORPUSCULAR VOLUME 94.2 fl (80.0-96.0); MONO # 0.5 10^3/uL (0.0-0.8); MONO % 8.4 % (2.0-8.0); NEUTROPHILS # 4.2 10^3/uL (1.5-8.5); NEUTROPHILS % 76.6 % (36.0-66.0); PLATELET COUNT, AUTOMATED 349 10^3/uL (150-450); RED BLOOD COUNT 3.08 10^6/uL (4.30-6.10); WHITE BLOOD COUNT 5.5 10^3/uL (4.0-10.0)
[2024-06-29 06:50] LABS: BLOOD UREA NITROGEN 18 MG/DL (9-23); C REACTIVE PROTEIN QUANTITATIV 7.19 MG/DL (<1.0); CARBON DIOXIDE LEVEL 29 MMOL/L (20-31); CHLORIDE LEVEL 104 MMOL/L (98-107); CREATININE FOR GFR 0.59 MG/DL (0.70-1.30); GLOMERULAR FILTRATION RATE > 60.0 (>42); GLUCOSE, FASTING 158 MG/DL (74-106); POTASSIUM SERUM 5.6 MMOL/L (3.5-5.1); SODIUM LEVEL 137 MMOL/L (136-145)
[2024-06-29 06:53] LABS: ERYTHROCYTE SEDIMENTATION RATE 76 mm/hr (0-20)
[2024-06-29 06:56] LABS: PROCALCITONIN 0.15 ng/ml
[2024-06-29] MEDS: PATIROMER SORBITEX CALCIUM 8.4 GM POWDER PACKET (VELTASSA) PO STA (08:06)
[2024-06-29 12:00] VITALS: BP 167/81; TEMP 98.6; O2SAT 92
[2024-06-29] MEDS: CEFDINIR 300 MG CAP (OMNICEF) PO SCH (12:01)
[2024-06-29] MEDS ORDERED: MOM 30ML SUSPENSION UDC PO PRN (13:10)
[2024-06-29] MEDS ORDERED: MIRALAX *UNIT DOSE* 17GM PACKET PO PRN (13:15)
[2024-06-29] MEDS: FUROSEMIDE 40MG/4ML VIAL IV STA (13:18)
[2024-06-29] MEDS: metroNIDAZOLE (FLAGYL) 500MG TABLET PO SCH (13:18)
[2024-06-29] MEDS ORDERED: ACETAMINOPHEN 325 MG TAB PO PRN (14:35)
[2024-06-29] MEDS ORDERED: PERCOCET 5MG/325MG TAB PO PRN (14:35)
[2024-06-29] MEDS: PERCOCET 5MG/325MG TAB PO PRN (14:48)
[2024-06-29 16:45] LABS: T PALLIDUM ANTIBODIES Positive (Negative)
[2024-06-29] MEDS ORDERED: HumuLIN R (REGULAR) INSULIN (NovoLIN R) **100U/ML** PER UNIT SC ONE (17:50)
[2024-06-29] MEDS: DEXTROSE 50% 50ML SYRINGE IV STA (18:02)
[2024-06-29] MEDS: FUROSEMIDE 20MG/2ML VIAL IV ONE (18:02)
[2024-06-29] MEDS: HumuLIN R (REGULAR) INSULIN (NovoLIN R) **100U/ML** PER UNIT IV STA (18:06)
[2024-06-30 07:19] LABS: BASO % 0.3 % (0.0-1.0); EOS # 0.1 10^3/uL (0.0-0.5); EOS % 2.1 % (0.0-3.0); HEMATOCRIT 31.6 % (42.0-52.0); LYMPH # 0.6 10^3/uL (1.5-5.0); LYMPH % 10.4 % (24.0-44.0); MEAN CORPUSCULAR HEMOGLOBIN 30.6 pg (27.0-33.0); MEAN CORPUSCULAR HGB CONC 31.6 g/dl (32.0-36.5); MEAN CORPUSCULAR VOLUME 96.6 fl (80.0-96.0); MONO # 0.5 10^3/uL (0.0-0.8); MONO % 9.3 % (2.0-8.0); NEUTROPHILS # 4.5 10^3/uL (1.5-8.5); NEUTROPHILS % 76.9 % (36.0-66.0); PLATELET COUNT, AUTOMATED 393 10^3/uL (150-450); RED BLOOD COUNT 3.27 10^6/uL (4.30-6.10); WHITE BLOOD COUNT 5.8 10^3/uL (4.0-10.0)
[2024-06-30 07:51] LABS: BLOOD UREA NITROGEN 20 MG/DL (9-23); CALCIUM LEVEL 7.9 MG/DL (8.3-10.6); CARBON DIOXIDE LEVEL 35 MMOL/L (20-31); CHLORIDE LEVEL 102 MMOL/L (98-107); CREATININE FOR GFR 0.67 MG/DL (0.70-1.30); GLOMERULAR FILTRATION RATE > 60.0 (>42); GLUCOSE, FASTING 140 MG/DL (74-106); MAGNESIUM LEVEL 2.2 MG/DL (1.8-2.4); POTASSIUM SERUM 5.7 MMOL/L (3.5-5.1); SODIUM LEVEL 138 MMOL/L (136-145)
[2024-06-30 12:00] VITALS: BP 135/60; TEMP 98.4; O2SAT 96
[2024-06-30] MEDS: NS (Normal Saline) 0.9% 1,000 ML IV SCH (12:38)
[2024-06-30 13:18] VITALS: BP 131/75; TEMP 98.8; O2SAT 93
[2024-06-30] MEDS: guaiFENesin DM LIQ 10ML UD PO PRN (13:56)
[2024-06-30 19:20] VITALS: BP 128/74; TEMP 98.1; O2SAT 94
[2024-07-01 03:20] VITALS: BP 126/68; TEMP 98.1; O2SAT 95
[2024-07-01 05:46] LABS: BASO % 0.5 % (0.0-1.0); EOS # 0.1 10^3/uL (0.0-0.5); EOS % 2.2 % (0.0-3.0); HEMATOCRIT 30.8 % (42.0-52.0); LYMPH # 0.5 10^3/uL (1.5-5.0); LYMPH % 8.4 % (24.0-44.0); MEAN CORPUSCULAR HEMOGLOBIN 30.5 pg (27.0-33.0); MEAN CORPUSCULAR HGB CONC 32.5 g/dl (32.0-36.5); MEAN CORPUSCULAR VOLUME 93.9 fl (80.0-96.0); MONO # 0.6 10^3/uL (0.0-0.8); MONO % 8.9 % (2.0-8.0); NEUTROPHILS # 5.1 10^3/uL (1.5-8.5); NEUTROPHILS % 79.2 % (36.0-66.0); PLATELET COUNT, AUTOMATED 387 10^3/uL (150-450); RED BLOOD COUNT 3.28 10^6/uL (4.30-6.10); WHITE BLOOD COUNT 6.4 10^3/uL (4.0-10.0)
[2024-07-01 06:17] LABS: BLOOD UREA NITROGEN 18 MG/DL (9-23); CALCIUM LEVEL 7.6 MG/DL (8.3-10.6); CARBON DIOXIDE LEVEL 29 MMOL/L (20-31); CHLORIDE LEVEL 103 MMOL/L (98-107); CREATININE FOR GFR 0.59 MG/DL (0.70-1.30); GLOMERULAR FILTRATION RATE > 60.0 (>42); GLUCOSE, FASTING 86 MG/DL (74-106); MAGNESIUM LEVEL 2.1 MG/DL (1.8-2.4); POTASSIUM SERUM 5.3 MMOL/L (3.5-5.1); SODIUM LEVEL 137 MMOL/L (136-145)
[2024-07-01 12:00] VITALS: BP 138/67; TEMP 98.8; O2SAT 97
[2024-07-01] MEDS: FUROSEMIDE 40MG/4ML VIAL IV ONE (12:42)
[2024-07-01] MEDS: CHLOROTHIAZIDE 500MG VIAL IV ONE (14:00)
[2024-07-01 15:48] LABS: RPR Non-Reactive (Non-Reactive); T PALLIDUM ANTIBODY,EIA Reactive (Nonreactive)
[2024-07-01 20:13] VITALS: BP 154/87; TEMP 98.2
[2024-07-02 04:02] VITALS: BP 138/69; TEMP 98.1; O2SAT 94
[2024-07-02 05:29] LABS: BASO % 0.6 % (0.0-1.0); EOS # 0.1 10^3/uL (0.0-0.5); EOS % 2.4 % (0.0-3.0); HEMATOCRIT 29.8 % (42.0-52.0); HEMOGLOBIN 9.7 g/dl (13.5-17.5); LYMPH # 0.6 10^3/uL (1.5-5.0); LYMPH % 10.7 % (24.0-44.0); MEAN CORPUSCULAR HEMOGLOBIN 30.7 pg (27.0-33.0); MEAN CORPUSCULAR HGB CONC 32.6 g/dl (32.0-36.5); MEAN CORPUSCULAR VOLUME 94.3 fl (80.0-96.0); MONO # 0.5 10^3/uL (0.0-0.8); MONO % 8.3 % (2.0-8.0); NEUTROPHILS # 4.2 10^3/uL (1.5-8.5); NEUTROPHILS % 77.3 % (36.0-66.0); PLATELET COUNT, AUTOMATED 351 10^3/uL (150-450); RED BLOOD COUNT 3.16 10^6/uL (4.30-6.10); WHITE BLOOD COUNT 5.4 10^3/uL (4.0-10.0)
[2024-07-02 05:49] LABS: BLOOD UREA NITROGEN 16 MG/DL (9-23); CALCIUM LEVEL 7.7 MG/DL (8.3-10.6); CARBON DIOXIDE LEVEL 27 MMOL/L (20-31); CHLORIDE LEVEL 105 MMOL/L (98-107); GLOMERULAR FILTRATION RATE > 60.0 (>42); GLUCOSE, FASTING 189 MG/DL (74-106); MAGNESIUM LEVEL 1.9 MG/DL (1.8-2.4); POTASSIUM SERUM 4.8 MMOL/L (3.5-5.1); SODIUM LEVEL 137 MMOL/L (136-145)
[2024-07-02 12:00] VITALS: BP 136/77; TEMP 98.2; O2SAT 96
[2024-07-02 19:41] VITALS: BP 149/88; TEMP 99; O2SAT 96
[2024-07-03 04:13] VITALS: BP 157/85; TEMP 98.8; O2SAT 98
[2024-07-03 05:15] LABS: BASO % 0.6 % (0.0-1.0); EOS # 0.1 10^3/uL (0.0-0.5); EOS % 2.1 % (0.0-3.0); HEMATOCRIT 27.9 % (42.0-52.0); HEMOGLOBIN 8.8 g/dl (13.5-17.5); LYMPH # 0.7 10^3/uL (1.5-5.0); LYMPH % 12.7 % (24.0-44.0); MEAN CORPUSCULAR HEMOGLOBIN 30.2 pg (27.0-33.0); MEAN CORPUSCULAR HGB CONC 31.5 g/dl (32.0-36.5); MEAN CORPUSCULAR VOLUME 95.9 fl (80.0-96.0); MONO # 0.5 10^3/uL (0.0-0.8); MONO % 8.8 % (2.0-8.0); NEUTROPHILS # 3.9 10^3/uL (1.5-8.5); NEUTROPHILS % 75.2 % (36.0-66.0); PLATELET COUNT, AUTOMATED 365 10^3/uL (150-450); RED BLOOD COUNT 2.91 10^6/uL (4.30-6.10); WHITE BLOOD COUNT 5.1 10^3/uL (4.0-10.0)
[2024-07-03 05:38] LABS: BLOOD UREA NITROGEN 16 MG/DL (9-23); C REACTIVE PROTEIN QUANTITATIV 2.85 MG/DL (<1.0); CALCIUM LEVEL 7.5 MG/DL (8.3-10.6); CARBON DIOXIDE LEVEL 26 MMOL/L (20-31); CHLORIDE LEVEL 106 MMOL/L (98-107); CREATININE FOR GFR 0.58 MG/DL (0.70-1.30); GLOMERULAR FILTRATION RATE > 60.0 (>42); GLUCOSE, FASTING 148 MG/DL (74-106); MAGNESIUM LEVEL 1.8 MG/DL (1.8-2.4); POTASSIUM SERUM 4.7 MMOL/L (3.5-5.1); SODIUM LEVEL 137 MMOL/L (136-145)
[2024-07-03 14:00] VITALS: BP 161/83; TEMP 98.2; O2SAT 89
[2024-07-03 20:12] VITALS: BP 120/71; TEMP 99; O2SAT 96
[2024-07-04 04:45] VITALS: BP 163/87; TEMP 98.2; O2SAT 94
[2024-07-04 06:18] LABS: BASO % 0.8 % (0.0-1.0); EOS # 0.1 10^3/uL (0.0-0.5); EOS % 1.8 % (0.0-3.0); HEMOGLOBIN 9.3 g/dl (13.5-17.5); LYMPH # 0.6 10^3/uL (1.5-5.0); LYMPH % 11.5 % (24.0-44.0); MEAN CORPUSCULAR HEMOGLOBIN 30.4 pg (27.0-33.0); MEAN CORPUSCULAR HGB CONC 32.1 g/dl (32.0-36.5); MEAN CORPUSCULAR VOLUME 94.8 fl (80.0-96.0); MONO # 0.5 10^3/uL (0.0-0.8); MONO % 9.2 % (2.0-8.0); NEUTROPHILS # 3.7 10^3/uL (1.5-8.5); NEUTROPHILS % 76.3 % (36.0-66.0); PLATELET COUNT, AUTOMATED 328 10^3/uL (150-450); RED BLOOD COUNT 3.06 10^6/uL (4.30-6.10); WHITE BLOOD COUNT 4.9 10^3/uL (4.0-10.0)
[2024-07-04 06:44] LABS: BLOOD UREA NITROGEN 19 MG/DL (9-23); CALCIUM LEVEL 7.8 MG/DL (8.3-10.6); CARBON DIOXIDE LEVEL 28 MMOL/L (20-31); CHLORIDE LEVEL 107 MMOL/L (98-107); CREATININE FOR GFR 0.58 MG/DL (0.70-1.30); GLOMERULAR FILTRATION RATE > 60.0 (>42); GLUCOSE, FASTING 129 MG/DL (74-106); MAGNESIUM LEVEL 1.8 MG/DL (1.8-2.4); POTASSIUM SERUM 4.4 MMOL/L (3.5-5.1); SODIUM LEVEL 140 MMOL/L (136-145)
[2024-07-04 12:00] VITALS: BP 121/57; TEMP 97.9; O2SAT 97
[2024-07-04 20:00] VITALS: BP 161/69; TEMP 98.6; O2SAT 96
[2024-07-05 04:00] VITALS: BP 109/65; TEMP 98.2; O2SAT 98
[2024-07-05 06:42] LABS: BASO % 0.7 % (0.0-1.0); EOS # 0.1 10^3/uL (0.0-0.5); EOS % 2.1 % (0.0-3.0); HEMATOCRIT 29.9 % (42.0-52.0); HEMOGLOBIN 9.7 g/dl (13.5-17.5); LYMPH # 0.6 10^3/uL (1.5-5.0); LYMPH % 14.5 % (24.0-44.0); MEAN CORPUSCULAR HEMOGLOBIN 30.9 pg (27.0-33.0); MEAN CORPUSCULAR HGB CONC 32.4 g/dl (32.0-36.5); MEAN CORPUSCULAR VOLUME 95.2 fl (80.0-96.0); MONO # 0.4 10^3/uL (0.0-0.8); MONO % 9.3 % (2.0-8.0); NEUTROPHILS # 3.1 10^3/uL (1.5-8.5); NEUTROPHILS % 72.9 % (36.0-66.0); PLATELET COUNT, AUTOMATED 342 10^3/uL (150-450); RED BLOOD COUNT 3.14 10^6/uL (4.30-6.10); WHITE BLOOD COUNT 4.3 10^3/uL (4.0-10.0)
[2024-07-05 07:16] LABS: BLOOD UREA NITROGEN 21 MG/DL (9-23); CALCIUM LEVEL 7.6 MG/DL (8.3-10.6); CARBON DIOXIDE LEVEL 26 MMOL/L (20-31); CHLORIDE LEVEL 107 MMOL/L (98-107); CREATININE FOR GFR 0.64 MG/DL (0.70-1.30); GLOMERULAR FILTRATION RATE > 60.0 (>42); GLUCOSE, FASTING 145 MG/DL (74-106); MAGNESIUM LEVEL 1.8 MG/DL (1.8-2.4); POTASSIUM SERUM 4.9 MMOL/L (3.5-5.1); SODIUM LEVEL 139 MMOL/L (136-145)
[2024-07-05 12:00] VITALS: BP 152/74; TEMP 98.1; O2SAT 95
[2024-07-06 04:05] VITALS: BP 152/74; TEMP 98.4; O2SAT 98
[2024-07-06 06:00] LABS: EOS # 0.1 10^3/uL (0.0-0.5); EOS % 3.2 % (0.0-3.0); HEMATOCRIT 29.5 % (42.0-52.0); HEMOGLOBIN 9.4 g/dl (13.5-17.5); LYMPH # 0.5 10^3/uL (1.5-5.0); LYMPH % 12.2 % (24.0-44.0); MEAN CORPUSCULAR HEMOGLOBIN 30.3 pg (27.0-33.0); MEAN CORPUSCULAR HGB CONC 31.9 g/dl (32.0-36.5); MEAN CORPUSCULAR VOLUME 95.2 fl (80.0-96.0); MONO # 0.4 10^3/uL (0.0-0.8); MONO % 10.2 % (2.0-8.0); NEUTROPHILS % 73.2 % (36.0-66.0); PLATELET COUNT, AUTOMATED 320 10^3/uL (150-450); WHITE BLOOD COUNT 4.1 10^3/uL (4.0-10.0)
[2024-07-06 06:37] LABS: BLOOD UREA NITROGEN 18 MG/DL (9-23); CALCIUM LEVEL 7.8 MG/DL (8.3-10.6); CARBON DIOXIDE LEVEL 28 MMOL/L (20-31); CHLORIDE LEVEL 104 MMOL/L (98-107); CREATININE FOR GFR 0.64 MG/DL (0.70-1.30); GLOMERULAR FILTRATION RATE > 60.0 (>42); GLUCOSE, FASTING 104 MG/DL (74-106); MAGNESIUM LEVEL 1.8 MG/DL (1.8-2.4); POTASSIUM SERUM 4.8 MMOL/L (3.5-5.1); SODIUM LEVEL 139 MMOL/L (136-145)
[2024-07-06 19:50] VITALS: BP 121/73; TEMP 98.8; O2SAT 96
[2024-07-07 03:11] VITALS: BP 122/72; TEMP 98.6; O2SAT 96
[2024-07-08 04:12] VITALS: BP 128/63; TEMP 98.1; O2SAT 96
[2024-07-08] MEDS: ONDANSETRON 4MG ORAL DISINTEGRATING TAB PO PRN (05:02)
[2024-07-08] MEDS: MELOXICAM (MOBIC) 7.5 MG TAB PO ONE (11:23)
[2024-07-09 03:10] VITALS: BP 143/82; TEMP 98.1; O2SAT 96
[2024-07-09 12:07] VITALS: BP 142/80; TEMP 98.2; O2SAT 99
[2024-07-10 03:40] VITALS: BP 123/59; TEMP 98.1; O2SAT 96
[2024-07-11 03:43] VITALS: BP 110/60; TEMP 98.6; O2SAT 96
[2024-07-11 08:27] LABS: HEMATOCRIT 27.3 % (42.0-52.0); HEMOGLOBIN 8.7 g/dl (13.5-17.5); MEAN CORPUSCULAR HEMOGLOBIN 31.2 pg (27.0-33.0); MEAN CORPUSCULAR HGB CONC 31.9 g/dl (32.0-36.5); MEAN CORPUSCULAR VOLUME 97.8 fl (80.0-96.0); PLATELET COUNT, AUTOMATED 308 10^3/uL (150-450); RED BLOOD COUNT 2.79 10^6/uL (4.30-6.10); WHITE BLOOD COUNT 5.9 10^3/uL (4.0-10.0)
[2024-07-11 08:54] LABS: BLOOD UREA NITROGEN 23 MG/DL (9-23); C REACTIVE PROTEIN QUANTITATIV 1.22 MG/DL (<1.0); CARBON DIOXIDE LEVEL 30 MMOL/L (20-31); CHLORIDE LEVEL 104 MMOL/L (98-107); CREATININE FOR GFR 0.65 MG/DL (0.70-1.30); GLOMERULAR FILTRATION RATE > 90.0 (>42); GLUCOSE, FASTING 169 MG/DL (74-106); POTASSIUM SERUM 4.4 MMOL/L (3.5-5.1); SODIUM LEVEL 139 MMOL/L (136-145)
[2024-07-12 05:00] VITALS: BP 118/60; TEMP 98.6; O2SAT 97
[2024-07-12] MEDS: SILVER NITRATE APPLICATOR (1 = QTY 10) TOP ONE (10:32)
[2024-07-13 04:03] VITALS: BP 118/62; TEMP 98.6; O2SAT 97
[2024-07-13] MEDS: SILVER NITRATE APPLICATOR (1 = QTY 10) TOP SCH (08:57)
[2024-07-14 03:45] VITALS: BP 149/75; TEMP 98.4; O2SAT 96
[2024-07-14] MEDS: ONDANSETRON 4MG ORAL DISINTEGRATING TAB PO PRN (12:51)
[2024-07-15] MEDS ORDERED: CEFD1CAP9 PO (00:03)
[2024-07-15 06:00] VITALS: BP 118/61; TEMP 98.2; O2SAT 96
[2024-07-15] MEDS ORDERED: INSULANT SC (11:11)
[2024-07-15] MEDS ORDERED: MIRA33506 PO (11:11)
[2024-07-15] MEDS ORDERED: INSUHUMDS SC (11:11)
[2024-07-15] MEDS ORDERED: ELIQ5TAB PO (11:11)
[2024-07-15] MEDS ORDERED: ONDA-282 PO (11:11)
[2024-07-15] MEDS ORDERED: PERCOCET PO (11:11)
[2024-07-15] MEDS ORDERED: COLA100C5 PO (11:11)
[2024-07-15 12:02] VITALS: O2SAT 94
== END 2024-07-15 14:29 | DRG 571 ==
LOC: EDBD 09:56 → M ED 09:56 → M ED INP 13:26 → M PCU 18:33 → M MS5PR 06-26 12:36 → M MSPAV 06-30 13:10
PROVIDERS: ADMIT Student in an Organized Health Care Education/Training Program; ATTEND Internal Medicine
PROC: 0JB90ZZ Excision of Buttock Subcutaneous Tissue and Fascia, Open Approach (ICD-10-PCS; 2024-06-23)
PROC: 0J990ZZ Drainage of Buttock Subcutaneous Tissue and Fascia, Open Approach (ICD-10-PCS; 2024-06-23)
PROC: B246ZZZ Ultrasonography of Right and Left Heart (ICD-10-PCS; principal; 2024-06-23 17:00)
DX: L02.31 Cutaneous abscess of buttock (principal); I31.39 Other pericardial effusion (noninflammatory); N39.0 Urinary tract infection, site not specified; I96 Gangrene, not elsewhere classified; E87.3 Alkalosis; I10 Essential (primary) hypertension; E78.5 Hyperlipidemia, unspecified; E11.9 Type 2 diabetes mellitus without complications; M10.9 Gout, unspecified; E66.9 Obesity, unspecified; G47.33 Obstructive sleep apnea (adult) (pediatric); Z90.49 Acquired absence of other specified parts of digestive tract; Z98.41 Cataract extraction status, right eye; Z98.42 Cataract extraction status, left eye; Z85.46 Personal history of malignant neoplasm of prostate; Z85.810 Personal history of malignant neoplasm of tongue; I48.91 Unspecified atrial fibrillation; R53.1 Weakness; K59.00 Constipation, unspecified; R32 Unspecified urinary incontinence; N45.1 Epididymitis; N50.3 Cyst of epididymis; I86.1 Scrotal varices; N43.3 Hydrocele, unspecified; R29.6 Repeated falls; B96.20 Unspecified Escherichia coli [E. coli] as the cause of diseases classified elsewhere; E87.5 Hyperkalemia; D64.9 Anemia, unspecified; Z86.718 Personal history of other venous thrombosis and embolism

== ENCOUNTER 2024-08-01 20:15 | Inpatient (IN) | payer MEDICARE ==
[~2024-08-01] VITALS: Ht 177.8 cm; Wt 89.0 kg
[~2024-08-01 20:15] MED LIST changes: +CEFD1CAP9 PO; +COLA100C5 PO; +ELIQ5TAB PO; +INSUHUMDS SC; +INSULANT SC; +MIRA33506 PO; +ONDA-282 PO; +PERCOCET PO
[2024-08-01 21:14] LABS: BASO % 0.4 % (0.0-1.0); EOS % 0.4 % (0.0-3.0); HEMATOCRIT 33.6 % (42.0-52.0); LYMPH # 0.3 10^3/uL (1.5-5.0); LYMPH % 3.2 % (24.0-44.0); MEAN CORPUSCULAR HEMOGLOBIN 32.1 pg (27.0-33.0); MEAN CORPUSCULAR HGB CONC 32.7 g/dl (32.0-36.5); MONO # 0.5 10^3/uL (0.0-0.8); MONO % 6.6 % (2.0-8.0); NEUTROPHILS % 89.1 % (36.0-66.0); PLATELET COUNT, AUTOMATED 288 10^3/uL (150-450); RED BLOOD COUNT 3.43 10^6/uL (4.30-6.10); WHITE BLOOD COUNT 7.9 10^3/uL (4.0-10.0)
[2024-08-01 21:53] LABS: ALBUMIN 2.7 G/DL (3.2-5.2); ALKALINE PHOSPHATASE 52 U/L (40-129); ALT/SGPT 17 U/L (7.0-40); AST/SGOT 32 U/L (<34); BILIRUBIN,DIRECT 0.1 MG/DL (<0.4); BILIRUBIN,TOTAL 0.4 MG/DL (0.3-1.2); BLOOD UREA NITROGEN 26 MG/DL (9-23); CALCIUM LEVEL 8.2 MG/DL (8.3-10.6); CARBON DIOXIDE LEVEL 29 MMOL/L (20-31); CHLORIDE LEVEL 104 MMOL/L (98-107); CREATININE FOR GFR 0.61 MG/DL (0.70-1.30); GLOMERULAR FILTRATION RATE > 90.0 (>42); GLUCOSE, FASTING 87 MG/DL (74-106); SODIUM LEVEL 137 MMOL/L (136-145); TOTAL PROTEIN 6.9 G/DL (5.7-8.2)
[2024-08-02] MEDS ORDERED: POLY17PO18 PO (00:03)
[2024-08-02] MEDS ORDERED: ELIQ5TAB PO (00:03)
[2024-08-02] MEDS ORDERED: NYST0.1C TOP (00:03)
[2024-08-02] MEDS ORDERED: ONDA-282 PO (00:03)
[2024-08-02] MEDS ORDERED: INSULANT SC (00:03)
[2024-08-02] MEDS ORDERED: TRAM50TA2 PO (00:03)
[2024-08-02] MEDS ORDERED: DOCU100C16 PO (00:03)
[2024-08-02] MEDS ORDERED: VALS1TAB66 PO (00:06)
[2024-08-02] MEDS ORDERED: HOME MED LIST COMPLETE! XX SCH (00:10)
[2024-08-02 00:48] LABS: APPEARANCE, URINE CLEAR (CLEAR); BACTERIA, URINE AUTO NEGATIVE (NEGATIVE); BILIRUBIN, URINE AUTO NEGATIVE (NEGATIVE); BLOOD, URINE BLOOD NEGATIVE (NEGATIVE); COLOR, URINE STRAW (YELLOW); GLUCOSE, URINE (UA) AUTO NEGATIVE (NEGATIVE); KETONE, URINE AUTO NEGATIVE (NEGATIVE); LEUKOCYTE ESTERASE, URINE AUTO NEGATIVE (NEGATIVE); NITRITE, URINE AUTO NEGATIVE (NEGATIVE); PROTEIN, URINE AUTO NEGATIVE (NEGATIVE); RBC, URINE AUTO 0 /HPF (0-3); SPECIFIC GRAVITY URINE AUTO 1.004 (1.002-1.035); SQUAMOUS EPITHELIAL CELL UR AU 0 /HPF (0-6); UROBILINOGEN, URINE AUTO 0.2 mg/dL (0.0-2.0); WBC, URINE AUTO 1 /HPF (0-3)
[2024-08-02] MEDS ORDERED: GLUCAGON INJ 1MG VIAL SC PRN (03:30)
[2024-08-02] MEDS ORDERED: DOCUSATE SODIUM 100MG CAPSULE PO PRN (03:30)
[2024-08-02] MEDS ORDERED: GLUCOSE 4 GM CHEW PO PRN (03:30)
[2024-08-02] MEDS ORDERED: DEXTROSE 50% 50ML SYRINGE IV PRN (03:30)
[2024-08-02] MEDS ORDERED: MIRALAX *UNIT DOSE* 17GM PACKET PO PRN (03:30)
[2024-08-02 07:04] LABS: HEMATOCRIT 32.8 % (42.0-52.0); HEMOGLOBIN 10.7 g/dl (13.5-17.5); MEAN CORPUSCULAR HEMOGLOBIN 31.3 pg (27.0-33.0); MEAN CORPUSCULAR HGB CONC 32.6 g/dl (32.0-36.5); MEAN CORPUSCULAR VOLUME 95.9 fl (80.0-96.0); PLATELET COUNT, AUTOMATED 296 10^3/uL (150-450); RED BLOOD COUNT 3.42 10^6/uL (4.30-6.10); WHITE BLOOD COUNT 3.5 10^3/uL (4.0-10.0)
[2024-08-02 07:17] LABS: ERYTHROCYTE SEDIMENTATION RATE 91 mm/hr (0-20)
[2024-08-02 07:25] LABS: HEMOGLOBIN A1c 6.5 % (4.0-6.0)
[2024-08-02] MEDS: INSULIN LISPRO (NovoLOG) PER UNIT SC SCH ×2 (07:30→21:00)
[2024-08-02 07:32] LABS: C REACTIVE PROTEIN QUANTITATIV 1.41 MG/DL (<1.0)
[2024-08-02 07:35] LABS: THYROID STIMULATING HORMONE 1.355 uIU/ML (0.55-4.78); THYROXINE (T4) 7.6 UG/DL (4.5-10.9)
[2024-08-02 07:39] LABS: PROCALCITONIN 0.11 ng/ml
[2024-08-02 07:40] LABS: ALBUMIN 2.4 G/DL (3.2-5.2); ALKALINE PHOSPHATASE 48 U/L (40-129); ALT/SGPT 15 U/L (7.0-40); AST/SGOT 30 U/L (<34); BILIRUBIN,TOTAL 0.4 MG/DL (0.3-1.2); BLOOD UREA NITROGEN 22 MG/DL (9-23); CALCIUM LEVEL 8.1 MG/DL (8.3-10.6); CARBON DIOXIDE LEVEL 29 MMOL/L (20-31); CHLORIDE LEVEL 107 MMOL/L (98-107); CHOLESTEROL LEVEL 119 MG/DL (<200); CHOLESTEROL RISK RATIO 3.09 (<5); FREE THYROXINE INDEX 3.7 % (1.4-3.8); GLOMERULAR FILTRATION RATE > 90.0 (>42); GLUCOSE, FASTING 97 MG/DL (74-106); HDL CHOLESTEROL 38.4 MG/DL (>40); LDL CHOLESTEROL 71.4 MG/DL (<100); NON-HDL-C 80.6 MG/DL; POTASSIUM SERUM 4.5 MMOL/L (3.5-5.1); SODIUM LEVEL 141 MMOL/L (136-145); T UPTAKE 48.3 % (22.5-37.0); TOTAL PROTEIN 6.3 G/DL (5.7-8.2); TRIGLYCERIDES LEVEL 46 MG/DL (<150)
[2024-08-02] MEDS: LanTUS (INSULIN GLARGINE INJ) 1 UNITS/0.01 ML SC SCH (08:03)
[2024-08-02] MEDS: amLODIPine 5 MG TAB PO ONE (08:05)
[2024-08-02] MEDS: traMADol 50 MG TAB PO PRN (08:20)
[2024-08-02] MEDS: VALSARTAN 80 MG TAB (DIOVAN) PO ONE (08:24)
[2024-08-02] MEDS: APIXABAN 5 MG TAB (ELIQUIS) PO SCH (08:24)
[2024-08-02] MEDS ORDERED: VALSARTAN 80 MG TAB (DIOVAN) PO SCH (09:00)
[2024-08-02] MEDS: NYSTATIN CREAM 15GM TOP SCH (12:13)
[2024-08-02] MEDS: traMADol 50 MG TAB PO ONE (22:40)
[2024-08-03 11:30] VITALS: BP 130/100; TEMP 98.6; O2SAT 99
[2024-08-03] MEDS: metroNIDAZOLE (FLAGYL) 500MG TABLET PO SCH (14:07)
[2024-08-03] MEDS: CEFDINIR 300 MG CAP (OMNICEF) PO SCH (14:07)
[2024-08-03 14:19] LABS: C REACTIVE PROTEIN QUANTITATIV 1.45 MG/DL (<1.0)
[2024-08-03 14:26] LABS: PROCALCITONIN 0.1 ng/ml
[2024-08-03 20:17] VITALS: BP 125/68; TEMP 98.4
[2024-08-04 05:16] VITALS: BP 131/75; TEMP 98.2
[2024-08-04 12:00] VITALS: BP 124/68; TEMP 98.2; O2SAT 96
[2024-08-04 20:20] VITALS: BP 134/75; TEMP 98.6; O2SAT 96
[2024-08-05 05:41] VITALS: BP 135/75; TEMP 98.1; O2SAT 97
[2024-08-05 09:34] LABS: BASO % 0.6 % (0.0-1.0); EOS # 0.1 10^3/uL (0.0-0.5); EOS % 1.9 % (0.0-3.0); HEMATOCRIT 37.1 % (42.0-52.0); HEMOGLOBIN 11.9 g/dl (13.5-17.5); LYMPH # 0.6 10^3/uL (1.5-5.0); LYMPH % 10.9 % (24.0-44.0); MEAN CORPUSCULAR HGB CONC 32.1 g/dl (32.0-36.5); MEAN CORPUSCULAR VOLUME 99.7 fl (80.0-96.0); MONO # 0.6 10^3/uL (0.0-0.8); MONO % 10.5 % (2.0-8.0); NEUTROPHILS % 75.9 % (36.0-66.0); PLATELET COUNT, AUTOMATED 329 10^3/uL (150-450); RED BLOOD COUNT 3.72 10^6/uL (4.30-6.10); WHITE BLOOD COUNT 5.3 10^3/uL (4.0-10.0)
[2024-08-05 09:53] LABS: BLOOD UREA NITROGEN 23 MG/DL (9-23); CALCIUM LEVEL 8.2 MG/DL (8.3-10.6); CARBON DIOXIDE LEVEL 28 MMOL/L (20-31); CHLORIDE LEVEL 101 MMOL/L (98-107); CREATININE FOR GFR 0.54 MG/DL (0.70-1.30); GLOMERULAR FILTRATION RATE > 90.0 (>42); GLUCOSE, FASTING 227 MG/DL (74-106); POTASSIUM SERUM 4.7 MMOL/L (3.5-5.1); SODIUM LEVEL 135 MMOL/L (136-145)
[2024-08-05 12:00] VITALS: BP 116/56; TEMP 99; O2SAT 100
[2024-08-05 20:43] VITALS: BP 130/60; TEMP 99.3; O2SAT 96
[2024-08-06 05:32] VITALS: BP 149/74; TEMP 98.1; O2SAT 96
[2024-08-06] MEDS: ONDANSETRON 4MG ORAL DISINTEGRATING TAB PO PRN (11:30)
[2024-08-06 12:00] VITALS: BP 132/60; TEMP 98.2
[2024-08-06 20:14] VITALS: BP 120/59; TEMP 98.2; O2SAT 96
[2024-08-07 05:02] VITALS: BP 120/59; TEMP 98.1; O2SAT 96
[2024-08-07 06:16] LABS: BASO % 0.3 % (0.0-1.0); EOS # 0.1 10^3/uL (0.0-0.5); EOS % 4.3 % (0.0-3.0); HEMATOCRIT 30.3 % (42.0-52.0); LYMPH # 0.5 10^3/uL (1.5-5.0); LYMPH % 15.8 % (24.0-44.0); MEAN CORPUSCULAR HEMOGLOBIN 31.8 pg (27.0-33.0); MEAN CORPUSCULAR HGB CONC 32.3 g/dl (32.0-36.5); MEAN CORPUSCULAR VOLUME 98.4 fl (80.0-96.0); MONO # 0.5 10^3/uL (0.0-0.8); MONO % 14.6 % (2.0-8.0); NEUTROPHILS # 2.1 10^3/uL (1.5-8.5); NEUTROPHILS % 64.7 % (36.0-66.0); PLATELET COUNT, AUTOMATED 261 10^3/uL (150-450); RED BLOOD COUNT 3.08 10^6/uL (4.30-6.10); WHITE BLOOD COUNT 3.3 10^3/uL (4.0-10.0)
[2024-08-07 06:17] LABS: HEMOGLOBIN 9.8 g/dl (13.5-17.5)
[2024-08-07 06:32] LABS: BLOOD UREA NITROGEN 26 MG/DL (9-23); CALCIUM LEVEL 7.9 MG/DL (8.3-10.6); CARBON DIOXIDE LEVEL 30 MMOL/L (20-31); CHLORIDE LEVEL 105 MMOL/L (98-107); CREATININE FOR GFR 0.55 MG/DL (0.70-1.30); GLOMERULAR FILTRATION RATE > 90.0 (>42); GLUCOSE, FASTING 163 MG/DL (74-106); POTASSIUM SERUM 4.7 MMOL/L (3.5-5.1); SODIUM LEVEL 139 MMOL/L (136-145)
[2024-08-07 08:44] VITALS: BP 123/68
[2024-08-07 10:42] VITALS: BP 122/68; TEMP 98.7; O2SAT 98
== END 2024-08-07 12:25 | disposition home health service (06) | DRG 551 ==
LOC: M ED 20:15 → EDBD 20:15 → M ED INP 08-03 10:19 → M MS5PR 08-03 11:32
PROVIDERS: ADMIT General Practice; ATTEND Internal Medicine Nephrology
DX: M47.816 Spondylosis without myelopathy or radiculopathy, lumbar region (principal); L89.154 Pressure ulcer of sacral region, stage 4; L89.324 Pressure ulcer of left buttock, stage 4; I48.21 Permanent atrial fibrillation; I10 Essential (primary) hypertension; E78.5 Hyperlipidemia, unspecified; E11.9 Type 2 diabetes mellitus without complications; M10.9 Gout, unspecified; R53.1 Weakness; M17.0 Bilateral primary osteoarthritis of knee; G47.33 Obstructive sleep apnea (adult) (pediatric); M16.0 Bilateral primary osteoarthritis of hip; Z85.46 Personal history of malignant neoplasm of prostate; Z85.810 Personal history of malignant neoplasm of tongue; Z86.14 Personal history of Methicillin resistant Staphylococcus aureus infection; Z86.718 Personal history of other venous thrombosis and embolism; Z90.49 Acquired absence of other specified parts of digestive tract; Z98.41 Cataract extraction status, right eye; Z98.42 Cataract extraction status, left eye; K59.00 Constipation, unspecified; Z79.01 Long term (current) use of anticoagulants; Z79.4 Long term (current) use of insulin; Z79.899 Other long term (current) drug therapy; Z92.3 Personal history of irradiation